=== PATIENT | female | born 1985 | race African-American/Black ===

== ENCOUNTER 2022-08-14 22:49 | Emergency (ER) | payer OTHER, SELFPAY ==
[2022-08-14 22:50] VITALS: BP 145/84; PULSE 81; RESP 16; TEMP 36.8; O2SAT 100; BMI 42.3
[2022-08-14 23:29] VITALS: BP 132/77; PULSE 63; RESP 16; TEMP 37.1; O2SAT 99
--- NOTE | 2022-08-14 23:34 | EDS_ITS ---
HPI History of Present Illness Chief Complaint: Wound Check Informant: patient Narrative Narrative: 12-day postop bilateral breast reduction [facility] Dr. lForentino (first name). Her follow-up is in 3 days. Normal wound care, tonight she touched her left lower wound area and noted concern for blood. Has been drainage increased. She came in for evaluation. She has no fevers no chills. She is cleared for dressing removal the following day. She has been using dressings for padding. She has been healing normally. She is not on any blood thinners. Prior similar symptoms: No PFSH PFSH Home Medications prenat.vits,robel,[id number] ( Vitamin tablet) 1 ea PO DAILY 02/03/17 [History Last Taken Unknown] Allergy/AdvReac Type Severity Reaction Status Date / Time latex Allergy Rash Verified 02/03/17 19:12 oxycodone Allergy Rash Verified 08/14/22 22:53 Social History Smoking Status: Never smoker ROS ROS ED Constitutional Constitutional ED: Denies chills, fever(s) or sweats Eyes Eyes: Denies change in vision ENT ENT ED: Denies dysphagia or sore throat Cardiovascular Cardiovascular: Denies chest pain, leg edema, palpitations or racing heartbeat Respiratory/Chest Respiratory/Chest: Denies cough, dyspnea or dyspnea on exertion Gastrointestinal Gastrointestinal: Denies abdominal pain, diarrhea, nausea or vomiting Genitourinary Genitourinary ED: Denies dysuria, hematuria or urinary frequency Musculoskeletal Musculoskeletal: Denies back pain, extremity pain or neck pain Integumentary Reports wounds; Denies rash Neurologic Neurologic: Denies headache(s), paresthesias or weakness EXAM Physical Exam Const Vital Signs: 08/14/22 22:50 08/14/22 23:29 Temperature 98.3 F 98.8 F Temperature Source Temporal Pulse Rate 81 63 Respiratory Rate 16 16 Blood Pressure 145/84 H 132/77 H Blood Pressure Mean 104 Pulse Ox 100 99 Oxygen Delivery Method Room Air Positive well nourished and well developed General Appearance ED: well developed and NAD HEENT Reports moist mucous membranes normocephalic and atraumatic Eyes PERRL, EOMs intact bilaterally and conjunctivae normal General Eye ED: Yes normal appearance of both eyes Neck no lymphadenopathy and supple General: Negative for tenderness Chest Wall Chest Narrative: Nursing present for examination of wound under left breast, there is serosanguineous drainage lower lateral aspect. There is no erythema of the wound there is no exudates. There is no indurations. Chest: Negative for tenderness Resp normal respiratory effort and normal air movement Effort and Inspection: symmetric chest movement; Negative for respiratory distress Cardio regular rate, regular rhythm and no murmurs Peripheral Pulses: pulses 2+ throughout GI normal to inspection, nondistended, normoactive bowel sounds and non-tender Palpation: Negative for guarding or rebound tenderness present Back/Spine no CVA tenderness and no thoracic nor lumbar tenderness Extremity normal to inspection General Extremety ED: Negative for edema or tenderness General Extremity: Negative for edema Neuro oriented x3 and no sensory deficits noted Sensorium / Orientation: awake and alert Skin no rashes or lesions noted and no wounds MDM MDM MDM Narrative Medical decision making narrative: Interventions / MDM: Differential diagnosis: Postop wound check Diagnosis considered but do not suspect: Infection however no clinical findings of this. My EKG interpretation: N/A Imaging independently reviewed and interpreted by myself: N/A External documents reviewed: N/A Test considered but not ordered:N/A ED course: Patient vital signs stable nontoxic evaluation of serosanguineous fluid drainage. There is no exudates. Likely postsurgical healing with fluid. There is no signs of infection. She is reassured she is provided dressings to help with absorption. She will call her surgeon tomorrow for discussion if she needs to be seen sooner otherwise she will keep her appointment on Monday. Return precautions discussed. All questions answered. Re-evaluation: stable Disposition discussed with patient/family/significant other: Patient Case discussed with consulting clinician: N/A Discharge Plan Triage Chief Complaint: Wound Check ED Provider: Stevie Leon Dx/Rx/DC Orders Clinical Impression: Encounter for post surgical wound check, S/P bilateral breast reduction Instructions: ED Post Op Wound Check, General Prescriptions: No Action Vitamin 1 EACH tablet 1 ea PO DAILY Primary Care Provider: Fausto Dleeon Referrals: Fausto Deleon DO [Primary Care Provider] - Activity Restrictions/Additional Instructions: Serosanguineous drainage from left side incision. Normal healing process no signs of infection. Call your surgeon tomorrow for discussion and if needed early evaluation then Monday. If you develop fevers or chills return to the ED. Disposition Disposition: Home, Self Care
== END 2022-08-14 23:35 | disposition home or self-care (01) ==
PROVIDERS: Emergency Provider Emergency Medicine; PCP Preventive Medicine Occupational Medicine; Visit Provider Emergency Medicine
DX: Z51.89 Encounter for other specified aftercare (principal)
CPT/HCPCS: 99282

== ENCOUNTER 2024-09-20 06:39 | Day surgery (SDC) | payer OTHER, SELFPAY ==
--- NOTE | 2024-08-28 12:53 | HP.PCM_ITS ---
History and Physical Date of Admission: 09/20/24 HPI: The patient is a 39 year old female presenting for pre-operative visit. She is scheduled for TLH, bilateral salpingectomy and cystoscopy, for adenomyosis, menorrhagia, deep dyspareunia and intramural uterine fibroid on 09/20/24. Procedure discussed along with risks, benefits and complications. Other alternatives discussed for management. Consent form signed? Yes. ? ? PAST MEDICAL HISTORY PAST MEDICAL HISTORYDiagnosisDate?Chiari I malformation (HCC)??Postoperative cellulitis of surgical wound01/11/2018 ? ? PAST SURGICAL HISTORY PAST SURGICAL HISTORYProcedureLateralityDate?APPENDECTOMY???CERCLAGE CERVIX PREG; VAG?2017?EXTRACTION ERUPTED TOOTH/EXR?07/10/2023?LAPAROSCOPIC CYSTECTOMY???Dermoid?PAST SURGICAL HISTORY OF?2018?Chiari Malformation Surgery ?REDUCTION OF LARGE BREAST?08/02/2022 ? ? ? CURRENT MEDICATIONS Current Outpatient MedicationsMedicationSigDispenseRefill ?multivit,thx,calcium,iron,mins (MULTIVITAMIN AND MINERAL ORAL)Take by mouth.??? No current facility-administered medications for this visit. ? ? ALLERGIES: Latex and Oxycodone ? PERSONAL HISTORY: SOCIAL HISTORY Social History?Tobacco Use?Smoking status:Never?Smokeless tobacco:NeverVaping Use?Vaping status:Never UsedSubstance Use Topics?Alcohol use:Yes??Comment: rarely?Drug use:No ? FAMILY HISTORY: FAMILY HISTORY FAMILY HISTORY ProblemRelationAge of Onset?Ovarian cancerMother?? 50's ?DiabetesFather??other ( Defects)Father??other (Endometriosis)Father??other (Other)Son?? tonsils adnoids/hernia repair?other (Other)Child?? lump on back - us ? ? REVIEW OF SYMPTOMS: GENERAL: denies fevers or chills ENDOCRINOLOGY: has not been on steroids Cardiology : denies palpitations or chest pain Respiratory: denies SOB or cough Hematology: denies history of prolonged bleeding or easy bruising or VTE Allergy: Denies history of personal or family history of allergy to anesthesia ? PHYSICAL EXAMINATION: ? VITALS: Blood pressure 124/78, pulse 61, resp. rate 16, height 158.8 cm (5' 2.5), weight 107.5 kg (237 lb), last menstrual period 06/10/2024, SpO2 98%. ? GENERAL: The patient is well nourished, well hydrated in no acute distress. , The patient is oriented to time, place, and person. NECK: Supple. No lynphadenopathy, normal thyroid, no thyromegaly. LUNGS: Clear to auscultation bilaterally. no wheezes, rhonchi or rales HEART: Regular rate and rhythm, Normal heart sounds, and No murmurs or gallops ? Pelvic US on 06/20/24: Impression The uterus is anteverted and measures 92 mm x 43 mm x 54 mm. The myometrium is heterogeneous, asymmetrically thickened, echogenic and is suggestive of adenomyosis. The endometrial thickness is 6.7 mm. The endometrium is inhomogenous however no discrete polyp is identified. There is a right lateral anterior wall intramural fibroid that measures 6 mm x 5 mm x 7 mm. The right ovary measures 43 mm x 22 mm x 21 mm. The left ovary measures 26 mm x 15 mm x 16 mm. There is trace free fluid visualized. ? ? IMPRESSION: menorrhagia, deep dyspareunia, adenomyosis, intramural uterine fibroid ? PLAN: The risks/benefits/alternatives and personal involved for the planned TLH, bilateral salpingectomy and cystoscopy were reviewed with the patient. Her questions were answered to her satisfaction and she desires to proceed. Consent was signed. I reviewed with her postop instructions and expectations. ? ? I have reviewed and updated past medical and surgical history, medications and allergies Assessment & Plan Assessment/Plan (1) Menorrhagia with regular cycle: (2) Deep dyspareunia: (3) Intramural uterine fibroid: (4) Adenomyosis:
[2024-09-17 12:04] LABS: Hematocrit 42.8 % (37-47); Hemoglobin 13.6 g/dL (12.0-15.0); Mean Corp Hgb Conc 31.8 g/dL (32-36); Mean Corpuscular Hgb 28.1 pg (27.0-32.0); Mean Corpuscular Volume 88.4 fL (81-99); Mean Platelet Vol. 12.2 fl (6.2-12.0); Platelet Count 272 K/mm3 (150-450); RBC Distribution Width CV 13.3 % (11.6-14.6); RBC Distribution Width SD 43.2 fl (35.1-43.9); Red Blood Count 4.84 M/mm3 (4.2-5.4); White Blood Count 8.7 K/mm3 (4.4-11.0)
[2024-09-17 12:51] LABS: Magnesium 1.8 mg/dL (1.5-2.2)
[2024-09-20] VITALS (15 sets, daily range): BP systolic 99–148; BP diastolic 69–94; PULSE 64–89; RESP 12–18; TEMP 2.2–36.8; O2SAT 92–100; BMI 43.9
--- OUTSIDE RECORDS SUMMARY | 2024-09-20 06:42 | XMS RPT_ITS | CCD ---
Author Organization [facility] Informat ion Partnership [facility] Care Team Providers Care Brain Picker Name Role Phone BIATS, FRANCY Mills Unavailable Unavailable BIATS, FRANCY Mills Unavailable Unavailable BIATS, FRANCY Mills Unavailable Unavailable BIATS, FRANCY Mills Unavailable Unavailable PASHA MENDIOLA (PA-C) Unavailable Unavaila ble BIATS, FRANCY Mills Unavailable Unavailable BIATS, FRANCY Mills Unavailable Unavailable BIATS, FRANCY Mills Unavailable Unavailable BIATS, FRANCY Mills Unavailable Unavailable DEBJAYLON Aviles F Unavailable Unavailable PASHA MENDIOLA Unavailable Unavailable DEBJAYLON Aviles F Unavailable Unavailable BIATS, FRANCY Mills Unavailable Unavailable DEBJAYOLN Aviles F Unavailable Unavailable BIATS, FRANCY Mills Unavailable Unavailable JAKUBEPASHA Mayo Unavailable Unavailable DEBJAYLON Aviles F Unavailable Unavailable BIATS, FRANCY Mills Unavailable Unavailable BIATS, FRANCY Mills Unavailable Unavailable DEBJAYLON Aviles Unavailable Unavailable BIATS, FRANCY Mills Unavailable Unavailable IMCA Unavailable Unavailable DEB, JAYLON F Unavailable Unavailable VORSTLEENA HERRERA Unavailable Unavaila ble JAYLON BOYD F Unavailable Unavailable FRANCY EDGE Unavailable Unavailable LEENA ZHAO Unavailable Unavaila ble LEENA ZHAO Unavailable Unavaila ble FIONASTLEENA HERRERA Unavailable Unavaila ble PASHA MENDIOLA (PA-C) Unavailable Unavaila ble FIONASTLEENA HERRERA Unavailable Unavaila LEENA Brown Unavailable Unavaila ble LEENA ZHAO Unavailable Unavaila ble VORSTLEENA HERRERA Unavailable Unavaila ble FIONASTLEENA HERRERA Unavailable Unavaila ble VORSTLEENA HERRERA Unavailable Unavaila ble Jaylon Boyd F Primary Care Provider Sandy Pedro Unavailable Jaylon Boyd DO Primary Care Provider Sandy Pedro Unavailable Jaylon Boyd DO Primary Care Provider JAYLON BOYD DO Attending Unavailable JAYLON BOYD DO Primary Care Unavailable WILLIE GUEVARA Attending Unavailable JAYLON BOYD Primary Care Unavailable JAYLON BOYD Primary Care Unavailable JAYLON BOYD Primary Care Unavailable WILLIE GUEVARA Attending Unavailable JAYLON BOYD Primary Care Unavailable JEANNETTE QUARLES Attending Unavailable JAYLON BOYD Primary Care Unavailable JEANNETTE QUARLES Attending Unavailable JAYLON BOYD Primary Care Unavailable WILLIE GUEVARA Attending Unavailable JAYLON BOYD Primary Care Unavailable WILLIE GUEVARA Referring Unavailable JAYLON BOYD Primary Care Unavailable Abad Parrish Attending Unavailable Jyalon Boyd Primary Care Unavailable Jeannette Quarles Attending Unavailable Jeannette Quarles Referring Unavailable Care Physician, No Primary Primary Care Unava ilable Allergies Allergy Classification Reported Allergen(s) Allergy Type Date of Onset Reaction(s) Facility (18 sources) Latex; Translations: [LATEX] Propensity to adverse reactions to drug (disorder) 6 Hives, Rash [facility] Repository (18 sources) oxyCODONE; Translations: [OXYCODONE] Drug Allergy 6 Mental Status Change [facility] Repository Medications Current Medications Medication Drug Class(es) Dates Sig (Normalized) Sig (Original) acetaminophen 500 mg oral tablet (1 source) Start: 08-28-2024 take 2 tablets by mouth every eight hours as needed acetaminophen (TYLENOL EXTRA STRENGTH) 500 mg tablet Take 2 tablets by mouth every 8 hours as needed for pain. take 2 tablets alone or one with a norco every 8 hours 90 tablet 1 08/28/2024 Active acetaminophen 325 mg / HYDROcodone bitartrate 5 mg oral tablet (1 source) Opioid Agonist Start: 08-28-2024 End: 09-04-2024 take 1 tablet by mouth every eight hours as needed for pain HYDROcodone-acetam inophen (NORCO) 5-325 mg per tablet Indications: Postoperative pain Take 1 tablet by mouth every 8 hours as needed for pain for up to 7 days. 10 tablet 08/28/2024 09/04/2024 Active docusate sodium 100 mg oral capsule (1 source) Start: 08-28-2024 take 1 capsule by mouth every twelve hours as needed docusate sodium (COLACE) 100 mg capsule Take 1 capsule by mouth two times a day as needed for constipation. 30 capsule 1 08/28/2024 Active ibuprofen 600 mg oral tablet (1 source) Nonsteroidal Anti-inflammatory Drug Start: 08-28-2024 take 1 tablet by mouth every six hours as needed ibuprofen (MOTRIN) 600 mg tablet Take 1 tablet by mouth every 6 hours as needed for pain. 60 tablet 1 08/28/2024 Active metroNIDAZOLE 500 mg oral tablet (1 source) Nitroimidazole Antimicrobial Start: 06-17-2024 End: 06-24-2024 take 1 tablet by mouth twice daily metroNIDAZOLE (FLAGYL) 500 mg tablet Take 1 tablet by mouth two times a day for 7 days. 14 tablet 06/17/2024 06/24/2024 Active multivit,thx,calciu m,iron,mins (MULTIVITAMIN AND MINERAL ORAL) (10 sources) multivit,thx,abby ci um,iron,mins (MULTIVITAMIN AND MINERAL ORAL) Take by mouth. Active multivit,thx,abby cium,iron,mins (MULTIVITAMIN AND MINERAL ORAL) Take by mouth. 0 Active Comment on above: Take by mouth. Problems Active Problems Problem Classification Problem Date Documented Date Episodic/Chronic Abdominal pain (4 sources) Pain in female pelvis; Translations: [Pelvic and perineal pain] Onset: 06-20-2024 06-14-2024 Episodic Benign neoplasm of uterus (9 sources) Intramural leiomyoma of uterus; Translations: [Intramural leiomyoma of uterus] Onset: 06-20-2024 06-20-2024 Episodic Endometriosis (4 sources) Uterine adenomyosis; Translations: [Adenomyosis of the uterus] 06-20-2024 Chronic Headache, including migraine (1 source) Headache; Translations: [Headache] Onset: 01-10-2018 Episodic Headache; including migraine (2 sources) Migraine; Translations: [Migraine, unspecified, not intractable, without status migrainosus] Onset: 11-25-2014 07-19-2024 Chronic Menstrual disorders (4 sources) Menorrhagia; Translations: [Excessive and frequent menstruation with regular cycle] Onset: 08-28-2024 08-28-2024 Chronic Other eye disorders (10 sources) Posterior vitreous detachment of right eye; Translations: [Vitreous degeneration, right eye] Onset: 05-18-2017 05-18-2017 Chronic Other female genital disorders (2 sources) Other specified abnormal uterine and vaginal bleeding; Translations: [Other specified abnormal uterine and vaginal bleeding] Onset: 05-23-2017 Chronic Other female genital disorders (1 source) Pain in female genitalia on intercourse; Translations: [Unspecified dyspareunia] 06-26-2024 Chronic Other female genital disorders (2 sources) Deep dyspareunia; Translations: [Deep dyspareunia] Onset: 07-19-2024 Chronic Other female genital disorders (2 sources) Vaginal discharge; Translations: [Other specified noninflammatory disorders of vagina] 06-14-2024 Episodic Other female genital disorders (1 source) Other specified noninflammatory disorders of vagina; Translations: [Vaginal discharge] Onset: 08-28-2024 Episodic Other nervous system disorders (4 sources) Compression of brain; Translations: [Compression of brain] Onset: 11-20-2017 Chronic Other nervous system disorders (10 sources) Chiari malformation type I; Translations: [Compression of brain] Onset: 12-20-2017 12-20-2017 Chronic Other nervous system disorders (2 sources) Other acute postprocedural pain; Translations: [Other acute postprocedural pain] Onset: 01-05-2018 Episodic Other nervous system disorders (1 source) Postoperative pain ; Translations: [Other acute postprocedural pain] 08-28-2024 Episodic Other nutritional; endocrine; and metabolic disorders (2 sources) Morbid (severe) obesity due to excess calories; Translations: [Morbid (severe) obesity due to excess calories] Onset: 11-21-2017 Chronic Other nutritional; endocrine; and metabolic disorders (10 sources) Body mass index 40+ - severely obese; Translations: [Morbid (severe) obesity due to excess calories] Onset: 11-21-2017 11-21-2017 Chronic Otitis media and related conditions (1 source) Dysfunction of right eustachian tube; Translations: [Other specified disorders of Eustachian tube, right ear] Episodic Residual codes; unclassified (1 source) Family history of malignant neoplasm of ovary; Translations: [Family history of malignant neoplasm of ovary] 06-14-2024 Episodic Unclassified (4 sources) Encounter for screening for malignant neoplasm of cervix; Translations: [Patient encounter status] Onset: 11-21-2017 12-16-2022 Episodic Unclassified (2 sources) Unknown / UNK(Unknown) Onset: 11-21-2017 Unclassified (1 source) Infection following a procedure, other surgical site, initial encounter; Translations: [Infection following a procedure, other surgical site, initial encounter] Onset: 01-10-2018 Unclassified (2 sources) Adenomyosis of the uterus; Translations: [Adenomyosis of the uterus] Onset: 08-28-2024 Past or Other Problems Problem Classification Problem Date Documented Date Episodic/Chronic Blindness and vision defects (20 sources) Unspecified visual disturbance; Translations: [Visual disturbance] Onset: 05-18-2017 05-18-2017 Episodic Complications of surgical procedures or medical care (10 sources) Post-operative wound cellulitis; Translations: [Infection following a procedure, other surgical site, initial encounter] Onset: 01-11-2018 01-11-2018 Episodic Diabetes or abnormal glucose tolerance complicating ; childbirth; or the puerperium (8 sources) Abnormal glucose level; Translations: [Abnormal glucose complicating ] Onset: 05-25-2016 Resolved: 11-15-2016 11-15-2016 Episodic Genitourinary symptoms and ill-defined conditions (2 sources) Dysuria; Translations: [Dysuria] Onset: 11-21-2017 Episodic Immunizations and screening for infectious disease (7 sources) Patient encounter status; Translations: [Encounter for screening for human papillomavirus (HPV)] Onset: 05-17-2024 12-16-2022 Episodic Other complications of (8 sources) Maternal obesity complicating , childbirth and the puerperium, antepartum; Translations: [Obesity complicating , first trimester] Onset: 02-08-2016 Resolved: 11-15-2016 11-15-2016 Chronic Other complications of (8 sources) Hyperemesis gravidarum; Translations: [Mild hyperemesis gravidarum] Onset: 02-08-2016 Resolved: 02-22-2016 02-22-2016 Episodic Other complications of (8 sources) High risk ; Translations: [Supervision of other high risk pregnancies, first trimester] Onset: 02-08-2016 Resolved: 11-15-2016 11-15-2016 Episodic Other complications of (8 sources) Vomiting of , unspecified; Translations: [Unspecified vomiting of , antepartum condition or complication] Onset: 02-08-2016 Resolved: 11-15-2016 11-15-2016 Episodic Other complications of (8 sources) Cervical cerclage suture present; Translations: [Maternal care for cervical incompetence, second trimester] Onset: 04-26-2016 Resolved: 11-15-2016 11-15-2016 Episodic Residual codes; unclassified (8 sources) Gestation period, 11 weeks; Translations: [11 weeks gestation of ] Onset: 02-08-2016 Resolved: 02-22-2016 02-22-2016 Episodic Unclassified (2 sources) Morbid (severe) obesity due to excess calories Onset: 11-21-2017 Results Test Name Value Interpretation Reference Range Facility CBC-Complete Blood Cnt No Di ffon 09-17-2024 Erythrocyte distribution width (RBC) [Ratio] 13.3 % Normal 11.6-14.6 [facility] Comment on above: Performed By: #### L 100.0500, L501.5200, BTSPAT, L400.7600 #### [facility] [address] [place], [address] Hematocrit (Bld) [Volume fraction] 42.8 % Normal 37-47 [facility] Comment on above: Performed By: #### L 100.0500, L501.5200, BTSPAT, L400.7600 #### [facility] [address] [place], [address] Hemoglobin (Bld) [Mass/Vol] 13.6 g/dL Normal 12.0-15.0 [facility] Comment on above: Performed By: #### L 100.0500, L501.5200, BTSPAT, L400.7600 #### [facility] [address] [place], [address] MCH (RBC) [Entitic mass] 28.1 pg Normal 27.0-32.0 [facility] Comment on above: Performed By: #### L 100.0500, L501.5200, BTSPAT, L400.7600 #### [facility] [address] [place], [address] MCHC (RBC) [Mass/Vol] 31.8 g/dL Low 32-36 [facility] Comment on above: Performed By: #### L 100.0500, L501.5200, BTSPAT, L400.7600 #### [facility] [address] [place], [address] MCV (RBC) [Entitic vol] 88.4 fL Normal 81-99 [facility] Comment on above: Performed By: #### L 100.0500, L501.5200, BTSPAT, L400.7600 #### [facility] [address] [place], [address] Platelet mean volume (Bld) [Entitic vol] 12.2 fL High 6.2-12.0 [facility] Comment on above: Performed By: #### L 100.0500, L501.5200, BTSPAT, L400.7600 #### [facility] [address] [place], [address] Platelets (Bld) [#/Vol] 272 10*3/uL Normal 150-450 [facility] Comment on above: Performed By: #### L 100.0500, L501.5200, BTSPAT, L400.7600 #### [facility] [address] [place], [address] RBC (Bld) [#/Vol] 4.84 10*6/uL Normal 4.2-5.4 [facility] Comment on above: Performed By: #### L 100.0500, L501.5200, BTSPAT, L400.7600 #### [facility] [address] [place], [address] RDW SD 43.2 fl Normal 35.1-43.9 [facility] Comment on above: Performed By: #### L 100.0500, L501.5200, BTSPAT, L400.7600 #### [facility] [address] [place], [address] WBC (Bld) [#/Vol] 8.7 10*3/uL Normal 4.4-11.0 [facility] Comment on above: Performed By: #### L 100.0500, L501.5200, BTSPAT, L400.7600 #### [facility] [address] [place], [address] Magnesiumon 09-17-2024 Magnesium [Mass/Vol] 1.8 mg/dL Normal 1.5-2.2 [facility] Comment on above: Performed By: #### L 100.0500, L501.5200, BTSPAT, L400.7600 #### [facility] [address] [place], [address] ,Urineon 09-17-2024 Beta HCG ( test) Ql (U) [facility] Comment on above: Result Comment: NOT LISSETH UNTIL [id number] Performed By: #### L 100.0500, L501.5200, BTSPAT, L400.7600 #### [facility] [address] [place], [address] INTERNAL QC OK? Normal [facility] Comment on above: Result Comment: NOT LISSETH UNTIL [id number] Performed By: #### L 100.0500, L501.5200, BTSPAT, L400.7600 #### [facility] [address] [place], [address] RECORD KIT LOT# Normal [facility] Comment on above: Result Comment: NOT LISSETH UNTIL [id number] Performed By: #### L 100.0500, L501.5200, BTSPAT, L400.7600 #### [facility] [address] [place], [address] Type AND Screen - PAT ONLYon 09-17-2024 Ab SCREEN GEL Negative Normal [facility] Comment on above: Order Comment: Surge ry Date: 09/20/24 Reason for Laboratory Test PRE-OP [id number] No N N S (B) TOTAL LAPAROSCOPIC HYSTERECTOMY, BILATERAL SALPING, Performed By: #### L 100.0500, L501.5200, BTSPAT, L400.7600 #### [facility] [address] [place], [address] BACTERIAL VAGINOSIS NAATon 0 08-28-2024 Lactobacillus crispatus+gasseri +jensenii + Gardnerella vaginalis + Atopobium vaginae rRNA SHREYAS+probe Ql (Vag fld) Not detected Normal Not detected [facility] Comment on above: Order Comment: Speci men Type: SWABOrdering Facility: [facility] Address: [address] [place] [address] Performed By: #### C VTV, BVAMP ####[facility] [id number] [place] [address] [place] ARIAN/TRICHOMONAS NAATon 0 08-28-2024 C. glabrata RNA SHREYAS+probe Ql (Vag fld) Not detected Normal Not detected [facility] Comment on above: Order Comment: Speci men Type: SWABOrdering Facility: [facility] Address: [address] [place] [address] Performed By: #### C VTV, BVAMP ####[facility] [id number] [address] [place] Arian sp DNA SHREYAS+probe Ql (Vag fld) Not detected Normal Not detected [facility] Comment on above: Order Comment: Speci men Type: SWABOrdering Facility: [facility] Address: [address] [place] [address] Result Comment: The Arian species group target includes C. albicans, C. tropicalis, C. parapsilosis, and C. dubliniensis. Performed By: #### C VTV, BVAMP ####[facility] [id number] [address] [facility] T. vaginalis DNA SHREYAS+probe Ql (Unsp spec) Not detected Normal Not detected [facility] Comment on above: Order Comment: Speci men Type: SWABOrdering Facility: [facility] Address: [address] [place] [address] Performed By: #### C VTV, BVAMP ####[facility] [id number] [address] [place] CNOVon 08-28-2024 CNOV Office Visit (OBGYWM ) NICOL HYMAN ([id number]) 1985 F Date Time Provider Department 08/28/24 11:40 AM JEANNETTE QUARLES OBGYWM During your visit today, we recorded the following information about you: Pulse Respiration Blood pressure Weight 61/minute 16/minute 124/78 107.5 kg Height 1.588 m Jeannette Quarles MD 08/28/2024 12:52 PM Signed Nicol Hyman is a 39 year old female who presents for problem visit for f/u menses and pain. HPI: 39 YOF who has completed child bearing presents for f/u for pain/fibroids and heavy menses. No new c/o today. Not bleeding today. Some vaginal discharge and h/o BV 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 LMP: 06/10/2024 (Exact Date), Having periods Age at Menarche: Age at First : Age at Menopause: [employer] History Comments: Sexual Activity: Yes; Male Contraception: Vasectomy PAST MEDICAL HISTORY Diagnosis Date Chiari I malformation (HCC) Postoperative cellulitis of surgical wound 01/11/2018 PAST SURGICAL HISTORY Procedure Laterality Date APPENDECTOMY CERCLAGE CERVIX PREG; VAG 2017 EXTRACTION ERUPTED TOOTH/EXR 07/10/2023 LAPAROSCOPIC CYSTECTOMY Dermoid PAST SURGICAL HISTORY OF 2018 Chiari Malformation Surgery REDUCTION OF LARGE BREAST 08/02/2022 FAMILY HISTORY Problem Relation Age of Onset Ovarian cancer Mother 50's Diabetes Father other ( Defects) Father other (Endometriosis) Father other (Other) Son tonsils adnoids/hernia repair other (Other) Child lump on back - Social History Tobacco Use Smoking status: Never Smokeless tobacco: Never Vaping Use Vaping status: Never Used Substance Use Topics Alcohol use: Yes Comment: rarely Drug use: No Current Outpatient Medications Medication Sig HYDROcodone-acetaminophen (NORCO) 5-325 mg per tablet Take 1 tablet by mouth every 8 hours as needed for pain for up to 7 days. ibuprofen (MOTRIN) 600 mg tablet Take 1 tablet by mouth every 6 hours as needed for pain. acetaminophen (TYLENOL EXTRA STRENGTH) 500 mg tablet Take 2 tablets by mouth every 8 hours as needed for pain. take 2 tablets alone or one with a norco every 8 hours docusate sodium (COLACE) 100 mg capsule Take 1 capsule by mouth two times a day as needed for constipation. multivit,thx,calcium,iron,mins (MULTIVITAMIN AND MINERAL ORAL) Take by mouth. No current facility-administered medications for this visit. Allergies As of Date: 08/28/2024 Allergen Noted Reaction LATEX 11/03/2015 Hives and Rash OXYCODONE 11/09/2015 Mental Status Change Fully Assessed 07/19/2024 RAllergies and current medication updated:Yes SENSITIVE EXAM: The sensitive examination was discussed with the Patient or Patient's Authorized Tying In Machine Operator. As applicable, any other physician, advance practice provider, medical student, or other health professional student that will be observing or involved in the sensitive examination for educational or training purposes was discussed with the Patient or Authorized Tying In Machine Operator. The Patient or Authorized Tying In Machine Operator has agreed to proceed with the sensitive examination. (Sensitive examination includes inspection and/or palpation of the breasts, pelvis, prostate and anorectal regions). EXAM: BP 124/78 Pulse 61 Resp 16 Ht 5' 2.5 (1.59m) Wt 237 lb (107.5kg) SpO2 98% LMP 06/10/2024 BMI 42.63 kg/(m2). GENERAL: pleasant, female in no apparent distress ABDOMEN: soft, non-tender, no hernia, and no masses PELVIC: external genitalia normal, normal Bartholin's glands, urethra, Eastland's glands, no vulvar lesions, no cervical lesions, good vaginal support, physiologic discharge present, normal appearing perineal body and perianal region BIMANUAL: uterus normal size, shape and consistency, no adnexal masses, and boggy, mobile, no descent ASSESSMENT AND PLAN: Assessment AND Plan Menorrhagia with regular cycle Orders: UA DIP,URINE HCG (POC) ENDOMETRIAL BIOPSY SURGICAL PATHOLOGY ARIAN/TRICHOMONAS NAAT BACTERIAL VAGINOSIS NAAT Intramural uterine fibroid Orders: UA DIP,URINE HCG (POC) ENDOMETRIAL BIOPSY SURGICAL PATHOLOGY Adenomyosis of the uterus Orders: UA DIP,URINE HCG (POC) ENDOMETRIAL BIOPSY SURGICAL PATHOLOGY Vaginal discharge screen today due to history and upcoming surgery Orders: ARIAN/TRICHOMONAS NAAT BACTERIAL VAGINOSIS NAAT Postoperative pain Orders: HYDROcodone-acetaminophen (NORCO) 5-325 mg per tablet; Take 1 tablet by mouth every 8 hours as needed for pain for up to 7 days. d/w her short and longterm risks w/ hyst. Desires to proceed. Declines or has failed other conservative optiobns. Understands she will be permanently unable to bear children in the future. D/w her postop restrictions. Change to TLH based on exam t (more content not included)... Normal [facility] HISTORY PHYSICALon HISTORY PHYSICAL HNO ID: [id number] Author: JEANNETTE QUARLES MD Service: ? Author Type: Physician Type: H&P Filed: 08/28/2024 12:52 Note Text: Pre-Op History and Physical HPI: The patient is a 39 year old female presenting for pre-operative visit. She is scheduled for TLH, bilateral salpingectomy and cystoscopy, for adenomyosis, menorrhagia, deep dyspareunia and intramural uterine fibroid on 09/20/24. Procedure discussed along with risks, benefits and complications. Other alternatives discussed for management. Consent form signed? Yes. PAST MEDICAL HISTORY Diagnosis Date Chiari I malformation (HCC) Postoperative cellulitis of surgical wound 01/11/2018 PAST SURGICAL HISTORY Procedure Laterality Date APPENDECTOMY CERCLAGE CERVIX PREG; VAG 2017 EXTRACTION ERUPTED TOOTH/EXR 07/10/2023 LAPAROSCOPIC CYSTECTOMY Dermoid PAST SURGICAL HISTORY OF 2018 Chiari Malformation Surgery REDUCTION OF LARGE BREAST 08/02/2022 Current Outpatient Medications Medication Sig Dispense Refill multivit,thx,calcium,iron,mins (MULTIVITAMIN AND MINERAL ORAL) Take by mouth. No current facility-administered medications for this visit. ALLERGIES: Latex and Oxycodone PERSONAL HISTORY: Social History Tobacco Use Smoking status: Never Smokeless tobacco: Never Vaping Use Vaping status: Never Used Substance Use Topics Alcohol use: Yes Comment: rarely Drug use: No FAMILY HISTORY: FAMILY HISTORY Problem Relation Age of Onset Ovarian cancer Mother 50's Diabetes Father other ( Defects) Father other (Endometriosis) Father other (Other) Son tonsils adnoids/hernia repair other (Other) Child lump on back - us REVIEW OF SYMPTOMS: GENERAL: denies fevers or chills ENDOCRINOLOGY: has not been on steroids Cardiology : denies palpitations or chest pain Respiratory: denies SOB or cough Hematology: denies history of prolonged bleeding or easy bruising or VTE Allergy: Denies history of personal or family history of allergy to anesthesia PHYSICAL EXAMINATION: VITALS: Blood pressure 124/78, pulse 61, resp. rate 16, height 158.8 cm (5' 2.5), weight 107.5 kg (237 lb), last menstrual period 06/10/2024, SpO2 98%. GENERAL: The patient is well nourished, well hydrated in no acute distress. , The patient is oriented to time, place, and person. NECK: Supple. No lynphadenopathy, normal thyroid, no thyromegaly. LUNGS: Clear to auscultation bilaterally. no wheezes, rhonchi or rales HEART: Regular rate and rhythm, Normal heart sounds, and No murmurs or gallops Pelvic US on 06/20/24: Impression The uterus is anteverted and measures 92 mm x 43 mm x 54 mm. The myometrium is heterogeneous, asymmetrically thickened, echogenic and is suggestive of adenomyosis. The endometrial thickness is 6.7 mm. The endometrium is inhomogenous however no discrete polyp is identified. There is a right lateral anterior wall intramural fibroid that measures 6 mm x 5 mm x 7 mm. The right ovary measures 43 mm x 22 mm x 21 mm. The left ovary measures 26 mm x 15 mm x 16 mm. There is trace free fluid visualized. IMPRESSION: menorrhagia, deep dyspareunia, adenomyosis, intramural uterine fibroid PLAN: The risks/benefits/alternatives and personal involved for the planned TLH, bilateral salpingectomy and cystoscopy were reviewed with the patient. Her questions were answered to her satisfaction and she desires to proceed. Consent was signed. I reviewed with her postop instructions and expectations. I have reviewed and updated past medical and surgical history, medications and allergies Jeannette Quarles M.D. Normal [facility] Pathology biopsy report Jose (Tiss)on 08-28-2024 AP DISCLAIMER Normal [facility] Comment on above: Order Comment: Speci men Type: TISSUE SPECIMENOrdering Facility: [facility] Address: [address] [place] [address] Result Comment: Eusebia hawk Developed Test (LDT) Disclaimer: Performance characteristics of immunohistochemical, immunofluorescent, and chromogenic in-situ hybridization tests have been determined by the performing laboratory within [facility]'s [facility] Pathology and Laboratory Medicine Department ([facility], [facility], [facility], [facility], [facility], [facility], or [facility]) in a manner consistent with CLIA requirements. One or more of these tests may not have been cleared or approved by the FDA. [facility] is regulated under CLIA as qualified to perform high-complexity testing. These tests are used for clinical purposes. These should not be regarded as investigational or for research. Positive and negative controls stain appropriately. Performed By: #### 6 6121-5 ####[facility] LABCLIA [id number] [place] [address] [place] CASE REPORT Normal [facility] Comment on above: Order Comment: Speci men Type: TISSUE SPECIMENOrdering Facility: [facility] Address: [address] [place] [address] Result Comment: Surg ica Pathology Report Case: [id number] Authorizing Provider: Jeannette Quarles MD Collected: 08/28/2024 12:17 PM Ordering Location: OB/Gynecology Received: 08/29/2024 07:16 AM Pathologist: Sandy Collier MD Specimen: Endometrium, Biopsy Performed By: #### 6 6121-5 ####[facility] LABCLIA [id number] [address] [place] [address] [place] CLINICAL HISTORY menorrhagia with regular cycle Normal [facility] Comment on above: Order Comment: Speci men Type: TISSUE SPECIMENOrdering Facility: [facility] Address: [address] [place] [address] Performed By: #### 6 6121-5 ####[facility] LABCLIA [id number] [address] [address] [place] FINAL DIAGNOSIS Normal [facility] Comment on above: Order Comment: Speci men Type: TISSUE SPECIMENOrdering Facility: [facility] Address: [address] [place] [address] Result Comment: Endo metrium, biopsy: - Early secretory pattern endometrium. at 1454 EDT Performed By: #### 6 6121-5 ####[facility] LABCLIA [id number] [address] [place] [address] [place] FINAL PERFORMING LAB Normal [facility] Comment on above: Order Comment: Speci men Type: TISSUE SPECIMENOrdering Facility: [facility] Address: [address] [place] [address] Result Comment: Diag nostic interpretation performed at: [facility], [address] [place] [address] [place] [address] CLIA# [id number] Blasting Helper: Justen Cueva MD Performed By: #### 6 6121-5 ####[facility] LABCLIA [id number] [address] [place] [address] [place] GROSS DESCRIPTION Normal [facility] Comment on above: Order Comment: Speci men Type: TISSUE SPECIMENOrdering Facility: [facility] Address: [address] [place] [address] Result Comment: A. E ndometrium, Biopsy Received in formalin are multiple bourgeois-brown, soft and feathery segments of tissue aggregating to 2.6 x 1.9 x 0.1 cm. Totally submitted in one cassette. Gross examination performed at [facility], [address] [place] [address] August 29, 2024 8:04 PM Performed By: #### 6 6121-5 ####[facility] LABCLIA [id number] [place] [address] [place] UA DIP,URINE HCG (POC)on Beta HCG ( test) Ql (U) Negative Negative [facility] Comment on above: Location:[facility], [address], [place], [address] Body Trimmer (POCT) Internal QC [place] [facility] Location:[facility], [facility] [address], [place], [address] [facility] POINT OF CARE [facility] CNOVon 06-26-2024 CNOV Office Visit (OBGYWM ) NICOL HYMAN ([id number]) 1985 F Date Time Provider Department 06/26/24 10:30 AM WILLIE GUEVARA OBGYWM During your visit today, we recorded the following information about you: Blood pressure Weight 118/80 106.7 kg Willie Guevara MD 06/26/2024 12:07 PM Signed Nicol Hyman is a 38 year old female who presents for problem visit for . HPI: She presents to discuss her US results and pelvic pain. Patient reports so much pain with intercourse that she is unable to be sexually active. This is very bothersome to her. 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 LMP: 06/10/2024 (Exact Date), Having periods Age at Menarche: Age at First : Age at Menopause: [employer] History Comments: Sexual Activity: Yes; Male Contraception: Vasectomy PAST MEDICAL HISTORY Diagnosis Date Chiari I malformation (HCC) Postoperative cellulitis of surgical wound 01/11/2018 PAST SURGICAL HISTORY Procedure Laterality Date APPENDECTOMY CERCLAGE CERVIX PREG; VAG 2017 EXTRACTION ERUPTED TOOTH/EXR 07/10/2023 LAPAROSCOPIC CYSTECTOMY Dermoid PAST SURGICAL HISTORY OF 2018 Chiari Malformation Surgery REDUCTION OF LARGE BREAST 08/02/2022 FAMILY HISTORY Problem Relation Age of Onset Ovarian cancer Mother 50's Diabetes Father other ( Defects) Father other (Endometriosis) Father other (Other) Son tonsils adnoids/hernia repair other (Other) Child lump on back - Social History Tobacco Use Smoking status: Never Smokeless tobacco: Never Vaping Use Vaping status: Never Used Substance Use Topics Alcohol use: Yes Comment: rarely Drug use: No Current Outpatient Medications Medication Sig multivit,thx,calcium,iron,mins (MULTIVITAMIN AND MINERAL ORAL) Take by mouth. No current facility-administered medications for this visit. Allergies As of Date: 06/26/2024 Allergen Noted Reaction LATEX 11/03/2015 Hives OXYCODONE 11/09/2015 Mental Status Change Fully Assessed 06/26/2024 Allergies and current medication updated:Yes SENSITIVE EXAM: Sensitive exam not performed. EXAM: BP 118/80 Wt 235 lb 3.2 oz (106.7kg) LMP 06/10/2024 GENERAL: pleasant, female in no apparent distress ASSESSMENT AND PLAN: Assessment AND Plan Adenomyosis of the uterus Dyspareunia, female Discussed R/B/A of treatment options. She declines a Mirena IUD and wishes to proceed with hysterectomy. Patient to schedule hysterectomy consult. Medical Decision Making: Problems: Moderate: New problem with uncertain prognosis Risk: Moderate: Moderate risk from testing/treatment Medical Decision Making Level: 4 - Moderate Willie Guevara MD Allergies As of Date: 06/26/2024 Noted Allergy Reaction LATEX 11/03/2015 4 - Hives OXYCODONE 11/09/2015 1 - Mental Status Change Date Reviewed: 06/26/2024 Reviewed by: Willie Guevara MD - Fully Assessed Reason for Visit: Follow Up [171] Cmt: From ultrasound Primary Visit Diagnosis:Adenomyosis of the uterus [N80.03] Other Visit Diagnosis:Dyspareunia, female [N94.10] Prescriptions as of 06/26/2024 - multivit,thx,calcium,iron,mins (MULTIVITAMIN AND MINERAL ORAL) Take by mouth. Problem List As Of Date 06/26/2024 Noted Resolved Hyperemesis complicating , antepartum *02/08/2016 02/22/2016 Obesity affecting in first trimester *02/08/2016 11/15/2016 History of delivery, currently *02/08/2016 11/15/2016 11 weeks gestation of [Z3A.11] 02/08/2016 02/22/2016 Nausea and vomiting of , antepartum [O*02/08/2016 11/15/2016 Cervical cerclage suture present in second trim*04/26/2016 11/15/2016 Abnormal glucose complicating [O99.81*05/25/2016 11/15/2016 Episode of visual disturbance [H53.9] 05/18/2017 Posterior vitreous detachment of right eye [H43*05/18/2017 Other visual disturbances [H53.8] 05/22/2017 Obesity, Class III, BMI >= 40 [E66.01] 11/21/2017 Chiari malformation type I (HCC) [G93.5] 12/20/2017 Postoperative cellulitis of surgical wound [T81*01/11/2018 Intramural uterine fibroid [D25.1] 06/20/2024 Encounter Status:Closed by WILLIE GUEVARA on 06/26/24 Normal [facility] US Pelvison 06-20-2024 Indication pelvic pain, right lower quadrant. Dyspareunia Impression The uterus is anteverted and measures 92 mm x 43 mm x 54 mm. The myometrium is heterogeneous, asymmetrically thickened, echogenic and is suggestive of adenomyosis. The endometrial thickness is 6.7 mm. The endometrium is inhomogenous however no discrete polyp is identified. There is a right lateral anterior wall intramural fibroid that measures 6 mm x 5 mm x 7 mm. The right ovary measures 43 mm x 22 mm x 21 mm. The left ovary measures 26 mm x 15 mm x 16 mm. There is trace free fluid visualized. Recommendations Fibroid uterus. Clinical correlation is recommended. Ultrasound findings suggestive for adenomyosis. Clinical correlation is recommended. Consider SIS for further evaluation of endometrial cavity if clinically indicated. History Medical History Surgery: ovarian cyst removal Details: dermoid cyst removed, unsure which side Menstrual History LMP on 06/10/2024 Method Transabdominal, transvaginal, 3D ultrasound examination, Color Doppler examination. View: Adequate visualization Uterus Uterus: Visualized Uterus position: anteverted Description of uterine malformations: none Myometrium: heterogeneous, asymmetrically thickened, echogenic Endometrium: inhomogeneous Cervix details: cystic lesions identified suggesting superficial Nabothian cysts Uterus length 92 mm Uterus width 54 mm Uterus height 43 mm Uterus Vol 110.8 cm Endometrial thickness, total 6.7 mm Fibroids: Fibroids identified Uterine fibroid D1 6 mm Uterine fibroid D2 5 mm Uterine fibroid D3 7 mm Uterine fibroid mean 6.1 mm Uterine fibroid vol 0.115 cm Uterine fibroids findings: Right lateral anterior wall. intramural Polyps: No polyps identified Right Ovary Rt ovary: Visualized Rt ovary morphology: premenopausal normal follicular Rt ovary D1 43 mm Rt ovary D2 22 mm Rt ovary D3 21 mm Rt ovary Vol 10.6 cm Rt ovarian cyst(s): No cysts identified Left Ovary Lt ovary: Visualized Lt ovary morphology: premenopausal normal follicular Lt ovary D1 26 mm Lt ovary D2 15 mm Lt ovary D3 16 mm Lt ovary Vol 3.3 cm Lt ovarian cyst(s): No cysts identified Cul de Sac Visualized. free fluid visualized: trace Performed By: Lo Aleman RDMS Read By: Lyudmila Barba M.D. MATERNAL MEDICINE [facility] Radiology Study observation (narrative) [facility] BACTERIAL VAGINOSIS NAATon 0 06-14-2024 Lactobacillus crispatus+gasseri +jensenii + Gardnerella vaginalis + Atopobium vaginae rRNA SHREYAS+probe Ql (Vag fld) Detected Abnormal Not detected [facility] Comment on above: Order Comment: Speci men Type: SWABOrdering Facility: [facility] Address: [address] [place] [address] Performed By: #### 3 6902-5, BVAMP ####[facility] LABCLIA [id number] [address] [place] C. trachomatis+N. gonorrhoea e DNA SHREAYS+probe Ql (Unsp spec)on 06-14-2024 C. trachomatis rRNA SHREYAS+probe Ql (Unsp spec) Not detected Normal Not detected [facility] Comment on above: Order Comment: Speci men Type: SWABOrdering Facility: [facility] Address: [address] [place] [address] Performed By: #### 3 6902-5, BVAMP ####[facility] LABCLIA [id number] [address] [place] N. gonorrhoeae rRNA SHREYAS+probe Ql (Unsp spec) Not detected Normal Not detected [facility] Comment on above: Order Comment: Speci men Type: SWABOrdering Facility: [facility] Address: [address] [place] [address] Performed By: #### 3 6902-5, BVAMP ####[facility] LABIA [id number] [address] [place] ARIAN/TRICHOMONAS NAATon 0 06-14-2024 C. glabrata RNA SHREYAS+probe Ql (Vag fld) Not detected Normal Not detected [facility] Comment on above: Order Comment: Speci men Type: SWABOrdering Facility: [facility] Address: [address] [place] [address] Performed By: #### C VTV ####[facility] LABIA [id number] [address] [place] Arian sp DNA SHREYAS+probe Ql (Vag fld) Not detected Normal Not detected [facility] Comment on above: Order Comment: Speci men Type: SWABOrdering Facility: [facility] Address: [address] [place] [address] Result Comment: The Arian species group target includes C. albicans, C. tropicalis, C. parapsilosis, and C. dubliniensis. Performed By: #### C VTV ####[facility] LABCLIA [id number] [address] [place] T. vaginalis DNA SHREYAS+probe Ql (Unsp spec) Not detected Normal Not detected [facility] Comment on above: Order Comment: Speci men Type: SWABOrdering Facility: [facility] Address: [address] [place] [address] Performed By: #### C VTV ####[facility] LABCLIA [id number] [address] [place] CNOVon 06-14-2024 CNOV Office Visit (OBGYWM ) NICOL HYMAN ([id number]) 1985 F Date Time Provider Department 06/14/24 11:20 AM WILLIE GUEVARA OBROSITA During your visit today, we recorded the following information about you: Blood pressure Weight Last Period 126/84 105.2 kg 06/10/24 Willie Guevara MD 06/14/2024 11:53 AM Signed Nicol Hyman is a 38 year old female who presents for problem visit. HPI: Patient reports menses with clots 2 months ago. The past 2 weeks she reports pain with intercourse. Also she reports yellow-green discharge. Patient reports regular menses this month but had 2 days of spotting prior to menses (6 days of total bleeding) . 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 LMP: 12/26/2023 (Exact Date), Having periods Age at Menarche: Age at First : Age at Menopause: [employer] History Comments: Sexual Activity: Yes; Male Contraception: Vasectomy PAST MEDICAL HISTORY Diagnosis Date Chiari I malformation (HCC) Postoperative cellulitis of surgical wound 01/11/2018 PAST SURGICAL HISTORY Procedure Laterality Date APPENDECTOMY CERCLAGE CERVIX PREG; VAG 2017 EXTRACTION ERUPTED TOOTH/EXR 07/10/2023 LAPAROSCOPIC CYSTECTOMY Dermoid PAST SURGICAL HISTORY OF 2018 Chiari Malformation Surgery REDUCTION OF LARGE BREAST 08/02/2022 FAMILY HISTORY Problem Relation Age of Onset Ovarian cancer Mother Diabetes Father other ( Defects) Father other (Endometriosis) Father other (Other) Son tonsils adnoids/hernia repair other (Other) Child lump on back - us Social History Tobacco Use Smoking status: Never Smokeless tobacco: Never Vaping Use Vaping status: Never Used Substance Use Topics Alcohol use: Yes Comment: rarely Drug use: No Current Outpatient Medications Medication Sig multivit,thx,calcium,iron,mins (MULTIVITAMIN AND MINERAL ORAL) Take by mouth. No current facility-administered medications for this visit. Allergies As of Date: 06/14/2024 Allergen Noted Reaction LATEX 11/03/2015 Hives OXYCODONE 11/09/2015 Mental Status Change Fully Assessed 01/15/2024 Allergies and current medication updated:Yes SENSITIVE EXAM: The sensitive examination was discussed with the Patient or Patient's Authorized Tying In Machine Operator. As applicable, any other physician, advance practice provider, medical student, or other health professional student that will be observing or involved in the sensitive examination for educational or training purposes was discussed with the Patient or Authorized Tying In Machine Operator. The Patient or Authorized Tying In Machine Operator has agreed to proceed with the sensitive examination. (Sensitive examination includes inspection and/or palpation of the breasts, pelvis, prostate and anorectal regions). EXAM: LMP 12/26/2023 GENERAL: pleasant, female in no apparent distress PELVIC: external genitalia normal, normal Bartholin's glands, urethra, Eastland's glands, no vulvar lesions, no cervical lesions, good vaginal support, physiologic discharge present, normal appearing perineal body and perianal region ASSESSMENT AND PLAN: Assessment AND Plan Vaginal discharge Orders: ARIAN/TRICHOMONAS NAAT BACTERIAL VAGINOSIS NAAT GONORRHEA/CHLAMYDIA NAAT Pelvic pain in female Orders: PELVIC US WHI; Future GONORRHEA/CHLAMYDIA NAAT UA DIP, URINE (POC) Family history of ovarian cancer Screen for STD (sexually transmitted disease) Medical Decision Making: Problems: Moderate: New problem with uncertain prognosis Risk: Moderate: Drug management Medical Decision Making Level: 4 - Moderate MD Jessica Brooks [place], MA 06/14/2024 11:58 AM Signed Addended by: OLIVIA TODD on: 06/14/2024 11:58 AM Modules accepted: Orders Allergies As of Date: 06/14/2024 Noted Allergy Reaction LATEX 11/03/2015 4 - Hives OXYCODONE 11/09/2015 1 - Mental Status Change Date Reviewed: 06/14/2024 Reviewed by: Willie Guevara MD - Fully Assessed Reason for Visit: Vaginal Problem [117] Primary Visit Diagnosis:Vaginal discharge [N89.8] Other Visit Diagnoses:Pelvic pain in female [R10.2] Family history of ovarian cancer [Z80.41] Screen for STD (sexually transmitted disease) [Z11.3] Order(s):ARIAN/TRICHOMONAS NAAT [SQCVTV] Order #: [id number]. #:[id number] BACTERIAL VAGINOSIS NAAT [SQBVAMP] Order #: [id number]. #:[id number] PELVIC US WHI [[id number]] Order #: [id number]: 1 FUTURE GONORRHEA/CHLAMYDIA NAAT [SQGCCT] Order #: [id number]. #:[id number] Prescriptions as of 06/14/2024 - multivit,thx,calcium,iron,mins (MULTIVITAMIN AND MINERAL ORAL) Take by mouth. Problem List As Of Date 06/14/2024 Noted Resolved Hyperemesis complicating , antepartum *02/08/2016 02/22/2016 Obesity affecting in first trimester *02/08/2016 11/15/2016 (more content not included)... Normal [facility] CNNURSEon 05-17-2024 CNNURSE Nurse Visit (OBGYWM) NICOL HYMAN ([id number]) 1985 F Date Time Provider Department 05/17/24 4:00 PM NURSE COMMUNICATIONS ADVISOR [facility] OBGYWM During your visit today, we recorded the following information about you: Blood pressure Weight 130/88 106.1 kg Akshat Rondon MA 05/17/2024 4:03 PM Signed Patient identified by name and date of . Nicol Hyman is here for her HPV Gardasil vaccination, injection # three of the series. Patient ?No Gardasil injection was given without incident. See immunizations for details of immunizations administered today. VIS sheet provided: Yes Patient advised to follow up in Series completed Provider Jayne Cardona APRN CNM was present in office at time of injection. Akshat RondonSTELLAAkshat jaramillo STELLA 05/17/2024 3:56 PM Signed Gardasil Gardasil is a vaccine to protect against Human Papillomavirus (HPV) types 6, 11, 16, 18, 31,33,45, 52, 58. These viruses cause cancer and precancerous lesions on the cervix (opening between vagina and uterus), in the vagina and on the vulva (skin around the outside of the vagina) as well as genital warts. The vaccine cannot cause these diseases and cannot treat them if already present. Gardasil works best if given before contact with HPV. Most people are exposed to HPV soon after starting sexual activity. The vaccine is recommended between the ages of 9 and 45. Gardasil does not protect against all strains of HPV. Women who receive the vaccine still need to have regular pelvic exams and cervical cancer screening with the pap smear. You should ask your doctor if Gardasil is right for you if you have a weakened immune system, a bleeding disorder, plan to become soon or have a current illness causing fever. Gardasil is not recommended for women. You should be sure your doctor is aware of any allergies you have and all medications and herbal supplements you take. Gardasil is given to those ages 9-14 in 2 doses at 0 and 8 months. In ages 15-45, three injections are given at 0,2,6 months. Common side effects include pain, redness, itching and swelling at the injection site, nausea, fever, dizziness and fainting. Rare but potentially serious reactions have been reported. These include allergic reaction, swollen glands, joint and muscle pain, weakness and Guillain-[place] syndrome. Allergies As of Date: 05/17/2024 Noted Allergy Reaction LATEX 11/03/2015 4 - Hives OXYCODONE 11/09/2015 1 - Mental Status Change Date Reviewed: 01/15/2024 Reviewed by: Marie Steward RN - Fully Assessed Reason for Visit: Gardasil Injection [1654] Primary Visit Diagnosis:Need for prophylactic vaccination/inoculation against viral disease [Z23] Prescriptions as of 05/17/2024 - multivit,thx,calcium,iron,mins (MULTIVITAMIN AND MINERAL ORAL) Take by mouth. Problem List As Of Date 05/17/2024 Noted Resolved Hyperemesis complicating , antepartum *02/08/2016 02/22/2016 Obesity affecting in first trimester *02/08/2016 11/15/2016 History of delivery, currently *02/08/2016 11/15/2016 11 weeks gestation of [Z3A.11] 02/08/2016 02/22/2016 Nausea and vomiting of , antepartum [O*02/08/2016 11/15/2016 Cervical cerclage suture present in second trim*04/26/2016 11/15/2016 Abnormal glucose complicating [O99.81*05/25/2016 11/15/2016 Episode of visual disturbance [H53.9] 05/18/2017 Posterior vitreous detachment of right eye [H43*05/18/2017 Other visual disturbances [H53.8] 05/22/2017 Obesity, Class III, BMI >= 40 [E66.01] 11/21/2017 Chiari malformation type I (HCC) [G93.5] 12/20/2017 Postoperative cellulitis of surgical wound [T81*01/11/2018 Other instructions from your clinician: Gardasil Gardasil is a vaccine to protect against Human Papillomavirus (HPV) types 6, 11, 16, 18, 31,33,45, 52, 58. These viruses cause cancer and precancerous lesions on the cervix (opening between vagina and uterus), in the vagina and on the vulva (skin around the outside of the vagina) as well as genital warts. The vaccine cannot cause these diseases and cannot treat them if already present. Gardasil works best if given before contact with HPV. Most people are exposed to HPV soon after starting sexual activity. The vaccine is recommended between the ages of 9 and 45. Gardasil does not protect against all strains of HPV. Women who receive the vaccine still need to have regular pelvic exams and cervical cancer screening with the pap smear. You should ask your doctor if Gardasil is right for you if you have a weakened immune system, a bleeding disorder, plan to become soon or have a current illness causing fever. Gardasil is not recommended for women. You should be sure your doctor is aware of any allergies you have and all medications and herbal supplemen (more content not included)... Normal [facility] CNNURSEon 01-15-2024 CNNURSE Nurse Visit (OBGYWM) YENNINICOL ([id number]) 1985 F Date Time Provider Department 01/15/24 10:00 AM NURSE COMMUNICATIONS ADVISOR [facility] O[facility] During your visit today, we recorded the following information about you: Blood pressure Weight Last Period 114/74 104.7 kg 12/26/23 Marie Steward RN 01/15/2024 10:22 AM Signed Patient identified by name and date of . Nicol Cain Yenni is here for her HPV 9 vaccination, injection # two of the series. Patient ?No Gardasil injection was given without incident. See immunizations for details of immunizations administered today. VIS sheet provided: Yes Patient advised to follow up in 4 months from the 2nd injection Provider CARLOS was present in office at time of injection. VERNON Fountain Tara, RN 01/15/2024 10:09 AM Signed Gardasil Gardasil is a vaccine to protect against Human Papillomavirus (HPV) types 6, 11, 16, 18, 31,33,45, 52, 58. These viruses cause cancer and precancerous lesions on the cervix (opening between vagina and uterus), in the vagina and on the vulva (skin around the outside of the vagina) as well as genital warts. The vaccine cannot cause these diseases and cannot treat them if already present. Gardasil works best if given before contact with HPV. Most people are exposed to HPV soon after starting sexual activity. The vaccine is recommended between the ages of 9 and 45. Gardasil does not protect against all strains of HPV. Women who receive the vaccine still need to have regular pelvic exams and cervical cancer screening with the pap smear. You should ask your doctor if Gardasil is right for you if you have a weakened immune system, a bleeding disorder, plan to become soon or have a current illness causing fever. Gardasil is not recommended for women. You should be sure your doctor is aware of any allergies you have and all medications and herbal supplements you take. Gardasil is given to those ages 9-14 in 2 doses at 0 and 8 months. In ages 15-45, three injections are given at 0,2,6 months. Common side effects include pain, redness, itching and swelling at the injection site, nausea, fever, dizziness and fainting. Rare but potentially serious reactions have been reported. These include allergic reaction, swollen glands, joint and muscle pain, weakness and Guillain-[place] syndrome. Allergies As of Date: 01/15/2024 Noted Allergy Reaction LATEX 11/03/2015 4 - Hives OXYCODONE 11/09/2015 1 - Mental Status Change Date Reviewed: 01/15/2024 Reviewed by: Marie Steward RN - Fully Assessed Reason for Visit: HPV vaccine [Other] Primary Visit Diagnosis:Need for prophylactic vaccination/inoculation against viral disease [Z23] Prescriptions as of 01/15/2024 - multivit,thx,calcium,iron,mins (MULTIVITAMIN AND MINERAL ORAL) Take by mouth. Problem List As Of Date 01/15/2024 Noted Resolved Hyperemesis complicating , antepartum *02/08/2016 02/22/2016 Obesity affecting in first trimester *02/08/2016 11/15/2016 History of delivery, currently *02/08/2016 11/15/2016 11 weeks gestation of [Z3A.11] 02/08/2016 02/22/2016 Nausea and vomiting of , antepartum [O*02/08/2016 11/15/2016 Cervical cerclage suture present in second trim*04/26/2016 11/15/2016 Abnormal glucose complicating [O99.81*05/25/2016 11/15/2016 Episode of visual disturbance [H53.9] 05/18/2017 Posterior vitreous detachment of right eye [H43*05/18/2017 Other visual disturbances [H53.8] 05/22/2017 Obesity, Class III, BMI >= 40 [E66.01] 11/21/2017 Chiari malformation type I (HCC) [G93.5] 12/20/2017 Postoperative cellulitis of surgical wound [T81*01/11/2018 Other instructions from your clinician: Gardasil Gardasil is a vaccine to protect against Human Papillomavirus (HPV) types 6, 11, 16, 18, 31,33,45, 52, 58. These viruses cause cancer and precancerous lesions on the cervix (opening between vagina and uterus), in the vagina and on the vulva (skin around the outside of the vagina) as well as genital warts. The vaccine cannot cause these diseases and cannot treat them if already present. Gardasil works best if given before contact with HPV. Most people are exposed to HPV soon after starting sexual activity. The vaccine is recommended between the ages of 9 and 45. Gardasil does not protect against all strains of HPV. Women who receive the vaccine still need to have regular pelvic exams and cervical cancer screening with the pap smear. You should ask your doctor if Gardasil is right for you if you have a weakened immune system, a bleeding disorder, plan to become soon or have a current illness causing fever. Gardasil is not recommended for women. You should be sure your doctor is aware of any allergies you have and all medications and herbal sup (more content not included)... Normal [facility] .CCLNICOSon 11-16-2023 Cotinine <2 Normal <2 [facility] ([place]) Comment on above: Result Comment: Acti ve tobacco product user: Nicotine concentration: 30 - 50 ng/mL Cotinine concentration: 200 - 800 ng/mL Passive exposure to tobacco: Nicotine concentration: < 2 ng/mL Cotinine concentration: < 8 ng/mL Unexposed non-tobacco user or abstinent user for > 2 weeks: Nicotine concentration: < 2 ng/mL Cotinine concentration: < 2 ng/mL This test was developed and its performance characteristics determined by [facility]'s Jaylon Collado [facility] [place] ([facility]). It has not been cleared or approved by the FDA. [facility] is regulated under CLIA as qualified to perform high-complexity testing. This test is used for clinical purposes. It should not be regarded as investigational or for research. Performed By: [facility] [employer] [address] [place], [place] [id number] Shot Grinder Operator: Justen Cueva III, M.D. CLIA#: [id number] Performed By: #### C BC, LIPID, CMP, TSH, GFR, NICOT, ADIFF, ANEU #### [address] [address] Nicotine Lvl <2 Normal <2 [facility] ([place]) Comment on above: Result Comment: Perf ormed By: [place] [address] Shot Grinder Operator: Justen Cueva III, M.D. CLIA#: [id number] Performed By: #### C BC, LIPID, CMP, TSH, GFR, NICOT, ADIFF, ANEU #### [address] [address] .Auto Diffon 11-13-2023 Basophil, Absolute 0.0 10 3/mcL Normal 0.0-0.2 [facility] ([place]) Comment on above: Performed By: #### C BC, LIPID, CMP, TSH, GFR, NICOT, ADIFF, ANEU #### [address] [address] Basophils/100 WBC (Bld) 0.5 % Normal 0.0-2.5 [facility] ([place]) Comment on above: Performed By: #### C BC, LIPID, CMP, TSH, GFR, NICOT, ADIFF, ANEU #### [address] [address] Eosinophil, Absolute 0.0 10 3/mcL Normal 0.0-0.4 [facility] ([place]) Comment on above: Performed By: #### C BC, LIPID, CMP, TSH, GFR, NICOT, ADIFF, ANEU #### [address] [address] Eosinophils/100 WBC (Bld) 0.2 % Normal 0.0-7.0 [facility] ([place] Comment on above: Performed By: #### C BC, LIPID, CMP, TSH, GFR, NICOT, ADIFF, ANEU #### [address] [address] Lymphocyte, Absolute 1.6 10 3/mcL Normal 0.8-3.9 [facility] ([place] Comment on above: Performed By: #### C BC, LIPID, CMP, TSH, GFR, NICOT, ADIFF, ANEU #### [address] [address] Lymphocytes/100 WBC (Bld) 22.0 % Normal 10.0-50.0 [facility] ([place] Comment on above: Performed By: #### C BC, LIPID, CMP, TSH, GFR, NICOT, ADIFF, ANEU #### [address] [address] Monocyte, Absolute 0.6 10 3/mcL Normal 0.2-1.0 [facility] ([place] Comment on above: Performed By: #### C BC, LIPID, CMP, TSH, GFR, NICOT, ADIFF, ANEU #### [address] [address] Monocytes/100 WBC (Bld) 8.1 % Normal 1.7-13.0 [facility] ([place] Comment on above: Performed By: #### C BC, LIPID, CMP, TSH, GFR, NICOT, ADIFF, ANEU #### [address] [address] Neutrophils/100 WBC (Bld) 69.2 % Normal 37.0-80.0 [facility] ([place] Comment on above: Performed By: #### C BC, LIPID, CMP, TSH, GFR, NICOT, ADIFF, ANEU #### [address] [address] .GFRon 11-13-2023 GFR 85 ml/min/1.73sqm Normal [facility] ([place]) Comment on above: Result Comment: GFR Population mean for , Non- Americans Ages 20-29 = 116 mL/min/1.73 sq.m. Ages 30-39 = 107 mL/min/1.73 sq.m. Ages 40-49 = 99 mL/min/1.73 sq.m. Ages 50-59 = 93 mL/min/1.73 sq.m. Ages 60-69 = 85 mL/min/1.73 sq.m. Ages 70+ = 75 mL/min/1.73 sq.m. Chronic Kidney Disease: Less than 60 mL/min/1.73 square meters End Stage Renal Disease: Less than 15 mL/min/1.73 square meters Performed By: #### C BC, LIPID, CMP, TSH, GFR, NICOT, ADIFF, ANEU #### [address] [address] GFR Non- 70 ml/min/1.73sqm Normal [facility] ([place] Comment on above: Result Comment: GFR Population mean for , Non- Americans Ages 20-29 = 116 mL/min/1.73 sq.m. Ages 30-39 = 107 mL/min/1.73 sq.m. Ages 40-49 = 99 mL/min/1.73 sq.m. Ages 50-59 = 93 mL/min/1.73 sq.m. Ages 60-69 = 85 mL/min/1.73 sq.m. Ages 70+ = 75 mL/min/1.73 sq.m. Chronic Kidney Disease: Less than 60 mL/min/1.73 square meters End Stage Renal Disease: Less than 15 mL/min/1.73 square meters Performed By: #### C BC, LIPID, CMP, TSH, GFR, NICOT, ADIFF, ANEU #### [address] [address] .NEUABSon 11-13-2023 Neutrophil, Absolute 4.9 10 3/mcL Normal 2.9-6.2 [facility] ([place] Comment on above: Performed By: #### C BC, LIPID, CMP, TSH, GFR, NICOT, ADIFF, ANEU #### [address] [address] CBCon 11-13-2023 Erythrocyte distribution width (RBC) [Ratio] 14.3 % Normal 11.5-14.5 [facility] ([place] Comment on above: Performed By: #### C BC, LIPID, CMP, TSH, GFR, NICOT, ADIFF, ANEU #### [place] [id number] Hematocrit (Bld) [Volume fraction] 42.1 % Normal 37.0-47.0 [facility] ([place] Comment on above: Performed By: #### C BC, LIPID, CMP, TSH, GFR, NICOT, ADIFF, ANEU #### [place] [address] Hgb 13.9 G/dL Normal 12.0-16.0 [facility] ([place] Comment on above: Performed By: #### C BC, LIPID, CMP, TSH, GFR, NICOT, ADIFF, ANEU #### [place] [address] MCH (RBC) [Entitic mass] 29.1 pg Normal 27.0-31.2 [facility] [place] Comment on above: Performed By: #### C BC, LIPID, CMP, TSH, GFR, NICOT, ADIFF, ANEU #### [place] [address] MCHC 32.9 G/dL Low 33.0-37.0 [facility] ([place] Comment on above: Performed By: #### C BC, LIPID, CMP, TSH, GFR, NICOT, ADIFF, ANEU #### [place] [address] MCV (RBC) [Entitic vol] 88.5 fL Normal 80.0-94.0 [facility] [place] Comment on above: Performed By: #### C BC, LIPID, CMP, TSH, GFR, NICOT, ADIFF, ANEU #### [place] [address] Platelet 252 10 3/mcL Normal 130-400 [facility] ([place] Comment on above: Performed By: #### C BC, LIPID, CMP, TSH, GFR, NICOT, ADIFF, ANEU #### [address] [address] Platelet mean volume (Bld) [Entitic vol] 10.3 fL Normal 7.4-10.4 [facility] [place] Comment on above: Performed By: #### C BC, LIPID, CMP, TSH, GFR, NICOT, ADIFF, ANEU #### [address] [address] RBC 4.76 10 6/mcL Normal 4.20-5.40 [facility] ([place] Comment on above: Performed By: #### C BC, LIPID, CMP, TSH, GFR, NICOT, ADIFF, ANEU #### [address] [address] WBC 7.1 10 3/mcL Normal 4.6-10.8 [facility] ([place] Comment on above: Performed By: #### C BC, LIPID, CMP, TSH, GFR, NICOT, ADIFF, ANEU #### [address] [address] CMPon 11-13-2023 Albumin Level 4.0 G/dL Normal 3.5-5.0 [facility] ([place] Comment on above: Performed By: #### C BC, LIPID, CMP, TSH, GFR, NICOT, ADIFF, ANEU #### [address] [address] Albumin/Globulin [Mass ratio] 1.0 {ratio} Low 1.1-2.5 [facility] [place] Comment on above: Performed By: #### C BC, LIPID, CMP, TSH, GFR, NICOT, ADIFF, ANEU #### [address] [address] ALP [Catalytic activity/Vol] 84 U/L Normal 40-135 [facility] ([place] Comment on above: Performed By: #### C BC, LIPID, CMP, TSH, GFR, NICOT, ADIFF, ANEU #### [address] [address] ALT [Catalytic activity/Vol] 27 U/L Normal 14-59 [facility] [place] Comment on above: Performed By: #### C BC, LIPID, CMP, TSH, GFR, NICOT, ADIFF, ANEU #### [address] [address] AST [Catalytic activity/Vol] 21 U/L Normal 10-40 [facility] ([place] Comment on above: Performed By: #### C BC, LIPID, CMP, TSH, GFR, NICOT, ADIFF, ANEU #### [address] [address] Bili Total 0.6 mg/dL Normal 0.2-1.0 [facility] ([place] Comment on above: Result Comment: Use of this assay is not recommended for patients undergoing treatment with eltrombopag due to the potential for falsely elevated results. Performed By: #### C BC, LIPID, CMP, TSH, GFR, NICOT, ADIFF, ANEU #### [address] [address] BUN/Creatinine Ratio 7 ratio Normal 7-27 [facility] [place] Comment on above: Performed By: #### C BC, LIPID, CMP, TSH, GFR, NICOT, ADIFF, ANEU #### [address] [address] Calcium [Mass/Vol] 9.4 mg/dL Normal 8.4-10.2 [facility] [place] Comment on above: Performed By: #### C BC, LIPID, CMP, TSH, GFR, NICOT, ADIFF, ANEU #### [address] [address] Chloride [Moles/Vol] 102 mmol/L Normal 98-107 [facility] ([place] Comment on above: Performed By: #### C BC, LIPID, CMP, TSH, GFR, NICOT, ADIFF, ANEU #### [address] [address] CO2 [Moles/Vol] 25 mmol/L Normal 22-29 [facility] [place] Comment on above: Performed By: #### C BC, LIPID, CMP, TSH, GFR, NICOT, ADIFF, ANEU #### [address] [address] Creatinine [Mass/Vol] 0.90 mg/dL Normal 0.55-1.02 [facility] ([place] Comment on above: Performed By: #### C BC, LIPID, CMP, TSH, GFR, NICOT, ADIFF, ANEU #### [address] [address] Electrolyte Balance 14.0 mEq/L Normal 4.0-15.0 [facility] [place] Comment on above: Performed By: #### C BC, LIPID, CMP, TSH, GFR, NICOT, ADIFF, ANEU #### [address] [address] Globulin 3.9 G/dL Normal [facility] ([place] Comment on above: Performed By: #### C BC, LIPID, CMP, TSH, GFR, NICOT, ADIFF, ANEU #### [address] [address] Glucose [Mass/Vol] 79 mg/dL Normal 70-105 [facility] ([place] Comment on above: Performed By: #### C BC, LIPID, CMP, TSH, GFR, NICOT, ADIFF, ANEU #### [address] [address] Potassium [Moles/Vol] 4.3 mmol/L Normal 3.5-5.1 [facility] [place] Comment on above: Performed By: #### C BC, LIPID, CMP, TSH, GFR, NICOT, ADIFF, ANEU #### [address] [address] Sodium [Moles/Vol] 141 mmol/L Normal 136-145 [facility] ([place] Comment on above: Performed By: #### C BC, LIPID, CMP, TSH, GFR, NICOT, ADIFF, ANEU #### [address] [address] Total Protein 7.9 G/dL Normal 6.4-8.2 [facility] ([place] Comment on above: Performed By: #### C BC, LIPID, CMP, TSH, GFR, NICOT, ADIFF, ANEU #### [address] [address] Urea nitrogen [Mass/Vol] 6 mg/dL Low 7-18 [facility] ([place] Comment on above: Performed By: #### C BC, LIPID, CMP, TSH, GFR, NICOT, ADIFF, ANEU #### [address] [address] LIPIDon 11-13-2023 Cholesterol [Mass/Vol] 203 mg/dL High 0-200 [facility] ([place] Comment on above: Result Comment: Chol esterol Reference Interval: Less than 200 Desirable 200-239 Borderline high risk 240 and above High risk Performed By: #### C BC, LIPID, CMP, TSH, GFR, NICOT, ADIFF, ANEU #### [address] [address] Cholesterol in HDL [Mass/Vol] 76 mg/dL High 40-60 [facility] ([place] Comment on above: Performed By: #### C BC, LIPID, CMP, TSH, GFR, NICOT, ADIFF, ANEU #### [address] [address] Cholesterol in LDL [Mass/Vol] 115 mg/dL Normal 0-130 [facility] ([place] Comment on above: Performed By: #### C BC, LIPID, CMP, TSH, GFR, NICOT, ADIFF, ANEU #### [address] [address] Triglyceride [Mass/Vol] 61 mg/dL Normal 0-150 [facility] ([place] Comment on above: Result Comment: Trig lyceride Reference Interval: Less than 150 Normal 150-199 Borderline high risk 200-499 High risk 500 or higher Very high risk Performed By: #### C BC, LIPID, CMP, TSH, GFR, NICOT, ADIFF, ANEU #### [address] [address] TSHon 11-13-2023 TSH Qn 1.45 m[IU]/L Normal 0.36-3.74 [facility] ([place] Comment on above: Performed By: #### C BC, LIPID, CMP, TSH, GFR, NICOT, ADIFF, ANEU #### [place] [id number] [place], [place] [address] CNOVon 11-10-2023 CNOV Office Visit (OBGYWM ) YENNINICOL ([id number]) 1985 F Date Time Provider Department 11/10/23 3:40 PM WILLIE GUEVARA OBGYWM During your visit today, we recorded the following information about you: Blood pressure Weight Height Last Period 130/72 101.6 kg 1.588 m 11/04/23 Willie Guevara MD 11/10/2023 4:20 PM 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 Nicol is a 38 year old who presents for an annual gynecologic exam without complaints. Menses: cycles every 28-30 days and 4 days of flow. Contraception: vasectomy HPV vaccine: No Last Pap: 12/23/2022 normal HPV: 12/19/2022 positive History of abnormal pap: HRHPV positive 2022 Last mammogram: never OB History T2 L3 SAB0 IAB0 Ectopic0 Multiple0 Live Births3 [employer] History LMP: 11/04/2023 (Exact Date), Having periods Age at Menarche: Age at First : Age at Menopause: [employer] History Comments: Sexual Activity: Yes; Male Contraception: Vasectomy PAST MEDICAL HISTORY No date: Chiari I malformation (HCC) 01/11/2018: Postoperative cellulitis of surgical woundPAST SURGICAL HISTORY No date: APPENDECTOMY 2017: CERCLAGE CERVIX PREG; VAG 07/10/2023: EXTRACTION ERUPTED TOOTH/EXR No date: LAPAROSCOPIC CYSTECTOMY Comment: Dermoid 2018: PAST SURGICAL HISTORY OF Comment: Chiari Malformation Surgery 08/02/2022: REDUCTION OF LARGE BREAST FAMILY HISTORY Problem Relation Age of Onset Ovarian cancer Mother Diabetes Father other ( Defects) Father other (Endometriosis) Father other (Other) Son tonsils adnoids/hernia repair other (Other) Child lump on back - SOCIAL HISTORY Social History Tobacco Use Smoking status: Never Smokeless tobacco: Never Vaping Use Vaping Use: Never used Substance Use Topics Alcohol use: Yes Comment: rarely Drug use: No REVIEW OF SYSTEMS Abdomen: No abdominal pain, nausea, vomiting, diarrhea, or constipation. No bloating, early satiety, indigestion, or increased flatulence. Bladder: No dysuria, gross hematuria, urinary frequency, urinary urgency, or incontinence. Breast: No breast lumps, nipple d/c, overlying skin changes, redness or skin retraction. Allergies and current medication updated:Yes EXAM: BP 130/72 Ht 5' 2.5 (1.59m) Wt 224 lb (101.6kg) LMP 11/04/2023 BMI 40.29 kg/(m2). GENERAL: pleasant, female in no apparent distress BREAST: soft, non-tender, symmetric, no dominant mass, normal nipple-areolar complex, no lymphadenopathy, and no nipple discharge CHEST: Normal inspiratory effort ABDOMEN: soft, non-tender, and no masses PELVIC: external genitalia normal, normal Bartholin's glands, urethra, Eastland's glands, no vulvar lesions, no cervical lesions, good vaginal support, physiologic discharge present, normal appearing perineal body and perianal region BIMANUAL: uterus normal size, shape and consistency, no adnexal masses, and non-tender RECTOVAGINAL: deferred. NEURO: alert and oriented x3,exam grossly non-focal EXTREMITIES: normal ASSESSMENT/PLAN: 1) Health maintenance: Pap done with HPV. Mammogram starting age 40. Nutrition, exercise and routine health maintenance exams reviewed. Calcium/Vitamin D supplementation information provided. HPV vaccine: ordered 2) Contraception: vasectomy. Contraceptive options reviewed and information provided. 3) Follow up one year or sooner as needed MD Jonh Brooks [place], [place] 11/10/2023 4:20 PM Signed Patient identified by name and date of . Nicol Hyman is here for her HPV 9 vaccination, injection # one of the series. Patient ?No Gardasil injection was given without incident. See immunizations for details of immunizations administered today. VIS sheet provided: Yes Patient advised to follow up in 2 months from the 1st injection Provider Cleve was present in office at time of injection. STELLA Sims Karmon, MD 11/10/2023 4:20 PM Addendum Gardasil Gardasil is a vaccine to protect against Human Papillomavirus (HPV) types 6, 11, 16, 18, 31,33,45, 52, 58. These viruses cause cancer and precancerous lesions on the cervix (opening between vagina and uterus), in the vagina and on the vulva (skin around the outside of the vagina) as well as genital warts. The vaccine cannot cause these diseases and cannot treat them if already present. Gardasil works best if given before contact with HPV. Most people are exposed to HPV soon after starting sexual activity. The vaccine is recommended between the ages of 9 and 45. Gardasil does not protect against all strains of HPV. Women who receive the vaccine still need to have regular pelvic exams and cervical cancer screening with the pap smear. You should ask your doctor if Gardasil is right for you if you have a weakened immune system, a bleeding disorder, plan to become pregn (more content not included)... Normal [facility] HIGH RISK HUMAN PAPILLOMA MANUEL (HPV), PCR FOR DETECTION AND GENOTYPINGon 11-10-2023 HPV 16 Ag Ql (Unsp spec) Not detected Normal Not detected [facility] Comment on above: Order Comment: Speci men Type: FLUID SPECIMENOrdering Facility: [facility] Address: [address] [place] [address] Performed By: #### H PVHRT, [id number] ####[facility] [id number] [place] [address] [place] HPV 18 Ag Ql (Unsp spec) Not detected Normal Not detected [facility] Comment on above: Order Comment: Speci men Type: FLUID SPECIMENOrdering Facility: [facility] Address: [address] [place] [address] Performed By: #### H PVHRT, [id number] ####[facility] [employer] [id number] [place] [address] [place] HPV 31+33+35+39+45+51 +52+56+58+59+66+6 8 DNA SHREYAS+probe Ql (Cvx) Not detected Normal Not detected [facility] Comment on above: Order Comment: Speci men Type: FLUID SPECIMENOrdering Facility: [facility] Address: [address] [place] [address] Result Comment: High Risk HPV Other Type includes HPV types 31, 33, 35, 39, 45, 51, 52, 56, 58, 59, 66 and 68. Performed By: #### H PVHRT, [id number] ####[facility] [id number] [place] [address] [place] PAP TESTon 11-10-2023 ADEQUACY Satisfactory for interpretation. Normal [facility] Comment on above: Order Comment: Speci men Type: FLUID SPECIMENOrdering Facility: [facility] Address: [address] [place] [address] Performed By: #### H PVHRT, [id number] ####[facility] LABCLIA [id number] [place] [address] [place] CASE REPORT Normal [facility] Comment on above: Order Comment: Speci men Type: FLUID SPECIMENOrdering Facility: [facility] Address: [address] [place] [address] Result Comment: Gyne cologic Cytology Report Case: [id number] Authorizing Provider: Willie Guevara MD Collected: 11/10/2023 04:06 PM Ordering Location: OB/Gynecology Received: 11/10/2023 04:55 PM First Screen: Reyes, Ingrid, CT, ASCP Specimen: Pap Test, ThinPrep, Cervix Performed By: #### H PVHRT, [id number] ####[facility] [facility] LABCLIA [id number] [place] [address] [place] CLINICAL HISTORY, CYTOLOGY, COMPRESSED GAS EQUIPMENT MECHANIC Positive Normal [facility] Comment on above: Order Comment: Speci men Type: FLUID SPECIMENOrdering Facility: [facility] Address: [address] [place] [address] Performed By: #### H PVHRT, [id number] ####[facility] LABCLIA [id number] [place] [address] [place] FINAL PERFORMING LAB Normal [facility] Comment on above: Order Comment: Speci men Type: FLUID SPECIMENOrdering Facility: [facility] Address: [address] [place] [address] Result Comment: Tech nical component, executive legal secretary screening performed at [facility], [address] [place] [address] [place] [address] CLIA# [id number] Diagnostic interpretation performed at [facility], [address] [place], [place] [address] CLIA# [id number] Blasting Helper: Justen Cueva M.D. Performed By: #### H PVHRT, [id number] ####[facility] LABCLIA [id number] [place] [address] [place] HPV REFLEX Yes HPV Normal [facility] Comment on above: Order Comment: Speci men Type: FLUID SPECIMENOrdering Facility: [facility] Address: [address] [place] [address] Performed By: #### H PVHRT, [id number] ####[facility] LABCLIA [id number] [place] [address] [place] INTERPRETATION, CYTOLOGY, COMPRESSED GAS EQUIPMENT MECHANIC Normal [facility] Comment on above: Order Comment: Speci men Type: FLUID SPECIMENOrdering Facility: [facility] Address: [address] [place] [address] Result Comment: Nega tive for intraepithelial lesion or malignancy. Performed By: #### H PVHRT, [id number] ####[facility] LABCLIA [id number] [place] [id number] [place] LMP 11/04/2023 Normal [facility] Comment on above: Order Comment: Speci men Type: FLUID SPECIMENOrdering Facility: [facility] Address: [address] [place] [address] Performed By: #### H PVHRT, [id number] ####[facility] LABCLIA [id number] [address] [place] PAP DISCLAIMER COMMENT The Pap Smear is a screening test for cervical cancer. False negative results occur with all screening tests, emphasizing the need for rescreening at recommended intervals, and clinical correlation. Normal [facility] Comment on above: Order Comment: Speci men Type: FLUID SPECIMENOrdering Facility: [facility] Address: [address] [place] [address] Performed By: #### H PVHRT, [id number] ####[facility] LABCLIA [id number] [address] [place] PAP DISPLAY AND BANNER DESIGNER COMMENT This specimen has been analyzed by the ThinPrep Imaging System, an automated imaging and review system, which assists the laboratory in evaluating cells on ThinPrep Pap tests. Following automated imaging, selected christensen from every slide are reviewed by a executive legal secretary. Normal [facility] Comment on above: Order Comment: Speci men Type: FLUID SPECIMENOrdering Facility: [facility] Address: [address] [place] [address] Performed By: #### H PVHRT, [id number] ####[facility] LABCLIA [id number] [address] [place] CASE MANAGEMon 01-16-2018 CASE MANAGEM HNO ID: [id number] thor: Audrey Webber (Sw): Care ManagementAuthor Type: Social WorkerType: Care Mgt Progress NoteFiled: 01/16/2018 2:08 PMNote Text:CARE MANAGEMENT DISCHARGE NOTESERVICE DATE: 01/16/2018SERVICE TIME: 2:08 PM LOS: 4 daysPt's to transport home at 5pm. [place] skilled needs [place] care.SIGNATURE: BRAYAN Bernal PATIENT NAME: Nicol HymanDATE: January 16, 2018 : 2:08 PM PAGER/CONTACT #: [phone] [facility] 01-16-2018 [facility] HNO ID: [id number] thor: Pasha Taylorice: NeurosurgeryAuthor Type: Physician AssistantType: Discharge SummariesFiled: 01/18/2018 1:26 PMNote Text: Attestation signed by Leena Zhao at 01/18/2018 1:52 Kathya Zhao MD DISCHARGE SUMMARYPATIENT NAME: Nicol Hyman ADMISSION DATE: 01/10/2018MRN: [id number] DISCHARGE DATE: 01/16/2018Attending Physician[facility] Phys[facility]: Jaylon Boyd DO Code Status: Not on fileHighest Readmission Risk Score: 11The 30 day readmissions risk score is derived from an internally validatedrisk model which evaluates patient level characteristics, utilizationhistory, medication orders and lab results up until the day of discharge.Patients with a score of 40 or above are considered highest risk forreadmission. Specific patient level drivers will be listed at the bottomof the summary.Reason for Hospitalization: CSF leakOperations During Hospitalization: Pseudomeningocele repairProcedures During Hospitalization: No procedures performedHospital Course:The patient is a 32-year-old female who had successful decompression of aChiari malformation 1 week ago on 01/05/2018. She recovered uneventfullyand was discharged home. However, she presented earlier this week withheadaches and eventually noticed some fluid at her incisional line. Shewas brought to the hospital and initially treated with a tight head wrap. The leak continued and we offered her surgical re-exploration anddrainage of an occipitalPseudomeningocele. She was willing to go through with this. Surgicalrepair was done on 01/12/18. Post operatively, we had difficulty withpain control. We did consult pain mgmt and start her on decadron. Thisseemed to help. She was advanced to a regular diet and to ambulating onher own. She was found to be in stable condition and able to bedischarged on 01/16/18.Transitions of Care Critical Issues:LABS AND PROCEDURES PENDING AT DISCHARGE: No pending results.Consulting Teams During Hospitalization:Patient Condition @ Discharge: StableDischarge Disposition: Home/Self CarePHYSICAL EXAM ON DISCHARGE:See final noteInformation Provided to Patient:Diet: RegularActivity: see dc instrWound/Surgical Site Care:Wound/Surgical Site Care Leave open to air Wash your hands frequently, especially before touching your incision,after using restroom and before eatingALLERGIESAllergen Reactions- Latex Hives- Oxycodone Mental Status ChangeDischarge Medications: Discharge Medication List as of 01/16/2018 4:17 PMSTART taking these medicationspromethazine (PHENERGAN) 25 mg tabletTake 1 tablet by mouth every 6 hours as needed.Normal, Disp-60 tablet, R-2lidocaine (LIDODERM) 5 %Apply 1 Patch as directed once daily.Normal, Disp-3 Patch, R-1CONTINUE these medications which have CHANGEDoxyCODONE IR (ROXICODONE) 5 mg immediate release tabletTake 0.5-1 tablets by mouth every 6 hours as needed for up to 7 days.Print RX, Disp-28 tablet, R-0Dx: 1. Post-op painCONTINUE these medications which have NOT CHANGEDacetaminophen (TYLENOL) 500 mg tabletTake 1,000 mg by mouth every 8 hours as needed.Historical Medscopolamine (TRANSDERM-SCOP) 1 mg over 3 daysApply 1 Patch as directed every 72 hours.Normal, Disp-3 Patch, R-0cyclobenzaprine (FLEXERIL) 10 mg tabletTake 1 tablet by mouth three times daily as needed for Muscle Spasm.Normal, Disp-60 tablet, R-2STOP taking these medicationsondansetron (ZOFRAN) 4 mg tabletComments:Reason for Stopping:Future Appointments:Follow Up with Dr. Zhao in 2 weeksThis patient?s risk for 30-day readmission is determined using thefollowing contributing driversPt variables contributing to increased readmission risk: 12 Active Medication Orders 9 Most Recent BUN Result 8.8 First Resulted Calcium During Admission 1 Previous ED Visit (6 mos.)? 1 Number of Previous ED Visits (6 mos.) 1 Insurance - Private Coverage 1 Discharge Disposition - Home 1 Number of Hospitalizations (12 mos.)SIGNATURE: Pasha Mendiola PA-C PAGER: [phone]: January 16, 2018TIME: 1:35 PM Normal 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 Prior to surgery she had been having?worsening headaches as well as numbness and tingling in all theextremities, but ?worse in the left upper extremity. She is now is POD# 4,S/P Drainage and repair of occipital pseudomeningocele.Ms. Hyman is walking in her room. She reports much improvedheadaches on current regimen, no opioids in last 24 hrs.She is tolerating orals, denies N/V.PLAN1. Continue Acetaminophen 1000 mg PO Q 6 h while inpatient2. Continue Flexeril 10 mg PRN for muscle spasms3. Continue Oxycodone to 2.5-5 mg PO Q 4 H PRN for mod to severe pain4. Continue Lidoderm patch to the base of neck QD5. Continue Decadron per Neuro Sx6. Continue bowel regimen as long as taking opioidsThe plan was discussed in detail with patient +/- family, bedside RN, Virgilio and primary service, who expressed agreement, understanding andcomfort with the plan.APMS will sign off and defer further management to primary team.If pain worsens or difficulties arise please reconsult APMS.Thank you for including us in her care.SUBJECTIVECHIEF COMPLAINT: Right sided HAPRIMARY SERVICE: Spine/NeurosurgeryINTERVAL HPI: Nicol Hyman is a 32 year old female who is POD#4, S/P Drainage and repair of occipital pseudomeningocele.Pain level is 2 at rest3 with ambulation on a scale of 0-10.Is the patient tolerating Physical Therapy?: walking in her roomPain at surgical site? Yes,Character: sharpDuration: consistentRadiation: yes right tempooccipital regionRelieved: yesIs patient satisfied with pain control: yesOvernight Events: NoneOvernight Pain Interventions: NoAllergy:ALLERGIESAllergen Reactions- Latex Hives- Oxycodone Mental Status ChangeMEDICATIONS:Current hospital medications:loratadine-pseudoeph edrine ER 10-240 mg 1 tablet (CLARITIN-D 24) 1 tabletORAL DAILY PRNoxyCODONE IR 2.5-5 mg tab(s) (ROXICODONE) 2.5-5 mg ORAL q 4 H PRNlidocaine 5 % 1 Patch (LIDODERM) 1 Patch TRANSDERMAL DAILYlidocaine patch - REMOVE OTHER AT BEDTIMElidocaine - VERIFY PATCH OTHER q 8 Hacetaminophen 1,000 mg tab(s) (TYLENOL) 1,000 mg ORAL q 6 Hdextrose 5% in NaCl 0.9% iv infusion 125 mL/hr INTRAVENOUS CONTINUOUScyclobenzaprine 10 mg tab(s) (FLEXERIL) 10 mg ORAL TID PRNdocusate sodium 100 mg cap(s) (COLACE) 100 mg ORAL BIDmagnesium hydroxide 400 mg/5 mL 30 mL (MOM) 30 mL ORAL BID PRNbisacodyl 10 mg suppository (DULCOLAX) 10 mg RECTAL DAILY PRNscopolamine 1 mg over 3 days 1 Patch (TRANSDERM-SCOP) 1 Patch TRANSDERMALq 72 HRscopolamine - REMOVE PATCH OTHER q 72 HRscopolamine - VERIFY patch OTHER q 8 Hpromethazine 25 mg tab(s) (PHENERGAN) 25 mg ORAL q 6 H PRNpromethazine 12.5 mg in NaCl 0.9% 50 mL (PHENERGAN) 12.5 mg INTRAVENOUS q6 H PRNOBJECTIVE:PHYSICAL EXAM:BP 143/80 Pulse 63 Temp 37.1 ?C (98.8 ?F) (Oral) Resp 18 Ht157.5 cm (5' 2) Wt 105.9 kg (233 lb 7.5 oz) SpO2 97% BMI 42.70kg/m?Affect: awake, [id number] Impression: appears comfortableMoving all extremitiesRespiratory Exam:Respirations: Breathing appears normalThoracostomy tube?: NoGastrointestinal Exam:Bowel sounds: YesNG?: NoDATA:Lab ResultsComponent Latest Ref Rng AND Units 01/10/2018Protein, Total 6.0 - 8.4 g/dL 7.2Albumin 3.5 - 5.0 g/dL 3.9Calcium 8.5 - 10.5 mg/dL 8.8Bilirubin, Total 0.2 - 1.3 mg/dL 0.3Alkaline Phosphatase 34 - 123 U/L 68AST 7 - 40 U/L 21Glucose 65 - 100 mg/dL 91BUN 8 - 25 mg/dL 9Creatinine 0.70 - 1.40 mg/dL 0.83Sodium 132 - 148 mmol/L 140Potassium 3.5 - 5.0 mmol/L 4.1Chloride 98 - 110 mmol/L 101CO2 23 - 32 mmol/L 27Anion Gap 9 - 18 mmol/L 12ALT 0 - 45 U/L 57 (H)eGFR- >60 >60eGFR-All Other Races >60 . >60Component Latest Ref Rng AND Units 01/10/2018WBC 3.70 - 11.00 k/uL 12.98 (H)RBC 3.90 - 5.20 m/uL 4.92Hemoglobin 11.5 - 15.5 g/dL 14.1Hematocrit 36.0 - 46.0 % 43.2MCV 80.0 - 100.0 fL 87.8MCH 26.0 - 34.0 pG 28.7MCHC 30.5 - 36.0 g/dL 32.6RDW-CV 11.5 - 15.0 % 13.5Platelet Count 150 - 400 k/uL 399MPV 9.0 - 12.7 fL 11.2Neut% % 71.0Abs Neut (ANC) 1.45 - 7.50 k/uL 9.23 (H)Lymph% % 20.3Abs Lymph 1.00 - 4.00 k/uL 2.63Mono% % 8.1Abs [place] <0.87 k/uL 1.05 (H)Eosin% % 0.5Abs Eosin <0.46 k/uL 0.06Baso% % 0.1Abs Baso <0.11 k/uL <0.03SIGNATURE:Connie Rosario,VICE PRINCIPAL.BOTTOM FILLER PATIENT NAME: Nicol MontesinosDATE: January 16, 2018 : 09:00 AM PAGER/CONTACT #: [facility] [phone] [facility] NURSING PROGon 01-16-2018 Protein mass conc HNO ID: [id number] thor: Jes DempseyRn) Adriana Yarbrough: (none)Author Type: Registered NurseType: Nursing Progress NoteFiled: 01/16/2018 5:14 PMNote Text: Nursing Progress NotePatient Name: Nicol HymanMRN: [id number] Location: [place] [address]/QK-[id number]-82 Daily Note:AANDOx3 up independently. 05/06 pain noted at incision site.Lidoderm patch applied. Notified PA of right ear pain. Reviewed dischargeinstructions with patient, patient verbalized understanding ofinstructions. Patient left via wheelchair with belongings in stablecondition at 1700.This note was completed by: Jes Yarbrough RN [employer] [facility] [employer] Protein mass conc HNO ID: [id number] thor: Sloane Kearney) Adriana Leos: (none)Author Type: Registered NurseType: Nursing Progress NoteFiled: 01/16/2018 12:49 AMNote Text: Nursing Progress NotePatient Name: Nicol HymanMRN: [id number] [facility] Daily Note:Pt is a/o x3, PERRL. C/o mild pain at incision site, Reports relief frompain management regimen. LS clear throughout on RA. Denies n/v anddizziness. In pleasant spirits. Pt safety maintained, call light withinreach.This note was completed by: Sloane Leos RN [employer] [facility] PROGRESSon 01-16-2018 Protein mass conc HNO ID: [id number] thor: Pasha Bassett) Brandonice: NeurosurgeryAuthor Type: Physician AssistantType: Progress NotesFiled: 01/16/2018 4:26 PMNote Text: Attestation signed by Leena Zhao at 01/16/2018 4:52 Kathya Zhao MD NEUROSURGERY POST OP PROGRESS NOTESERVICE DATE: 01/16/2018SERVICE TIME: 1330POST OP DAY: # 4SUBJECTIVEPatient states that she is now having ear pain.OBJECTIVEGeneral: AANDOx 3, NAD, RICH orozco, AFVSS.Incision: dressing CDI.Drain: no drain.Clarke: no clarke.Most recent labs and imaging results..Current hospital medications:loratadine-pseudoeph edrine ER 10-240 mg 1 tablet (CLARITIN-D 24) 1 tabletORAL DAILY PRNoxyCODONE IR 2.5-5 mg tab(s) (ROXICODONE) 2.5-5 mg ORAL q 4 H PRNlidocaine 5 % 1 Patch (LIDODERM) 1 Patch TRANSDERMAL DAILYlidocaine patch - REMOVE OTHER AT BEDTIMElidocaine - VERIFY PATCH OTHER q 8 Hacetaminophen 1,000 mg tab(s) (TYLENOL) 1,000 mg ORAL q 6 Hdextrose 5% in NaCl 0.9% iv infusion 125 mL/hr INTRAVENOUS CONTINUOUScyclobenzaprine 10 mg tab(s) (FLEXERIL) 10 mg ORAL TID PRNdocusate sodium 100 mg cap(s) (COLACE) 100 mg ORAL BIDmagnesium hydroxide 400 mg/5 mL 30 mL (MOM) 30 mL ORAL BID PRNbisacodyl 10 mg suppository (DULCOLAX) 10 mg RECTAL DAILY PRNscopolamine 1 mg over 3 days 1 Patch (TRANSDERM-SCOP) 1 Patch TRANSDERMALq 72 HRscopolamine - REMOVE PATCH OTHER q 72 HRscopolamine - VERIFY patch OTHER q 8 Hpromethazine 25 mg tab(s) (PHENERGAN) 25 mg ORAL q 6 H PRNpromethazine 12.5 mg in NaCl 0.9% 50 mL (PHENERGAN) 12.5 mg INTRAVENOUS q6 H PRNASSESSMENT AND PLANPatient Active Hospital Problem List: Postoperative cellulitis of surgical wound (01/11/2018)Medication and Non-Pharmacologic VTE Prophylaxis/Nzpezmylzorhck43/20/ 18 1445 activity - mobilize patient (ct,pa)01/11/18 1430 vte pharmacologic prophylaxis contraindicated (ct,oh)01/11/18 1430 pneumatic compression stockings (ct,pa)VTE Prophylaxis: VTE prophylaxis appropriateNicol Hyman is a 32 year old status post pseudomeningocelerepair.OK to DC homePt seen and examined with Dr. Zhao. All recommendations discussed withand initiated by Dr. Zhao.Pt seen and examined with Dr. Zhao. Allrecommendations discussed with and initiated by Dr. Zhao.SIGNATURE: Pasha Mendiola PA-C PATIENT NAME: Nicol HymanDATE: January 16, 2018 : 1:35 PM PAGER/CONTACT #:ETX#[phone] [employer] CASE MANAGEMon 01-15-2018 CASE MANAGEM HNO ID: [id number] thor: Audrey Weeks (Sw)Serhomae: Care ManagementAuthor Type: Social WorkerType: Care Mgt Progress NoteFiled: 01/15/2018 11:43 AMNote Text:CARE MANAGEMENT PROGRESS NOTESERVICE DATE: 01/15/2018SERVICE TIME: 11:42 AM LOS: 3 daysNo skilled needs anticipated. bedside and [place] transport home [place]. DC anticipated for tomorrow.SIGNATURE: BRAYAN Bernal PATIENT NAME: Nicol HymanDATE: January 15, 2018 : 11:42 AM PAGER/CONTACT #: [phone] [employer] CONSULT PROGon 01-15-2018 Protein mass conc HNO ID: [id number] thor: Connie Matamoros) Randy Shahrvice: Pain ManagementAuthor Type: Nurse PractitionerType: Consult Progress NoteFiled: 01/15/2018 10:54 AMNote Text:APMS PROGRESS NOTEPATIENT NAME: Nicol HymanMRN: [id number] DATE: 01/15/2018SERVICE TIME: 9:37 AMASSESSMENTNicol Hyman is a 32 year old female with hx of chiaridecompression on 01/05/18. Prior to surgery she had been having?worsening headaches as well as numbness and tingling in all theextremities, but ?worse in the left upper extremity. She is now is POD# 3,S/P Drainage and repair of occipital pseudomeningocele.Ms. Hyman just finished taking a shower, she reports improvedheadaches on current regimen, she is taking minimal opioids.She is tolerating orals, denies N/V.PLAN1. Continue Acetaminophen 1000 mg PO Q 6 h while inpatient2. Continue Flexeril 10 mg PRN for muscle spasms3. DC Morphine IV4. Changed Oxycodone to 2.5-5 mg PO Q 4 H PRN for mod to severe pain5. Added Lidoderm patch to the base of neck QD6. Continue Decadron per Neuro Sx7. 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 Yes,Character: sharpDuration: consistentRadiation: yes right tempooccipital regionRelieved: yesIs patient satisfied with pain control: yesOvernight Events: NoneOvernight Pain Interventions: NoAllergy:ALLERGIESAllergen Reactions- Latex Hives- Oxycodone Mental Status ChangeMEDICATIONS:Current hospital medications:oxyCODONE IR 2.5-5 mg tab(s) (ROXICODONE) 2.5-5 mg ORAL q 4 H PRNdexamethasone 4 mg tab(s) (DECADRON) 4 mg ORAL q 6 Hacetaminophen 1,000 mg tab(s) (TYLENOL) 1,000 mg ORAL q 6 Hdextrose 5% in NaCl 0.9% iv infusion 125 mL/hr INTRAVENOUS CONTINUOUScyclobenzaprine 10 mg tab(s) (FLEXERIL) 10 mg ORAL TID PRNdocusate sodium 100 mg cap(s) (COLACE) 100 mg ORAL BIDmagnesium hydroxide 400 mg/5 mL 30 mL (MOM) 30 mL ORAL BID PRNbisacodyl 10 mg suppository (DULCOLAX) 10 mg RECTAL DAILY PRNscopolamine 1 mg over 3 days 1 Patch (TRANSDERM-SCOP) 1 Patch TRANSDERMALq 72 HRscopolamine - REMOVE PATCH OTHER q 72 HRscopolamine - VERIFY patch OTHER q 8 Hpromethazine 25 mg tab(s) (PHENERGAN) 25 mg ORAL q 6 H PRNpromethazine 12.5 mg in NaCl 0.9% 50 mL (PHENERGAN) 12.5 mg INTRAVENOUS q6 H PRNOBJECTIVE:PHYSICAL EXAM:BP 120/60 Pulse 66 Temp 36.8 ?C (98.3 ?F) (Oral) Resp 16 Ht157.5 cm (5' 2) Wt 105.9 kg (233 lb 7.5 oz) SpO2 98% BMI 42.70kg/m?Affect: awake, ukey8Giezzid Impression: appears comfortableMoving all extremitiesRespiratory Exam:Respirations: Breathing appears normalThoracostomy tube?: NoGastrointestinal Exam:Bowel sounds: YesNG?: NoDATA:Lab ResultsComponent Latest Ref Rng AND Units 01/10/2018Protein, Total 6.0 - 8.4 g/dL 7.2Albumin 3.5 - 5.0 g/dL 3.9Calcium 8.5 - 10.5 mg/dL 8.8Bilirubin, Total 0.2 - 1.3 mg/dL 0.3Alkaline Phosphatase 34 - 123 U/L 68AST 7 - 40 U/L 21Glucose 65 - 100 mg/dL 91BUN 8 - 25 mg/dL 9Creatinine 0.70 - 1.40 mg/dL 0.83Sodium 132 - 148 mmol/L 140Potassium 3.5 - 5.0 mmol/L 4.1Chloride 98 - 110 mmol/L 101CO2 23 - 32 mmol/L 27Anion Gap 9 - 18 mmol/L 12ALT 0 - 45 U/L 57 (H)eGFR- >60 >60eGFR-All Other Races >60 . >60Component Latest Ref Rng AND Units 01/10/2018WBC 3.70 - 11.00 k/uL 12.98 (H)RBC 3.90 - 5.20 m/uL 4.92Hemoglobin 11.5 - 15.5 g/dL 14.1Hematocrit 36.0 - 46.0 % 43.2MCV 80.0 - 100.0 fL 87.8MCH 26.0 - 34.0 pG 28.7MCHC 30.5 - 36.0 g/dL 32.6RDW-CV 11.5 - 15.0 % 13.5Platelet Count 150 - 400 k/uL 399MPV 9.0 - 12.7 fL 11.2Neut% % 71.0Abs Neut (ANC) 1.45 - 7.50 k/uL 9.23 (H)Lymph% % 20.3Abs Lymph 1.00 - 4.00 k/uL 2.63Mono% % 8.1Abs [place] <0.87 k/uL 1.05 (H)Eosin% % 0.5Abs Eosin <0.46 k/uL 0.06Baso% % 0.1Abs Baso <0.11 k/uL <0.03SIGNATURE:Connie Rosario,VICE PRINCIPAL.BOTTOM FILLER PATIENT NAME: Nicol AsenciouberDATE: January 15, 2018 : 09:37 AM PAGER/CONTACT #: [facility] [phone] [facility] PROGRESSon 01-15-2018 Protein mass conc HNO ID: [id number] thor: Pasha Dickersonervice: NeurosurgeryAuthor Type: Physician AssistantType: Progress NotesFiled: 01/15/2018 9:19 AMNote Text: Attestation signed by Leena Zhao at 01/15/2018 10:37 Apolonia Zhao MD NEUROSURGERY POST OP PROGRESS NOTESERVICE DATE: 01/15/2018SERVICE TIME: 830POST OP DAY: # 3SUBJECTIVEPatient states that since the meds were changed, she is feeling a bitbetter.OBJECTIVEGeneral: AANDOx 3, NAD, VILLANUE[place] well.Incision: edges well approximated, no signs of infection or drainage anddressing CDI.Drain: no drain.Clarke: no clarke.Most recent labs and imaging results..Current hospital medications:dexamethasone 4 mg tab(s) (DECADRON) 4 mg ORAL q 6 Hacetaminophen 1,000 mg tab(s) (TYLENOL) 1,000 mg ORAL q 6 HoxyCODONE IR 5-10 mg tab(s) (ROXICODONE) 5-10 mg ORAL q 4 H PRNmorphine 2 mg injection 2 mg INTRAVENOUS q 2 H PRNdextrose 5% in NaCl 0.9% iv infusion 125 mL/hr INTRAVENOUS CONTINUOUScyclobenzaprine 10 mg tab(s) (FLEXERIL) 10 mg ORAL TID PRNdocusate sodium 100 mg cap(s) (COLACE) 100 mg ORAL BIDmagnesium hydroxide 400 mg/5 mL 30 mL (MOM) 30 mL ORAL BID PRNbisacodyl 10 mg suppository (DULCOLAX) 10 mg RECTAL DAILY PRNscopolamine 1 mg over 3 days 1 Patch (TRANSDERM-SCOP) 1 Patch TRANSDERMALq 72 HRscopolamine - REMOVE PATCH OTHER q 72 HRscopolamine - VERIFY patch OTHER q 8 Hpromethazine 25 mg tab(s) (PHENERGAN) 25 mg ORAL q 6 H PRNpromethazine 12.5 mg in NaCl 0.9% 50 mL (PHENERGAN) 12.5 mg INTRAVENOUS q6 H PRNASSESSMENT AND PLANPatient Active Hospital Problem List: Postoperative cellulitis of surgical wound (01/11/2018)Medication and Non-Pharmacologic VTE Prophylaxis/Dfhcutbgfzbtsv86/20/ 18 1445 activity - mobilize patient (ct,oh)01/11/18 1430 vte pharmacologic prophylaxis contraindicated (ct,oh)01/11/18 1430 pneumatic compression stockings (ct,pa)VTE Prophylaxis: VTE prophylaxis appropriateNicol Hyman is a 32 year old status post pseudomeningocelerepair.Recommen d increasing activity and discharge planning.Anticipate discharge in 1 day.SIGNATURE: Pasha Mendiola PA-C PATIENT NAME: Nicol HymanDATE: January 15, 2018 : 9:18 AM PAGER/CONTACT #:JONESX#[phone] [employer] [facility] [employer] CONSULT PROGon 01-14-2018 Protein mass conc HNO ID: [id number] thor: Xander Goyal: Pain ManagementAuthor Type: Physician AssistantType: Consult Progress NoteFiled: 01/14/2018 11:17 AMNote Text:PERIPHERAL NERVE CATHETER PROGRESS NOTEPATIENT NAME: Nicol HymanMRN: [id number] DATE: 01/14/2018SERVICE TIME: 11:01 AMASSESSMENTNicol Hyman is a 32 year old female who is POD# 2, S/PDrainage and repair of occipital pseudomeningocele.Current pain regimen includes: tylenol 500-1000 mg Q 4 prn PO, flexeril 10mg TID PO, roxicodone 5-10 mg Q 4 prn PO.Patient reports minimal pain relief with narcotics, states tylenol isslightly effective 10/03. NS team recently ordered Decadron 4 mg Q [address] Butcher make Tylenol 1000 mg Q 6 ATC at this timeDecadron on boardWill follow - possible addition of caffeine and low dose NSAID to regimenif OK with NS.SUBJECTIVECHIEF COMPLAINT: Right sided HAPRIMARY SERVICE: Spine/NeurosurgeryINTERVAL HPI: Nicol Hyman is a 32 year old female who is POD#2, S/P Drainage and repair of occipital pseudomeningocele.Pain level is 7 at rest10 with ambulation on a scale of 0-10.Is the patient tolerating Physical Therapy?: No - not at this timePain at surgical site? Yes,Character: sharpDuration: consistentRadiation: yes right tempooccipital regionRelieved: yes tylenol mildlyIs patient satisfied with pain control: NoOvernight Events: NoneOvernight Pain Interventions: NoAllergy:ALLERGIESAllergen Reactions- Latex Hives- Oxycodone Mental Status ChangeMEDICATIONS:Current hospital medications:dexamethasone 4 mg tab(s) (DECADRON) 4 mg ORAL q 6 HoxyCODONE IR 5-10 mg tab(s) (ROXICODONE) 5-10 mg ORAL q 4 H PRNmorphine 2 mg injection 2 mg INTRAVENOUS q 2 H PRNdextrose 5% in NaCl 0.9% iv infusion 125 mL/hr INTRAVENOUS CONTINUOUScyclobenzaprine 10 mg tab(s) (FLEXERIL) 10 mg ORAL TID PRNdocusate sodium 100 mg cap(s) (COLACE) 100 mg ORAL BIDmagnesium hydroxide 400 mg/5 mL 30 mL (MOM) 30 mL ORAL BID PRNbisacodyl 10 mg suppository (DULCOLAX) 10 mg RECTAL DAILY PRNacetaminophen 500-1,000 mg tab(s) (TYLENOL) 500-1,000 mg ORAL q 6 H PRNscopolamine 1 mg over 3 days 1 Patch (TRANSDERM-SCOP) 1 Patch TRANSDERMALq 72 HRscopolamine - REMOVE PATCH OTHER q 72 HRscopolamine - VERIFY patch OTHER q 8 Hpromethazine 25 mg tab(s) (PHENERGAN) 25 mg ORAL q 6 H PRNpromethazine 12.5 mg in NaCl 0.9% 50 mL (PHENERGAN) 12.5 mg INTRAVENOUS q6 H PRNOBJECTIVE:PHYSICAL EXAM:No data found.Affect: awakeGeneral Impression: appears comfortableRespiratory Exam:Respirations: Breathing appears normalThoracostomy tube?: NoGastrointestinal Exam:Bowel sounds: YesNG?: NoDATA:Lab ResultsAPTT 30.5 12/25/2017PT Sec 10.3 12/25/2017PT INR 1.0 12/25/2017HGB 14.1 01/10/2018Hematocrit 43.2 01/10/2018Platelet Count 399 01/10/2018Discussed the patient?s progress and plan of care with Dr. LangATURE: Xander Pichardo PA-C PATIENT NAME: Nicol WhelanchayanarendraDATE: January 14, 2018 : 11:01 AM PAGER/CONTACT #: [facility] [phone] [facility] NURSING PROGon 01-14-2018 Protein mass conc HNO ID: [id number] thor: Opal (Rn) FLACO Moyaervice: (none)Author Type: Registered NurseType: Nursing Progress NoteFiled: 01/14/2018 8:58 PMNote Text: Nursing Progress NotePatient Name: Nicol WhelandelilahMRN: [id number] [facility]QV-EGWM-16 Daily Note: pt AANDox3, follows commands. Headache pain 3/10 aftermedication. Denies nausea. Dressing clean, dry and intact. atbedside. Safety maintained, call light in reach, will continue to monitor.This note was completed by: Opal Moya RN [employer] Protein mass conc HNO ID: [id number] thor: Jes Kearney) Edmundo Yarbroughice: (none)Author Type: Registered NurseType: Nursing Progress NoteFiled: 01/14/2018 7:48 PMNote Text: Nursing Progress NotePatient Name: Nicol WhelandelilahN: [id number] [facility]-XQSG-48 Daily Note:AANDOx3 c/o of 10/10 sharp throbbing headache. No IV access atstart of shift, notified Pic team and once access obtained restartedfluid. Dressing change done by PA. Encouraged oral intake, atbedside.1745 Patient given oral meds and a few minutes later had 10 ml of clearemesis, no pills noted in it. Requested IV phenergan from pharmacy.1900 Patient received IV phenergan, feeling better, ate most of dinnerprior to getting phenergan.This note was completed by: Jes Yarbrough RN [employer] Protein mass conc HNO ID: [id number] thor: Edmundo Reyes Rnice: (none)Author Type: Registered NurseType: Nursing Progress NoteFiled: 01/14/2018 6:34 AMNote Text: Nursing Progress NotePatient Name: Nicol HymanMRN: [id number] [facility]NT-KWHJ-06 Daily Note:Pt is a/o x3, PERRL. C/o headache, pain meds given per order. LS clearthroughout on RA. Denies n/v and dizziness. Pt safety maintained, calllight within reach.2331: Iv infiltrated, site tender to touch. IV was removed.0330: unsuccessful IV attempts x2 with ultrasound.0400: Pain meds administered per order.0446: Pt requested flexaril, administered per order.0630: Pt reports more relief from flexaril than pain meds.This note was completed by: lSoane Leos RN [employer] PROCEDUREon 01-14-2018 Protein mass conc HNO ID: [id number] thor: Rena Ho, RNService: PICC TeamAuthor Type: Registered NurseType: ProceduresFiled: 01/14/2018 11:55 AMNote Text:PICC/VASCULAR ACCESS PROGRESS NOTESERVICE DATE: 01/14/2018SERVICE TIME: 1130Called to place PIV after unsuccessful RN attempt. #22 gauge 1.75 in IVstarted left antecubital fossa using ultrasound guidance. Brisk bloodreturn and flushed with 10 ml normal saline. No signs of complication.SIGNATURE: Rena Ho RN PATIENT NAME: Nicol HymanDATE: January 14, 2018 : 11:55 AM [employer] PROGRESSon 01-14-2018 Protein mass conc HNO ID: [id number] thor: Noy Kang) Rafia MaysService: NeurosurgeryAuthor Type: Physician AssistantType: Progress NotesFiled: 01/14/2018 11:30 AMNote Text:Neurosurgery Post OpDate: 01/14/2018Time: 11:10 AMAssessment/Plan:POD #2 Drainage and repair of occipital pseudomeningoceleMobilize as toleratedEncourage po intakeIncentive spirometryAppreciate pain mgmt recsDecadron 4mg Q6H x8 dosesDressing CDI. New dressing placedDischarge planningSubjective: The patient reports she is having a lot of pain at theincision site and a throbbing headache. She states the medication does notreally help. She has not tried caffeine yet. No new deficits.Objective:BP 112/71 Pulse 75 Temp 36.8 ?C (98.2 ?F) (Oral) Resp 16 Ht157.5 cm (5' 2) Wt 98.9 kg (218 lb) SpO2 97% BMI 39.87 kg/m?General: AANDOx 3, NAD, VILLANUEVA wellIncision edges well approximated, no signs of infection or drainageDressing CDI.LABS:CBC, Coags, BMP, Mg, PhosURINALYSISSpecific Hanson, UrDate Value Ref Range Qzehsy0312/25/2017 1.018 1.005 - 1.030 Final Glucose, UrineDate Value Ref Range Tszzmb1112/25/2017 Negative Negative mg/dL Final Bilirubin, UrineDate Value Ref Range Pgiytt2312/25/2017 Negative Negative Final Ketones, UrineDate Value Ref Range Gxwckj5612/25/2017 Negative Negative Final Hemoglobin/Blood, UrDate Value Ref Range Vchrxk9412/25/2017 Negative Negative Final Protein, UrineDate Value Ref Range Xbspzs5112/25/2017 Negative Negative mg/dL Final Urobilinogen, UrineDate Value Ref Range Tkhmsb7104/26/2016 neg Normal (<1.1) EU Final LeukocytesDate Value Ref Range Ayjwir1408/16/2016 neg Neg Final WBC, UrineDate Value Ref Range Qpaiwm3012/25/2017 0-5 0 - 5 /HPF Final Noy Hernandez PA-C Normal [facility] NURSING PROGon 01-13-2018 Protein mass conc HNO ID: [id number] thor: Monique (Rn) Edmundo Feldmanice: (none)Author Type: Registered NurseType: Nursing Progress NoteFiled: 01/13/2018 8:07 PMNote Text: Nursing Progress NotePatient Name: Nicol HymanMRN: [id number] Location: [facility]/VE-HFDB-72 Daily Note: Pt A/Ox3, Pt having some increased pain and headache todayversus right after surgery yesterday. Pt given the oral pain meds as perorders. Pt did feel some nausea today but was able to tolerate oralintake for breakfast and lunch. Pt given oral phenergan for the nausea asper the orders. Pt continuing on IVF and [facility] ABX[facility] Pt is a standby assist for safety. Pt's scopolamine patch felloff, called the Neuro PA and she stated to keep the patch off unless thepatient has symptoms that need to be relieved by the patch. Pt c/o threebouts of diarrhea overnight, no c/o diarrhea today so far.18:00: Pt c/o increasing KIM and pain throughout the day withoutimprovement with the oral roxicodone. PA called, roxicodone changed toevery 4 hrs and encouraged Pt to take the IV morphine and flexeril. Painmanagement was consulted as per ordersPt did agree to take the IV morphine and flexeril.This note was completed by: Monique Feldman RN [employer] Protein mass conc HNO ID: [id number] thor: Sally Michaud ([place]) Edmundo Mezaice: (none)Author Type: Registered NurseType: Nursing Progress NoteFiled: 01/13/2018 6:11 AMNote Text: Nursing Progress NotePatient Name: Nicol HymanMRN: [id number] Location: [facility]/HI-TIVT-51 Daily Note:patient a/ox3. Up with standby assist. Patient complains ofdizziness at times. denies any nausea or vomiting. Patient has 6/10headache, prn tylenol given. Dressing to head and neck clean dry andintact. Patient currently in bed, call light in reach.This note was completed by: Sally Meza RN [facility] PROGRESSon 01-13-2018 Protein mass conc HNO ID: [id number] thor: Noy Kang) Rafia Deee: NeurosurgeryAuthor Type: Physician AssistantType: Progress NotesFiled: 01/13/2018 11:14 AMNote Text:Neurosurgery Post OpDate: 01/13/2018Time: 10:50 AMAssessment/Plan:POD #1 Drainage and repair of occipital pseudomeningoceleMobilize as toleratedIncentive spirometryPain controlDischarge planningSubjective: The patient reports she is having a lot of pain in the neck.She states the medication does help. She denies any arm pain or numbness.No new weakness. She has been up to the bathroom and this went ok.Objective:BP 124/66 Pulse 90 Temp 37.1 ?C (98.8 ?F) (Oral) Resp 18 Ht157.5 cm (5' 2) Wt 98.9 kg (218 lb) SpO2 97% BMI 39.87 kg/m?General: AANDOx 3, NAD, VILLANUEVA well, AFVSSSensation intact to LTDressing CDILABS:CBC, Coags, BMP, Mg, PhosRecent Labs 020WBC 12.98*HB 14.1HCT 43.2PLT 399NA 140K 4.1CHLOR 101CO2 27BUN 9CREAT 0.83GLUC 91CA 8.8URINALYSISSpecific Hanson, UrDate Value Ref Range Cairso1012/25/2017 1.018 1.005 - 1.030 Final Glucose, UrineDate Value Ref Range Mhjvgj6812/25/2017 Negative Negative mg/dL Final Bilirubin, UrineDate Value Ref Range Ezgbey3012/25/2017 Negative Negative Final Ketones, UrineDate Value Ref Range Cfrapa1012/25/2017 Negative Negative Final Hemoglobin/Blood, UrDate Value Ref Range Cxitkb7112/25/2017 Negative Negative Final Protein, UrineDate Value Ref Range Yxaefk5212/25/2017 Negative Negative mg/dL Final Urobilinogen, UrineDate Value Ref Range Oanzsr3104/26/2016 neg Normal (<1.1) EU Final LeukocytesDate Value Ref Range Yrfmva6108/16/2016 neg Neg Final WBC, UrineDate Value Ref Range Ivvfnf3312/25/2017 0-5 0 - 5 /HPF Final Noy Hernandez PA-C [employer] ANES Juan 01-12-2018 ANES POST HNO ID: [id number] thor: Apolinar HawthorneeService: AnesthesiologyAuthor Type: AnesthesiologistType: Anesthesia PostOpFiled: 01/12/2018 2:58 PMNote Text:POST ANESTHESIA EVALUATION NOTESERVICE DATE: 01/12/2018SERVICE TIME: 2:58 PMDOB: 1985Vitals: 745 2101/12/18145BP: 144/90 118/60 142/97 127/89Pulse: 65 72 90 91Resp: 16 16 16 16Temp: 37 ?C (98.6 ?F) 37.3 ?C (99.1 ?F) 36.5 ?C (97.7 ?F)TempSrc: Oral Temporal ArterySpO2: 98% 97% 100% 92%Weight:Height:Validated Vital Signs: YesNo apparent anesthetic complications. The patient is appropriatelyhydrated with stable respiratory and cardiovascular status. Patient hassafe and adequate airway control. The patient has appropriate pain reliefand no significant post operative nausea or vomiting. The patient hasachieved baseline mental status.Intra-Operative Events: No Significant Anesthesia EventsFurther assessment by Anesthesia Service: NoneOther Remarks:SIGNATURE: Apolinar Pardo MD PATIENT NAME: Nicol HymanDATE: January 12, 2018 : 2:58 PM PAGER/CONTACT #: [phone] [employer] ANES PREOPon 01-12-2018 ANES PREOP HNO ID: [id number] thor: Apolinar Asherrvice: AnesthesiologyAuthor Type: AnesthesiologistType: Anesthesia PreOpFiled: 01/12/2018 1:18 PMNote Text:REGIONAL ANESTHESIOLOGY DAY OF SURGERY NOTEPATIENT NAME: Nicol HymanMRN: [id number]: 1985Procedure(s) (LRB):REPAIR CSF LEAK W/O LAMINECTOMY (N/A)Surgeon(s):Leena Gleason body mass index is 39.87 kg/m? as calculated from the following: Height as of this encounter: 157.5 cm (5' 2). Weight as of this encounter: 98.9 kg (218 lb).ASA Class: 2Adequate NPO status: YesAllergies:ALLERGIESAllergen Reactions- Latex Hives- Oxycodone Mental Status ChangeAirway Assessment: MP 3; Neck ROM: Full ROM without neurologic symptoms;Airway Evaluation: Small Mouth OpeningDentition: Teeth intactSymptoms of Sleep Apnea: DeniesMost recent lab results:HGB 14.1 01/10/2018Hematocrit 43.2 01/10/2018Potassium 4.1 01/10/2018Platelet Count 399 01/10/2018PT Sec 10.3 12/25/2017APTT 30.5 12/25/2017PT INR 1.0 12/25/2017Creatinine 0.83 01/10/2018EKG:unchanged from previous tracingsVitals: 01/12/1800213BP: 125/69 118/63 144/90 118/60Pulse: 61 60 65 72Resp: 16 16 16 16Temp: 37.2 ?C (99 ?F) 37.1 ?C (98.7 ?F) 37 ?C (98.6 ?F) 37.3 ?C (99.1 ?F)TempSrc: Oral Oral OralSpO2: 96% 98% 98% 97%Weight:Height:Previous Anesthesia: Nausea and/or vomiting Family history of anestheticproblems: NoneAdditional Physical Exam:Lungs: Lungs clear to auscultation. Good diaphragmatic excursion.Cardiac: Normal S1 and S2; no rubs, no murmurs and no gallopsAdditional pertinent findings: N/AOther Medical Problems/ Important Considerations:Denies chest pain and SOB with exertion.Chronic Beta Marlen medication administered within 24 hours: N/AAnesthetic risks, benefits, alternatives, personnel and consent discussed:YesPatient agrees to proceed: YesBlood Products: Will accept Blood/Blood ProductsAnesthetic Plan: General ETT; Standard ASA MonitorsPain Management Plan: ROOT ProtocolParenteral or OralEPIC Chart ReviewACTIVE PROBLEM LISTEpisode of Visual DisturbancePosterior Vitreous Detachment of Right EyeOther Visual DisturbancesObesity, Class III, BMI >= 40Chiari Malformation Type I (Hcc)Postoperative Cellulitis of Surgical WoundPAST MEDICAL HISTORYDiagnosis Date- Chiari I malformation (HCC)- Postoperative cellulitis of surgical wound 01/11/2018PAST SURGICAL HISTORYProcedure Laterality Date- APPENDECTOMY- CERCLAGE CERVIX PREG; VAG 2017- LAPAROSCOPIC CYSTECTOMY DermoidFAMILY HISTORYProblem Relation Age of Onset- Ovarian cancer Mother- Diabetes Father- other ( Defects) Father- other (Endometriosis) Father- other (Other) Son tonsils adnoids/hernia repair- other (Other) Child lump on back - usSocial History:Social HistorySubstance Use Topics- Smoking status: Never Smoker- Smokeless tobacco: Never Used- Alcohol use Yes Comment: rarelyNo current facility-administered medications on file prior to encounter.Current Outpatient Prescriptions on File Prior to Encounter:ondansetron (ZOFRAN) 4 mg tablet Take 1 tablet by mouth every 8 hours asneeded.scopolamine (TRANSDERM-SCOP) 1 mg over 3 days Apply 1 Patch as directedevery 72 hours.oxyCODONE IR (ROXICODONE) 5 mg immediate release tablet Take 1-2 tabletsby mouth every 6 hours as needed for up to 7 days.cyclobenzaprine (FLEXERIL) 10 mg tablet Take 1 tablet by mouth three timesdaily as needed for Muscle Spasm.Inpatient medications reviewed in EPIC.I have interviewed and examined the patient. I have reviewed the medicalrecord and/or the pre-anesthesia evaluation, pertinent labs, and testresults.Significant changes in the patient's condition since the History andPhysical, not otherwise documented in primary service progress notes: NoThis contains updated information obtained within 48 hours ofSurgery/Procedure.SIGNATURE: Apolinar Pardo MD PATIENT NAME: Nicol HymanDATE: January 12, 2018 : 1:17 PM PAGER/CONTACT #: [employer] [facility] [employer] NURSING PROGon 01-12-2018 Protein mass conc HNO ID: [id number] thor: Monique (Rn) FLACO Feldmanervice: (none)Author Type: Registered NurseType: Nursing Progress NoteFiled: 01/12/2018 7:57 PMNote Text: Nursing Progress NotePatient Name: Nicol HymanMRN: [id number] Location: [place] [address]/SS-TDQX-57 Daily Note:08:00: Pt lying flat with legs elevated. Pt has 2 ice packsapplied to each side of her neck, Pt states she is in pain 01/03 butmorphine is not working so declined medication.10:00: Pt assisted to BR, Pt continues to have neck pain and KIM, 01/03.Room dark and door closed as per Pt request.11:20: Pt c/o nausea, called pharmacy to send up phenergan.11:50: Pt transport here to take Pt to surgery. Phenergan did not arrivebefore she left the unit. IVF stopped, d/t no pole on bed to transport IVpump.1600: Pt back from surgery, IVF ongoing.1700: Pt denies any pain or N/V. Pt sitting up and eating dinner.This note was completed by: Monique Feldman RN [employer] Protein mass conc HNO ID: [id number] thor: Sally Michaud (Rn) FLACO Mezaervice: (none)Author Type: Registered NurseType: Nursing Progress NoteFiled: 01/12/2018 5:29 AMNote Text: Nursing Progress NotePatient Name: Nicol HymanMRN: [id number] Location: [place] [address]/ZB-GKHV-11 Daily Note:patient a/ox3. Patient has a continuous 10/10 headache, prnpain medications. Patient also complains of nausea, IV phenergan given.This note was completed by: Sally Meza RN [facility] OPERATIVE NOon 01-12-2018 OPERATIVE NO HNO ID: [id number] thor: Leena Mahoneyervice: NeurosurgeryAuthor Type: PhysicianType: Operative ReportFiled: 01/13/2018 11:28 AMNote Text:[facility] - Operative ReportSNICOL RODRIGUEZ CDOB: 1985AGE: 32.SEX: FMRN: [id number] TYPE: IHOSP SVC: EMERLOCATION: [id number] PHYSICIAN: Leena Zhao M.D.CSN NUMBER: [id number] OF SURGERY/PROCEDURE: 01/12/2018INCISION/PROCEDURE START TIME: 1338 hours.INCISION CLOSE/PROCEDURE END TIME: 1418 hours.PREOPERATIVE DIAGNOSIS: Occipital pseudomeningocele.POSTOPERATIVE DIAGNOSIS: Occipital pseudomeningocele.SURGEON: Leena Zhao M.D.DIGITAL STRATEGY MANAGER: Assisted by JULEE Bose.SURGERY/PROCEDURE: Drainage and repair of occipital pseudomeningocele.ANESTHESIA: General endotracheal.FINDINGS: CSF leaking at the suture line of the graft.BLOOD LOSS: 10 cc.SPECIMENS: None.COMPLICATIONS: None.PREOPERATIVE CLINICAL NOTE: The patient is a 32-year-old female who hadsuccessful decompression of a Chiari malformation 1 week ago on01/05/2018. She recovered uneventfully and was discharged home.However, she presented earlier this week with headaches and eventuallynoticed some fluid at her incisional line. [facility]. The leak continued and we offered her surgical re-exploration and drainage of an occipitalpseudomeningocele.DESCR IPTION OF PROCEDURE: Prior to the procedure, the patient wasincluded in a preoperative huddle to confirm the details of her operationand she was then taken into the operating room. She was given generalendotracheal anesthesia. Her head was fixed in a Thornton head holderand she was turned prone on silicon rolls and all the pressure pointswere checked and padded. Her neck was flexed slightly and the [place] quiñonez attached to the bed. I removed the sutures at theoccipital incision. There was no sign of purulence or erythema. Iprepped and draped the area in a sterile fashion.I opened the incision with Metzenbaum scissors. I removed the remnantsof sutures. I continued opening until we could see the previous graftsite. Self-retaining retractors were placed in the wound. We askedAnesthesia to perform Valsalva maneuver. We could see some fluidleaking from the suture line.I used some additional 4-0 Nurolon sutures to seal these areas.Repeated Valsalva maneuvers were done and any area that did not seemperfectly watertight was re- sutured. We continued this processuntil the graft was completely watertight. I then added 10 cc ofTisseel over the incision line and the rest of the dura.The closure consisted of several layers of 2-0 Vicryl sutureand running interlocking 3-0 nylon for the skin. We then placedXeroform and a sterile dressing and a head wrap as well. We removed [facility] Facilityayfield header dock and the pin sites were free of any bleeding. Thepatient was returned to the supine position and handed back toAnesthesia for further recovery.Leena Zhao M.D.SV:[id number] #: [id number]: 01/12/2018 14:30:47 [facility] CASE MGT INIT KYLEIGH HNO ID: [id number]: Audrey Wasserman (Sw)e: Care ManagementAuthor Type: Social WorkerType: Care Mgt Initial AssessmentFiled: 01/11/2018 1:48 PMNote Text:CARE MANAGEMENT: ASSESSMENT AND DISCHARGE PLANSERVICE DATE: 01/11/2018SERVICE TIME: 1:44 PMPRIMARY CARE PHYSICIAN:Wesley Adkinsne: [phone] STATUS: ObservationNeeds Prior to Discharge: To Be DeterminedMEDICAL:Patient/Repres entative Stated Goals:To have reduction in painHealth Insurance: [employer] PPOCignaHealComverging [employer] Issues Impacting Discharge Plan: CSF leak from incision siteLast Admission Date: Previous admit date: 01/05/2018Is this Within the Past 30 days? YesIs This a Planned Readmission? No: Recurrent symptoms of underlyingdiseaseFollowed Up with Appointment Prior to Admission: Patient scheduled, butreadmitted priorWhere Did the Patient Come From? HomeIntervention Taken to Avoid Future Readmission? SurgeryAdvance Directive:Current Advance Directive: NoneCare Tactical/Mobile Watch Officer Attempted to Assist with AD Completion: YesAction: Education ProvidedHealth Literacy:1. How often do you need to have someone help you when you readinstructions, pamphlets, or other written material from your doctor orpharmacy? Sometimes - 32. How confident are you filling out medical forms by yourself? Somewhat -3If Patient scores > 3 on either question, the following interventions wereput into place:Use of plain language and active listening with Patient and family, Teachback methods employed to ensure comprehension, Use concrete and specificphrases, avoid medical jargon and Forms of communication used with patientand familyFUNCTIONAL AND COGNITIVE/BEHAVIORALPRIOR TO ADMISSION:Baseline Mental Status: Alert AND Oriented, Person, Place , Time andSituationFunctional Status: IndependentDoes Patient Currently Receive Any Community Services or Home Care? NoneEquipment Prior to Admission: NoneHas the Patient Been in a Penitentiary Facility in the Past 30 days? NoSOCIAL:Living Arrangement: HomeLives With: Spouse and childrenFinancial Resources: UnemployedPrimary Contact: Extended Emergency Contact InformationPrimary Emergency Contact: Ant Hyman: [phone] [place] [address] [facility] Tpejqydt: SpouseSupportive: YesOther Important Patient Contacts: NoneCaregiver Assessment:Caregiver is ready, willing and able to meet the patient's needs asrecommended by the inter-professional team? No Caregiver NeededPatient's transition needs and plan for meeting these needs: N/ADoes the patient have an acute stroke diagnosis, or has the patient had astroke during this admission? NoMedication Adherence:I am convinced of the importance of my prescription medication: Agreecompletely - 0I worry that my prescription medication will do more harm than good to meDisagree completely - 0I feel financially burdened by my [id number] expenses for myprescription medication: Disagree completely - 0Patient is categorized as low risk < 2Are you interested in bedside delivery of your medications? YesFood Concerns:In the Last Month, Have You had Trouble Getting Food? No trouble gettingfoodDuring the Last Month, Have You Worried Whether Your Food Would Run OutBefore You Had Enough Money to Buy More? NoIs the Patient Psychosocially Complex? NoASSESSMENT AND PLAN:Medical Needs: Wound Care - active or potentialPsychosocial Needs: NoneFREEDOM OF CHOICE EXPLAINED:N/APOTENTIAL TRANSITION PLANSHomePt admitted from home for CSF leak from incision site. Pt had craniectomyon 01/07/18. Pt admitted from home. 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 No skilled needs anticipated at DC. Pt on add on schedulefor surgery, anticipate later today or tomorrow. to transport [place]at [place]. SW to remain available for transitional planning.SIGNATURE: BRAYAN Bernal PATIENT NAME: Nicol WhelanentruberDATE: January 11, 2018 : 1:44 PM PAGER/CONTACT #: [phone] Normal [facility] Hospital HISTORY PHYSICALon 8 HISTORY PHYSICAL HNO ID: [id number] thor: Pasha Bassett) DontekService: NeurosurgeryAuthor Type: Physician AssistantType: HANDPFiled: 01/11/2018 1:21 PMNote Text:HISTORY AND PHYSICAL EXAMINATIONSERVICE DATE: 01/11/2018SERVICE TIME: 1:17 [facility] PHYSICIAN: Jaylon Boyd, DAWNubjectiveHPIThe patient is a 32-year-old female with h/o chiari decompression on01/05/18. Prior to surgery she had been having worsening headaches aswell as numbness and tingling in all the extremities, but worse in theleft upper extremity. She was found to have a significant Chiarimalformation of approximately 9 mm of tonsillar descent with associatedmass effect on the brainstem and cervical syringomyelia. After surgery,patient recovered slowly. She was found to be in stable condition anddischarged home on 01/09/18. At home she was doing well until yesterdayafternoon. She started having some leakage from her incision. Thisquickly developed to kim and n/v. She was instructed to present to the ED.She was evaluated and admitted for management.FUNCTIONAL STATUS: IndependentPAST MEDICAL HISTORYDiagnosis Date- Chiari I malformation (HCC)- Postoperative cellulitis of surgical wound 01/11/2018PAST SURGICAL HISTORYProcedure Laterality Date- APPENDECTOMY- CERCLAGE CERVIX PREG; VAG 2017- LAPAROSCOPIC CYSTECTOMY DermoidFAMILY HISTORYProblem Relation Age of Onset- Ovarian cancer Mother- Diabetes Father- other ( Defects) Father- other (Endometriosis) Father- other (Other) Son tonsils adnoids/hernia repair- other (Other) Child lump on back - usSocial HistorySubstance Use Topics- Smoking status: Never Smoker- Smokeless tobacco: Never Used- Alcohol use Yes Comment: rarelyPrescriptions Prior to Admission:acetaminophen (TYLENOL) 500 mg tablet Take 1,000 mg by mouth every 8 hoursas needed. Disp: Rfl: 01/10/2018 at 1530ondansetron (ZOFRAN) 4 mg tablet Take 1 tablet by mouth every 8 hours asneeded. Disp: 30 tablet Rfl: 2 Unknown at Unknown time[START ON 01/12/2018] scopolamine (TRANSDERM-SCOP) 1 mg over 3 days Apply1 Patch as directed every 72 hours. Disp: 3 Patch Rfl: 0 Unknown atUnknown timeoxyCODONE IR (ROXICODONE) 5 mg immediate release tablet Take 1-2 tabletsby mouth every 6 hours as needed for up to 7 days. Disp: 40 tablet Rfl: 0Unknown at Unknown timecyclobenzaprine (FLEXERIL) 10 mg tablet Take 1 tablet by mouth three timesdaily as needed for Muscle Spasm. Disp: 60 tablet Rfl: 2 Unknown atUnknown timeALLERGIESAllergen Reactions- Latex Hives- Oxycodone Mental Status ChangeCOMPLETE REVIEW OF SYSTEMS:Review of SystemsObjectivePHYSICAL EXAM:Physical ExamBP 119/71 Pulse 74 Temp 36.9 ?C (98.4 ?F) (Oral) Resp 16 Ht157.5 cm (5' 2) Wt 98.9 kg (218 lb) SpO2 98% BMI 39.87 kg/m?Body mass index is 39.87 kg/m?.Awake and ysvyrmq9FYGIarm symmetricSpeech clearTongue midlineNo neuro deficits noted.DATA:Diagnostic tests reviewed for today's visit:Most recent labs and imaging results.Assessment/PlanActive Problems: CSF leak from incision site Assessment AND Plan:Surgery today if OR Time available.Resolved Problems: * No resolved hospital problems. *SIGNATURE: Pasha Mendiola PA-C PATIENT NAME: Nicol HymanDATE: January 11, 2018 : 1:17 PM PAGER/CONTACT #: [phone] [employer] NURSING PROGon 01-11-2018 Protein mass conc HNO ID: [id number] thor: Criss (Rn) FLACO Chavarriaervice: (none)Author Type: Registered NurseType: Nursing Progress NoteFiled: 01/11/2018 1:23 PMNote Text: Nursing Progress NotePatient Name: Nicol WhelandelilahMRN: [id number] Location: [facility]27/II-[id number] Daily Note:Pt reports pain 3/10 this am, however she does experiencesharp pain increasing when she sits up to take medication or perform adls. Pt states her vision is decreased acuity. She typically has excellentvision and cannot read signs posted on wall. Pt states also experiencesdizziness intermittently. Dressing on wound intact. Family at bedside,safety maintained.1000 pt reports headache increasing, however she was sitting more up toattempt to eat breakfast, pt appears to have chills, temp is 99.9 oral.Pt also c/o mild nausea, pt assisted back to lying position. 1130 pt reports two previous doses of pain medications not providing anyrelief, pt reporting pain 9/10 prn morphine given.1200 pt states no relief from morphine, nurse positioned bed in flatposition to provide more relief. Updated on plan of care for OR, pt putin as add on, no time.This note was completed by: Criss Chavarria RN [employer] Protein mass conc HNO ID: [id number] thor: Yari DempseyRn) Jabari, RNService: (none)Author Type: Registered NurseType: Nursing Progress NoteFiled: 01/11/2018 3:58 AMNote Text: Nursing Progress NotePatient Name: Nicol WhelandelilahN: [id number] Location: [place] [id number] Daily Note:2200: Pt admitted into [facility] from ED in stable condition. Purple Teampaged for orders.2330: Purple Team not here Dr. Cece patel [id number]: Morphine given. Dressing assessed. No drainage noted. Pt states herpain is 12/10.0130: Yellowish drainage noted to be leaking from bottom of incision site.Pt complaining of 8/[address] Zhao paged. Morphine changed to Q2 andMotrin added.This note was completed by: Yari Barboza RN [employer] ALLIED HEALTHon 01-10-2018 ALLIED HEALTH HNO ID: [id number] thor: Rachael (Ronald) Pavithra Millere: RadiologyAuthor Type: TechnicianType: Allied HealthFiled: 01/10/2018 7:20 PMNote Text: Radiology Service Progress NotePATIENT NAME: Nicol WhelanentrnarendraMRN: [id number] OF SERVICE: January 10, 2018TIME: 7:20 PMPATIENT IDENTITY VERIFICATION COMPLETED USING TWO (2) METHODS: Patientconfirmed name verbally and ID band matches..PATIENT GENDER DATA: MalePATIENT RELEVANT IMPLANT DATA REVIEWED: Not ApplicableRADIOLOGY DEPARTMENT: CT; Exam(s) Completed: BrainPERIPHERAL IV DATA: Not applicableSIGNED BY: RONALD RUBYHenry Ford [facility] 2017 7:20 PM Normal [facility] CBC and Differentialon 01-10 Abs Baso <0.03 Normal <0.11 [facility] Comment on above: Performed By: #### C BCDIF, CMP ####[address] Abs [place] 1.05 k/uL High <0.87 [facility] Comment on above: Performed By: #### C BCDIF, CMP ####[address] Abs Neut 9.23 k/uL High 1.45-7.50 [facility] Comment on above: Performed By: #### C BCDIF, CMP ####[address] Basophils/100 WBC Auto (Bld) 0.1 % [employer] Comment on above: Performed By: #### C BCDIF, CMP ####[address] DTYPE Auto Diff Normal [facility] Comment on above: Performed By: #### C BCDIF, CMP ####[place] [phone] Eosinophils Auto #/vol (Bld) 0.06 10*3/uL Normal <0.46 [facility] Comment on above: Performed By: #### C BCDIF, CMP ####[place] [phone] Eosinophils/100 WBC Auto (Bld) 0.5 % [employer] Comment on above: Performed By: #### C BCDIF, CMP ####[place] [address] Erythrocyte distribution width Auto Ratio (RBC) 13.5 % Normal 11.5-15.0 [facility] Comment on above: Performed By: #### C BCDIF, CMP ####[place] [address] Hematocrit Auto Volume Fraction (Bld) 43.2 % Normal 36.0-46.0 [facility] Comment on above: Performed By: #### C BCDIF, CMP ####[place] [address] Hemoglobin mass conc (Bld) 14.1 g/dL Normal 11.5-15.5 [facility] Comment on above: Performed By: #### C BCDIF, CMP ####[place] [address] Lymphocytes Auto #/vol (Bld) 2.63 10*3/uL Normal 1.00-4.00 [facility] Comment on above: Performed By: #### C BCDIF, CMP ####[place] [address] Lymphocytes/100 WBC Auto (Bld) 20.3 % Normal [facility] Comment on above: Performed By: #### C BCDIF, CMP ####[address] MCH Auto Entitic mass (RBC) 28.7 pG Normal 26.0-34.0 [facility] Comment on above: Performed By: #### C BCDIF, CMP ####[place] [phone] MCHC Auto mass conc (RBC) 32.6 g/dL Normal 30.5-36.0 [facility] Comment on above: Performed By: #### C BCDIF, CMP ####[place] [phone] MCV Auto Entitic volume (RBC) 87.8 fL Normal 80.0-100.0 [facility] Comment on above: Performed By: #### C BCDIF, CMP ####[place] [phone] Monocytes/100 WBC Auto (Bld) 8.1 % Normal [facility] Comment on above: Performed By: #### C BCDIF, CMP ####[place] [phone] Neutrophils/100 WBC Auto (Bld) 71.0 % Normal [facility] Comment on above: Performed By: #### C BCILSAF, CMP ####[place] [phone] Platelet mean volume Auto Entitic volume (Bld) 11.2 fL Normal 9.0-12.7 [facility] Comment on above: Performed By: #### C BCDIF, CMP ####[place] [phone] Platelets Auto #/vol (Bld) 399 10*3/uL Normal 150-400 [facility] Comment on above: Performed By: #### C BCILSAF, CMP ####[place] [phone] RBC Auto #/vol (Bld) 4.92 10*6/uL Normal 3.90-5.20 [facility] Comment on above: Performed By: #### C BCDIF, CMP ####[place] [phone] WBC Auto #/vol (Bld) 12.98 10*3/uL High 3.70-11.00 [facility] Comment on above: Performed By: #### C BCDIF, CMP ####[place] [phone] Enrique 01-10-2018 STEVEN Telephone (FILOMENA) LIN ESQUIVELNICOL Payton ([id number]) 1985 [facility] Time Provider Bojjyffnbs59/17/18 LEENA ZHAO During your visit today, we recorded the following information about you:[place]pos [facility] [place]/10[place] 4:22 PM SignedPatient's called. Patient was discharged yesterday and later todaynoticed clear fluid leaking from the incision. Please advise. The number [phone].Sky Quezada, RN, RN 01/10/2018 4:49 PM SignedPatient is s/p Posterior fossa craniectomy for Chiari anomaly, C1 laminectomy,Duraplasty with Durepair graft, Intradural arachnoid dissection and tonsillarcautery with microscope done 01/05/18.Drainage on the distal last cm of the incision has clear drainage amount ofspot that was the size 1-2 diameter on . This was over the course of an hourthis afternoon while she was napping. The remainder of the incision looksfine. No swelling or redness. Afebrile. Headache also to whole head thatstarted three hours ago. Prior to that she only had incisional pain. Shetook 2 extra strength Tylenol at 330 with little relief. Current pain level is10/10.Discussed the above with PA. Advised that patient keep dressing on her post opincision and to wrap the head as well with either a gauze wrap or tracy wrap.She is to lay flat as much as possible. [facility] at [address] Zhao.Spoke with spouse and informed of the above. Informed that if her symtpomsworsen then she is to be seen in the ED between now and tomorrow morning.Will have front loader residential driver cell installer place patient on schedule.[place]andni [place]pos [facility] [place]10[place] 4:46 PM SignedPatient's called again. His tabkpq-jg-nid is freaking out becauseher daughter cannot put her chin to her chest. He understands this is mostlikely no cause for alarm, but his MIL insisted that he call. He alsounderstands our staff leaves at 5:00 pm and he may not get a call today. Hisunderstanding is patient will be seen tomorrow at 9:00 am.Sky Quezada RN, RN 01/10/2018 5:00 PM SignedSpoke with patient spouse and states that patient is experiencing dizziness is8/10 and nausea is 9/10. She has eaten today earlier but nothing recently.Spoke with PA and informed of the above. Informed that I was sending patientto the ED for evaluation and she agreed.Informed spouse who will bring patient to [facility].Allergies As of Date: 01/10/2018 Noted Allergy ReactionLATEX 11/03/2015 4 - HivesOXYCODONE 11/09/2015 1 - Mental Status ChangeDate Reviewed: 01/10/2018Reviewed by: Yari (Rn) VERNON Barboza - Fully AssessedReason for Visit: Incision question [Other]Prescriptions as of 01/10/2018 Sig: ONDANSETRON HCL 4 MG TABLET Take 1 tablet by mouth every * SCOPOLAMINE 1 MG OVER 3 DAYS * Apply 1 Patch as directed kiarra* OXYCODONE 5 MG TABLET Take 1-2 tablets by mouth kiarra* CYCLOBENZAPRINE 10 MG TABLET Take 1 tablet by mouth three *Problem List As Of Date 01/10/2018 Noted Resolved Hyperemesis complicating , antepartum *INVALID FOR*02/22/2016 Obesity affecting in first trimester *INVALID FOR*11/15/2016 History of delivery, currently *INVALID FOR*11/15/2016 11 weeks gestation of [Z3A.11] INVALID FOR*02/22/2016 Nausea and vomiting of , antepartum [O*INVALID FOR*11/15/2016 Cervical cerclage suture present in second trim*INVALID FOR*11/15/2016 Abnormal glucose complicating [O99.81*INVALID FOR*11/15/2016 More... Episode of visual disturbance [H53.9] INVALID FOR* Posterior vitreous detachment of right eye [H43*INVALID FOR* Other visual disturbances [H53.8] INVALID FOR* Obesity, Class III, BMI >= 40 [E66.01] INVALID FOR* Chiari malformation type I (HCC) [G93.5] INVALID FOR* More... Status:Closed by QUEZADA, SKY on 01/10/18 Normal [facility] CT BRAIN WO IVCONon 01-11-20 CT BRAIN WO IVCON * * *Final Report* * *DATE OF EXAM: Jan 10 2018 7:34PM [facility] 0504 - CT BRAIN WO IVCON / REASON: Post operative complication suspected * * * * Physician Interpretation * * * * EXAMINATION: CT BRAIN WO IVCONCLINICAL HISTORY: Post operative complication suspected Status post Chiari decompression 5 days prior, presenting to emergency department complaining of drainage from her incision site, as well as severe headache, blurry vision, dizziness and nausea. Subjective fevers and hot and cold sweats. Afebrile in the ED.TECHNIQUE: Serial axial images without IV contrast were obtained from the vertex to the foramen magnum.MQ: [id number]_3CT Dose-Length Product (DLP): 663 mGy*cmCT Dose Reduction Employed: Automated exposure control (AEC)COMPARISON: No prior brain imaging is currently available for direct comparison. Correlation is made with MR cervical spine from 07/21/2017 which is currently available for low resolution review in the electronic medical record software but not currently available for viewing in the PACS.RESULT:Post-operative change: The patient is status post suboccipital craniotomy and C1 laminectomy for Chiari decompression. There is a small amount of likely postsurgical acute to subacute blood product products centered within the craniotomy defect measuring about 4 mm in maximal thickness without mass effect. Small amount of suboccipital fluid is partially visualized, either reflecting pseudomeningocele or postoperative seroma measures about 2.2 x 1.3 cm in maximum axial dimensions.Acute change: There is low-attenuation in bilateral inferior cerebellar hemispheres which can be correlated to any parenchymal resection during the Chiari decompression, versus acute to subacute infarcts. No evidence of an acute cortical infarct supratentorially.Hemorrhage: No evidence of acute intracranial hemorrhage elsewhere.Mass Lesion / Mass Effect: Mildly prominent CSF attenuation space for age over the frontal convexities measuring up to about 3 mm in thickness (for example axial image 16) may reflect trace subdural hygromas or dural thickening. Similar mildly prominent CSF attenuation space along the right falx near the vertex (image 22). Crowded appearance of the prepontine and premedullary cisterns.Chronic change: None apparent.Parenchyma: There is no significant volume loss. The brain parenchyma is otherwise within normal limits for age.Ventricles: The ventricles are within normal limits of size and configuration for age.Paranasal sinuses and skull base: The visualized paranasal sinuses are grossly clear. The skull base and imaged soft tissues are unremarkable.IMPRESSION:Postsurg ical changes of suboccipital decompression; trace postoperative blood products without mass effect. Low-attenuation in bilateral inferior cerebellar hemispheres may reflect infarcts/cytotoxic edema related to surgical manipulation but should be correlated with any possible parenchymal resection during the decompression surgery.Crowding of the prepontine and premedullary cisterns, and suggestion of dural thickening or trace subdural hygromas over the cerebral convexities and right superior falx, could reflect intracranial hypotension in the setting of reported fluid leakage from the incision site.Small amount of partially visualized suboccipital fluid, either small pseudomeningocele or postoperative seroma.Findings can be further evaluated by MRI without and with contrast.Leather Sprayer: PSCMaksim Transcribe Date/Time: Jan 10 2018 7:35PDictated by : MARGARET FISHER MDThis examination was interpreted and the report reviewed and electronically signed by: MARGARET FISHER MD on Jan 10 2018 7:50PM [id number] Normal [facility] Comp Metabolic Panelon 01-10 Albumin mass conc 3.9 g/dL Normal 3.5-5.0 [facility] Comment on above: Performed By: #### C BCDIF CMP ####[address] [phone] ALP enzyme act/vol 68 U/L Normal 34-123 [facility] Comment on above: Performed By: #### C CHASE CMP ####[place] [phone] ALT enzyme act/vol 57 U/L High 0-45 [facility] Comment on above: Performed By: #### C BCDIF CMP ####[place] [phone] Anion gap 3 molar conc 12 mmol/L Normal 9-18 [facility] Comment on above: Performed By: #### C BCDIF, CMP ####[place] [address] AST enzyme act/vol 21 U/L Normal 7-40 [facility] Comment on above: Performed By: #### C BCDIF, CMP ####[place] [address] Bilirubin mass conc 0.3 mg/dL Normal 0.2-1.3 [facility] Comment on above: Performed By: #### C BCDIF, CMP ####[place] [address] Calcium mass conc 8.8 mg/dL Normal 8.5-10.5 [facility] Comment on above: Performed By: #### C BCDIF, CMP ####[place] [address] Chloride molar conc 101 mmol/L Normal 98-110 [facility] Comment on above: Performed By: #### C BCDIF, CMP ####[place] [address] CO2 molar conc 27 mmol/L Normal 23-32 [facility] Comment on above: Performed By: #### C BCDIF, CMP ####[place] [address] Creatinine mass conc 0.83 mg/dL Normal 0.70-1.40 [facility] Comment on above: Result Comment: Revi ewed Performed By: #### C BCDIF, CMP ####[place] [phone] eGFR- Amer. >60 Normal >60 [facility] Comment on above: Performed By: #### C BCDIF, CMP ####[place] [phone] GFR/1.73 sq M predicted among non-blacks MDRD vol rate/area (S/P/Bld) mL/min/{1.73_m2} Normal >60 [facility] Comment on above: Performed By: #### C BCDIF, CMP ####[place] [address] Glucose mass conc 91 mg/dL Normal 65-100 [facility] Comment on above: Performed By: #### C BCDIF, CMP ####[place] [address] Potassium molar conc 4.1 mmol/L Normal 3.5-5.0 [facility] Comment on above: Performed By: #### C BCDIF, CMP ####[place] [address] Protein mass conc 7.2 g/dL Normal 6.0-8.4 [facility] Comment on above: Performed By: #### C BCDIF, CMP ####[place] [address] Sodium molar conc 140 mmol/L Normal 132-148 [facility] Comment on above: Performed By: #### C BCDIF, CMP ####[place] [address] Urea nitrogen mass conc 9 mg/dL Normal 8-25 [facility] Comment on above: Performed By: #### C BCDIF, CMP ####[place] [address] ED NOTEon 01-10-2018 ED NOTE HNO ID: [id number] thor: Ruthann (Rn) FLACO Wyattervice: (none)Author Type: Registered NurseType: ED NotesFiled: 01/10/2018 8:29 PMNote Text: While medic placing line he stated that it looked like the pt eyes rolledinto the back of her head and her head shook, but pt denies having any hxof seizures; notified MD Dena [facility] ED NOTE HNO ID: [id number] Author: Ruthann Kearney) VERNON Wyatt Service: (none) Author Type: Registered Nurse Type: ED Notes Filed: 01/10/2018 7:36 PM Note Text: Pt return from CT Normal [facility] ED NOTE HNO ID: [id number] Author: Jayne (Rn) VERNON Moran Service: Nursing Author Type: Registered Nurse Type: ED Notes Filed: 01/10/2018 7:23 PM Note Text: Report to Lizeth KWON. Patient transported to CT scan Normal [facility] ED NOTE HNO ID: [id number] thor: Jayne (Rn) FLACO Moranervice: NursingAuthor Type: Registered NurseType: ED NotesFiled: 01/10/2018 6:51 PMNote Text: Pt states she had a craniotomy/decompression surgery 5 days ago by . Today, approximately 3 hours PLASTIC MOLDER, she had clear drainage from herincision site, 10/10 headache and blurriness to both eyes, along withdizziness and nausea. Pt states she felt like she had a fever this morningand was having hot and cold sweats. Pt currently afebrile. She isaccompanied to ED by .Surgical incision to posterior neck is closed with cristina, wellapproximated, no redness noted. Normal [facility] ED PROV NOTEon 01-10-2018 Protein mass conc HNO ID: [id number] thor: Joan Herringice: Emergency MedicineAuthor Type: PhysicianType: ED Provider NotesFiled: 01/10/2018 9:20 PMNote Text:ED Provider NotePatient Name: Nicol HymanMRN: [id number] DATE: 01/10/18HistoryPatient presents with:Post Op Drainage: surgery on monday, craniotomy/ decompression surgery onmonday, clear drainage from incisionNausea: new onset from surgeryDizziness: new onset from surgeryHeadacheHPI a 32-year-old female postop day 5 from a suboccipital craniotomy forchiari malformation complains of drainage from wound that is new over thelast 1-2 days. Patient reports cleared. No purulence. Does report somenausea, photophobia and dizziness which are all new since the surgicalprocedure. No stiff neck. Denies any fevers but does endorse chills. Norecorded fevers at home. Has taken Tylenol for the pain.Patient's subjectively feels like the right lower extremity is weak.PAST MEDICAL HISTORYDiagnosis Date- Chiari I malformation (HCC)PAST SURGICAL HISTORYProcedure Laterality Date- APPENDECTOMY- CERCLAGE CERVIX PREG; VAG 2017- LAPAROSCOPIC CYSTECTOMY DermoidFAMILY HISTORYProblem Relation Age of Onset- Ovarian cancer Mother- Diabetes Father- other ( Defects) Father- other (Endometriosis) Father- other (Other) Son tonsils adnoids/hernia repair- other (Other) Child lump on back - usSocial HistorySocial History Main Topics- Smoking status: Never Smoker- Smokeless tobacco: Never Used- Alcohol use Yes Comment: rarely- Drug use: No- Sexual activity: Yes Partners: Male control/ protection: VasectomyALLERGIESAllergen Reactions- Latex Hives- Oxycodone Mental Status ChangeReview of SystemsConstitutional: Positive for chills.HENT: Negative.Eyes: Negative.Respiratory: Negative for shortness of breath.Cardiovascular: Negative for chest pain, palpitations and leg swelling.Gastrointestinal: Negative. Negative for abdominal pain.Endocrine: Negative.Genitourinary: Negative.Musculoskeletal: Negative.Skin: Negative.Allergic/Immunologic: Negative.Neurological: Positive for weakness and headaches.Hematological: Negative.Psychiatric/Behavioral: Negative. Negative for behavioral problems.Physical ExamBP 137/90 Pulse 79 Temp (Src) 98.4 (Oral) Resp 18 Ht 5' 2 (1.58m) Wt 218 lb (98.9kg) SpO2 100% BMI 39.86 kg/(m2).Physical ExamConstitutional: She is oriented to person, place, and time. She appearswell-developed and well-nourished. No distress.HENT:Head: Normocephalic and atraumatic.Eyes: Pupils are equal, round, and reactive to light. EOM are normal.Neck: Normal range of motion. Neck supple.Cardiovascular: Normal rate and normal heart sounds.Pulmonary/Chest: No respiratory distress.Abdominal: She exhibits no distension. There is no tenderness.Musculoskeletal: Normal range of motion.Neurological: She is alert and oriented to person, place, and time. Nocranial nerve deficit.PERRLA, EOMI, CN 2-12 grossly intact.LE: 5/5 BL knee extension, flexion, 5/5 BL ankle plantarextension, -patient with some difficulty with right ankle dorsiflexion although afterencouraging her she is able to give me 5 out of 5 strength withdorsiflexionUE: 5/5 BL elbow extension, flexion, 5/5 BL wrist palmar extension,dorsiflexion. 5/5 rn acute care stengthSensation to light touch intact.No dysmetria with finger nose finger. Normal cerebellar function withheel to gil bilaterally.Skin: Skin is warm. She is not diaphoretic.Psychiatric: She has a normal mood and affect. Her behavior is normal.Thought content normal.Diagnostic TestingED Labs Ordered and Reviewed - No data to displayProceduresED Course / Clinical ImpressionClinical Impressions as of Jan 10ellulitis of drainage site, post-operativeNonintractable headache, unspecified chronicity pattern, unspecifiedheadache typeMDM / Disposition / PlanCT with concerning findings for possible postoperative fluid collection.Discussed with Dr. Zhao of neurosurgery. Recommends we admit her forobservation. Recommends placing a Tracy bandage around the wound. Steriledressing was applied and Tracy bandage was applied. no neurologic deficits noted on repeat exam.Admitted for further management.Review of old medical records show Reviewed discharge summary, imaging andoperative reports from admission.DispositionThe patient was admitted.Condition at disposition is improved.SIGNATURE: Chau HERRING MD01/10/182119 [facility] HOSPon 01-10-2018 HOSP Patient:Nicol Pillai CMRN: Height:5' 2(1.575 m)Weight:218 lb (98.884 kg)Outpatient Medications as of 01/12/18:acetaminophen (TYLENOL) 500 mg tabletondansetron (ZOFRAN) 4 mg tabletscopolamine (TRANSDERM-SCOP) 1 mg over 3 daysoxyCODONE IR (ROXICODONE) 5 mg immediate release tabletcyclobenzaprine (FLEXERIL) 10 mg tabletAdmission/Clinic Administered Medications as of 01/12/18:morphine 2 mg injectiondextrose 5% in NaCl 0.9% iv infusioncyclobenzaprine 10 mg tab(s) (FLEXERIL)oxyCODONE IR 5-10 mg tab(s) (ROXICODONE)docusate sodium 100 mg cap(s) (COLACE)magnesium hydroxide 400 mg/5 mL 30 mL (MOM)bisacodyl 10 mg suppository (DULCOLAX)acetaminophen 500-1,000 mg tab(s) (TYLENOL)scopolamine 1 mg over 3 days 1 Patch (TRANSDERM-SCOP)scopolamine - REMOVE PATCHscopolamine - VERIFY patchpromethazine 25 mg tab(s) (PHENERGAN)promethazine 12.5 mg in NaCl 0.9% 50 mL (PHENERGAN)Problem List:Episode of visual disturbance [H53.9]Posterior vitreous detachment of right eye [H43.811]Other visual disturbances [H53.8]Obesity, Class III, BMI >= 40 [E66.01]Chiari malformation type I (HCC) [G93.5]Postoperative cellulitis of surgical wound [T81.49XA]Allergies:LatexOxycodo neDate Verified: 01/12/18Lab ValuesLab Value Units Date High LowPOTA* 4.1 mmol/L 01/10/2018 5.0 3.5HEMA* 43.2 % 01/10/2018 46.0 36.0Progress Notes ([facility]):Sky Quezada RN, RN 01/11/2018 2:[address] Zhao he would like patient to be placed on the surgery schedule fortomorrow. She will have a Occipital Pseudomenigocele Repair. Spoke withBecky in surgery scheduling and patient will be placed on the schedule fortomorrow at 1330.[facility]andni [place] [facility] [place] 4:22 PM SignedPatient's called. Patient was discharged yesterday and later todaynoticed clear fluid leaking from the incision. Please advise. The number [phone].Sky Quezada RN, RN 01/10/2018 4:49 PM SignedPatient is s/p Posterior fossa craniectomy for Chiari anomaly, C1 laminectomy,Duraplasty with Durepair graft, Intradural arachnoid dissection and tonsillarcautery with microscope done 01/05/18.Drainage on the distal last cm of the incision has clear drainage amount of spotthat was the size 1-2 diameter on . This was over the course of an hour thisafternoon while she was napping. The remainder of the incision looks fine. Noswelling or redness. Afebrile. Headache also to whole head that startedthree hours ago. Prior to that she only had incisional pain. She took 2 extrastrength Tylenol at 330 with little relief. Current pain level is 10/10.Discussed the above with PA. Advised that patient keep dressing on her post opincision and to wrap the head as well with either a gauze wrap or tracy wrap. Sheis to lay flat as much as possible. She will also be seen in clinic tomorrow [facility] for incision check at [address] Zhao.Spoke with spouse and informed of the above. Informed that if her symtpomsworsen then she is to be seen in the ED between now and tomorrow morning.Will have front loader residential driver cell installer place patient on schedule.Chandni Campos [facility] [place]10[place] 4:46 PM SignedPatient's called again. His [id number] is freaking out because sophia cannot put her chin to her chest. He understands this is most likelyno cause for alarm, but his MIL insisted that he call. He also understands ourstaff leaves at 5:00 pm and he may not get a call today. His understanding ispatient will be seen tomorrow at 9:00 am.Sky Quezada, RN, RN 01/10/2018 5:00 PM SignedSpoke with patient spouse and states that patient is experiencing dizziness is8/10 and nausea is 9/10. She has eaten today earlier but nothing recently.Spoke with PA and informed of the above. Informed that I was sending patient [facility] for evaluation and she agreed.Informed spouse who will bring patient to [facility]. Normal [facility] Basic Metabolic Panlon 01-09 Anion gap 3 molar conc 13 mmol/L Normal 12-12 [facility] Comment on above: Performed By: #### B MP, CBCDIF ####[facility] [place], [place] [phone] Calcium mass conc 8.7 mg/dL Normal 8.5-10.5 [facility] Comment on above: Performed By: #### B SANTA, CBCDIF ####[place] [phone] Chloride molar conc 103 mmol/L Normal 98-110 [facility] Comment on above: Performed By: #### B SANTA, CBCDIF ####[place] [phone] CO2 molar conc 21 mmol/L Low 23-32 [facility] Comment on above: Performed By: #### B SANTA, CBCDIF ####[place] [phone] Creatinine mass conc 0.63 mg/dL Low 0.70-1.40 [facility] Comment on above: Performed By: #### B SANTA, CBCDIF ####[place] [phone] eGFR- Amer. >60 Normal >60 [facility] Comment on above: Performed By: #### B SANTA, CBCDIF ####[place] [phone] GFR/1.73 sq M predicted among non-blacks MDRD vol rate/area (S/P/Bld) mL/min/{1.73_m2} Normal >60 [facility] Comment on above: Performed By: #### B SANTA, CBCDIF ####[place] [phone] Glucose mass conc 115 mg/dL High 65-100 [facility] Comment on above: Performed By: #### B SANTA, CBCDIF ####[place] [phone] Potassium molar conc 4.3 mmol/L Normal 3.5-5.0 [facility] Comment on above: Performed By: #### B SANTA, CBCDIF ####[place] [phone] Sodium molar conc 137 mmol/L Normal 132-148 [facility] Comment on above: Performed By: #### B SANTA, CBCDIF ####[place] [phone] Urea nitrogen mass conc 8 mg/dL Normal 8-25 [facility] Comment on above: Performed By: #### B MP, CBCDIF ####[place] [phone] CBC and Differentialon 01-09 Abs Baso <0.03 Normal <0.11 [facility] Comment on above: Performed By: #### B MP, CBCDIF ####[place] [phone] Abs [place] 0.63 k/uL Normal <0.87 [facility] Comment on above: Performed By: #### B MP, CBCDIF ####[place] [phone] Abs Neut 11.48 k/uL High 1.45-7.50 [facility] Comment on above: Performed By: #### B MP, CBCDIF ####[place] [phone] Basophils/100 WBC Auto (Bld) 0.0 % Normal [facility] Comment on above: Performed By: #### B MP, CBCDIF ####[place] [phone] DTYPE Auto Diff Normal [facility] Comment on above: Performed By: #### B MP, CBCDIF ####[place] [phone] Eosinophils Auto #/vol (Bld) 10*3/uL Normal <0.46 [facility] Comment on above: Performed By: #### B MP, CBCDIF ####[place] [phone] Eosinophils/100 WBC Auto (Bld) 0.0 % Normal [facility] Comment on above: Performed By: #### B MP, CBCDIF ####[place] [phone] Erythrocyte distribution width Auto Ratio (RBC) 13.3 % Normal 11.5-15.0 [facility] Comment on above: Performed By: #### B SANTA, CBCDIF ####[place] [phone] Hematocrit Auto Volume Fraction (Bld) 38.2 % Normal 36.0-46.0 [facility] Comment on above: Performed By: #### B SANTA, CBCDIF ####[place] [phone] Hemoglobin mass conc (Bld) 12.8 g/dL Normal 11.5-15.5 [facility] Comment on above: Performed By: #### B SANTA, CBCDIF ####[place] [phone] Lymphocytes Auto #/vol (Bld) 1.17 10*3/uL Normal 1.00-4.00 [facility] Comment on above: Performed By: #### B SANTA, CBCDIF ####[place] [phone] Lymphocytes/100 WBC Auto (Bld) 8.8 % Normal [facility] Comment on above: Performed By: #### B SANTA, CBCDIF ####[place] [phone] MCH Auto Entitic mass (RBC) 29.2 pG Normal 26.0-34.0 [facility] Comment on above: Performed By: #### B SANTA, CBCDIF ####[phone] MCHC Auto mass conc (RBC) 33.5 g/dL Normal 30.5-36.0 [facility] Comment on above: Performed By: #### B SANTA, CBCDIF ####[place] [phone] MCV Auto Entitic volume (RBC) 87.2 fL Normal 80.0-100.0 [facility] Comment on above: Performed By: #### B SANTA, CBCDIF ####[place] [phone] Monocytes/100 WBC Auto (Bld) 4.7 % Normal [facility] Comment on above: Performed By: #### B MP, CBCDIF ####[place] [phone] Neutrophils/100 WBC Auto (Bld) 86.5 % Normal [facility] Comment on above: Performed By: #### B MP, CBCDIF ####[place] [phone] Platelet mean volume Auto Entitic volume (Bld) 12.5 fL Normal 9.0-12.7 [facility] Comment on above: Performed By: #### B MP, CBCDIF ####[place] [phone] Platelets Auto #/vol (Bld) 221 10*3/uL Normal 150-400 [facility] Comment on above: Performed By: #### B MP, CBCDIF ####[place] [phone] RBC Auto #/vol (Bld) 4.38 10*6/uL Normal 3.90-5.20 [facility] Comment on above: Performed By: #### B MP, CBCDIF ####[place] [phone] WBC Auto #/vol (Bld) 13.28 10*3/uL High 3.70-11.00 [facility] Comment on above: Performed By: #### B MP, CBCDIF ####[place] [phone] CNDSon 01-09-2018 CNDS HNO ID: [id number] thor: Pasha Dickersonervice: NeurosurgeryAuthor Type: Physician AssistantType: Discharge SummariesFiled: 01/10/2018 3:29 PMNote Text: Attestation signed by Leena Zhao at 01/10/2018 9:[address] [facility] Jaswant Zhao MD DISCHARGE SUMMARYPATIENT NAME: Nicol Hyman ADMISSION DATE: 01/05/2018MRN: [id number] DISCHARGE DATE: 01/09/2018Attending Physician: [facility] Care Physician: Jaylon Boyd DO Code Status: Not on fileHighest Readmission Risk Score: 8The 30 day readmissions risk score is derived from an internally validatedrisk model which evaluates patient level characteristics, utilizationhistory, medication orders and lab results up until the day of discharge.Patients with a score of 40 or above are considered highest risk forreadmission. Specific patient level drivers will be listed at the bottomof the summary.Reason for Hospitalization: Elective SurgeryOperations During Hospitalization: Posterior fossa craniectomy for Chiarianomaly, C1 laminectomy, Duraplasty with Durepair graft, Intraduralarachnoid dissection and tonsillar cautery with microscopeProcedures During Hospitalization:Hospital Course:The patient was electively admitted to the [facility]. After being optimized for surgery, Nicol Hyman wasidentified and brought into the Operating Room by the anesthesia andnursing teams. Prior to surgery the patient was treated with antibioticsand continued with antibiotics postoperatively. The patient underwent aPosterior fossa craniectomy for Chiari anomaly, C1 laminectomy, Duraplastywith Durepair graft, Intradural arachnoid dissection and tonsillar cauterywith microscope. The patient tolerated the procedure and was taken to theICU. Patient's pain and medical condition was managed by ICU. Patientwas fitted with sequential compression devices for DVT prophylaxis. Thepatient was found to be in stable condition and able to be transferred tothe surgical floor for postoperative management on POD# 1. On the floor,the patient was advanced to a regular diet and full activity. On POD#3,she continued to be on IV pain meds. Decision was made to DC IV pain meds,add flexeril, Decadron was given for 24 hours. On POD #4, patient wasgreatly improved.The patient was discharged on POD # 4 in stable condition. Complete andcomprehensive discharge instructions were provided to the patient as wellas necessary prescriptions. The patient had no further questions and wasadvised to call with any questions, concerns, or problems.Patient's pain was well controlled with Oral Pain Medications.Patient was hemodynamically stable postoperatively.Patient had no signs/symptoms of DVT, so no ultrasound was done duringhospital course.Case management was consulted during hospital course for appropriatedischarge planning for patient.Transitions of Care Critical Issues:LABS AND PROCEDURES PENDING AT DISCHARGE: No pending results.Consulting Teams During Hospitalization: ICUPatient Condition @ Discharge: GoodDischarge Disposition: Home/Self CarePHYSICAL EXAM ON DISCHARGE:See final noteInformation Provided to Patient:Diet: RegularActivity: See dc instructionsWound/Surgical Site Care:ALLERGIESAllergen Reactions- Latex Hives- Oxycodone Mental Status ChangeDischarge Medications: Discharge Medication List as of 01/09/2018 1:25 PMSTART taking these medicationsondansetron (ZOFRAN) 4 mg tabletTake 1 tablet by mouth every 8 hours as needed.Normal, Disp-30 tablet, R-2scopolamine (TRANSDERM-SCOP) 1 mg over 3 daysApply 1 Patch as directed every 72 hours.Normal, Disp-3 Patch, R-0oxyCODONE IR (ROXICODONE) 5 mg immediate release tabletTake 1-2 tablets by mouth every 6 hours as needed for up to 7 days.Print RX, Disp-40 tablet, R-0Dx: 1. Acute post-operative paincyclobenzaprine (FLEXERIL) 10 mg tabletTake 1 tablet by mouth three times daily as needed for Muscle Spasm.Normal, Disp-60 tablet, R-2Future Appointments:Follow Up with Dr. Zhao in 2 weeksThis patient?s risk for 30-day readmission is determined using thefollowing contributing driversPt variables contributing to increased readmission risk: 10 Active Medication Orders 8.3 First Resulted Calcium During Admission 8 Most Recent BUN Result 1 Insurance - Private Coverage 1 Discharge Disposition - HomeSIGNATURE: Pasha Mendiola PA-C PAGER: [phone]: January 09, 2018TIME: 12:31 PM [facility] NURSING PROGon 01-09-2018 Protein mass conc HNO ID: [id number] thor: Ruth DempseyRn) FLACO Songervice: NursingAuthor Type: Registered NurseType: Nursing Progress NoteFiled: 01/09/2018 2:49 PMNote Text: Nursing Progress NotePatient Name: Nicol HendricksonkristynN: [id number] Location: [id number]-[id number]-48 Daily Note:Pt discharged to home with no needs. Discharge instruction,medication, reconciliation, and follow up care/appointments were reviewedwith the patient and family. Patient verbalized understanding. Pt left theunit in stable condition by wheelchair @ 1449 . Belongings sent with pt.This note was completed by: Ruth Song RN [facility] Protein mass conc HNO ID: [id number] thor: FLACO oPlo Rnervice: NursingAuthor Type: Registered NurseType: Nursing Progress NoteFiled: 01/09/2018 12:49 PMNote Text: Nursing Progress NotePatient Name: Nicol Cain YenniN: [id number] Location: /VX-[id number]-99 Daily Note:Pt denies nausea or vomiting. Refused a.m. Zofran. Colace andtylenol given. Pt tolerating diet. Up independently to bathroom withsteady gait. in room to assist if needed. Fluids d/c'd. VSS.Initial post op dressing intact and no additional drainage noted. No neurodeficits. Safety maintained. Call light in reach Will continue to monitor.This note was completed by: Ruth Song RN [facility] PLAN OF CAREon 01-09-2018 PLAN OF CARE HNO ID: [id number] thor: Shanice Poon (Water Quality Assistant)Service: (none)Author Type: TechnicianType: Plan of CareFiled: 01/10/2018 10:15 AMNote Text:SHEET METAL FORMER BEDSIDE DELIVERY SURVEY1. Patient to use [facility] Bedside Delivery - NO prefer ownpharm[facility]2. If fax, patient would like us to fax prescriptions to [facility]. Pharmacy: b. Location: c. Phone:3. Insurance card on file - NO4. Credit card for payment - NO [facility] PROGRESSon 01-09-2018 Protein mass conc HNO ID: [id number] thor: Pasha Bassett) DontekService: NeurosurgeryAuthor Type: Physician AssistantType: Progress NotesFiled: 01/09/2018 12:27 PMNote Text:NEUROSURGERY POST OP PROGRESS NOTESERVICE DATE: 01/09/2018SERVICE TIME: 12:26 PMPOST OP DAY: # 4SUBJECTIVEPatient reports she is starting to feel better. .OBJECTIVEGeneral: AANDOx 3, NAD, VILLANUEVA well, AFVSS.Incision: dressing CDI.Drain: no drain.Clarke: no clarke.Most recent labs and imaging results..Current hospital medications:influenza vaccine 60 mcg (Patients 3 to 64 years) (PF) (FLUZONE 2018-)0.5 mL INTRAMUSCULAR ONCE (IMMUNIZATION)oxyCODONE IR 5-10 mg tab(s) (ROXICODONE) 5-10 mg ORAL q 6 H PRNondansetron 4 mg tab(s) (ZOFRAN) 4 mg ORAL q 6 Hcyclobenzaprine 10 mg tab(s) (FLEXERIL) 10 mg ORAL TID PRNacetaminophen 500-1,000 mg tab(s) (TYLENOL) 500-1,000 mg ORAL q 6 H PRNphenol 1 [place] (CHLORASEPTIC) 1 [place] MUCOUS MEMBRANE (TOPICAL MOUTH ANDTHROAT) q 2 H PRNscopolamine 1 mg over 3 days 1 Patch (TRANSDERM-SCOP) 1 Patch TRANSDERMALq 72 HRscopolamine - REMOVE PATCH OTHER q 72 HRscopolamine - VERIFY patch OTHER q 8 Hdocusate sodium 100 mg cap(s) (COLACE) 100 mg ORAL BIDmagnesium hydroxide 400 mg/5 mL 30 mL (MOM) 30 mL ORAL BID PRNbisacodyl 10 mg suppository (DULCOLAX) 10 mg RECTAL DAILY PRNASSESSMENT AND PLANPatient Active Hospital Problem List: Chiari malformation type I (HCC) (12/20/2017)Medication and Non-Pharmacologic VTE Prophylaxis/Kgnsdtnqjexktd37/15/ 18 1330 activity - mobilize patient (ct,oh)01/08/18 0900 vte pharmacologic prophylaxis contraindicated (ct,pa)01/08/18 0900 pneumatic compression stockings (ct,pa)01/05/18 1900 vte pharmacologic prophylaxis contraindicated (ct,oh)01/05/18 1845 vte pharmacologic prophylaxis contraindicated (ct,pa)VTE Prophylaxis: VTE prophylaxis appropriateNicol Hyman is a 32 year old status post chiari decompression.Pt seen and examined with Dr. Zhao. All recommendations discussed withand initiated by Dr. Zhao.Recommend increasing activity, physical therapy , occupational therapy anddischarge planning.Anticipate discharge in 1 day.SIGNATURE: Pasha Mendiola PA-C PATIENT NAME: Nicol HymanDATE: January 09, 2018 : 12:00 PM PAGER/CONTACT #:ETX#[phone] [facility] THERAPY NTon 01-09-2018 THERAPY NT HNO ID: [id number] thor: Clint (Pt) Rejiervice: Physical TherapyAuthor Type: Physical TherapistType: Therapy (PT/OT/Speech/Resp)Filed: 01/09/2018 9:49 AMNote Text:Physical Therapy EvaluationSERVICE DATE: 01/09/2018SERVICE TIME: 0755 to 0820ROOM: [id number] Discharge Disposition: Outpatient Physical TherapyRecommended Discharge Disposition Comments: when appropriate per MDAnticipated Discharge Needs: Supervision at HomePhysical Assist at Home for:Cleaning;Laundry;Meals;Shopp ing;TransportationSupervision at Home due to: (decreased endurance)Recommended Discharge Equipment: No equipment needs anticipatedPT Recommendations to Nursing: Ambulate without devicePT 6 Clicks Score: 22Precautions/Activity Restrictions: Fall Risk;Lines/Tubes/DrainsIsolation Type: NoneASSESSMENT :32 yo patient admitted to the hospital for cervical laminectomy.Patient's pertinent PMHx includes Chiari malformation. Patient'simpairments as related to PT include decreased strength/endurance,impaired balance, functional mobility and self care performance. Patientmay benefit from Outpatient PT in order to continue to progress functionalmobility and ADL skills. Patient has adequate support and socialstructure for reasonably safe discharge home at current level.Patient Disposition at Start of Session: Supine in BedPatient Disposition at End of Session: OOB in ChairTolerated Full SessionPhysical Therapy Problem List: Decreased Activity Tolerance;FunctionalMobility Impairment;Balance Impaired;Decreased StrengthPatient /Caregiver Goals: Go HomeGoals for Plan of Care:Able to perform HEP with: IndependentAmbulate with: IndependentDistance: 500Device: No DeviceAmbulate up and down steps with: Modified IndependentNumber of steps: 4Device: RailProgress Toward Goals: Progressing as expectedRehab Potential: GoodPLAN:Treatment Frequency (times per week): 2 Current admissionTreatment Interventions: Energy ConservationTraining;Strengtheni ng;Balance Training;Functional MobilityTraining;Neuromuscular Re-educationPlan of Care developed with: Patient;FamilyTREATMENT INTERVENTIONS:Therapy Diagnosis: Reduced mobility-other;Decreased activities of dailyliving (ADL);Muscle Weakness (generalized);Unsteadiness on feetInterventions Provided: Evaluation;Therapeutic Exercise (42961)$ Evaluation-Low (38876) Billed Units: 1 unitTherapeutic Exercise (98019) Treatment Minutes: 81 unitSkilled Intervention(s): Instruction in therapeutic exercise bilat LE'sfor strengthening and endurance trainingVerbal and tactile cuing provided for proper technique and tempo.Education in purpose and frequency to complete exercises.Cues given to pt to perform at slower speed to optimize muscularstrengthening.Educated pt regarding role of PT, potential discharge options, andreasoning for discharge recommendation. Pt sits in chair with alarm inplace, call light and phone near pt post treatment.Total Timed Code Treatment Minutes: 8Total Treatment Time (minutes): 25FUNCTIONAL G CODE:PT 6 Clicks Score: 22 (01/09/18 0755)Mobility: Walking and Moving Around Current Status (G8978): CJ ()Mobility: Walking and Moving Around Goal Status (G8979): ()Based on clinical assessment and the score on the 6 Clicks FunctionalAssessment Tool, the G code and corresponding severity modifiers aredocumented above.SUBJECTIVE:Current Hospital Course: Chart reviewed; 32 [facility]Reason for Physical Therapy Consult : s/p cervical laminectomy andcraniotomyRelevant Past Medical History: Chiari malformation,obesityPatient Report: I want to go homeHome EnvironmentPatient Lives With: Family ( and three small children)Assistance Available: 24 Hour ( and mother to stay with patient)Entry To Home: Stairs;With RailNumber Of Stairs Into Home: 3Number Of Stairs To Bed/Bath: 0Tub/Shower Type: tub showerLaundry: first floorPrior Functional Level: Within Functional LimitsPrior Functional Level Comments: Ind ADLs, IADLs, works, drives, deniesfallsOBJECTIVE:CURRENT FUNCTIONAL STATUS:Current Functional Mobility Assist Level Additional InformationRolling IndependentSupine to Sit IndependentSit to Supine IndependentScooting IndependentSit to Stand IndependentStand to Sit IndependentBed to ChairToilet/CommodeGait Contact Guard Assistance Gait Device: None Gait Distance (feet): 400Stairs Contact Guard Assistance Stairs Device: RailNumber of Stairs: 4Curb StepCar TransferGeneral Gait Deviations: Lisset decreased;Step length decreased(increased fatigue toward end of ambulation)Balance: Dynamic StandingDynamic Standing Balance: Contact Guard AssistanceActivity Tolerance: Standing ActivityStanding Activity: amb,stairsStanding Activity Tolerance (in minutes): 8Please see discipline specific clinical documentation flowsheet forcomplete details for this therapy evaluation/treatment.SIGNATURE: Clint Rhodes PT PATIENT NAME: Nicol WhelanchayauberDATE: January 09, 2018 : 9:47 AM Normal [facility] Basic Metabolic Panlon 01-08 Anion gap 3 molar conc 12 mmol/L Normal 9-18 [facility] Comment on above: Performed By: #### B SANTA, CBCDIF ####[place] [phone] Calcium mass conc 8.3 mg/dL Low 8.5-10.5 [facility] Comment on above: Performed By: #### B SANTA, CBCDIF ####[place] [phone] Chloride molar conc 104 mmol/L Normal 98-110 [facility] Comment on above: Performed By: #### Maksim PRATT, CBCDIF ####[place] [phone] CO2 molar conc 24 mmol/L Normal 23-32 [facility] Comment on above: Performed By: #### Maksim PRATT, CBCDIF ####[place] [phone] Creatinine mass conc 0.80 mg/dL Normal 0.70-1.40 [facility] Comment on above: Performed By: #### Maksim PRATT, CBCDIF ####[place] [phone] eGFR- Amer. >60 Normal >60 [facility] Comment on above: Performed By: #### Maksim PRATT, CBCDIF ####[place] [phone] GFR/1.73 sq M predicted among non-blacks MDRD vol rate/area (S/P/Bld) mL/min/{1.73_m2} Normal >60 [facility] Comment on above: Performed By: #### Maksim PRATT, CBCDIF ####[place] [phone] Glucose mass conc 88 mg/dL Normal 65-100 [facility] Comment on above: Performed By: #### Maksim PRATT, CBCDIF ####[place] [phone] Potassium molar conc 3.9 mmol/L Normal 3.5-5.0 [facility] Comment on above: Performed By: #### B SANTA, CBCDIF ####[place] [id number] [place], [place] [phone] Sodium molar conc 140 mmol/L Normal 132-148 [facility] Comment on above: Performed By: #### B SANTA, CBCDIF ####[place] [id number] [place], [place] [phone] Urea nitrogen mass conc 6 mg/dL Low 8-25 [facility] Comment on above: Performed By: #### B SANTA, CBCDIF ####[place] [id number] [place], [place] [phone] CASE MGT INIT KYLEIGHon 2017 CASE MGT INIT LEXY HNO ID: [id number]: Shanta (Rn) FLACO Zuritaervice: Care ManagementAuthor Type: Registered NurseType: Care Mgt Initial AssessmentFiled: 01/08/2018 12:15 PMNote Text:CARE MANAGEMENT: ASSESSMENT AND DISCHARGE PLANSERVICE DATE: 01/08/2018SERVICE TIME: 11:15AMPRIMARY CARE PHYSICIAN:RANDELL Adkinshone: [phone] STATUS: InpatientNeeds Prior to Discharge: To Be DeterminedMEDICAL:Patient/Repres entative Stated Goals:To have reduction in painTo have reduction in symptomsTo improve my functional statusTo return home to life as it wasHealth Insurance: [email or web address] PPO.Health Issues Impacting Discharge Plan: Newly diagnosed ChiariMalformation S/P C1 lami/ Crani 01/05/18Last Admission Date: noneIs this Within the Past 30 days? NoAdvance Directive:Current Advance Directive: NoneCare Tactical/Mobile Watch Officer Attempted to Assist with AD Completion: YesAction: Education ProvidedHealth Literacy:1. How often do you need to have someone help you when you readinstructions, pamphlets, or other written material from your doctor orpharmacy? Sometimes - 32. How confident are you filling out medical forms by yourself? Somewhat -3If Patient scores > 3 on either question, the following interventions wereput into place:Use concrete and specific phrases, avoid medical jargon, Forms ofcommunication used with patient and family, Sit with Patient and Teachback methods employed to ensure comprehensionFUNCTIONAL AND COGNITIVE/BEHAVIORALPRIOR TO ADMISSION:Baseline Mental Status: Alert AND Oriented, Person, Place , Time andSituationFunctional Status: IndependentDoes Patient Currently Receive Any Community Services or Home Care? NoneEquipment Prior to Admission: NoneHas the Patient Been in a Penitentiary Facility in the Past 30 days? NoSOCIAL:Living Arrangement: HomeLives With: Spouse and childrenFinancial Resources: UnemployedPrimary Contact: Extended Emergency Contact InformationPrimary Emergency Contact: Celena Hymanddress: [phone] [place] [address] [facility] Fnktkj Hgqglvek: SpouseSupportive: YesOther Important Patient Contacts: NoneCaregiver Assessment:Caregiver is ready, willing and able to meet the patient's needs asrecommended by the inter-professional team? No Caregiver NeededPatient's transition needs and plan for meeting these needs: yesDoes the patient have an acute stroke diagnosis, or has the patient had astroke during this admission? NoMedication Adherence:I am convinced of the importance of my prescription medication: Agreecompletely - 0I worry that my prescription medication will do more harm than good to meDisagree completely - 0I feel financially burdened by my wcq-zf-lpujwq expenses for myprescription medication: Disagree completely - 0Patient is categorized as low risk < 2Are you interested in bedside delivery of your medications? NoFood Concerns:In the Last Month, Have You had Trouble Getting Food? No trouble gettingfoodDuring the Last Month, Have You Worried Whether Your Food Would Run OutBefore You Had Enough Money to Buy More? NoIs the Patient Psychosocially Complex? NoASSESSMENT AND PLAN:Medical Needs: Wound Care - active or potentialPsychosocial Needs: NoneFREEDOM OF CHOICE EXPLAINED:N/APOTENTIAL TRANSITION PLANSHomeMet with patient at bedside. Requested from nursing to see pt. Explainedrole of TCC. Pt AANDOx3, Pt's spouse at bedside. Pt defers questions tospouse. Pt nauseated. Spouse, Nithin asking TCC to check their insurance.Sts [employer] approved 2 days in hospital. TCC will inquire about this andrelay back to pt.Pt lives with her spouse and children in a home in [place], [place]. Pt Triston , cares for her children, denies needs after discharge. Supportivehusband and pt's mother is caring for children.TCC will be available for any needs that may arise.SIGNATURE: Shanta Zurita RN,BSN PATIENT NAME: Nicol HymanDATE: January 08, 2018 : 11:26 AM PAGER/CONTACT #: [phone] Normal [facility] CBC and Differentialon 01-08 Abs Baso <0.03 Normal <0.11 [facility] Comment on above: Performed By: #### B SANTA, CBCDIF ####[place] [phone] Abs [place] 1.09 k/uL High <0.87 [facility] Comment on above: Performed By: #### Maksim PRATT, CBCDIF ####[place] [phone] Abs Neut 10.30 k/uL High 1.45-7.50 [facility] Comment on above: Performed By: #### Maksim PRATT, CBCDIF ####[place] [phone] Basophils/100 WBC Auto (Bld) 0.1 % Normal [facility] Comment on above: Performed By: #### Maksim PRATT, CBCDIF ####[place] [phone] DTYPE Auto Diff Normal [facility] Comment on above: Performed By: #### Maksim PRATT, CBCDIF ####[place] [phone] Eosinophils Auto #/vol (Bld) 0.03 10*3/uL Normal <0.46 [facility] Comment on above: Performed By: #### Maksim PRATT, CBCDIF ####[place] [phone] Eosinophils/100 WBC Auto (Bld) 0.2 % Normal [facility] Comment on above: Performed By: #### B SANTA, CBCDIF ####[place] [phone] Erythrocyte distribution width Auto Ratio (RBC) 14.0 % Normal 11.5-15.0 [facility] Comment on above: Performed By: #### B MP, CBCDIF ####[place] [phone] Hematocrit Auto Volume Fraction (Bld) 39.4 % Normal 36.0-46.0 [facility] Comment on above: Performed By: #### B SANTA, CBCDIF ####[place] [phone] Hemoglobin mass conc (Bld) 12.7 g/dL Normal 11.5-15.5 [facility] Comment on above: Performed By: #### B SANTA, CBCDIF ####[place] [phone] Lymphocytes Auto #/vol (Bld) 1.90 10*3/uL Normal 1.00-4.00 [facility] Comment on above: Performed By: #### B SANTA, CBCDIF ####[place] [phone] Lymphocytes/100 WBC Auto (Bld) 14.3 % Normal [facility] Comment on above: Performed By: #### B MP, CBCDIF ####[place] [phone] MCH Auto Entitic mass (RBC) 28.9 pG Normal 26.0-34.0 [facility] Comment on above: Performed By: #### B MP, CBCDIF ####[place] [phone] MCHC Auto mass conc (RBC) 32.2 g/dL Normal 30.5-36.0 [facility] Comment on above: Performed By: #### B MP, CBCDIF ####[place] [phone] MCV Auto Entitic volume (RBC) 89.5 fL Normal 80.0-100.0 [facility] Comment on above: Performed By: #### B MP, CBCDIF ####[place] [phone] Monocytes/100 WBC Auto (Bld) 8.2 % Normal [facility] Comment on above: Performed By: #### B MP, CBCDIF ####[place] [phone] Neutrophils/100 WBC Auto (Bld) 77.2 % Normal [facility] Comment on above: Performed By: #### B SANTA, CBCDIF ####[place] [phone] Platelet mean volume Auto Entitic volume (Bld) 11.8 fL Normal 9.0-12.7 [facility] Comment on above: Performed By: #### B MP, CBCDIF ####[place] [phone] Platelets Auto #/vol (Bld) 287 10*3/uL Normal 150-400 [facility] Comment on above: Performed By: #### B SANTA, CBCDIF ####[place] [phone] RBC Auto #/vol (Bld) 4.40 10*6/uL Normal 3.90-5.20 [facility] Comment on above: Performed By: #### B MP, CBCDIF ####[place] [phone] WBC Auto #/vol (Bld) 13.33 10*3/uL High 3.70-11.00 [facility] Comment on above: Performed By: #### B MP, CBCDIF ####[place] [phone] NURSING PROGon 01-08-2018 Protein mass conc HNO ID: [id number] thor: Ale (Rn) Micheal, RNService: ASSESSMENTAuthor Type: Registered NurseType: Nursing Progress NoteFiled: 01/08/2018 1:34 PMNote Text: Nursing Progress NotePatient Name: Nicol HymanMRN: [id number] Location[facility]-ILLF-18 Daily Note:0800 Pt AANDOx3. Follows simple commands. PERRLA brisk. 4/5 strength on allextremities. Denies nausea and vomiting at this time. Denies numbness ortingling, sob, cp, blurred vision, double vision. She is soft spoken.Boyfriend at the bedside. C/o of 9/10 throbbing, stabbing KIM. Oxycodonegiven per prn order. No neurological deficits noted. Initial post opdressing in place with no new drainage. LS clear on RA. BS hypoactive. NoBM in 2 days -per pt. Pt move to the bathroom with 1 assist. NS running at75 ml per hr. Fall and safety maintained.1030 Orders received for Zofran PO, tylenol, and decadron IV. Pt refusesZofran. Decadron given IV per order. Fluids rate change from 75 to 100ml/hr. 500 mg of Tylenol given for KIM. Wctm.1216 pt is eating lunch and states she feels better and KIM is 2/10. Per pttylenol is working for her KIM. She is more alert and awake right now andin a better mood. wctm.This note was completed by: Ale Burton RN [employer] PROGRESSon 01-08-2018 Protein mass conc HNO ID: [id number] thor: Pasha Bassett) DontekService: NeurosurgeryAuthor Type: Physician AssistantType: Progress NotesFiled: 01/08/2018 9:48 AMNote Text: Attestation signed by Leena Zhao at 01/08/2018 11:26 Apolonia Zhao MD NEUROSURGERY POST OP PROGRESS NOTESERVICE DATE: 01/08/2018SERVICE TIME: 9:44 AMPOST OP DAY: # 3SUBJECTIVEPatient very groggy. Patient not eating much. Has had a lot of nausea andpain.OBJECTIVEGeneral: sleeping. Opens eyes to voice, Not answering questionsJust medicatedIncision: dressing CDI.Drain: no drain.Clarke: no clarke.Most recent labs and imaging results..Current hospital medications:oxyCODONE IR 5-10 mg tab(s) (ROXICODONE) 5-10 mg ORAL q 6 H PRNondansetron 4 mg tab(s) (ZOFRAN) 4 mg ORAL q 6 Hcyclobenzaprine 10 mg tab(s) (FLEXERIL) 10 mg ORAL TID PRNdexamethasone sodium phosphate 4 mg injection (DECADRON) 4 mg INTRAVENOUSq 6 Hacetaminophen 500-1,000 mg tab(s) (TYLENOL) 500-1,000 mg ORAL q 6 H PRNphenol 1 [place] (CHLORASEPTIC) 1 [place] MUCOUS MEMBRANE (TOPICAL MOUTH ANDTHROAT) q 2 H PRNscopolamine 1 mg over 3 days 1 Patch (TRANSDERM-SCOP) 1 Patch TRANSDERMALq 72 HR[START ON 01/09/2018] scopolamine - REMOVE PATCH OTHER q 72 HRscopolamine - VERIFY patch OTHER q 8 Hdocusate sodium 100 mg cap(s) (COLACE) 100 mg ORAL BIDmagnesium hydroxide 400 mg/5 mL 30 mL (MOM) 30 mL ORAL BID PRNbisacodyl 10 mg suppository (DULCOLAX) 10 mg RECTAL DAILY PRNNaCl 0.9% iv infusion 100 mL/hr INTRAVENOUS CONTINUOUSASSESSMENT AND PLANPatient Active Hospital Problem List: Chiari malformation type I (HCC) (12/20/2017)Medication and Non-Pharmacologic VTE Prophylaxis/Bmvmhjkpelqwfd51/15/ 18 0900 vte pharmacologic prophylaxis contraindicated (fl,oh)01/08/18 0900 pneumatic compression stockings (ct,oh)01/05/18 1900 vte pharmacologic prophylaxis contraindicated (ct,oh)01/05/18 1845 vte pharmacologic prophylaxis contraindicated (ct,oh)VTE Prophylaxis: VTE prophylaxis appropriateNicol Hyman is a 32 year old status post Chiari decompression.Recommend DC Dilaudid, percocet and phenerganAdd tylenol 500-1000mg, roxicodone, zofran, flexeril and decadron x 24hoursIncrease IVF for 24 hours to 100ml/hour due to minimal PO intakeEncourage activity.SIGNATURE: Pasha Mendiola PA-C PATIENT NAME: Nicol HymanDATE: January 08, 2018 : 9:44 AM PAGER/CONTACT #:ETX#[phone] [employer] THERAPY NTon 01-08-2018 THERAPY NT HNO ID: [id number] thor: Chandni Mayo (Ot) ObrienService: Occupational TherapyAuthor Type: Occupational TherapistType: Therapy (PT/OT/Speech/Resp)Filed: 01/08/2018 2:04 PMNote Text:Occupational Therapy EvaluationSERVICE DATE: 01/08/2018SERVICE TIME: 1320 to 1343ROOM: [id number] Discharge Disposition: Home OTAnticipated Discharge Needs: Physical Assist at HomePhysical Assist at Home for:Cleaning;Laundry;Meals;Shopp ing;TransportationRecommended Discharge Equipment: Shower ChairOT Recommendations to Nursing: To Bathroom for ADL?s /and or Toileting;OOBfor meals;Transfer to Chair;With assist of 1 personOT 6 Clicks Score: 24Precautions/Activity Restrictions: Fall Risk;Lines/Tubes/DrainsIsolation Type: NoneASSESSMENT:32 yo patient admitted to the hospital for chiari decompression.Patient's impairments as related to Occupational Therapy include decreasedstrength/endurance, impaired balance, functional mobility and self careperformance. Patient may benefit from Home Occupational Therapy in orderto continue to progress functional mobility and ADL skills. Patient hasadequate support and social structure for reasonably safe discharge homeat current level.Patient Disposition at Start of Session: Supine in Bed;Call [facility] inReach;Family PresentPatient Disposition at End of Session: OOB in Chair;Call [facility] inReach;Family PresentTolerated Full SessionOccupational Therapy Problem List: Pain;Impaired Self Care;DecreasedActivity Tolerance;Decreased Strength;Functional MobilityImpairment;Impaired Fine Motor SkillsPatient /Caregiver Goals: Walk;Go Home;Care For SelfGoals for Plan of Care:Upper Body Bathing with: Modified IndependentUpper Body Dressing with: Modified IndependentLower Body Bathing with: Modified IndependentLower Body Dressing with: Modified IndependentToilet Hygiene with: Modified IndependentChair Transfer with: Modified IndependentToilet Transfer with: Modified IndependentTolerate (minutes of functional activity): 30Functional Activity with: Modified IndependentRehab Potential: ExcellentPLAN:Treatment Frequency (times per week): 1 Current admissionTreatment Interventions: Education;Self Care / Home Management;EnergyConservation Training;Joint Mobility;Strengthening;Functiona l MobilityTraining;Balance Training;Neuromuscular Re-education;Pain ManagementPlan of Care developed with: Patient;FamilyTREATMENT INTERVENTIONS:Therapy Diagnosis: Reduced mobility-other;Decreased activities of dailyliving (ADL);Muscle Weakness (generalized);Unsteadiness on feetInterventions Provided: Evaluation;Self Senior Care Management (55385)$ Evaluation-Low (91533) Billed Units: 1 unitSelf Senior Care Management (80217) Treatment Minutes: 81 unitSkilled Intervention(s): Provided cuing for hand/oral hygiene. Completedin stance at sink.Cues for sequencing in hygiene tasks. Completed toileting with SBA.Provided instruction, cuing and facilitation for lower body dressing. Ableto demo figure 4 technique for socks in sitting.Edu pt on benefits of OOB and increasing mobility as tolerated for optimallung function, hemodynamic stability, increased strength and endurance,and to prevent secondary complications from prolonged immobility. Ptverbalizes understanding.Total Timed Code Treatment Minutes: 8Total Treatment Time (minutes): 23FUNCTIONAL G CODE:OT 6 Clicks Score: 24 (01/08/18 1320)Self Care Current Status (G8987): CH (01/08/18 1320)Self Care Goal Status (G8988): CH (01/08/18 1320)Based on clinical assessment and the score on the 6 Clicks FunctionalAssessment Tool, the G code and corresponding severity modifiers aredocumented above.SUBJECTIVE:Current Hospital Course: Chart reviewed; see aboveReason for Occupational Therapy Consult: s/p chiari decompressionRelevant Past Medical History: chiari malformationPatient Report: Blunted affect. Pleasant and agreeable. Reports pain. present and supportive.Home EnvironmentPatient Lives With: Family ( and three small children)Assistance Available: 24 Hour ( and mother to stay with patient)Entry To Home: Stairs;With RailNumber Of Stairs Into Home: 3Number Of Stairs To Bed/Bath: 0Tub/Shower Type: tub showerLaundry: first floorPrior Functional Level: Within Functional LimitsPrior Functional Level Comments: Ind ADLs, IADLs, works, drives, deniesfallsOBJECTIVE:Communicati on Deficits: (soft-spoken)Responsiveness: AlertFollows Commands: 3-step CommandsCURRENT FUNCTIONAL STATUS:Current Activities of Daily Living Assist LevelFeeding Modified IndependentGrooming Modified IndependentBathing Upper Body Stand By AssistanceBathing Lower Body Stand By AssistanceDressing Upper Body Stand By AssistanceDressing Lower Body Stand By AssistanceToileting Stand By AssistanceInstrumental Activities of Daily Living Assist LevelMeal/Beverage PrepLight CleaningLaundryMedication Management with StrategiesFunctional Mobility Assist LevelRollingSupine to Sit Stand By AssistanceSit to SupineScootingSit to Stand Contact Guard AssistanceStand to Sit Stand By AssistanceBed to ChairToilet/CommodeFunctional Mobility Stand By Assistance IV PolePlease see discipline specific clinical documentation flowsheet forcomplete details for this therapy evaluation/treatment.SIGNATURE: AUDREY Martinez PATIENT NAME: Nicol WatsonuberDATE: January 08, 2018 : 1:59 PM Normal [facility] THERAPY NT HNO ID: [id number] thor: Chandni Mayo (Ot) PashaenService: Occupational TherapyAuthor Type: Occupational TherapistType: Therapy (PT/OT/Speech/Resp)Filed: 01/08/2018 1:11 PMNote Text:OCCUPATIONAL THERAPY MISSED VISITSERVICE DATE: 01/08/2018SERVICE TIME: 1310 to 1310ROOM: [id number]-12Soheyxsfc Evaluation. Patient not seen due to Incomplete Orders. Ordersfor bedrest. RN notified. OT will assess when appropriate.SIGNATURE: AUDREY Martinez PATIENT NAME: Nicol WatsonuberDATE: January 08, 2018 : 1:10 PM Normal [facility] Basic Metabolic Panlon 01-07 Anion gap 3 molar conc 9 mmol/L Normal -18 [facility] Comment on above: Performed By: #### C BCDIF, BMP ####[place] [phone] Calcium mass conc 7.9 mg/dL Low 8.5-10.5 [facility] Comment on above: Performed By: #### C BCDIF, BMP ####[address] Chloride molar conc 108 mmol/L Normal 98-110 [facility] Comment on above: Performed By: #### C BCDIF, BMP ####[place] [phone] CO2 molar conc 24 mmol/L Normal 23-32 [facility] Comment on above: Performed By: #### C BCDIF, BMP ####[place] [phone] Creatinine mass conc 0.66 mg/dL Low 0.70-1.40 [facility] Comment on above: Performed By: #### C BCDIF, BMP ####[place] [phone] eGFR- Amer. >60 Normal >60 [facility] Comment on above: Performed By: #### C BCDIF, BMP ####[place] [phone] GFR/1.73 sq M predicted among non-blacks MDRD vol rate/area (S/P/Bld) mL/min/{1.73_m2} Normal >60 [facility] Comment on above: Performed By: #### C BCDIF, BMP ####[place] [phone] Glucose mass conc 104 mg/dL High 65-100 [facility] Comment on above: Performed By: #### C BCDIF, BMP ####[place] [phone] Potassium molar conc 4.0 mmol/L Normal 3.5-5.0 [facility] Comment on above: Performed By: #### C BCDIF, BMP ####[place] [phone] Sodium molar conc 141 mmol/L Normal 132-148 [facility] Comment on above: Performed By: #### C BCDIF, BMP ####[place] [phone] Urea nitrogen mass conc 6 mg/dL Low 8-25 [facility] Comment on above: Performed By: #### C BCDIF, BMP ####[phone] CBC and Differentialon 01-07 Abs Baso <0.03 Normal <0.11 [facility] Comment on above: Performed By: #### C BCDIF, BMP ####[place] [phone] Abs [place] 1.18 k/uL High <0.87 [facility] Comment on above: Performed By: #### C BCDIF, BMP ####[place] [phone] Abs Neut 13.87 k/uL High 1.45-7.50 [facility] Comment on above: Performed By: #### C BCDIF, BMP ####[place] [phone] Basophils/100 WBC Auto (Bld) 0.1 % Normal [facility] Comment on above: Performed By: #### C BCDIF, BMP ####[place] [phone] DTYPE Auto Diff Normal [facility] Comment on above: Performed By: #### C BCDIF, BMP ####[place] [phone] Eosinophils Auto #/vol (Bld) 10*3/uL Normal <0.46 [facility] Comment on above: Performed By: #### C BCDIF, BMP ####[place] [phone] Eosinophils/100 WBC Auto (Bld) 0.1 % Normal [facility] Comment on above: Performed By: #### C BCDIF, BMP ####[place] [phone] Erythrocyte distribution width Auto Ratio (RBC) 14.1 % Normal 11.5-15.0 [facility] Comment on above: Performed By: #### C BCDIF, BMP ####[place] [phone] Hematocrit Auto Volume Fraction (Bld) 36.4 % Normal 36.0-46.0 [facility] Comment on above: Performed By: #### C BCDIF, BMP ####[place] [phone] Hemoglobin mass conc (Bld) 11.9 g/dL Normal 11.5-15.5 [facility] Comment on above: Performed By: #### C BCDIF, BMP ####[place] [phone] Lymphocytes Auto #/vol (Bld) 1.26 10*3/uL Normal 1.00-4.00 [facility] Comment on above: Performed By: #### C BCDIF, BMP ####[place] [phone] Lymphocytes/100 WBC Auto (Bld) 7.7 % Normal [facility] Comment on above: Performed By: #### C BCDIF, BMP ####[place] [phone] MCH Auto Entitic mass (RBC) 29.2 pG Normal 26.0-34.0 [facility] Comment on above: Performed By: #### C BCDIF, BMP ####[place] [phone] MCHC Auto mass conc (RBC) 32.7 g/dL Normal 30.5-36.0 [facility] Comment on above: Performed By: #### C BCDIF, BMP ####[place] [phone] MCV Auto Entitic volume (RBC) 89.4 fL Normal 80.0-100.0 [facility] Comment on above: Performed By: #### C BCDIF, BMP ####[place] [phone] Monocytes/100 WBC Auto (Bld) 7.2 % Normal [facility] Comment on above: Performed By: #### C BCDIF, BMP ####[place] [phone] Neutrophils/100 WBC Auto (Bld) 84.9 % Normal [facility] Comment on above: Performed By: #### C BCDIF, BMP ####[place] [phone] Platelet mean volume Auto Entitic volume (Bld) 11.2 fL Normal 9.0-12.7 [facility] Comment on above: Performed By: #### C BCDIF, BMP ####[place] [phone] Platelets Auto #/vol (Bld) 265 10*3/uL Normal 150-400 [facility] Comment on above: Performed By: #### C BCDIF, BMP ####[facility] [place], [place] [phone] RBC Auto #/vol (Bld) 4.07 10*6/uL Normal 3.90-5.20 [facility] Comment on above: Performed By: #### C BCDIF, BMP ####[facility] [place], [place] [phone] WBC Auto #/vol (Bld) 16.33 10*3/uL High 3.70-11.00 [facility] Comment on above: Performed By: #### C BCDIF, BMP ####[facility] [place], [place] [phone] NURSING PROGon 01-07-2018 Protein mass conc HNO ID: [id number] thor: Shawn DempseyRn) FLACO Aliciaervice: NursingAuthor Type: Registered NurseType: Nursing Progress NoteFiled: 01/07/2018 9:02 AMNote Text: Nursing Progress NotePatient Name: Nicol WhelanchayanarendraMRN: [id number] Location: [place] [address]/AC-HMQA-41 Daily Note: Pt. AOx3 with PERRLA intact. Pt. VSS, LS CTA spo2 97% on RA.Pt. Denies any N/V, dizziness, blurred vision, SOB, or dyspnea at thistime. Pt. C/o of headache generalized throughout as well as pain atincision site. Pt. Medicated per prn pain medication orders. Pt. Has NaCl0.9% running at 75 mL/hr, up with x1 assist to bathroom. Pt. Call lightwithin reach, family at bedside safety maintained.This note was completed by: Shawn Alicia RN [employer] Protein mass conc HNO ID: [id number] thor: Sloane DempseyRn) FLACO Leoservice: (none)Author Type: Registered NurseType: Nursing Progress NoteFiled: 01/07/2018 3:23 AMNote Text: Nursing Progress NotePatient Name: Nicol HymanMRN: [id number] Location: [facility]/XE-BQOY-79 Daily Note:Pt a/o x3, PERRL, drowsy upon initial asessment although improvedthroughout the night. C/o headache, pain meds given per order. LS clear,no spontaneous cough. BS hypoactive. C/o nausea, phenergen given perorder. Voiding without difficulty, clear yellow urine. Pt is up with onestaff assist. Pt safety maintained, call light within reach.2328: Temp 100.1, BP 101/47, hr 106, paged Dr conservation biology professor.2350: Rechecked temp, 99.3, pt c/o chills.0011: ordered 1L bolus NS, tylenol 650.0030 Meds administered per order. Pt c/o nausea, requesting phenergeninstead of Dr britton good.0036: Phenergen ordered, pharmacy called for dose to be brought up.0211: Phenergen stocked in pyxis, administered per order.This note was completed by: Sloane Leos RN [employer] PROGRESSon 01-07-2018 Protein mass conc HNO ID: [id number] Author: Dontrell Boss Service: Neurosurgery Author Type: Physician Type: Progress Notes Filed: 01/07/2018 12:28 PM Note Text: KIM trudy some po inc c/d/i good strength awake and alert s/p Chiari decompression mobilize Dontrell Boss MD [employer] Basic Metabolic Panlon 01-06 Anion gap 3 molar conc 11 mmol/L Normal 12-12 [facility] Comment on above: Performed By: #### B SANTA, CBCDIF ####[facility] [place], [place] [phone] Calcium mass conc 8.3 mg/dL Low 8.5-10.5 [facility] Comment on above: Performed By: #### B SANTA CBCDIF ####[place] [phone] Chloride molar conc 103 mmol/L Normal 98-110 [facility] Comment on above: Performed By: #### B SANTA, CBCDIF ####[place] [phone] CO2 molar conc 21 mmol/L Low 23-32 [facility] Comment on above: Performed By: #### B SANTA CBCDIF ####[place] [phone] Creatinine mass conc 0.69 mg/dL Low 0.70-1.40 [facility] Comment on above: Performed By: #### Maksim PRATT CBCDIF ####[place] [phone] eGFR- Amer. >60 Normal >60 [facility] Comment on above: Performed By: #### Maksim PRATT CBCDIF ####[place] [phone] GFR/1.73 sq M predicted among non-blacks MDRD vol rate/area (S/P/Bld) mL/min/{1.73_m2} Normal >60 [facility] Comment on above: Performed By: #### Maksim PRATT CBCDIF ####[place] [phone] Glucose mass conc 151 mg/dL High 65-100 [facility] Comment on above: Performed By: #### Maksim PRATT, CBCDIF ####[place] [phone] Potassium molar conc 3.8 mmol/L Normal 3.5-5.0 [facility] Comment on above: Performed By: #### Maksim PRATT, CBCDIF ####[place] [phone] Sodium molar conc 135 mmol/L Normal 132-148 [facility] Comment on above: Performed By: #### B MP, CBCDIF ####[place] [phone] Urea nitrogen mass conc 8 mg/dL Normal 8-25 [facility] Comment on above: Performed By: #### B MP, CBCDIF ####[place] [phone] CBC and Differentialon 01-06 Abs Baso <0.03 Normal <0.11 [facility] Comment on above: Performed By: #### B MP, CBCDIF ####[place] [phone] Abs [place] 0.53 k/uL Normal <0.87 [facility] Comment on above: Performed By: #### B MP, CBCDIF ####[place] [phone] Abs Neut 15.33 k/uL High 1.45-7.50 [facility] Comment on above: Performed By: #### B MP, CBCDIF ####[place] [phone] Basophils/100 WBC Auto (Bld) 0.1 % Normal [facility] Comment on above: Performed By: #### B MP, CBCDIF ####[address] DTYPE Auto Diff Normal [facility] Comment on above: Performed By: #### B MP, CBCDIF ####[place] [phone] Eosinophils Auto #/vol (Bld) 10*3/uL Normal <0.46 [facility] Comment on above: Performed By: #### B MP, CBCDIF ####[place] [phone] Eosinophils/100 WBC Auto (Bld) 0.0 % [employer] Comment on above: Performed By: #### B MP, CBCDIF ####[place] [phone] Erythrocyte distribution width Auto Ratio (RBC) 13.5 % Normal 11.5-15.0 [facility] Comment on above: Performed By: #### B MP, CBCDIF ####[place] [phone] Hematocrit Auto Volume Fraction (Bld) 39.2 % Normal 36.0-46.0 [facility] Comment on above: Performed By: #### B MP, CBCDIF ####[place] [phone] Hemoglobin mass conc (Bld) 13.1 g/dL Normal 11.5-15.5 [facility] Comment on above: Performed By: #### B SNATA, CBCDIF ####[address] Lymphocytes Auto #/vol (Bld) 0.63 10*3/uL Low 1.00-4.00 [facility] Comment on above: Performed By: #### B SANTA, CBCDIF ####[place] [phone] Lymphocytes/100 WBC Auto (Bld) 3.8 % Normal [facility] Comment on above: Performed By: #### B SANTA, CBCDIF ####[place] [phone] MCH Auto Entitic mass (RBC) 29.0 pG Normal 26.0-34.0 [facility] Comment on above: Performed By: #### B SANTA, CBCDIF ####[place] [phone] MCHC Auto mass conc (RBC) 33.4 g/dL Normal 30.5-36.0 [facility] Comment on above: Performed By: #### B SANTA, CBCDIF ####[place] [phone] MCV Auto Entitic volume (RBC) 86.7 fL Normal 80.0-100.0 [facility] Comment on above: Performed By: #### B SANTA, CBCDIF ####[place] [phone] Monocytes/100 WBC Auto (Bld) 3.2 % Normal [facility] Comment on above: Performed By: #### B SANTA, CBCDIF ####[place] [phone] Neutrophils/100 WBC Auto (Bld) 92.9 % Normal [facility] Comment on above: Performed By: #### B SANTA, CBCDIF ####[phone] Platelet mean volume Auto Entitic volume (Bld) 11.7 fL Normal 9.0-12.7 [facility] Comment on above: Performed By: #### B SANTA, CBCDIF ####[place] [phone] Platelets Auto #/vol (Bld) 304 10*3/uL Normal 150-400 [facility] Comment on above: Performed By: #### B SANTA, CBCDIF ####[place] [phone] RBC Auto #/vol (Bld) 4.52 10*6/uL Normal 3.90-5.20 [facility] Comment on above: Performed By: #### B SANTA, CBCDIF ####[place] [phone] WBC Auto #/vol (Bld) 16.50 10*3/uL High 3.70-11.00 [facility] Comment on above: Performed By: #### B SANTA, CBCDIF ####[place] [phone] NURSING PROGon 01-06-2018 Protein mass conc HNO ID: [id number] thor: Shawn (Rn) Maral, RNService: NursingAuthor Type: Registered NurseType: Nursing Progress NoteFiled: 01/06/2018 3:23 PMNote Text: Nursing Progress NotePatient Name: Nicol HymanMRN: [id number] Location: [facility]/NR-YSTU-54 Transfer Note:Patient transferred into room/unit PKT12 in stable condition. Actionstaken: No futher actions taken at this time. Will continue to monitor andcheck with patient. Patient belongings with [id number]: Medications are held in MAR transfer, TRAMPOLINE TEAM COACH called ICU get intensivistto release orders.1455: Medications still being held for transfer in MAR. Unable to pull orgive any medication, TRAMPOLINE TEAM COACH called and informed ICU of this.1500: All medications still held in [facility] for transfer. This RN called ICU,instructed they will inform resident. This is the third attempt since 1250to get medications transferred over from telecommunicator.This note was completed by: Shawn Alicia RN [employer] Protein mass conc HNO ID: [id number] thor: Brandi (Rn) FLACO Cliffordervice: (none)Author Type: Registered NurseType: Nursing Progress NoteFiled: 01/06/2018 12:25 PMNote Text: Nursing Progress NotePatient Name: Nicol HymanMRN: [id number] Location: [facility]/KF-BCV-02 Daily Note:0700 Report taken from operations supervisor 2nd shift nurse. Safety checks in place. Neuroassessment completed with operations supervisor 2nd shift [id number] Assessment done (see flowsheet)1000 Pt had a small emesis [id number] Report called to [facility] [id number] Assessment done (see flowsheet)1215 Pt transferred to [facility] 12This note was completed by: Brandi Clifford RN [employer] Protein mass conc HNO ID: [id number] thor: Nano (Rn) Lina, FLACOervice: (none)Author Type: Registered NurseType: Nursing Progress NoteFiled: 01/06/2018 6:52 AMNote Text: Nursing Progress NotePatient Name: Nicol HymanMRN: [id number] Location: [place] [address]/CO-JZT-36 Daily Note:190: Report received from Angelica. Assumed pt. Care.2000: Assessment complete. Pt. AANDOx2, confused on location at this timebut reorientated, able to follow commands, pupils 3 and brisk, states pain10/10 at this time, medicated, see Emar. Denies numbness and tingling andMAEx4 w/ weakness. Sister at bedside.2046: Page sent to Resident Drea for a new order for pain medication,IV, since pt. Is nauseous at this time. New order [id number]: Dr. Lea rounding at pt. Bedside. New orders received.0000: Assessment complete. See FS.0400: Assessment complete. See [id number]: Page sent to Dr. Lea regarding pt. Nausea/vomiting. Pt. HR alsoirregular but P wave still present.0500: Bladder scan done- 536ml in bladder. Page sent to resident. Ordersreceived for scope patch and straight cath.0515: CHlorhexidine bath complete. Pt. Gown changed.0520: Lead Manufacturing Engineer at bedside. Morning labs drawn and sent.0545: Straight cathed for 750ml of urine.0630: and mother at bedside. Updated on plan of care.0700: Report given to onccolton RN.This note was completed by: NANO MERCHANT RN [employer] PROGRESSon 01-06-2018 Protein mass conc HNO ID: [id number] thor: Dontrell Cope: NeurosurgeryAuthor Type: PhysicianType: Progress NotesFiled: 01/06/2018 12:46 PMNote Text:KIM and nauseaVSSno focal weaknessawake and alertstrength goodsensation intacts/p Chiari decompressionPT/OTadv Parag Boss MD [employer] ANES Juan 01-05-2018 ANES POST HNO ID: [id number] thor: Mitch Vaughanervice: AnesthesiologyAuthor Type: AnesthesiologistType: Anesthesia PostOpFiled: 01/05/2018 8:34 PMNote Text:POST ANESTHESIA EVALUATION NOTESERVICE DATE: 01/05/2018SERVICE TIME: OB: 1985Vitals: 01/06/1820Temp: 36.2 ?C (97.2 ?F) 36.7 ?C (98.1 ?F) BP: 118/68 Pulse: 72 Resp: 16 SpO2: 100%Validated Vital Signs: YesPOST ANES STATUS: No apparent anesthetic complications. The patient isappropriately hydrated with stable respiratory and cardiovascular status.Patient has safe and adequate airway control. The patient has appropriatepain relief and no significant post operative nausea or vomiting. Thepatient has achieved baseline mental status.Intra-Operative Events: No Significant Anesthesia EventsFurther assessment by Anesthesia Service: NoneOther Remarks:SIGNATURE: Mitch Vieira MD PATIENT NAME: Nicol HymanDATE: January 05, 2018 : 8:33 PM PAGER/CONTACT #: [phone] [employer] ANES PREOPon 01-05-2018 ANES PREOP HNO ID: [id number] thor: Yomaira Cuencarvice: AnesthesiologyAuthor Type: AnesthesiologistType: Anesthesia PreOpFiled: 01/05/2018 12:12 PMNote Text:REGIONAL ANESTHESIOLOGY DAY OF SURGERY NOTEPATIENT NAME: Nicol HymanMRN: [id number]: 1985Procedure(s) (LRB):CRANIECTOMY SUBOCCIPITAL W/ CERV LAMI FOR DECOMPRESS W/ DURAL GRAFT (N/A)Surgeon(s):Leena Gleason body mass index is 40.17 kg/m? as calculated from the following: Height as of 12/25/17: 157.5 cm (5' 2). Weight as of 12/25/17: 99.6 kg (219 lb 9.6 oz).ASA Class: 2Adequate NPO status: YesAllergies:ALLERGIESAllergen Reactions- Latex Hives- Oxycodone Mental Status ChangeAirway Assessment: MP 2; Neck ROM: Full ROM without neurologic symptoms;Airway Evaluation: No significant abnormalitiesDentition: Teeth intactSymptoms of Sleep Apnea: DeniesMost recent lab results:HGB 13.5 12/25/2017Hematocrit 43.1 12/25/2017Potassium 4.6 12/25/2017Platelet Count 291 12/25/2017PT Sec 10.3 12/25/2017APTT 30.5 12/25/2017PT INR 1.0 12/25/2017Creatinine 0.79 12/25/2017EKG:normal EKG, normal sinus rhythmVitals: 919BP: 118/68Pulse: 72Resp: 16Temp: 36.2 ?C (97.2 ?F)SpO2: 100%Previous Anesthesia: No history of adverse event Family history ofanesthetic problems: NoneAdditional Physical Exam:Lungs: Lungs clear to auscultation. Good diaphragmatic excursion.Cardiac: Normal S1 and S2; no rubs, no murmurs and no gallopsAdditional pertinent findings: N/AOther Medical Problems/ Important Considerations:Denies chest pain and SOB with exertion.Chronic Beta Marlen medication administered within 24 hours: N/AAnesthetic risks, benefits, alternatives, personnel and consent discussed:YesPatient agrees to proceed: YesBlood Products: Will accept Blood/Blood ProductsAnesthetic Plan: General ETT; Standard ASA MonitorsPain Management Plan: Parenteral or OralEPIC Chart ReviewACTIVE PROBLEM LISTEpisode of Visual DisturbancePosterior Vitreous Detachment of Right EyeOther Visual DisturbancesObesity, Class III, BMI >= 40Chiari Malformation Type I (Hcc)PAST MEDICAL HISTORYDiagnosis Date- Chiari I malformation (HCC)PAST SURGICAL HISTORYProcedure Laterality Date- APPENDECTOMY- CERCLAGE CERVIX PREG; VAG 2017- LAPAROSCOPIC CYSTECTOMY DermoidFAMILY HISTORYProblem Relation Age of Onset- Ovarian cancer Mother- Diabetes Father- other ( Defects) Father- other (Endometriosis) Father- other (Other) Son tonsils adnoids/hernia repair- other (Other) Child lump on back - usSocial History:Social HistorySubstance Use Topics- Smoking status: Never Smoker- Smokeless tobacco: Never Used- Alcohol use Yes Comment: rarelyNo current facility-administered medications on file prior to encounter.No current outpatient prescriptions on file prior to encounter.Inpatient medications reviewed in [facility].I have interviewed and examined the patient. I have reviewed the medicalrecord and/or the pre-anesthesia evaluation, pertinent labs, and testresults.Significant changes in the patient's condition since the History andPhysical, not otherwise documented in primary service progress notes: [facility] contains updated information obtained within 48 hours ofSurgery/Procedure.SIGNATURE: Bucky Nelson DO PATIENT NAME: Nicol WhelanentruberDATE: January 05, 2018 : 12:11 PM PAGER/CONTACT #: [phone] [employer] HISTORY PHYSICALon HISTORY PHYSICAL HNO ID: [id number] thor: Jason ([place]) JASON Leaervice: Critical CareAuthor Type: ResidentType: HANDPFiled: 01/05/2018 7:18 PMNote Text:SICU HANDP NOTESERVICE DATE: 01/05/2018SERVICE TIME: 7:16 PMSubjectiveHPI: This is a 32 year old female with Hx of Chiari I malformation whopresented to the hospital today for scheduled surgery. She is currentlys/p suboccipital craniectomy with cervical laminectomy for decompression.Her intraoperative course was unremarkable. She is being admitted to theICU postoperatively for neurologic monitoring.PAST MEDICAL HISTORYDiagnosis Date- Chiari I malformation (HCC)PAST SURGICAL HISTORYProcedure Laterality Date- APPENDECTOMY- CERCLAGE CERVIX PREG; VAG 2017- LAPAROSCOPIC CYSTECTOMY DermoidFAMILY HISTORYProblem Relation Age of Onset- Ovarian cancer Mother- Diabetes Father- other ( Defects) Father- other (Endometriosis) Father- other (Other) Son tonsils adnoids/hernia repair- other (Other) Child lump on back - usSocial HistorySubstance Use Topics- Smoking status: Never Smoker- Smokeless tobacco: Never Used- Alcohol use Yes Comment: rarelyPRIOR TO ADMISSION MEDICATIONSNo prescriptions prior to admission.ALLERGIESAllergen Reactions- Latex Hives- Oxycodone Mental Status ChangeAdmission Weight:ObjectiveVITAL SIGNSTemp: 36.2 ?C (97.2 ?F) Pulse: 72 BP: 118/68 Resp: 16 SpO2: 100 %No intake or output data in the 24 hours ending 01/05/18 1706Swan Katt Readings: Not applicablePHYSICAL EXAMNeuro: Awake, Follows commands and Moving all extremitiesPulmonary: Clear to auscultation. Breath Sounds Equal: YesCardiovascular: Regular rhythmAbdomen: Soft and NontenderExtremities: Edema- No Peripheral pulses- Present all extremitiesCapillary Refill: <2 secondsSkin: - warm and dryWounds/Drsgs- YesPresence of Pressure Ulcer NoCurrent Facility-Administered Medications:lidocaine-EPINEPHrin e 0.5 %-1:200,000 injection X (OR/PROCEDURE) PRNbacitracin 500 unit/gram topical ointment X (OR/PROCEDURE) PRNthrombin spray syringe X (OR/PROCEDURE) PRNceFAZolin iv piggyback 2 g in D5W (iso-osmotic) 100 mL (ANCEF) X(OR/PROCEDURE) CONTINUOUSlactated ringers infusion 125 mL/hr INTRAVENOUS (PACU) CONTINUOUSmeperidine (PF) 12.5 mg injection (DEMEROL) 12.5 mg INTRAVENOUS (PACU) PRNalbuterol 2.5 mg /3 mL (0.083 %) 2.5 mg (PROVENTIL) 2.5 mg INHALATION(PACU) PRNfentaNYL 50 mcg/mL 50 mcg injection (SUBLIMAZE) 50 mcg INTRAVENOUS (PACU)PRNmeperidine (PF) 25 mg injection (DEMEROL) 25 mg INTRAVENOUS (PACU) PRNketorolac 30 mg injection (TORADOL) 30 mg INTRAVENOUS (PACU) PRNondansetron 4 mg tab(s) (ZOFRAN) 4 mg ORAL (PACU) PRNOrondansetron (PF) 4 mg injection (ZOFRAN) 4 mg INTRAVENOUS (PACU) PRNprochlorperazine 10 mg injection (COMPAZINE) 10 mg INTRAVENOUS (PACU) PRNlabetalol 5 mg injection (NORMODYNE) 5 mg INTRAVENOUS (PACU) PRNRECENT LABSInvalid input(s): TRANSFERRIN, PTCULTURES:NoneDATA:Diagnostic tests reviewed for today's visit:Most recent labs and imaging results.Assessment/Plan32 year old female with hx of Chiari 1 malformation who presents to theICU s/p suboccipital craniectomy with cervical laminectomy fordecompression for neurologic monitoring.REASON FOR ICU ADMISSION: Neurologic monitoringNeuro-Acute postoperative pain -APAP ATC, oxycodone and fentanyl PRNChiari Malformation s/p decompression -Q1 neurochecks?CardiovascularHemody namically appropriateRespiratoryAcute postoperative respiratory insufficiency -Wean O2 as tolerated?GIClears as tolerated and advance diet tomorrowRenalCreatinineDate Value Ref Range Ffinjx2312/25/2017 0.79 0.58 - 0.96 mg/dL Final Stable sCr with adequate UOPElectrolytes: Replace as neededFluids: NS@75?HemeNo indication for transfusion?IDComplete perioperative abxEndocrineAdequate glycemic control?PPX:Stress ulcer prophylaxis: Sucralfate (given thrombocytopenia)VTE prophylaxis:Contraindicated?Line s:Lines, Drains, and Airways Line Peripheral 01/05/18 1527 Antecubital 20 Gauge less than 1 day Peripheral 01/05/18 1540 Left Wrist 20 Gauge less than 1 daykeep linesDispo- Continue SICU care?SIGNATURE: Jason Lea MD PATIENT NAME: Nicol HymanDATE: January 05, 2018 : 5:06 PM PAGER/CONTACT #: [phone] Normal [facility] NURSING PROGon 01-05-2018 Protein mass conc HNO ID: [id number] thor: Kristyn (Rn) FLACO Jaramilloervice: NursingAuthor Type: Registered NurseType: Nursing Progress NoteFiled: 01/05/2018 6:54 PMNote Text: Nursing Progress NotePatient Name: Nicol HymanMRN: [id number] Location: [place] [address]/GP-YCC-56 Daily Note:1837 Pt arrived to SICU bed 6 in stable condition, without complication.Pt is lethargic, nonverbal and not following commands at this time. Movesall extremities, pupils equal and reactive. Pt's sister at bedside,updated by Dr Zhao. Will continue to monitor.This note was completed by: Kristyn Jaramillo, RN Normal [facility] Protein mass conc HNO ID: [id number] thor: Candis (Rn) FLACO Garciaervice: (none)Author Type: Registered NurseType: Nursing Progress NoteFiled: 01/05/2018 1:16 PMNote Text:1300- Pt verbalizing being upset that procedure has been delayed, upsetshe has not been updated.1315-Dr. Zhao at bedside to update patient on timing and to reassureand answer any questions. [employer] OPERATIVE NOon 01-05-2018 OPERATIVE NO HNO ID: [id number] thor: Leena Mahoneyervice: NeurosurgeryAuthor Type: PhysicianType: Operative ReportFiled: 01/07/2018 8:59 AMNote Text:[facility] - Operative ReportSNICOL RODRIGUEZ CDOB: 1985AGE: 32.SEX: FMRN: [id number] TYPE: IHOSP SVC: NEUSLOCATION: [id number] PHYSICIAN: Leena Zhao M.D.CSN NUMBER: [id number] OF SURGERY/PROCEDURE: 01/05/2018INCISION/PROCEDURE START TIME: 1616 hours.INCISION CLOSE/PROCEDURE END TIME: 1815 hours.PREOPERATIVE DIAGNOSIS: Chiari 1 anomaly/syringomyelia.POSTOPERAT KATIANA DIAGNOSIS: Chiari 1 anomaly/syringomyelia.SURGEON: Leena Zhao M.D.DIGITAL STRATEGY MANAGER: Assisted by JULEE Bose.SURGERY/PROCEDURE:1. Posterior fossa craniectomy with Chiari anomaly.2. C1 laminectomy.3. Duraplasty with Durepair graft.4. 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 She was found tohave a significant Chiari malformation of approximately 9 mm of tonsillardescent with associated mass effect on the brainstem and cervicalsyringomyelia. I offered her surgical decompression. I explained therisks and benefits of the procedure as well as the alternative ofexpectant observation. I explained details of the operation and therecovery, and she and her decided to go ahead with the operation.DESCRIPTION OF PROCEDURE: The patient was included in a preoperativehuddle with the operating room team to confirm the details of heroperation. She was then taken into the operating room and given generalendotracheal anesthesia. Her head was fixed in a Thornton head holderand she was turned prone on silicon rolls. All the pressure points werechecked and padded. Her neck was flexed and the header dock was attachedto the bed.I shaved some hair in the back of the head and marked an incision inthe midline from the inion to the spinous process of C2. I infiltratedthe paraspinal muscles with 10 cc of lidocaine with epinephrine.I made a midline incision with a 10 blade. I continued dissectiondown to the dorsal fascia. I obtained hemostasis with bipolar andBovie cautery. I placed a Weitlaner retractors in the midline. Icontinued dissecting in the midline, identifying the space of theskull and the spinous process of C2. I started releasing theoccipital muscles from the skull and the superior aspect of C2. Icould identify C1 and loosened the muscles as well. I placed deepercerebellar retractors in the wound.I started by using a 4 mm drill bit to perform the posterior fossacraniectomy. The width was 25 mm and 15 mm posterior of the foramenmagnum. I egg shelled the external portion of the bone and removedthe inner portion of the bone with 2 and 3 mm Kerrison rongeur. I couldvisualize the 2 cerebellar hemispheres.I next used the 4 mm drill bit to perform the external part of thelaminectomy of C1. I used a Litchfield dissector to dissect the tissuefree underneath the lamina and then completed the laminectomy with 2 and3 mm rongeurs.The operating microscope was brought into the field. I used a 15 bladeto make a midline opening in the dura and extended the incisionover each cerebellar hemisphere. I kept the arachnoid intact. Icoagulated some bleeders along the dural margins. I tacked up theedges of the dura with 4-0 Nurolon sutures to the surrounding muscles.I then used micro instruments to open the arachnoid and cut the arachnoidadhesions. The patient had a large amount of extensive scarring andarachnoid bands. These were coagulated and cut sequentially. I alsocoagulated the tonsils and used micro instruments to dissect thetonsils free from each other and from the underlying brainstem. Ialso coagulated the midline to open the outflow of the fourthventricle. I observed the arachnoid membrane covering the fourthventricle and this was sharply opened. I could see the floor of thefourth ventricle and some choroid plexus.When I was satisfied that the spinal fluid egress was free, I startedclosing the dura with a dural graft. I cut the Durepair graft to sizeand this was sewed in position with 4-0 Nurolon sutures.I asked Anesthesia to perform Valsalva maneuver and the incisionalline was watertight. I used 10 cc of Tisseel which was placed over theincisional line as well as the rest of the dura.I then closed the wound in several layers with interrupted inverted2-0 Vicryl sutures. The skin was closed with a running interlocking 3-0nylon. We then placed a Xeroform and a sterile dressing as well as ahead wrap. The Thornton header dock was removed, the pin sites werefree of bleeding. The patient was returned to the supine position andhanded back to Anesthesia for extubation and further recovery in the ICU. There were no complications.Leena Zhao M.D.SV:[id number] #: [id number]: 01/05/2018 18:32:56 [employer] PT EDon 01-05-2018 PT ED HNO ID: [id number] thor: Viridiana (Rn) Murschel, RNService: NursingAuthor Type: Registered NurseType: Patient EducationFiled: 01/05/2018 9:19 AMNote Text:PRE OP LEARNING ASSESSMENTTOPIC: Survival Skills: PROCEDURE/SURGERYREADINESS TO LEARNCOGNITIVE ABILITY: Alert and orientedMOTIVATION TO LEARN: InterestedFAMILY SUPPORT: High - Very involved in pt carePATIENT LEARNS BEST BY: Individual InstructionFACTORS AFFECTING LEARNING: NonePHYSICAL LIMITATIONS AFFECTING LEARNING:None Normal [facility] NURSING PROGon 01-01-2018 Protein mass conc HNO ID: [id number] thor: Namita (Rn) FLACO Weldonervice: NeurosurgeryAuthor Type: Registered NurseType: Nursing Progress NoteFiled: 01/01/2018 9:47 AMNote Text:PACC Nurse Progress NoteHistory AND Physical:PACC Visit Date: 44-0-79Waaplntu HANDP Date: N/AED visit Date: N/AOutside HANDP Scanned Date: N/ALabs Within Last 6 Months:CBC: MP/CMP: T: TT: 12-25UA: 12-25Urine C+S: Date 12-25 negSTAAMP: 12-25 negTYPE AND SCREEN: maging Within Last 12 Months:N/ACardiac Testing:EKG in last 12 Months: Yes: Date: 12-25-17, Comment: epicBMI Percentile (PEDS):N/ARisk Assessment:N/AAnesthesia Review:N/ANarrative:Labs acceptablePre-op Considerations:N/AChart Check:Charity Weldon RNOctober 2017 9:45 AM [employer] Staph aureus PCRon 8 MRSA PCR Negative Normal [facility] Comment on above: Performed By: #### S APCR ####[facility] [address] [place], [place] [phone] S aureus Spec Source Nasal Normal [facility] Comment on above: Performed By: #### S APCR ####[facility] [address] [place], [place] [phone] Staph aureus PCR Negative [facility] Comment on above: Performed By: #### S APCR ####[id number] [place], [place] [phone] Type and SCR (30D)on 018 ABO/RH(D) Positive Normal [facility] Comment on above: Performed By: #### T SCR30 ####[facility] [place], [place] [phone] APTTon 12-25-2017 aPTT Coag time (Bld) 30.5 s Normal 23.0-32.4 [facility] Comment on above: Result Comment: Unfr actionated Heparin Therapeutic Ranges:Standard Heparin Nomogram: 53 to 78 seconds (anti-Xa level of 0.3 to 0.7 U/ml)Low Dose/ACS Nomogram: 49 to 67 seconds (anti-Xa level of 0.2 to 0.5 U/ml)Stroke Treatment Nomogram: 49 to 67 seconds (anti-Xa level of 0.2 to 0.5 U/ml)Note: The APTT therapeutic range has been determined for the current lot of laboratory APTT reagent in use throughout the [facility]. Performed By: #### C BC, PT, PTT, BMP ####[address] [place], [place] [phone] Basic Metabolic Panlon 12-25 Anion gap 3 molar conc 16 mmol/L Normal 9-18 [facility] Comment on above: Performed By: #### C BC, PT, PTT, BMP ####[address] [place], [place] [phone] Calcium mass conc 9.5 mg/dL Normal 8.5-10.2 [facility] Comment on above: Performed By: #### C BC, PT, PTT, BMP ####[address] [place], [place] [phone] Chloride molar conc 101 mmol/L Normal 97-105 [facility] Comment on above: Performed By: #### C BC, PT, PTT, BMP ####[place] [address] [place], [place] [phone] CO2 molar conc 23 mmol/L Normal 22-30 [facility] Comment on above: Performed By: #### C BC, PT, PTT, BMP ####[facility] [place], [place] [phone] Creatinine mass conc 0.79 mg/dL Normal 0.58-0.96 [facility] Comment on above: Performed By: #### C BC, PT, PTT, BMP ####[facility] [place], [place] [phone] eGFR- Amer. >60 Normal [facility] Comment on above: Performed By: #### C BC, PT, PTT, BMP ####[address] [phone] GFR/1.73 sq M predicted among non-blacks MDRD vol rate/area (S/P/Bld) mL/min/{1.73_m2} Normal [facility] Comment on above: Result Comment: eGFR (Estimated GFR) Units of measure: mL/min/1.73 meters squaredeGFR is derived from the reexpressed MDRD Study equation using the following parameters: serum creatinine, age, gender and race. The creatinine assay has been calibrated to be traceable to IDMS.An eGFR <60 mL/min/1.73m2 for >3 months is consistent with chronic kidney disease. Refer to KDOQI guidelines for clinical interpretation.In patients with unstable renal function, e.g. those with acute kidney injury, the eGFR may not accurately reflect actual GFR. Performed By: #### C BC, PT, PTT, BMP ####[facility] [place] [address] [phone] Glucose mass conc 85 mg/dL Normal 74-99 [facility] Comment on above: Result Comment: The [place] Diabetes Association (ADA) provides guidance for cutoff values for fasting glucose and random glucose. The ADA defines fasting as no caloric intake for at least 8 hours. Fasting plasma glucose results between 100 to 125 mg/dL indicate increased risk for diabetes (prediabetes).Fasting plasma glucose results greater than or equal to 126 mg/dL meet the criteria for diagnosis of diabetes. In the absence of unequivocal hyperglycemia, results should be confirmed by repeat testing. In a patient with classic symptoms of hyperglycemia or hyperglycemic crisis, random plasma glucose results greater than or equal to 200 mg/dL meet the criteria for diagnosis of diabetes.Reference: Standards of Medical Care in Diabetes 2016, [place] [employer] Association. Diabetes Care. 2016.39(Suppl 1). Performed By: #### C BC, PT, PTT, BMP ####[facility] [place], [place] [phone] Potassium molar conc 4.6 mmol/L Normal 3.7-5.1 [facility] Comment on above: Performed By: #### C BC, PT, PTT, BMP ####[place] [address] [place], [place] [phone] Sodium molar conc 140 mmol/L Normal 136-144 [facility] Comment on above: Performed By: #### C BC, PT, PTT, BMP ####[facility] [place], [place] [phone] Urea nitrogen mass conc 10 mg/dL Normal 7-21 [facility] Comment on above: Performed By: #### C BC, PT, PTT, BMP ####[place] [address] [place], [place] [phone] CBCon 12-25-2017 Absolute nRBC <0.01 Normal <0.01 [facility] Comment on above: Performed By: #### C BC, PT, PTT, BMP ####[facility] [place], [place] [phone] Erythrocyte distribution width Auto Ratio (RBC) 13.4 % Normal 11.5-15.0 [facility] Comment on above: Performed By: #### C BC, PT, PTT, BMP ####[place] [address] [place], [place] [phone] Hematocrit Auto Volume Fraction (Bld) 43.1 % Normal 36.0-46.0 [facility] Comment on above: Performed By: #### C BC, PT, PTT, BMP ####[place] [address] [place] [phone] Hemoglobin mass conc (Bld) 13.5 g/dL Normal 11.5-15.5 [facility] Comment on above: Performed By: #### C BC, PT, PTT, BMP ####[place] [address] [place] [phone] MCH Auto Entitic mass (RBC) 28.4 pG Normal 26.0-34.0 [facility] Comment on above: Performed By: #### C BC, PT, PTT, BMP ####[place] [address] [place] [phone] MCHC Auto mass conc (RBC) 31.3 g/dL Normal 30.5-36.0 [facility] Comment on above: Performed By: #### C BC, PT, PTT, BMP ####[place] [address] [place] [phone] MCV Auto Entitic volume (RBC) 90.5 fL Normal 80.0-100.0 [facility] Comment on above: Performed By: #### C BC, PT, PTT, BMP ####[place] [address] [place] [phone] Platelet mean volume Auto Entitic volume (Bld) 12.3 fL Normal 9.0-12.7 [facility] Comment on above: Performed By: #### C BC, PT, PTT, BMP ####[place] [address] [place] [phone] Platelets Auto #/vol (Bld) 291 10*3/uL Normal 150-400 [facility] Comment on above: Performed By: #### C BC, PT, PTT, BMP ####[place] [address] [place] [phone] RBC Auto #/vol (Bld) 4.76 10*6/uL Normal 3.90-5.20 [facility] Comment on above: Performed By: #### C BC, PT, PTT, BMP ####[facility] [address] [place], [place] [phone] WBC Auto #/vol (Bld) 8.30 10*3/uL Normal 3.70-11.00 [facility] Comment on above: Performed By: #### C BC, PT, PTT, BMP ####[facility] [address] [place], [place] [phone] ECG COMPLETE W INTERPRETATIO Non 12-25-2017 Protein mass conc NAME : GONZALOCHAYANICOL CUEVAPID : [id number] : 1985 Gender : FemaleRace : AmericanORD : [id number] Procedure Date : Dec 25 2017 09:13:37Edit Date : Dec 28 2017 08:38:33 Diagnosis:NORMAL SINUS RHYTHM WITH SINUS ARRHYTHMIANORMAL ECGConfirmed by ALEXIA RODRIGUEZ D.O. ([id number]) on 12/28/2017 8:38:26 AM Ventricular Rate : 71 BPMAtrial Rate : 71 BPMP-R Interval : 134 msQRS Duration : 70 msQ-T Interval : 400 msQTC Calculation(Bezet) : 434 msP [place] : 68 degreesR [place] : 64 degreesT [place] : 26 degrees Test Reason : preop Location : 189 : [facility] Overread By : ALEXIA RODRIGUEZ D.O.Edited By : ALEXIA RODRIGUEZ D.O.Referred By : Abel MENDIOLAquired by : Dianne solis [facility] HISTORY PHYSICALon HISTORY PHYSICAL HNO ID: [id number] thor: Karo Kang) BenoitSer: (none)Author Type: Physician AssistantType: HANDPFiled: 12/27/2017 1:08 PMNote Text:HISTORY AND PHYSICAL EXAMINATIONSERVICE DATE: 12/25/2017SERVICE TIME: 9:02 [facility]: SALVATORE Adkins FOR VISIT:Nicol Hyman is a 32 year old female who is scheduled forchiari decompression at the request of Dr. Leena Zhao forconsultation. My final recommendation will be communicated back to therequesting physician by way of shared medical record or letter.The patient has the following:ACTIVE PROBLEM LISTEpisode of Visual DisturbancePosterior Vitreous Detachment of Right EyeOther Visual DisturbancesObesity, Class III, BMI >= 40Chiari Malformation Type I (Hcc)SubjectiveCHIEF COMPLAINT: chiari malformationHPI:Nicol Hyman is a 32 year old female that presents c/o a 3 yearhistory of headaches, visual disturbances and headaches that has notimproved with time. Began after giving to 2nd child AND have worsenedShe c/o numbness AND tingling in hands and feet. +migraines with visualdisturbances. Also has episodes of cognitive impairment. No h/o TIA,seizure or stroke.Mother with Chiari Malformation.Scheduled for Chiari decompression on 01/05.Denies recent illness, fever or chills.PAST MEDICAL HISTORYDiagnosis Date- Chiari I malformation (HCC)PAST SURGICAL HISTORYProcedure Laterality Date- APPENDECTOMY- CERCLAGE CERVIX PREG; VAG 2017- LAPAROSCOPIC CYSTECTOMY DermoidFAMILY HISTORYProblem Relation Age of Onset- Ovarian cancer Mother- Diabetes Father- other ( Defects) Father- other (Endometriosis) Father- other (Other) Son tonsils adnoids/hernia repair- other (Other) Child lump on back - usSOCIAL HISTORY:Social History Marital status: Spouse name: Nithin Years of education: Number of children: 3Occupational HistoryOccupation Employer Commentstay a home momSocial History Main Topics Smoking status: Never Smoker Smokeless tobacco: Never Used Alcohol use: Yes Comment: rarely Drug use: No Sexual activity: Yes Partners with: Male control/protection: VasectomyOther Topics ConcernMilitary Service NoBlood Transfusions NoCaffeine Concern No Comment:noneOccupational Exposure NoSleep Concern YesStress Concern NoWeight Concern NoSpecial Diet No Comment:good dietBack Care NoExercise Yes Comment:2-4xwklyBike Helmet NoSeat Belt YesSelf-Exams NoPrior to Admission medications as of 12/25/17 0907Not on FileNo medication comments found.ALLERGIESAllergen Reactions- Latex Hives- Oxycodone Mental Status ChangeREVIEW OF SYSTEMS:PAIN ASSESSMENT:General: No weight loss, malaise or fevers.Neuro: See HPI; Postive for Headaches-migraines; +impaired sensorium inhands and feet; No history of TIAs, stroke, tremors, TWISTER TENDER tumor,hemiplegia, paraplegia, quadriplegia.Respiratory: No history of current cough or dyspnea, or pneumonia in thepast 6 weeks. No history of respiratory/pulmonary symptoms or problems.Cardiovascular: Negative for chest pain, orthopnea, PND, dizziness,lightheadedness or syncope. Negative for heart murmur. Negative forpalpitations or arrhythmia. Negative for h/o DVT/PE. Negative for LEedema. No [place] or heart surgery.GI: No history of GI symptoms or problems. No history of esophagealvarices, recent ascites, or ETOH greater than 2 drinks per day.: No history of dysuria, frequency or incontinence,, stones or chronickidney diseaseGYN: Negative for abnormal vaginal bleeding, abnormal vaginal discharge. : Denies, LMP 11/30/17Endocrine: No history of diabetes. Has not taken steroids within the past30 days. No history of endocrinological symptoms or problems.Hematology: No history of bleeding or clotting disorder. Pt is not takinganti-coagulation or platelet medications. No history of hematologicalsymptoms or problems.Oncology: No history of CA metastasis, chemo within 30 days, orradiotherapy within 90 days. Has not lost 10% of body wt in 6 months. Nohistory of oncological symptoms or problems.Psych: No history of psychiatric symptoms or problems.Musculoskeletal: Negative for joint pain or swelling, back pain or musclepain.Skin: Negative for lesions, rash and itching.ObjectivePHYSICAL EXAM:VITALS:BP 128/84 Pulse 89 Temp 97.3 Ht 5' 2 (1.58m) Wt 219 lb 9.6 oz(99.6kg) SpO2 100% BMI 40.16 kg/(m2).General: Alert and oriented, No acute distress, Morbidly obeseSkin: Normal color, no rash, no lesions.HEENT: EOM, pupils equal, round and reactive., No carotid bruitsCardiovascular: Normal S1 AND S2, no rubs, murmurs or gallops. No JVD. Pulseregular.Lungs: Normal breath sounds, no wheezes or crackles., No chest deformitiesor chest wall tenderness.Abdomen: Soft, non-tender, no rigidity., No masses or organomegaly.Extremities: No deformity, no edema or tenderness, no joint swelling orclubbing.Neurological: Normal cognition and motor skills. Gait normal. Noweakness or sensory deficit.Pulses: Carotid and radial pulses normal +2.Diagnostic tests reviewed for today's visit: Lab Value Units Date High Low HB No results within date range. HCT No results within date range. WBC No results within date range. PLT No results within date range. NA No results within date range. K No results within date range. GLUC No results within date range. BUN No results within date range. CREAT No results within date range. PTSEC No results within date range. INR No results within date range. APTT No results within date range. ALT No results within date range. AST No results within date range. TBILI No results within date range. TSH No results within date range. Lab Value Units Date High Low HCGQT No results within date range. UHCG No results within date range. HCG, BODY* No results within date range. Lab Value Units Date High Low ABORHD No results within date range. ABSCREEN No results within date range.No results found for: DJK2YRity recent labsMost recent imagingAll in [facility] HospitalessmentASSESSMENTPatient has the following medical conditionsMorbidly obese-BMI 40.16Chiari MalformationMigrainesMETS:Climb a flight of stairs or walk up a hill (5.50 METs)Patient denies any chest pain or undue shortness of breath with the abovephysical activity.ASA Class: 3ANESTHESIA FINDINGS:Intubation History: No history of difficult intubationSignificant Anesthesia Considerations: None and Difficult IV/Vein Access:yesAirway Exam: General: Morbid obesity Mallampati Score is CLASS II ULBT: Class II - Lower incisors can bite the upper lip below thevermillion line Neck: Normal appearance and function, Distance from hyoid to mentumduring neck extension is at least 3 finger breaths Mouth: Normal tongue size, Mouth opening greater than 2 finger breathsand torous palate Dentition: IntactAirway History: No history of difficult intubationSTOP BANG Score:Criteria:BMI > 35Score = 1PLANThis patient is optimally prepared for surgery pending LABS and EKG.CONSULTS:Patient does not require consults for optimization at this time.The Following Tests/Procedures Have Been Initiated:labs and EKG order entered by surgeonPlanned Anesthetic: Per anesthesia choiceInstructions Given to Patient:Patient given verbal and written preop instructions and voicescomprehension and compliance.SIGNATURE: Karo Laboy PA-C PATIENT NAME: Nicol WhelanentruberDATE: December 25, 2017 : 9:02 AM PAGER/CONTACT #: Normal [facility] Protimeon 12-25-2017 INR Coag RelTime (Bld) 1.0 {INR} Normal 0.9-1.3 [facility] Comment on above: Result Comment: Sarah min K Antagonist (VKA) Therapeutic Range: INR 2 to 3 (Target INR of 2.5)Note: For patients treated with VKA drugs, such as warfarin, the [place] [employer] 2012 Guideline recommends a therapeutic INR range of 2 to 3 (target INR of 2.5). This recommendation includes high-risk patients with antiphospholipid syndrome with previous arterial or venous thromboembolism, current-generation mechanical or bioprosthetic aortic heart valve replacement.Note: Patients with mechanical aortic valve replacement and additional risk factors for thromboembolic events (atrial fibrillation, previous thromboembolism, LV dysfunction, hypercoagulable conditions) or an older generation mechanical AVR (i.e., ball in-Cage) or any mechanical MVR should have a INR therapeutic range of 2.5 to 3.5 (target INR of 3).Kim GH, et al. Chest 2012, 141:7S-47SNishlala RA, et al. [facility] 2017, 70: 252-289 Performed By: #### C BC, PT, PTT, BMP ####[facility] [address] [place], [place] [phone] PT Sec 10.3 sec Normal 9.7-13.0 [facility] Comment on above: Performed By: #### C BC, PT, PTT, BMP ####[facility] [address] [place], [place] [phone] Urinalysison 12-25-2017 Bilirubin, Urine Negative Normal Negative [facility] Comment on above: Performed By: #### U A ####[place] [phone] Clarity Cloudy Critically abnormal Clear [facility] Comment on above: Performed By: #### U A ####[place] [phone] Color Yellow Normal Yellow [facility] Comment on above: Performed By: #### U A ####[place] [phone] Comments SEE COMMENT Normal [facility] Comment on above: Result Comment: Micr oscopic Examination Performed Performed By: #### U A ####[place] [phone] Epithelial Cells SEE COMMENT Normal [facility] Comment on above: Result Comment: FewS quamous Epithelial Cells Performed By: #### U A ####[place] [phone] Glucose Ql (U) Negative Normal Negative [facility] Comment on above: Performed By: #### U A ####[place] [phone] Hemoglobin/Blood, Ur Negative Normal Negative [facility] Comment on above: Performed By: #### U A ####[place] [address] [phone] INR Coag RelTime (Bld) 0-3 Normal 0-3 [facility] Comment on above: Performed By: #### U A ####[place] [address] [phone] Ketones Ql (U) Negative Normal Negative [facility] Comment on above: Performed By: #### U A ####[facility] [place], [place] [phone] Leukest Trace Critically abnormal Negative [facility] Comment on above: Performed By: #### U A ####[place] [address] [place] [phone] Nitrites Negative Normal Negative [facility] Comment on above: Performed By: #### U A ####[place] [address] [address] [place] [phone] pH 6.0 Normal 4.5-8.0 [facility] Comment on above: Performed By: #### U A ####[place] [address] [address] [place] [phone] Protein, Urine Negative Normal Negative [facility] Comment on above: Performed By: #### U A ####[place] [address] [address] [place] [phone] Specific Hanson, Ur 1.018 Normal 1.005-1.03 0 [facility] Comment on above: Performed By: #### U A ####[place] [address] [address] [place] [phone] Urine Ashok Comment SEE COMMENT Normal [facility] Comment on above: Result Comment: N/A Performed By: #### U A ####[place] [address] [address] [place] [phone] Urobilinogen Normal Normal Normal [facility] Comment on above: Performed By: #### U A ####[place] [address] [place] [phone] WBC 0-5 Normal 0-5 [facility] Comment on above: Performed By: #### U A ####[place] [address] [place], [place] [phone] Urine Cultureon 12-25-2017 Bacteria identified Cx Nom (U) Sp. Request/Comment: - Best Practice Alert: To ensure optimal transport conditions and accurate culture results transfer urine specimens to foster top C and S preservative tube. Culture Result - 10,000 - <50,000 CFU/ml Normal urogenital citlali Normal [facility] Comment on above: Performed By: #### U RCUL ####[facility] [address] [place], [place] [phone] HOSPon 12-20-2017 HOSP Patient:Nicol Pillai CMRN: Height:5' 2(1.575 m)Weight:219 lb 9.6 oz (99.61 kg)Outpatient Medications as of 01/05/18:Patient has no current outpatient medications.Admission/Clinic Administered Medications as of 01/05/18:lidocaine-EPINEPHrine 0.5 %-1:200,000 injectionbacitracin 500 unit/gram topical ointmentProblem List:Episode of visual disturbance [H53.9]Posterior vitreous detachment of right eye [H43.811]Other visual disturbances [H53.8]Obesity, Class III, BMI >= 40 [E66.01]Chiari malformation type I (HCC) [G93.5]Allergies:LatexOxycodoneD ate Verified: 01/05/18Lab ValuesLab Value Units Date High LowPOTA* 4.6 mmol/L 12/25/2017 5.1 3.7HEMA* 43.1 % 12/25/2017 46.0 36.0Progress Notes ([facility]):Alejandra Celis Psr 12/26/2017 8:18 AM SignedType of form: FMLAForm received via faxWhen form is completed, call patient or patients spouseForm has been forwarded to Dr Zhao's Nurse in file at front Evel[facility] Sec 12/26/2017 10:36 AM SignedPt's called.Please fax completed FMLA forms to [phone]., attn:Deb Horowitz.Raulito Walters, RN, RN 12/26/2017 3:01 PM SignedFMLA paperwork received and placed in physicians folder to be filled out andsigned. Saurav Walters RN, RN 01/02/2018 9:32 AM SignedFMDENA paperwork filled out and signed. Faxed back to [phone]. Pt. Notifiedthat paperwork was completed and faxed. Pt. Verbalized understanding. [facility] Office Visit (NEMO) NICOL CHINCHILLA ([id number]) 1985 FDate Time Provider Department11/21/17 3:30 PM FRANCY HARVEY During your visit today, we recorded the following information about you: Blood pressure Weight Last Period 120/70 99.8 kg 11/07/17Dajohnathon Harvey DO 11/21/2017 3:45 PM SignedNicol Hyman is a 32 year old female who presents with a chiefcomplaint of Yearly Exam (pain on right side, inside vagina - started last week)SUBJECTIVEDysuria and pain in right sideWent over with her past medical history, family. social historyObstetric History T2 L3 SAB0 TAB0 Ectopic0 Multiple0 Live Emokzs5WLOARNVFYPGVYVNWAMAyhxbie n Reactions- Latex Hives- Oxycodone Mental Status ChangeCurrent Outpatient Prescriptions: vit/iron fum/folic ac (RIGHT STEP VITAMINS ORAL) Take bymouth.medroxyPROGESTERone (PROVERA, CYCRIN) 10 mg tablet Take 1 tablet by mouth oncedaily. Take the 5th-15th of the next 3 mths (Patient not taking: Reported on11/16/2017)ondansetron orally disintegrating (ZOFRAN ODT) 4 mg disintegrating tabletSUMAtriptan (IMITREX) 20 mg/actuation nasal sprayPRENATAL VIT,ABBY 74/IRON/FOLIC ( VITAMIN 1+1 ORAL) Take by mouth oncedaily.Breast Pump Device DOUBLE ELECTRIC BREAST PUMP--TO USE PRN (Patient not taking:Reported on 11/16/2017)No current facility-administered medications for this visit.Review of SystemsConstitutional: NegativeEyes: NegativeENT/Mouth: NegativeCardiovascular: NegativeRespiratory: NegativeGastrointestinal: NegativeGenitourinary: NegativeMusculoskeletal: NegativeSkin/breast: NegativeNeurological: NegativePhysical ExamBP 120/70 Wt 220 lb (99.8kg) LMP 11/07/2017General: No Acute Distress, Well nourished, Well developed, No obviousdeformities and Alert/Oriented x 3Mood/Affect: NormalHEENT: Normocephalic, Atraumatic and Grossly Within Normal LimitsGI: Abdomen soft, non-tender, no masses, Liver/spleen non-palpable, No herniasand Normoactive bowel soundsBreast: Symmetrical and No masses, tenderness, nipple dischargeGYN: Vulva - no lesions, skin intact with no discolorations, Vagina - nolesions, no discharge, normal color, Bartholin glands - no enlargement, notenderness, Cervix - no lesions, not friable, no CMT, Adnexa - non-tender, nomasses and Rectal - no hemorrhoids, fissure, massSkin: Intact, no lesionsASSESSMENT/PLAN:1. Women's annual routine gynecological examination - ICD9: V72.31, ICD10:Z01.419 (primary diagnosis)- Completed pelvic and breast exam- Encouraged monthly BSE- Follow up for annual exam in one year.- PAP, CYTO GYN2. Routine cervical smear - ICD9: V76.2, ICD10: Z12.4- Completed pelvic and breast exam- Encouraged monthly BSE- Follow up for annual exam in one year.- PAP, CYTO GYN3. Obesity, Class III, BMI 40-49.9 (morbid obesity) (HCC) - ICD9: 278.01,ICD10: E66.01See pcpDaviArmida Carter Provider: FRANCY HARVEY [[id number]]Allergies As of Date: 11/21/2017 Noted Allergy ReactionLATEX 11/03/2015 4 - HivesOXYCODONE 11/09/2015 1 - Mental Status ChangeDate Reviewed: 11/21/2017Reviewed by: Shweta DempseyService Parts Coordinator) Elyssa - Fully AssessedReason for Visit: Yearly Exam [187] Cmt: pain on right side, inside vagina - started last weekPrimary Visit Diagnosis:Women's annual routine gynecological examination [Z01.419] Other Visit Diagnoses:Routine cervical smear [Z12.4] Obesity, Class III, BMI 40-49.9 (morbid obesity) ([facility]) [E66.01] Dysuria [R30.0]Order(s):PAP, CYTO COMPRESSED GAS EQUIPMENT MECHANIC [[id number]] Order #: [id number] URINE CULTURE [SQURCUL] Order #: [id number] FUTUREPrescriptions as of 11/21/2017 Sig: RIGHT STEP VITAMINS * Take by mouth. MEDROXYPROGESTERONE 10 MG TAB* Take 1 tablet by mouth once d* Patient not taking: Reported on 11/16/2017 ONDANSETRON 4 MG DISINTEGRATI* SUMATRIPTAN 20 MG/ACTUATION N* VITAMIN 1+1 ORAL Take by mouth once daily. BREAST PUMP DOUBLE ELECTRIC BREAST PUMP--* Patient not taking: Reported on 11/16/2017Problem List As Of Date 11/21/2017 Noted Resolved Hyperemesis complicating , antepartum *INVALID FOR*02/22/2016 Obesity affecting in first trimester *INVALID FOR*11/15/2016 History of delivery, currently *INVALID FOR*11/15/2016 11 weeks gestation of [Z3A.11] INVALID FOR*02/22/2016 Nausea and vomiting of , antepartum [O*INVALID FOR*11/15/2016 Cervical cerclage suture present in second trim*INVALID FOR*11/15/2016 Abnormal glucose complicating [O99.81*INVALID FOR*11/15/2016 More... Episode of visual disturbance [H53.9] INVALID FOR* Posterior vitreous detachment of right eye [H43*INVALID FOR* Other visual disturbances [H53.8] INVALID FOR* Obesity, Class III, BMI >= 40 [E66.01] INVALID FOR*Disposition: Return in about 1 year (around 11/21/2018) for annual.Follow-up and Disposition History RecordedEncounter Number: [id number] Status:Closed by FRANCY HARVEY DO on 11/21/17 [facility] Cult Urineon 11-21-2017 Cult Urine Test performed at [facility] Mixed skin citlali. No further identification or susceptibility testing will be performed. Please submit a new specimen. Plates will be held for 5 days. Normal [facility] Comment on above: Performed By: #### C _URI ####[facility] [place] [id number] PROGRESSon 11-21-2017 Protein mass conc HNO ID: [id number] thor: Francy Hale: (none)Author Type: PhysicianType: Progress NotesFiled: 11/21/2017 3:45 PMNote Text:Nicol Hyman is a 32 year old female who presents with a chiefcomplaint of Yearly Exam (pain on right side, inside vagina - started lastweek)SUBJECTIVEDysuria and pain in right sideWent over with her past medical history, family. social historyObstetric History T2 L3 SAB0 TAB0 Ectopic0 Multiple0 Live Qlhnxx7PYOBELEVYRMCYQXSDXHnmclhx n Reactions- Latex Hives- Oxycodone Mental Status ChangeCurrent Outpatient Prescriptions: vit/iron fum/folic ac (RIGHT STEP VITAMINS ORAL) Take bymouth.medroxyPROGESTERone (PROVERA, CYCRIN) 10 mg tablet Take 1 tablet by mouthonce daily. Take the 5th-15th of the next 3 mths (Patient not taking:Reported on 11/16/2017)ondansetron orally disintegrating (ZOFRAN ODT) 4 mg disintegrating tabletSUMAtriptan (IMITREX) 20 mg/actuation nasal sprayPRENATAL VIT,ABBY 74/IRON/FOLIC ( VITAMIN 1+1 ORAL) Take by mouthonce daily.Breast Pump Device DOUBLE ELECTRIC BREAST PUMP--TO USE PRN (Patient nottaking: Reported on 11/16/2017)No current facility-administered medications for this visit.Review of SystemsConstitutional: NegativeEyes: NegativeENT/Mouth: NegativeCardiovascular: NegativeRespiratory: NegativeGastrointestinal: NegativeGenitourinary: NegativeMusculoskeletal: NegativeSkin/breast: NegativeNeurological: NegativePhysical ExamBP 120/70 Wt 220 lb (99.8kg) LMP 11/07/2017General: No Acute Distress, Well nourished, Well developed, No obviousdeformities and Alert/Oriented x 3Mood/Affect: NormalHEENT: Normocephalic, Atraumatic and Grossly Within Normal LimitsGI: Abdomen soft, non-tender, no masses, Liver/spleen non-palpable, Nohernias and Normoactive bowel soundsBreast: Symmetrical and No masses, tenderness, nipple dischargeGYN: Vulva - no lesions, skin intact with no discolorations, Vagina - nolesions, no discharge, normal color, Bartholin glands - no enlargement, notenderness, Cervix - no lesions, not friable, no CMT, Adnexa - non-tender,no masses and Rectal - no hemorrhoids, fissure, massSkin: Intact, no lesionsASSESSMENT/PLAN:1. Women's annual routine gynecological examination - ICD9: V72.31, ICD10:Z01.419 (primary diagnosis)- Completed pelvic and breast exam- Encouraged monthly BSE- Follow up for annual exam in one year.- PAP, CYTO GYN2. Routine cervical smear - ICD9: V76.2, ICD10: Z12.4- Completed pelvic and breast exam- Encouraged monthly BSE- Follow up for annual exam in one year.- PAP, CYTO GYN3. Obesity, Class III, BMI 40-49.9 (morbid obesity) ([facility]) - ICD9: 278.01,ICD10: E66.01See Jeramy Harvey, DO Normal [facility] Pap,Cyto Gynon 11-21-2017 Pap,Cyto [employer] Test performed at [address] [address]TLEM: NICOL HYMAN [id number] REQUESTING: FRANCY HARVEY D.O.SPECIMEN: TP CX REFLEX TO HPV ASCUS/SILRelevant History:LMP: 11/07/2017 Post-: Y,SPECIMEN ADEQUACYSATISFACTORY FOR EVALUATION. ENDOCERVICAL/TRANSFORMATION ZONECOMPONENTS PRESENT.GENERAL CATEGORIZATIONNEGATIVE FOR INTRAEPITHELIAL LESION OR MALIGNANCY.INTERPRETATION/RESULT PARAKERATOSIS.Electronically signed: 11/24/2017Screened by: NARAYAN STEWART(ASCP)Signed Out by: KARO GARRISON, M.D., PATHOLOGISTThe Pap test serves as a screening tool for early detection of cervical cancer. The Pap test does not represent a final diagnostic test forcervical cancer. Furthermore, the Pap test was not designed to screenfor other malignancies (endometrial, ovarian cancer, etc....). Falsenegatives and false positives have occurred. If clinically indicated,further patient evaluation is recommended.Printed on: November 24, 2017 Page 1 of 1 Normal [facility] Comment on above: Performed By: #### C YTOP ####[facility] [place] [address] MRI CERVICAL SPINE W/O CONTR Myrna 11-20-2017 MRI CERVICAL SPINE W/O CONTRAST Performed at [facility] APPROVED BY: Artie Barney MD EXAMINATION: MRI CERVICAL SPINE W/O CONTRAST; CSF FLOW IMAGING CLINICAL HISTORY: Chiari malformation. Headaches. TECHNIQUE: Routine cervical spine MR protocol without gadolinium. Additionally, CSF flow imaging was performed with respect to the foramen magnum per Chiari I protocolMQ: [id number] COMPARISON: None. RESULT: Counting reference: Craniocervical junction. Anatomic Variants: None. Alignment: Alignment is anatomic. There is smooth reversal of the normal cervical stenosis. Craniocervical junction: There are findings of Chiari I malformation. Ectopic peg shaped cerebellar tonsils extend inferior to the foramen magnum by approximately 14 mm. Tonsils reach the level the posterior C1 arch. There is significant crowding at the level of the foramen magnum. CSF flow imaging with respect to the foramen magnum demonstrates relatively patent bidirectional flow ventrally. However, there is significantly diminished flow dorsally at the level the foramen magnum. Cord: Extensive abnormal T2 signal within the cervical cord extending from approximately C2 through superior endplate T1. Signal abnormality measures approximately 8 mm in AP extent, occupying a large cross-sectional area of the cervical cord. Findings most likely represent a combination of syrinx and associated interstitial edema. The cervical cord is mildly expanded. Bone marrow signal/fracture: No evidence of pathologic marrow infiltration. No evidence of prior fracture. Cervical soft tissues: The paraspinal soft tissues are within normal limits. C2-C3: Canal and foramina are patent. C3-C4: Canal and foramina are patent. C4-C5: Minimal disc bulging, slightly effacing the ventral thecal sac. Canal foramina patent. C5-C6: Minimal disc bulging. Canal foramina patent. C6-C7: Minimal disc bulging. Canal foramina patent. C7-T1: Canal and foramina are patent. IMPRESSION: Chiari I malformation as described above. CSF flow imaging demonstrates relatively normal patent bidirectional flow ventrally at the level of the foramen magnum. However, there is significantly diminished dorsal flow. Extensive abnormal hyperintense T2 signal occupying a large portion of the cross-sectional cord area extending from approximately C2-T1. Findings likely represent the presence of syrinx and coexisting interstitial edema. Mild associated cord expansion. However, given the extent of these findings, further assessment with contrast-enhanced study is recommended to exclude the less likely possibility of coexisting cord lesion/neoplasm. Relatively mild multilevel cervical spondylosis as outlined. No significant spinal canal or foraminal stenoses. Normal [facility] CNOVon 11-16-2017 CNOV Office Visit (NSFRVW) BI VILANICOL ([id number]) 1985 FDate Time Provider Department11/16/17 10:10 AM LEENA ZHAO NSFRVW During your visit today, we recorded the following information about you: Temperature Pulse Blood pressure Weight 97.2 degrees 65/minute 124/70 99.8 kg Height 1.575 Naeem Zhao MD 11/16/2017 2:28 PM SignedNEUROSURGERY ESTABLISHEDDATE OF SERVICE: 11/16/2017DATE OF LAST VISIT: 05/18/2017SUBJECTIVE:HPI:Nicol Hendricksonpedronarendra is a 32 year old female presenting alone.At last appointment, a C/S MRI was recommended. She has not been able toreceive the imaging, is set for appointment this coming Monday.Patient presents today c/o worsening headaches and left hand numbness andtingling, as well as new onset paresthesias in bilateral lower extremities.Patient states her migraines specifically have improved from having one everyother week to once per month, but does state her daily tension-like headachehas worsened. Her headache is generalized and constant. It is worse withpositional changes especially flexion/extension of the neck. She denies anyalleviating factors. She cites that numbness and tingling in her left hand hasbeen present for some time, but is now happening more frequently. About onemonth ago, she noticed numbness and tingling similar to her LUE symptoms in herlegs. It is intermittent and has no initiating factors. She denies pain in thelegs, but does note her balance is mildly affected while walking while thesesymptoms occur. She denies any cognitive function difficulties.PAIN EVALUATION 11/16/2017 Pain Score: 2 Pain Location: Head numbness left hand Description: Aching;Dull Frequency: IntermittentPain Radiation: NoneAggravating Factors: Flexion, ExtensionAlleviating Factors: NoneAMBULATORY STATUS: Independent Community DistancesREVIEW OF SYSTEMS:GENERAL: No weight loss or malaiseMUSCULOSKELETAL: Negative for joint pain, swelling or muscle painNEURO: No history of headaches, syncope, paralysis, seizures or tremorsMEDICATIONS:SUMAtriptan (IMITREX) 20 mg/actuation nasal sprayprenatal vit/iron fum/folic ac (RIGHT STEP VITAMINS ORAL) Take bymouth.medroxyPROGESTERone (PROVERA, CYCRIN) 10 mg tablet Take 1 tablet by mouth oncedaily. Take the 5th-15th of the next 3 mthsondansetron orally disintegrating (ZOFRAN ODT) 4 mg disintegrating tabletPRENATAL VIT,ABBY 74/IRON/FOLIC ( VITAMIN 1+1 ORAL) Take by mouth oncedaily.Breast Pump Device DOUBLE ELECTRIC BREAST PUMP--TO USE PRNOBJECTIVE:PHYSICAL EXAM:BP 124/70 Pulse 65 Temp 97.2 Ht 5' 2 (1.58m) Wt 220 lb (99.8kg) CkD2621% BMI 40.23 kg/(m2).GENERAL APPEARANCE: Well nourished, well developed, and no apparent distress.NEURO PSYCH: Patient oriented to person, place, and time. Mood pleasant. Benignaffect.MUSCULOSKELETAL VISUAL INSPECTION CERVICAL: WNL THORACIC: WNL LUMBAR: WNLMOTOR: 5/5 in all muscle groups.SENSORY: Normal sensory examGAIT: Normal.NEURO TESTS:Cranial Nerves:Normal mood and affect.CNII-XII grossly intact.Xkzpwk-df-Wqvk, heel-gil tests without evidence of ataxia or incoordination.DATA REVIEW:Diagnostic tests reviewed for today's visit, films/specimens werepersonally reviewed by me:Imaging and outside records reviewedJULEE Viramontes-SSIGNATURE: Leena Zhao MD PATIENT NAME: Nicol HymanDATE: November 16, 2017 : 10:19 AM PAGER:Seen with husbandPt with 7-9 mm tonsillar descentPt reports worsening LUE N/T and weaknessShe still hasn't had her Cineflow imaging and will call when doneAPPt probably wants to go ahead with decompression and FU 1 yearSareOLYA Heatheferring Provider: LEENA ZHAO [[id number]]Allergies As of Date: 11/16/2017 Noted Allergy ReactionLATEX 11/03/2015 4 - HivesOXYCODONE 11/09/2015 1 - Mental Status ChangeDate Reviewed: 11/16/2017Reviewed by: Shweta Zhao Ma - Fully AssessedReason for Visit: Follow Up [171]Primary Visit Diagnosis:Chiari malformation type I (HCC) [G93.5]Prescriptions as of 11/16/2017 Sig: SUMATRIPTAN 20 MG/ACTUATION N* RIGHT STEP VITAMINS * Take by mouth. MEDROXYPROGESTERONE 10 MG TAB* Take 1 tablet by mouth once d* Patient not taking: Reported on 11/16/2017 ONDANSETRON 4 MG DISINTEGRATI* VITAMIN 1+1 ORAL Take by mouth once daily. BREAST PUMP DOUBLE ELECTRIC BREAST PUMP--* Patient not taking: Reported on 11/16/2017Problem List As Of Date 11/16/2017 Noted Resolved Hyperemesis complicating , antepartum *INVALID FOR*02/22/2016 Obesity affecting in first trimester *INVALID FOR*11/15/2016 History of delivery, currently *INVALID FOR*11/15/2016 11 weeks gestation of [Z3A.11] INVALID FOR*02/22/2016 Nausea and vomiting of , antepartum [O*INVALID FOR*11/15/2016 Cervical cerclage suture present in second trim*INVALID FOR*11/15/2016 Abnormal glucose complicating [O99.81*INVALID FOR*11/15/2016 More... Episode of visual disturbance [H53.9] INVALID FOR* Posterior vitreous detachment of right eye [H43*INVALID FOR* Other visual disturbances [H53.8] INVALID FOR* Status:Closed by LEENA ZHAO MD on 11/16/17 Normal [facility] PROGRESSon 11-16-2017 Protein mass conc HNO ID: [id number] thor: Leena Tristanice: (none)Author Type: PhysicianType: Progress NotesFiled: 11/16/2017 2:28 PMNote Text:NEUROSURGERY ESTABLISHEDDATE OF SERVICE: 11/16/2017DATE OF LAST VISIT: 05/18/2017SUBJECTIVE:HPI:Nicol Hyman is a 32 year old female presenting alone.At last appointment, a C/S MRI was recommended. She has not been able toreceive the imaging, is set for appointment this coming Monday.Patient presents today c/o worsening headaches and left hand numbness andtingling, as well as new onset paresthesias in bilateral lowerextremities. Patient states her migraines specifically have improved fromhaving one every other week to once per month, but does state her dailytension-like headache has worsened. Her headache is generalized andconstant. It is worse with positional changes especially flexion/extensionof the neck. She denies any alleviating factors. She cites that numbnessand tingling in her left hand has been present for some time, but is nowhappening more frequently. About one month ago, she noticed numbness andtingling similar to her LUE symptoms in her legs. It is intermittent andhas no initiating factors. She denies pain in the legs, but does note herbalance is mildly affected while walking while these symptoms occur. Shedenies any cognitive function difficulties.PAIN EVALUATION 11/16/2017 Pain Score: 2 Pain Location: Head numbness left hand Description: Aching;Dull Frequency: IntermittentPain Radiation: NoneAggravating Factors: Flexion, ExtensionAlleviating Factors: NoneAMBULATORY STATUS: Independent Community DistancesREVIEW OF SYSTEMS:GENERAL: No weight loss or malaiseMUSCULOSKELETAL: Negative for joint pain, swelling or muscle painNEURO: No history of headaches, syncope, paralysis, seizures or tremorsMEDICATIONS:SUMAtriptan (IMITREX) 20 mg/actuation nasal sprayprenatal vit/iron fum/folic ac (RIGHT STEP VITAMINS ORAL) Take bymouth.medroxyPROGESTERone (PROVERA, CYCRIN) 10 mg tablet Take 1 tablet by mouthonce daily. Take the 5th-15th of the next 3 mthsondansetron orally disintegrating (ZOFRAN ODT) 4 mg disintegrating tabletPRENATAL VIT,ABBY 74/IRON/FOLIC ( VITAMIN 1+1 ORAL) Take by mouthonce daily.Breast Pump Device DOUBLE ELECTRIC BREAST PUMP--TO USE PRNOBJECTIVE:PHYSICAL EXAM:BP 124/70 Pulse 65 Temp 97.2 Ht 5' 2 (1.58m) Wt 220 lb (99.8kg) SpO2 100% BMI 40.23 kg/(m2).GENERAL APPEARANCE: Well nourished, well developed, and no apparentdistress.NEURO PSYCH: Patient oriented to person, place, and time. Mood pleasant.Benign affect.MUSCULOSKELETAL VISUAL INSPECTION CERVICAL: WNL THORACIC: WNL LUMBAR: WNLMOTOR: 5/5 in all muscle groups.SENSORY: Normal sensory examGAIT: Normal.NEURO TESTS:Cranial Nerves:Normal mood and affect.CNII-XII grossly intact.Naeuoz-um-Dldp, heel-gil tests without evidence of ataxia orincoordination.DATA REVIEW:Diagnostic tests reviewed for today's visit, films/specimenswere personally reviewed by me:Imaging and outside records reviewedJULEE Viramontes-SSIGNATURE: Leena Zhao MD PATIENT NAME: Nicol HymanDATE: November 16, 2017 : 10:19 AM PAGER:Seen with husbandPt with 7-9 mm tonsillar descentPt reports worsening LUE N/T and weaknessShe still hasn't had her Cineflow imaging and will call when doneAPPt probably wants to go ahead with decompression and FU 1 yearSmehran Zhao MD Normal [facility] Group A Strep by PCRon 07-14 GAS Specimen Source Throat Swab Normal [facility] Comment on above: Performed By: #### G ASPCR ####[facility] [address] [place], [place] [phone] Group A Strep PCR Negative Normal [facility] Comment on above: Result Comment: This test was developed and its performance characteristics determined by [facility]'s [facility] [place] ([facility]It has not been cleared or approved by the FDA. [facility] is regulated under CLIA as qualified to perform high-complexity testing. This test is used for clinical purposes. It should not be regarded as investigational or for research. Performed By: #### G ASPCR ####[facility] [place], [place] [phone] CNOVon 07-13-2017 CNOV Office Visit (UCWSTR) NICOL MCALLISTER ([id number]) 1985 [facility] Time Provider Department07/13/17 8:30 PM RENA DC [facility] During your visit today, we recorded the following information about you: Temperature Pulse Respiration Blood pressure 97.7 degrees 84/minute 18/minute 110/80 Weight 101.7 kgRena Dc APRN.BOTTOM FILLER 07/13/2017 9:04 PM SignedSubjectiveHPIPt presents with c/o 3 day hx right ear pressure and sore throat.Denies fever, chills, URI sx.Has not taken any OTC medications.No known exposure to sick contacts.Currently .Review of SystemsConstitutional: Negative for chills and fever.HENT: Positive for ear pain and sore throat. Negative for congestion, eardischarge, hearing loss, sinus pain and tinnitus.Respiratory: Negative for cough.ObjectivePhysical ExamConstitutional: She is oriented to person, place, and time and well-developed,well-nourished, and in no distress. No distress.HENT:Head: Normocephalic.Right Ear: Hearing, tympanic membrane, external ear and ear canal normal.Left Ear: Hearing, tympanic membrane, external ear and ear canal normal.Nose: Nose normal. Right sinus exhibits no maxillary sinus tenderness and nofrontal sinus tenderness. Left sinus exhibits no maxillary sinus tenderness andno frontal sinus tenderness.Mouth/Throat: Uvula is midline, oropharynx is clear and moist and mucousmembranes are normal. No oropharyngeal exudate, posterior oropharyngeal edema,posterior oropharyngeal erythema or tonsillar abscesses.Eyes: Conjunctivae are normal. Pupils are equal, round, and reactive to light.Right eye exhibits no discharge. Left eye exhibits no discharge.Neck: Neck supple.Cardiovascular: Normal rate, regular rhythm and normal heart sounds. Examreveals no gallop and no friction rub.No murmur heard.Pulmonary/Chest: Effort normal and breath sounds normal. No accessory muscleusage. No tachypnea. No respiratory distress. She has no decreased breathsounds (CTA, good air movement throughout, no cough noted during exam.). Shehas no wheezes. She has no rhonchi. She has no rales.Lymphadenopathy: She has no cervical adenopathy.Neurological: She is alert and oriented to person, place, and time.Skin: Skin is warm. She is not diaphoretic.BP 110/80 Pulse 84 Temp 36.5 ?C (97.7 ?F) (Tympanic) Resp 18 Wt 101.7kg (224 lb 3.2 oz) BMI 41.01 kg/m2.Patient presents with:right ear pain and sore throat: x 3 daysPAST MEDICAL HISTORYDiagnosis Date- Chiari I malformation (HCC)PAST SURGICAL HISTORYProcedure Laterality Date- APPENDECTOMY- CERCLAGE CERVIX PREG; VAG 2017- LAPAROSCOPIC CYSTECTOMY DermoidALLERGIES Latex; OxycodoneMEDICATIONSprenatal vit/iron fum/folic ac (RIGHT STEP VITAMINS ORAL) Take bymouth.SUMAtriptan (IMITREX) 20 mg/actuation nasal sprayBreast Pump Device DOUBLE ELECTRIC BREAST PUMP--TO USE PRNmedroxyPROGESTERone (PROVERA, CYCRIN) 10 mg tablet Take 1 tablet by mouth oncedaily. Take the 5th-15th of the next 3 mthsondansetron orally disintegrating (ZOFRAN ODT) 4 mg disintegrating tabletPRENATAL VIT,ABBY 74/IRON/FOLIC ( VITAMIN 1+1 ORAL) Take by mouth oncedaily.FAMILY HISTORYProblem Relation Age of Onset- Ovarian cancer Mother- Diabetes Father- Defects [OTHER] Father- Endometriosis [OTHER] FatherSocial HistorySubstance Use Topics- Smoking status: Never Smoker- Smokeless tobacco: Never Used- Alcohol use YesASSESSMENT/PLAN:1. Sore throat - ICD9: 462, ICD10: J02.9 (primary diagnosis)- Discussed supportive care treatment with fluids, rest and analgesia.- The patient should follow up in 3-5 days if symptoms persist or worsen- Call back if drooling, increased temperature, symptoms of dehydration and/orstill sick in one week- RAPID STREP TEST B/O- GROUP A STREPTOCOCCUS BY PCR2. Right ear pain - ICD9: 388.70, ICD10: H92.01The patient is instructed to return or seek emergency treatment if symptomsbecome worse or with any acute change in condition.The patient verbalizes understanding and is in agreement with plan of care.Rena Dc, WANDYReferring Provider: SELF [[id number]]Allergies As of Date: 07/13/2017 Noted Allergy ReactionLATEX 11/03/2015 4 - HivesOXYCODONE 11/09/2015 1 - Mental Status ChangeDate Reviewed: 07/13/2017Reviewed by: Angeles Whitman LPN - Fully AssessedReason for Visit: right ear pain and sore throat [Other] Cmt: x 3 daysPrimary Visit Diagnosis:Sore throat [J02.9] Other Visit Diagnosis:Right ear pain [H92.01]Order(s):RAPID STREP TEST B/O [[id number]] Order #: [id number] GROUP A STREPTOCOCCUS BY PCR [SQGASPCR] Order #: [id number] as of 07/13/2017 Sig: RIGHT STEP VITAMINS * Take by mouth. SUMATRIPTAN 20 MG/ACTUATION N* BREAST PUMP DOUBLE ELECTRIC BREAST PUMP--* MEDROXYPROGESTERONE 10 MG TAB* Take 1 tablet by mouth once d* ONDANSETRON 4 MG DISINTEGRATI* VITAMIN 1+1 ORAL Take by mouth once daily.Medication notes this encounter MEDROXYPROGESTERONE 10 MG TABLET >> Angeles Whitman LPN 07/13/2017 8:29 PM >> ANGELES WHITMAN LPN Priya Jul 13, 2017 8:29 PM Not TakingProblem List As Of Date 07/13/2017 Noted Resolved Hyperemesis complicating , antepartum *INVALID FOR*02/22/2016 Obesity affecting in first trimester *INVALID FOR*11/15/2016 History of delivery, currently *INVALID FOR*11/15/2016 11 weeks gestation of [Z3A.11] INVALID FOR*02/22/2016 Nausea and vomiting of , antepartum [O*INVALID FOR*11/15/2016 Cervical cerclage suture present in second trim*INVALID FOR*11/15/2016 Abnormal glucose complicating [O99.81*INVALID FOR*11/15/2016 More... Episode of visual disturbance [H53.9] INVALID FOR* Posterior vitreous detachment of right eye [H43*INVALID FOR* Other visual disturbances [H53.8] INVALID FOR* Status:Closed by RENA DC CNP on 07/13/17 [facility] PROGRESSon 07-13-2017 Protein mass conc HNO ID: [id number] thor: Rena DcService: (none)Author Type: Nurse PractitionerType: Progress NotesFiled: 07/13/2017 9:04 PMNote Text:SubjectiveHPIPt presents with c/o 3 day hx right ear pressure and sore throat.Denies fever, chills, URI sx.Has not taken any OTC medications.No known exposure to sick contacts.Currently .Review of SystemsConstitutional: Negative for chills and fever.HENT: Positive for ear pain and sore throat. Negative for congestion, eardischarge, hearing loss, sinus pain and tinnitus.Respiratory: Negative for cough.ObjectivePhysical ExamConstitutional: She is oriented to person, place, and time andwell-developed, well-nourished, and in no distress. No distress.HENT:Head: Normocephalic.Right Ear: Hearing, tympanic membrane, external ear and ear canal normal.Left Ear: Hearing, tympanic membrane, external ear and ear canal normal.Nose: Nose normal. Right sinus exhibits no maxillary sinus tenderness andno frontal sinus tenderness. Left sinus exhibits no maxillary sinustenderness and no frontal sinus tenderness.Mouth/Throat: Uvula is midline, oropharynx is clear and moist and mucousmembranes are normal. No oropharyngeal exudate, posterior oropharyngealedema, posterior oropharyngeal erythema or tonsillar abscesses.Eyes: Conjunctivae are normal. Pupils are equal, round, and reactive tolight. Right eye exhibits no discharge. Left eye exhibits no discharge.Neck: Neck supple.Cardiovascular: Normal rate, regular rhythm and normal heart sounds. Examreveals no gallop and no friction rub.No murmur heard.Pulmonary/Chest: Effort normal and breath sounds normal. No accessorymuscle usage. No tachypnea. No respiratory distress. She has no decreasedbreath sounds (CTA, good air movement throughout, no cough noted duringexam.). She has no wheezes. She has no rhonchi. She has no rales.Lymphadenopathy: She has no cervical adenopathy.Neurological: She is alert and oriented to person, place, and time.Skin: Skin is warm. She is not diaphoretic.BP 110/80 Pulse 84 Temp 36.5 ?C (97.7 ?F) (Tympanic) Resp 18 Wt101.7 kg (224 lb 3.2 oz) BMI 41.01 kg/m2.Patient presents with:right ear pain and sore throat: x 3 daysPAST MEDICAL HISTORYDiagnosis Date- Chiari I malformation (HCC)PAST SURGICAL HISTORYProcedure Laterality Date- APPENDECTOMY- CERCLAGE CERVIX PREG; VAG 2017- LAPAROSCOPIC CYSTECTOMY DermoidALLERGIES Latex; OxycodoneMEDICATIONSprenatal vit/iron fum/folic ac (RIGHT STEP VITAMINS ORAL) Take bymouth.SUMAtriptan (IMITREX) 20 mg/actuation nasal sprayBreast Pump Device DOUBLE ELECTRIC BREAST PUMP--TO USE PRNmedroxyPROGESTERone (PROVERA, CYCRIN) 10 mg tablet Take 1 tablet by mouthonce daily. Take the 5th-15th of the next 3 mthsondansetron orally disintegrating (ZOFRAN ODT) 4 mg disintegrating tabletPRENATAL VIT,ABBY 74/IRON/FOLIC ( VITAMIN 1+1 ORAL) Take by mouthonce daily.FAMILY HISTORYProblem Relation Age of Onset- Ovarian cancer Mother- Diabetes Father- Defects [OTHER] Father- Endometriosis [OTHER] FatherSocial HistorySubstance Use Topics- Smoking status: Never Smoker- Smokeless tobacco: Never Used- Alcohol use YesASSESSMENT/PLAN:1. Sore throat - ICD9: 462, ICD10: J02.9 (primary diagnosis)- Discussed supportive care treatment with fluids, rest and analgesia.- The patient should follow up in 3-5 days if symptoms persist or worsen- Call back if drooling, increased temperature, symptoms of dehydrationand/or still sick in one week- RAPID STREP TEST B/O- GROUP A STREPTOCOCCUS BY PCR2. Right ear pain - ICD9: 388.70, ICD10: H92.01The patient is instructed to return or seek emergency treatment ifsymptoms become worse or with any acute change in condition.The patient verbalizes understanding and is in agreement with plan ofcare.Rena Dc CNP [facility] CNOVon 05-30-2017 CNOV Office Visit (NEMO) NICOL CHINCHILLA ([id number]) 1985 [facility] Time Provider Department05/30/17 2:45 PM FRANCY HARVEY During your visit today, we recorded the following information about you: Blood pressure Weight Height 110/70 97.5 kg 1.575 Nava Harvey DO 05/30/2017 2:50 PM Madeleine Hyman is a 31 year old female who presents with a chiefcomplaint of Follow Up (us completed in office today)SUBJECTIVEPatient presents to go over her ultrasound. She was having dysfunctionalbleeding. She is 9 months and breast-feeding still. We went overher ultrasound was pre-much negative. We talked about ways of making herperiods more regular periods, start her on Provera 10 mg fifth to the 15th nextfew monthsWent over with her past medical history, family. social historyObstetric History T2 L3 SAB0 TAB0 Ectopic0 Multiple0 Live [id number] n Reactions- Latex Hives- Oxycodone Mental Status ChangeCurrent Outpatient Prescriptions:Breast Pump Device DOUBLE ELECTRIC BREAST PUMP--TO USE PRNmedroxyPROGESTERone (PROVERA, CYCRIN) 10 mg tablet Take 1 tablet by mouth oncedaily. Take the 5th-15th of the next 3 mthsondansetron orally disintegrating (ZOFRAN ODT) 4 mg disintegrating tabletSUMAtriptan (IMITREX) 20 mg/actuation nasal sprayPRENATAL VIT,ABBY 74/IRON/FOLIC ( VITAMIN 1+1 ORAL) Take by mouth oncedaily.No current facility-administered medications for this visit.Review of SystemsConstitutional: NegativeEyes: NegativeENT/Mouth: NegativeCardiovascular: NegativeRespiratory: NegativeGastrointestinal: NegativeGenitourinary: NegativeMusculoskeletal: NegativeSkin/breast: NegativeNeurological: NegativePhysical ExamBP 110/70 Ht 5' 2ANDquot; (1.58m) Wt 215 lb (97.5kg) LMP 05/09/2017 BMI39.31 kg/(m2).General: No Acute Distress, Well nourished, Well developed, No obviousdeformities and Alert/Oriented x 3Mood/Affect: NormalHEENT: Normocephalic, Atraumatic and Grossly Within Normal LimitsGI: Abdomen soft, non-tender, no masses, Liver/spleen non-palpable, No herniasand Normoactive bowel soundsSkin: Intact, no lesionsASSESSMENT/PLAN:1. DUB (dysfunctional uterine bleeding) - ICD9: 626.8, ICD10: N93.8Provera 10 mg the fifth to the 15th of the next 3 monthsFollow-up for lavelleDaArmida Cook Provider: FRANCY HARVEY [[id number]]Allergies As of Date: 05/30/2017 Noted Allergy ReactionLATEX 11/03/2015 4 - HivesOXYCODONE 11/09/2015 1 - Mental Status ChangeDate Reviewed: 05/30/2017Reviewed by: Shweta Peralta - Fully AssessedReason for Visit: Follow Up [171] Cmt: us completed in office todayPrimary Visit Diagnosis:DUB (dysfunctional uterine bleeding) [N93.8]Order(s):medroxyPROGESTER one (PROVERA, CYCRIN) 10 mg tabletTake 1 tablet by mouth once daily. Take the 5th-15th of the next 3 mthsDisp: 30 tabletRfl: 0Prescriptions as of 05/30/2017 Sig: BREAST PUMP DOUBLE ELECTRIC BREAST PUMP--* MEDROXYPROGESTERONE 10 MG TAB* Take 1 tablet by mouth once d* ONDANSETRON 4 MG DISINTEGRATI* SUMATRIPTAN 20 MG/ACTUATION N* VITAMIN 1+1 ORAL Take by mouth once daily.Medication notes this encounter VITAMIN 1+1 ORAL >> Shweta Peralta LPN 05/30/2017 2:39 PM >> SHWETA PERALTA LPN May 30, 2017 2:39 PM Not takingProblem List As Of Date 05/30/2017 Noted Resolved Hyperemesis complicating , antepartum *INVALID FOR*02/22/2016 Obesity affecting in first trimester *INVALID FOR*11/15/2016 History of delivery, currently *INVALID FOR*11/15/2016 11 weeks gestation of [Z3A.11] INVALID FOR*02/22/2016 Nausea and vomiting of , antepartum [O*INVALID FOR*11/15/2016 Cervical cerclage suture present in second trim*INVALID FOR*11/15/2016 Abnormal glucose complicating [O99.81*INVALID FOR*11/15/2016 More... Episode of visual disturbance [H53.9] INVALID FOR* Posterior vitreous detachment of right eye [H43*INVALID FOR* Other visual disturbances [H53.8] INVALID FOR*Prescriptions ordered this encounter Disp Refills Start End MEDROXYPROGESTERONE 10 MG TABLET 30 t* 0 05/30/2017 Route: ORAL Sig: Take 1 tablet by mouth once daily. Take the 5th-15th of the next 3 mthsMedications Discontinued During This Encounter norgestimate 0.25 mg-ethinyl estradi* 3 Pa* 0 11/15/2016 05/30/2017 Route: ORAL Sig: Take 1 tablet by mouth once daily. 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 Please call the office before going to the hospital.? If you are , go to the ER at the [facility]. Do not go [facility] ER?s ([place], [place] or [place]).? If you need to go to an ER and cannot or will not go downtown, please use oneof [facility]?s ER?s (not [facility], [place] or [facility]).Referring Provider: FRANCY HARVEY [[id number]]Allergies As of Date: 05/30/2017 Noted Allergy ReactionLATEX 11/03/2015 4 - HivesOXYCODONE 11/09/2015 1 - Mental Status ChangeDate Reviewed: 05/30/2017Reviewed by: Shweta ([facility]) Elyssa - Fully AssessedPrimary Visit Diagnosis:DUB (dysfunctional uterine bleeding) [N93.8]Order(s):US FEMALE PELVIS TRANSVAG [[id number]] Order #: [id number] as of 05/30/2017 Sig: MEDROXYPROGESTERONE 10 MG TAB* Take 1 tablet by mouth once d* ONDANSETRON 4 MG DISINTEGRATI* SUMATRIPTAN 20 MG/ACTUATION N* VITAMIN 1+1 ORAL Take by mouth once daily. BREAST PUMP DOUBLE ELECTRIC BREAST PUMP--*Problem List As Of Date 05/30/2017 Noted Resolved Hyperemesis complicating , antepartum *INVALID FOR*02/22/2016 Obesity affecting in first trimester *INVALID FOR*11/15/2016 History of delivery, currently *INVALID FOR*11/15/2016 11 weeks gestation of [Z3A.11] INVALID FOR*02/22/2016 Nausea and vomiting of , antepartum [O*INVALID FOR*11/15/2016 Cervical cerclage suture present in second trim*INVALID FOR*11/15/2016 Abnormal glucose complicating [O99.81*INVALID FOR*11/15/2016 More... Episode of visual disturbance [H53.9] INVALID FOR* Posterior vitreous detachment of right eye [H43*INVALID FOR* Other visual disturbances [H53.8] INVALID FOR* Other instructions from your clinician: ? Please call the office before going to the hospital. ? If you are , go to the ER at the [facility]. Do not go to the outlying ER?s ([place], [place] or [place]). ? If you need to go to an ER and cannot or will not go downtown, please use one of [facility]?s ER?s (not [facility], [place] or [facility]). Status:Closed by LONNIE HOPKINS on 06/02/17 [facility] PROGRESSon 05-30-2017 Protein mass conc HNO ID: [id number] thor: Francy Hale: (none)Author Type: PhysicianType: Progress NotesFiled: 05/30/2017 2:50 PMNote Text:Nicol Hyman is a 31 year old female who presents with a chiefcomplaint of Follow Up (us completed in office today)SUBJECTIVEPatient presents to go over her ultrasound. She was having dysfunctionalbleeding. She is 9 months and breast-feeding still. We wentover her ultrasound was pre-much negative. We talked about ways of makingher periods more regular periods, start her on Provera 10 mg fifth to kyw54xj next few monthsWent over with her past medical history, family. social historyObstetric History T2 L3 SAB0 TAB0 Ectopic0 Multiple0 Live [id number]e n Reactions- Latex Hives- Oxycodone Mental Status ChangeCurrent Outpatient Prescriptions:Breast Pump Device DOUBLE ELECTRIC BREAST PUMP--TO USE PRNmedroxyPROGESTERone (PROVERA, CYCRIN) 10 mg tablet Take 1 tablet by mouthonce daily. Take the -15th of the next 3 mthsondansetron orally disintegrating (ZOFRAN ODT) 4 mg disintegrating tabletSUMAtriptan (IMITREX) 20 mg/actuation nasal sprayPRENATAL VIT,ABBY 74/IRON/FOLIC ( VITAMIN 1+1 ORAL) Take by mouthonce daily.No current facility-administered medications for this visit.Review of SystemsConstitutional: NegativeEyes: NegativeENT/Mouth: NegativeCardiovascular: NegativeRespiratory: NegativeGastrointestinal: NegativeGenitourinary: NegativeMusculoskeletal: NegativeSkin/breast: NegativeNeurological: NegativePhysical ExamBP 110/70 Ht 5' 2 (1.58m) Wt 215 lb (97.5kg) LMP 05/09/2017 BMI39.31 kg/(m2).General: No Acute Distress, Well nourished, Well developed, No obviousdeformities and Alert/Oriented x 3Mood/Affect: NormalHEENT: Normocephalic, Atraumatic and Grossly Within Normal LimitsGI: Abdomen soft, non-tender, no masses, Liver/spleen non-palpable, Nohernias and Normoactive bowel soundsSkin: Intact, no lesionsASSESSMENT/PLAN:1. DUB (dysfunctional uterine bleeding) - ICD9: 626.8, ICD10: N93.8Provera 10 mg the fifth to the 15th of the next 3 monthsFollow-up for annualDavid E Candice, DO [facility] CNOVon 05-23-2017 CNOV Office Visit (NEMO) NICOL CHINCHILLA ([id number]) 1985 FDate Time Provider Department05/23/17 4:00 PM FRANCY HARVEY During your visit today, we recorded the following information about you: Blood pressure Weight Height Last Period 110/70 98.4 kg 1.575 m 05/09/17Francy Harvey DO 05/23/2017 4:05 PM Madeleine Hyman is a 31 year old female who presents with a chiefcomplaint of Commercial Internship Exam (Pt keeps getting her period every two weeks)SUBJECTIVEPatient presents for her dysfunctional bleeding. She is 9 weeks andis breast-feeding. She is currently on no control does want to be onany. She's states over the last 4 months she's been bleeding about every otherweek. It's natural heaviness a lot of cramping. Otherwise her breast-feedingis going well she denies any other problems at this time. She hasn't doneanything gipb-huo-hkfvvhx for this and hasn't gotten any betterWent over with her past medical history, family. social historyObstetric History T2 L3 SAB0 TAB0 Ectopic0 Multiple0 Live [id number]z n Reactions- Latex Hives- Oxycodone Mental Status ChangeCurrent Outpatient Prescriptions:SUMAtriptan (IMITREX) 20 mg/actuation nasal sprayPRENATAL VIT,ABBY 74/IRON/FOLIC ( VITAMIN 1+1 ORAL) Take by mouth oncedaily.Breast Pump Device DOUBLE ELECTRIC BREAST PUMP--TO USE PRNondansetron orally disintegrating (ZOFRAN ODT) 4 mg disintegrating tabletnorgestimate 0.25 mg-ethinyl estradiol 35 mcg (SPRINTEC) 0.25-35 mg-mcg pertablet Take 1 tablet by mouth once daily.No current facility-administered medications for this visit.Review of SystemsConstitutional: NegativeEyes: NegativeENT/Mouth: NegativeCardiovascular: NegativeRespiratory: NegativeGastrointestinal: NegativeGenitourinary: NegativeMusculoskeletal: NegativeSkin/breast: NegativeNeurological: NegativePhysical ExamBP 110/70 Ht 5' 2ANDquot; (1.58m) Wt 217 lb (98.4kg) LMP 05/09/2017 BMI39.68 kg/(m2).General: No Acute Distress, Well nourished, Well developed, No obviousdeformities and Alert/Oriented x 3Mood/Affect: NormalHEENT: Normocephalic, Atraumatic and Grossly Within Normal LimitsGI: Abdomen soft, non-tender, no masses, Liver/spleen non-palpable, No herniasand Normoactive bowel soundsSkin: Intact, no lesionsASSESSMENT/PLAN:1. DUB (dysfunctional uterine bleeding) - ICD9: 626.8, ICD10: N93.8Follow-up after ultrasound- US FEMALE PELVIS TRANSVAGDavid E Bievi, DOReferring Provider: SELF [[id number]]Allergies As of Date: 05/23/2017 Noted Allergy ReactionLATEX 11/03/2015 4 - HivesOXYCODONE 11/09/2015 1 - Mental Status ChangeDate Reviewed: 05/23/2017Reviewed by: Israel Shah - Fully AssessedReason for Visit: Commercial Internship Exam [50] Cmt: Pt keeps getting her period every two weeksReason For Visit History RecordedPrimary Visit Diagnosis:DUB (dysfunctional uterine bleeding) [N93.8]Order(s):US FEMALE PELVIS TRANSVAG [[id number]] Order #: [id number] FUTUREPrescriptions as of 05/23/2017 Sig: SUMATRIPTAN 20 MG/ACTUATION N* VITAMIN 1+1 ORAL Take by mouth once daily. BREAST PUMP DOUBLE ELECTRIC BREAST PUMP--* ONDANSETRON 4 MG DISINTEGRATI* NORGESTIMATE 0.25 MG-ETHINYL * Take 1 tablet by mouth once d*Medication notes this encounter ONDANSETRON 4 MG DISINTEGRATING TABLET >> Israel Shah CMA 05/23/2017 3:48 PM >> ISRAEL SHAH CMA May 23, 2017 3:48 PM D/C A.CProblem List As Of Date 05/23/2017 Noted Resolved Hyperemesis complicating , antepartum *INVALID FOR*02/22/2016 Obesity affecting in first trimester *INVALID FOR*11/15/2016 History of delivery, currently *INVALID FOR*11/15/2016 11 weeks gestation of [Z3A.11] INVALID FOR*02/22/2016 Nausea and vomiting of , antepartum [O*INVALID FOR*11/15/2016 Cervical cerclage suture present in second trim*INVALID FOR*11/15/2016 Abnormal glucose complicating [O99.81*INVALID FOR*11/15/2016 More... Episode of visual disturbance [H53.9] INVALID FOR* Posterior vitreous detachment of right eye [H43*INVALID FOR* Other visual disturbances [H53.8] INVALID FOR*Disposition: Return in about 1 week (around 05/30/2017) for u/s and f/u.Follow-up and Disposition History RecordedEncounter Number: [id number] Status:Closed by FRANCY HARVEY DO on 05/23/17 [facility] PROGRESSon 05-23-2017 Protein mass conc HNO ID: [id number] thor: Francy Hale: (none)Author Type: PhysicianType: Progress NotesFiled: 05/23/2017 4:05 PMNote Text:Nicol Hyman is a 31 year old female who presents with a chiefcomplaint of Commercial Internship Exam (Pt keeps getting her period every two weeks)SUBJECTIVEPatient presents for her dysfunctional bleeding. She is 9 weekspostpartum and is breast-feeding. She is currently on no controldoes want to be on any. She's states over the last 4 months she's beenbleeding about every other week. It's natural heaviness a lot ofcramping. Otherwise her breast-feeding is going well she denies any otherproblems at this time. She hasn't done anything tvpo-sdi-nbhoioc for thisand hasn't gotten any betterWent over with her past medical history, family. social historyObstetric History T2 L3 SAB0 TAB0 Ectopic0 Multiple0 Live Ybzhlz2WWUNQBNTFGIDVVDLYUUaardjk n Reactions- Latex Hives- Oxycodone Mental Status ChangeCurrent Outpatient Prescriptions:SUMAtriptan (IMITREX) 20 mg/actuation nasal sprayPRENATAL VIT,ABBY 74/IRON/FOLIC ( VITAMIN 1+1 ORAL) Take by mouthonce daily.Breast Pump Device DOUBLE ELECTRIC BREAST PUMP--TO USE PRNondansetron orally disintegrating (ZOFRAN ODT) 4 mg disintegrating tabletnorgestimate 0.25 mg-ethinyl estradiol 35 mcg (SPRINTEC) 0.25-35 mg-mcgper tablet Take 1 tablet by mouth once daily.No current facility-administered medications for this visit.Review of SystemsConstitutional: NegativeEyes: NegativeENT/Mouth: NegativeCardiovascular: NegativeRespiratory: NegativeGastrointestinal: NegativeGenitourinary: NegativeMusculoskeletal: NegativeSkin/breast: NegativeNeurological: NegativePhysical ExamBP 110/70 Ht 5' 2 (1.58m) Wt 217 lb (98.4kg) LMP 05/09/2017 BMI39.68 kg/(m2).General: No Acute Distress, Well nourished, Well developed, No obviousdeformities and Alert/Oriented x 3Mood/Affect: NormalHEENT: Normocephalic, Atraumatic and Grossly Within Normal LimitsGI: Abdomen soft, non-tender, no masses, Liver/spleen non-palpable, Nohernias and Normoactive bowel soundsSkin: Intact, no lesionsASSESSMENT/PLAN:1. DUB (dysfunctional uterine bleeding) - ICD9: 626.8, ICD10: N93.8Follow-up after ultrasound- US FEMALE PELVIS TRANSVAGDavid E Biats, DO [facility] PROGRESSon 05-18-2017 Protein mass conc HNO ID: [id number] thor: Francy Serranoervice: (none)Author Type: PhysicianType: Progress NotesFiled: 05/18/2017 2:47 PMNote Text:ASSESSMENT/PLAN:1. Episode of visual disturbance - ICD9: 368.9, ICD10: H53.9 (primarydiagnosis)- VISUAL FIELD 24-2 OU (BOTH EYES)-normal2. Posterior vitreous detachment of right eye - ICD9: 379.21, ICD10:H43.811Patient advised Posterior vitreous detachment (PVD)No tear, no hemorrhage, no retinal detachmentPatient advised signs AND symptoms of retinal detachmentPatient to follow 3 F'S information sheet as directedNo activity restrictionsReturn as neededCarol VERNON TopeteThe documentation for this note was completed by Martha Topete RN actingas a scribe for Francy Edge MD. 05/18/2017 2:42 PM.3 Ref error-no RXThe documentation recorded by the scribe accurately reflects the service Ipersonally performed and the decisions made by me. I have confirmed andedited as necessary the relevant ophthalmic history, ROS, and the neuroexam findings as obtained by others. I have seen and examined OlamideI have discussed the case and the management of this patient's care withthe Resident/Fellow, if applicable. I also have reviewed and agree withthe assessment and plan as stated above and agree with all of its relevantcomponents.Francy Edge MD Normal [facility] Protein mass conc HNO ID: [id number] thor: Leena Tristanice: (none)Author Type: PhysicianType: Progress NotesFiled: 05/18/2017 11:34 AMNote Text:Seen with infantRecently gave to 3rd childMother has Chiari anomalyHPISymptoms originally started after second in 2014, and flared upwith recent childHA's, visual symptoms during migrainesAlso Balance problemsEpisodes of cognitive impairmentNT L side of bodyMRI Bran, C/S, and T/s available for reviewMRI reveals 7-9 mm (depending on cervical or brain MRI) tonsillar descentCrowding of foramen magnumNo base of skull abnNo Syringomyelia or tetheringAPFindings explainedIIH and Chiari discussedReq Neuro-opthalmology evaluationPt not interested in intervention now with infants at homeFU 09/05 with C/S MRI, or prn any worsening of symptomsLeena Zhao MD Normal [facility] Protein mass conc HNO ID: [id number] thor: Pasha Padron: (none)Author Type: Physician AssistantType: Progress NotesFiled: 05/18/2017 11:34 AMNote Text:CC : Paitent with a chief complaint of chiari malformation.Interval HPI : Ms. Hyman is 31 year old female with complaints ofmigraines, loss vision, vomiting, balance issues, cognitive issues andnumbness and tingling in the left.Patient started having migraines in 2014. After having her last baby [id number], the migraines got worse. During the migraines she would lose hervision. This started last July. She started also having numbness in the Larm after holding anything for more than 15 mins. Due to the frequencyand the migraines picking up, she went to the doctor. She had an MRI andwas referred to us. She is currently . When she bends herhead down or looking up causes her symptoms. She is also having balanceissues, as well as memory issues.ROS: see chartCurrent Medications : all meds are on the chart and have been reviewed byme. No change.Allergies : allergies are on the chart and have been reviewed by . Onelia.EXAM :Awake and [id number] symmetricSpeech ClearTongue midlineNo pronator driftNo past pointingRAMs wnlB/l blanket inspector wnlBiceps and triceps wnlGait wnlTandem walking normalDTR's +2 b/l in UE = and symmetricAssessment :MRIs reviewedCerebellar tonsillar ectopia 7-9mmVisual symptomsPlan :F/u ophthalmologyMRI in 6 mos for follow up.JULEE Holden-CFebruary 201711:07 AM Normal [facility] Enrique 12-27-2016 STEVEN Telephone (NEMO) NICOL CHINCHILLA ([id number]) 1985 [facility] Time Provider Ustnusqbmj54/3/17 FRANCY HARVEY During your visit today, we recorded the following information about you:Oxana Justice RN 12/27/2016 2:53 PM SignedPt calls-needs order for breast pump. Previous pump has broken and insuranceneeds new order faxed to [phone].Please file and PRINT rx.Nancy Joseph RN 12/27/2016 4:23 PM SignedFaxed.Sherry Joseph As of Date: 12/27/2016 Noted Allergy ReactionLATEX 11/03/2015 4 - HivesOXYCODONE 11/09/2015 1 - Mental Status ChangeDate Reviewed: 11/15/2016Reviewed by: Francy Harvey - Fully AssessedReason for Visit: Orders [681]Order(s):Breast Pump DeviceDOUBLE ELECTRIC BREAST PUMP--TO USE PRNDisp: 1 DeviceRfl: 0Prescriptions as of 12/27/2016 Sig: BREAST PUMP DOUBLE ELECTRIC BREAST PUMP--* NORGESTIMATE 0.25 MG-ETHINYL * Take 1 tablet by mouth once d*Problem List As Of Date 12/27/2016 Noted Resolved Hyperemesis complicating , antepartum *INVALID FOR*02/22/2016 Obesity affecting in first trimester *INVALID FOR*11/15/2016 History of delivery, currently *INVALID FOR*11/15/2016 11 weeks gestation of [Z3A.11] INVALID FOR*02/22/2016 Nausea and vomiting of , antepartum [O*INVALID FOR*11/15/2016 Cervical cerclage suture present in second trim*INVALID FOR*11/15/2016 Abnormal glucose complicating [O99.81*INVALID FOR*11/15/2016 More...Prescriptions ordered this encounter Disp Refills Start End BREAST PUMP 1 De* 0 12/27/2016 Class: Print RX Sig: DOUBLE ELECTRIC BREAST PUMP--TO USE PRNEncounter Number: [id number] Status:Closed by FRANCY HARVEY DO on 12/27/16 Normal [facility] Vital Signs Date Time Vital Sign Value Performing Clinician Granti brett 08-28-2024 11:44-0400 Body height 158.8 cm Jeannette Quarles MD Work Phone: [facility] 08-28-2024 11:44-0400 Body mass index (BMI) [Ratio] 42.66 kg/m2 Jeannette Quarles MD Work Phone: [facility] 08-28-2024 11:44-0400 Body weight 107.5 kg Jeannette Quarles MD Work Phone: [facility] 08-28-2024 11:44-0400 Diastolic blood pressure 78 mm[Hg] Jeannette Quarles MD Work Phone: [facility] 08-28-2024 11:44-0400 Heart rate 61 /min Jeannette Quarles MD Work Phone: [facility] 08-28-2024 11:44-0400 Respiratory rate 16 /min Jeannette Quarles MD Work Phone: [facility] 08-28-2024 11:44-0400 SaO2% (BldA) [Mass fraction] 98 % Jeannette Quarles MD Work Phone: [facility] 08-28-2024 11:44-0400 Systolic blood pressure 124 mm[Hg] Jeannette Quarles MD Work Phone: [facility] 06-26-2024 10:19-0400 Body mass index (BMI) [Ratio] 42.33 kg/m2 Willie Guevara MD Work Phone: [facility] 06-26-2024 10:19-0400 Body weight 106.69 kg Willie Guevara MD Work Phone: [facility] 06-26-2024 10:19-0400 Diastolic blood pressure 80 mm[Hg] Willie Guevara MD Work Phone: [facility] 06-26-2024 10:19-0400 Systolic blood pressure 118 mm[Hg] Willie Guevara MD Work Phone: [facility] 06-14-2024 11:28-0400 Body mass index (BMI) [Ratio] 41.76 kg/m2 Willie Guevara MD Work Phone: [facility] 06-14-2024 11:28-0400 Body weight 105.23 kg Willie Guevara MD Work Phone: [facility] 06-14-2024 11:28-0400 Diastolic blood pressure 84 mm[Hg] Willie Guevara MD Work Phone: [facility] 06-14-2024 11:28-0400 Systolic blood pressure 126 mm[Hg] Willie Guevara MD Work Phone: [facility] 05-17-2024 15:57-0500 Body mass index (BMI) [Ratio] 42.12 kg/m2 Nurse Wstr Work Phone: [facility] 05-17-2024 15:57-0500 Body weight 106.14 kg Nurse Wstr Work Phone: [facility] 05-17-2024 15:57-0500 Diastolic blood pressure 88 mm[Hg] Nurse Wstr Work Phone: [facility] 05-17-2024 15:57-0500 Systolic blood pressure 130 mm[Hg] Nurse Wstr Work Phone: [facility] 01-15-2024 10:11-0400 Body mass index (BMI) [Ratio] 41.54 kg/m2 Nurse Wstr Work Phone: [facility] 01-15-2024 10:11-0400 Body weight 104.69 kg Nurse Wstr Work Phone: [facility] 01-15-2024 10:11-0400 Diastolic blood pressure 74 mm[Hg] Nurse Wstr Work Phone: [facility] 01-15-2024 10:11-0400 Systolic blood pressure 114 mm[Hg] Nurse Wstr Work Phone: [facility] 11-10-2023 15:46-0400 Body height 158.8 cm Willie Guevara MD Work Phone: [facility] 11-10-2023 15:46-0400 Body mass index (BMI) [Ratio] 40.32 kg/m2 Willie Guevara MD Work Phone: [facility] 11-10-2023 15:46-0400 Body weight 101.61 kg Willie Guevara MD Work Phone: [facility] 11-10-2023 15:46-0400 Diastolic blood pressure 72 mm[Hg] Willie Guevara MD Work Phone: [facility] 11-10-2023 15:46-0400 Systolic blood pressure 130 mm[Hg] Willie Guevara MD Work Phone: [facility] 12-16-2022 15:10-0400 Body height 157.5 cm Willie Guevara MD Work Phone: [facility] 12-16-2022 15:10-0400 Body weight 103.96 kg Willie Guevara MD Work Phone: [facility] 12-16-2022 15:10-0400 Diastolic blood pressure 72 mm[Hg] Willie Guevara MD Work Phone: [facility] 12-16-2022 15:10-0400 Systolic blood pressure 110 mm[Hg] Willie Guevara MD Work Phone: [facility] 08-01-2021 08:55-0400 Body temperature 97.3 [degF] Den Pendlebury VICE PRINCIPAL.BOTTOM FILLER Work Phone: [facility] 08-01-2021 08:55-0400 Body [facility] 102.[facility].BOTTOM FILLER Work Phone: [facility] 08-01-2021 08:55-0400 Diastolic blood pressure 74 mm[Hg] Den Pendlebury VICE PRINCIPAL.BOTTOM FILLER Work Phone: [facility] 08-01-2021 08:55-0400 Heart rate 83 /min Den Pendlebury VICE PRINCIPAL.BOTTOM FILLER Work Phone: [facility] 08-01-2021 08:55-0400 Respiratory rate 18 /min [facility] PRINCIPAL.BOTTOM FILLER Work Phone: [facility] 08-01-2021 08:55-0400 SaO2% (BldA) [Mass fraction] 98 % [facility]ICE PRINCIPAL.BOTTOM FILLER Work Phone: [facility] 08-01-2021 08:55-0400 Systolic blood pressure 122 mm[Hg] [facility] VICE PRINCIPAL.BOTTOM FILLER Work Phone: [facility] Encounters Encounter Date Encounter Type Care Provider Facility Start: 10-03-2024 ambulatory Abad Harper ty:[facility] Start: 09-20-2024 ambulatory Jeannette Alfaro y:[facility] Start: 09-17-2024 Encounter for other preprocedural examination Jeannette Quarles [facility] Start: 08-28-2024 End: 08-28-2024 Patient encounter procedure Jeannette Quarles MD Work Phone: OB/Gynecology Comment on above: Menorrhagia with reg ular cycle (Primary Dx); Intramural uterine fibroid; Adenomyosis of the uterus; Vaginal discharge; Postoperative pain Start: 08-28-2024 End: 08-28-2024 ambulatory JEANNETTE QUARLES Facility:[facility] Start: 07-23-2024 End: 07-26-2024 Admission to same day surgery center [facility] Provider OB/Gynecology Comment on above: surgery date Start: 07-23-2024 End: 07-26-2024 E-mail encounter from caregiver [facility] Provider OB/Gynecology Start: 07-19-2024 End: 07-19-2024 ambulatory JEANNETTE QUARLES Facility:[facility] Start: 06-26-2024 End: 06-26-2024 ambulatory WILLIE GUEVARA Facility:[facility] Start: 06-26-2024 End: 06-26-2024 Patient encounter procedure Willie Guevara MD Work Phone: OB/Gynecology Comment on above: Adenomyosis of the u terus (Primary Dx); Dyspareunia, female Start: 06-20-2024 End: 06-20-2024 ambulatory Pensionholder Information Clerk [employer]str [employer] Work Phone: OB/Gynecology Start: 06-20-2024 End: 06-20-2024 Patient encounter procedure Us Tech 1 Wstr Mob OB/Gynecology Start: 06-14-2024 End: 06-14-2024 ambulatory WILLIE GUEVARA Facility:[facility] Start: 06-14-2024 End: 06-14-2024 Patient encounter procedure Willie Guevara MD Work Phone: OB/Gynecology Comment on above: Vaginal discharge (P rimary Dx); Pelvic pain in female; Family history of ovarian cancer; Screen for STD (sexually transmitted disease) Start: 05-17-2024 End: 05-17-2024 Nursing evaluation of patient and report Nurse Shot Grinder Operator [facility] Wstr Work Phone: OB/Gynecology Comment on above: Need for prophylacti c vaccination/inoculation against viral disease (Primary Dx) Start: 05-17-2024 End: 05-17-2024 ambulatory JAYLON BOYD Facility:[facility] Start: 01-15-2024 End: 01-15-2024 ambulatory [facility] Facility:[facility] Start: 01-15-2024 End: 01-15-2024 Nursing evaluation of patient and report Nurse Shot Grinder Operator [facility] Wstr Work Phone: OB/Gynecology Comment on above: Need for prophylacti c vaccination/inoculation against viral disease (Primary Dx) Start: 11-13-2023 End: 11-13-2023 ambulatory JAYLON BOYD Facility:[facility] Start: 11-10-2023 End: 11-10-2023 ambulatory WILLIE GUEVARA Facility:[facility] Start: 11-10-2023 End: 11-10-2023 Patient encounter procedure Willie Guevara MD Work Phone: OB/Gynecology Comment on above: Encounter for gyneco logical examination (general) (routine) without abnormal findings (Primary Dx); Screening for cervical cancer; Encounter for screening for human papillomavirus (HPV); Need for prophylactic vaccination/inoculation against viral disease Start: 11-10-2023 End: 11-10-2023 Patient encounter status Willie Guevara MD Work Phone: [facility] Start: 12-16-2022 End: 12-16-2022 Patient encounter procedure Willie Guevara MD Work Phone: OB/Gynecology Comment on above: Encounter for gyneco logical examination without abnormal finding (Primary Dx); Encounter for screening for malignant neoplasm of cervix; Special screening examination for human papillomavirus (HPV) Start: 12-16-2022 End: 12-16-2022 Patient encounter status Willie Guevara MD Work Phone: [facility] Start: 08-01-2021 End: 08-01-2021 Office outpatient visit 15 minutes Den Burrows APRN.CNP Work Phone: [facility] Comment on above: Eustachian tube dysf unction, right (Primary Dx) Start: 01-25-2018 End: 01-25-2018 Patient encounter LEENA JAEGER CECE [facility] Start: 01-10-2018 End: 01-16-2018 [facility]: 01-05-2018 End: 01-09-2018 [facility] Start: 12-25-2017 Encounter for other preprocedural examination LEENA ZHAO [facility] Start: 12-25-2017 End: 12-25-2017 [facility] 11-21-2017 End: 11-22-2017 Patient encounter FRANCY [facility] Start: 11-21-2017 Encounter for gynecological examination (general) (routine) without abnormal findings FRANCY [facility] Start: 11-21-2017 End: 11-21-2017 Patient encounter FRANCY [facility] Start: 11-20-2017 End: 11-21-2017 Patient encounter PASHA MENDIOLA [facility] Start: 11-16-2017 End: 11-17-2017 Patient encounter LEENA JAEGER [facility] Start: 07-13-2017 End: 07-14-2017 [facility] Start: 07-03-2017 Patient encounter PASHA Rehman lity:[facility] Start: 05-30-2017 End: 05-30-2017 Patient encounter FRANCY [facility] Start: 05-23-2017 End: 05-23-2017 Patient encounter FRANCY [facility] Start: 05-18-2017 End: 05-22-2017 Patient encounter FRANCY EDGE [facility] Procedures Date Procedure Procedure Detail Performing Clinician Start: 08-28-2024 UA DIP,URINE HCG (POC) Jeannette Quarles MD Work Phone: Start: 06-20-2024 Us pelvic nonobstetr ic real-time image complete Willie Guevara MD Work Phone: Start: 12-26-2017 Antibody screen LEENA RUEDA Comment on above: Performed By: #### T [id number] ####[facility] [place], [place] [id number] Start: 11-16-2017 Adult depression scr eening assessment Denkathleen Burrows APRN.BOTTOM FILLER Work Phone: Plan of Treatment Date Care Activity Detail Author Start: 01-31-2025 End: 01-31-2025 Patient encounter procedure 01/31/2025 2:00 PM EST Office Visit OB/Gynecology [address] [place] [address] Willie Guevara MD [address] [place] [address] (Fax) Annual OB/Gynecology Comment on above: Annual Start: 11-25-2024 Influenza vaccination Influenz a Vaccine (Season Ended) [facility] Start: 11-15-2024 End: 11-15-2024 Patient encounter procedure 11/15/2024 4:00 PM EDT Office Visit OB/Gynecology [address] [place] [address] Willie Guevara MD [address] [place] [address] (Fax) Annual OB/Gynecology Comment on above: Annual Start: 11-09-2024 Screening for malign ant neoplasm of cervix Cervical Cancer Screening [facility] Start: 10-01-2024 End: 10-01-2024 Patient encounter procedure 10/01/2024 3:40 PM EDT Office Visit OB/Gynecology [address] [place] [address] Jeannette Quarles MD [address] [place] [address] (Fax) 1 week post op OB/Gynecology Comment on above: 1 week post op Start: 08-27-2024 End: 08-27-2024 Patient encounter procedure 08/27/2024 10:20 AM EDT Office Visit OB/Gynecology [address] [place] [address] Jeannette Quarles MD [address] [place] [address] emb & pre-op surgery 09/20 OB/Gynecology Comment on above: emb & pre-op surgery 09/20 Start: 07-19-2024 End: 07-19-2024 Patient encounter procedure 07/19/2024 3:20 PM EDT Office Visit OB/Gynecology [address] [place] [address] Jeannette Quarles MD [address] [place] [address] hysterectomy consult with RR or DM referred by GERARDO OB/Gynecology Comment on above: hysterectomy consult with RR or DM referred by G[facility]ARDO Start: 06-20-2024 End: 06-20-2024 Manual pelvic examination 06/20/2024 8:30 AM EDT Procedure OB/Gynecology [address] [place], [place] [id number] Remote, Pensionholder Information Clerk [employer] [address] [place] [address] Pelvic pain OB/Gynecology Comment on above: Pelvic pain Start: 06-14-2024 End: 06-14-2025 US Pelvis PELVIC US [facility] Anc Imaging Routine Pelvic pain in female Expected: 06/14/2024, Expires: 06/14/2025 [facility] Work Phone: Comment on above: Expected: 06/14/2024 , Expires: 06/14/2025 Start: 05-17-2024 End: 05-17-2024 Nursing evaluation of patient and report 05/17/2024 9:00 AM EST Nurse Visit OB/Gynecology [address] [place] [id number] Wstr, Nurse Shot Grinder Operator [facility] [address] [place] [id number] HPV #3 OB/Gynecology Comment on above: HPV #3 Start: 05-12-2024 HPV Vaccine (3 - 3-d ose SCDM series) HPV Vaccine (3 - 3-dose SCDM series) [facility] Start: 05-08-2024 9vhpv vacc 2/3 dose sched im use HPV VACCINE, 9-VALENT (GARDASIL 9) Immunization/Injection Routine Expected: 05/08/2024 (Approximate) [facility] Comment on above: Expected: 05/08/2024 (Approximate) Start: 01-12-2024 End: 01-12-2024 Nursing evaluation of patient and report 01/12/2024 3:00 PM EDT Nurse Visit OB/Gynecology [address] [place], [place] [id number] Wstr, Nurse Shot Grinder Operator [facility] [address] [place], [place] [id number] HPV OB/Gynecology Comment on above: HPV Start: 01-09-2024 9vhpv vacc 2/3 dose sched im use HPV VACCINE, 9-VALENT (GARDASIL 9) Immunization/Injection Routine Expected: 01/09/2024 (Approximate) [facility] Comment on above: Expected: 01/09/2024 (Approximate) Start: 12-17-2023 Screening for malign ant neoplasm of cervix Cervical Cancer Screening [facility] Start: 12-08-2023 HPV Vaccine (2 - 3-d ose SCDM series) HPV Vaccine (2 - 3-dose SCDM series) [facility] Start: 11-26-2023 Covid-19 Vaccine ( season) Covid-19 Vaccine ( season) [facility] Start: 11-26-2023 Influenza vaccination Influenza Vacc ine (#1) [facility] Start: 11-25-2022 Influenza vaccination Influenza Vacc ine (#1) [facility] Start: 11-21-2022 PAP TESTING PAP TESTING [facility] Start: 03-27-2022 Depression Assessment Depression Ass essment [facility] Start: 11-16-2018 Adult depression screening assessment DEPRESSION SCREENING [facility] Start: 2016 HPV TESTING HPV TESTING [facility] Start: 2005 Hepatitis B Vaccine (1 of 3 - 19+ 3-dose series) Hepatitis B Vaccine (1 of 3 - 19+ 3-dose series) [facility] Start: 2005 Urine microalbumin profile [facility] Start: 2004 Anxiety Screening Anxiety Screening [facility] Start: 2004 Depression Screening Depression Scre ening [facility] Start: 2004 HIV SCREENING HIV SCREENING [facility] Start: 2004 HIV screening HIV Screening [facility] Start: 1986 Hepatitis B Vaccine (1 of 3 - 3-dose series) Hepatitis B Vaccine (1 of 3 - 3-dose series) [facility] BACTERIAL VAGINOSIS NAAT BACTERIAL VAGINOSIS NAAT Lab Routine Vaginal discharge 06/14/2024 11:47 AM EDT [facility] BACTERIAL VAGINOSIS NAAT BACTERIAL VAGINOSIS NAAT Lab Routine Menorrhagia with regular cycle Vaginal discharge 08/28/2024 12:17 PM EDT [facility] ARIAN/TRICHOMONAS NAAT ARIAN/TRICHOMONAS NAAT Lab Routine Vaginal discharge 06/14/2024 11:47 AM EDT [facility] ARIAN/TRICHOMONAS NAAT ARIAN/TRICHOMONAS NAAT Lab Routine Menorrhagia with regular cycle Vaginal discharge 08/28/2024 12:17 PM EDT [facility] Chlamydia trachomatis+Neisseria gonorrhoeae DNA [Presence] in Unspecified specimen by SHREYAS with probe detection GONORRHEA/CHLAMYDIA NAAT Lab Routine Vaginal discharge Pelvic pain in female 06/14/2024 11:47 AM EDT [facility] Endometrial bx w/wo endocervix bx w/o dilat spx ENDOMETRIAL BIOPSY Procedures Routine Menorrhagia with regular cycle Intramural uterine fibroid Adenomyosis of the uterus Ordered: 08/28/2024 [facility] Work Phone: Comment on above: Ordered: 08/28/2024 PAP TEST PAP TEST Lab [facility] Encounter for screening for malignant neoplasm of cervix Special screening examination for human papillomavirus (HPV) 12/16/2022 4:05 PM EDT [facility] Work Phone: PAP TEST PAP TEST Lab [place] Screening for cervical cancer Encounter for screening for human papillomavirus (HPV) 11/10/2023 4:06 PM EDT [facility] Therapeutic prophylactic/dx injection subq/im THER/PROPH/DIAG INJ, SC/IM Procedures Routine Need for prophylactic vaccination/inoculation against viral disease Ordered: 11/10/2023 [facility] Work Phone: Comment on above: Ordered: 11/10/2023 Tissue Pathology bio psy report SURGICAL PATHOLOGY Lab Routine Menorrhagia with regular cycle Intramural uterine fibroid Adenomyosis of the uterus Ordered: 08/28/2024 [facility] Comment on above: [facility] Immun[facility] Date Immunization Notes Care Provider Wallace kuhn 05-17-2024 Human Papillomavirus 9-valent vaccine Nurse Wstr Work Phone: [facility] 01-15-2024 Human Papillomavirus 9-valent vaccine Nurse Wstr Work Phone: [facility] 11-10-2023 Human Papillomavirus 9-valent vaccine Willie Guevara MD Work Phone: [facility] 01-21-2023 influenza, injectabl e, quadrivalent, preservative free [facility] Provider [facility] 01-21-2023 influenza virus vacc ine, unspecified formulation Willie Guevara MD Work Phone: [facility] 12-17-2021 Influenza, injectabl e, [place] Canine Kidney, preservative free, quadrivalent [facility] Provider [facility] 12-17-2021 influenza virus vacc ine, unspecified formulation Willie Guevara MD Work Phone: [facility] 01-29-2021 influenza, injectabl e, quadrivalent, preservative free [facility] Provider [facility] 01-09-2018 influenza, injectabl e, quadrivalent, preservative free Den Burrows VICE PRINCIPAL.BOTTOM FILLER Work Phone: [facility] 02-08-2016 influenza, injectabl e, quadrivalent, preservative free Den Burrows VICE PRINCIPAL.BOTTOM FILLER Work Phone: [facility] Payers Date Payer Category Payer Self-pay 2016 Private Health Insurance DEYANIRA ANTONIOA [employer] PPO [id number] 2016-Present [phone] [id number] [place] [id number] O [id number] 2016 Private Health Insurance [id number] 2013 Private Health Insurance [id number] 2013 Private Health Insurance [id number] 1986 Unknown [id number] [id number] 1986 Unknown [id number] 2.278 1986 Unknown [id number]. 2.278 1986 Unknown [id number]. 2.278 1986 Unknown [id number]. 2.278 1986 Unknown [id number]. 2.278 1986 Unknown [id number]. 2.278 1986 Unknown [id number] 2.627 Unknown [id number] [id number] Unknown [id number] [id number] Social History Date Type Detail Facility Start: 11-03-2015 End: 12-16-2022 Tobacco smoking status [facility] Never smoked tobacco [facility] Start: 11-03-2015 End: 12-16-2022 Tobacco use and exposure Smokeless tobacco non-user [facility] Start: 08-01-2021 End: 07-19-2024 Alcohol intake Current drinker of alcohol (finding) [facility] Start: 12-25-2017 History SDOH Alcohol Comment rarely [facility] Start: 1985 Sex Assigned At Female [facility] Start: 07-22-2021 End: 08-01-2021 Exposure to SARS-CoV-2 (event) Not sure [facility] Start: 12-16-2022 End: 06-14-2024 History of Social function [facility] Start: 12-16-2022 End: 06-14-2024 Tobacco use panel [facility] PHQ2 Score 0 [facility] Start: 03-22-2021 Gender identity Identifies as female gender (finding) [facility] Start: 03-22-2021 Sexual orientation Heterosexual (fin ding) [facility] Start: 11-03-2023 Sexual orientation Bisexual (finding ) [facility] Medical Equipment Procedure Code Equipment Code Equipment Origin al Text Equipment Identifier Dates Patch Durepair Bovine Collagen Matrix 2x2in Dural Resorbable Duraplasty - [id number] Start: 01-05-2018 Functional Status Date Assessment Result Facility 01-16-2018 Are you deaf, or do you have serious difficulty hearing No 01/16/2018 5:07 PM Jes Rodriguez RN No [facility] 01-16-2018 Are you blind, or do you have serious difficulty seeing, even when wearing glasses No 01/16/2018 5:07 PM Jes Rodriguez RN No [facility] 01-16-2018 Do you have serious difficulty walking or climbing stairs No 01/16/2018 5:07 PM Jes Rodriguez RN No [facility] 01-16-2018 Do you have difficul ty dressing or bathing No 01/16/2018 5:07 PM Jes Rodriguez RN No [facility] 01-16-2018 Because of a physica l, mental, or emotional condition, do you have difficulty doing errands alone such as visiting a physician's office or shopping No 01/16/2018 5:07 PM Jes Rodriguez RN No [facility] Mental Status Date Assessment Result Facility 01-16-2018 Because of a physica l, mental, or emotional condition, do you have serious difficulty concentrating, remembering, or making decisions No 01/16/2018 5:07 PM Jes Rodriguez RN No [facility] Clinical Notes 05-25-2016 to 08-28-2024 Jeannette Quarles MD - 08/28/2024 11:48 AM Jeannette Hartman MD - 08/28/2024 11:48 AM Jeannette Graham MD - 08/28/2024 11:27 AM EDTPatient Instructions Note Date & Type Note Facility 08-28-2024 Note [facility] Medical Records Department [address] [place] [address] History Physical Exam 08/28/24 1253 MR#: [id number] Acct: [id number] Name: NICOL HYMAN Rep #: [id number] : 1985 39 From: Jeannette Quarles MD PCP: Dr. Jaylon Boyd, DO Status:PRE SDC Location: [facility] History and Physical Date of Admission: 09/20/24 HPI: The patient is a 39 year old female presenting for pre-operative visit. She is scheduled for TLH, bilateral salpingectomy and cystoscopy, for adenomyosis, menorrhagia, deep dyspareunia and intramural uterine fibroid on 09/20/24. Procedure discussed along with risks, benefits and complications. Other alternatives discussed for management. Consent form signed? Yes. ? PAST MEDICAL HISTORY PAST MEDICAL HISTORYDiagnosisDate???Chiari I malformation (HCC)?Postoperative cellulitis of surgical wound01/11/2018 ? PAST SURGICAL HISTORY PAST SURGICAL HISTORYProcedureLateralityDate??? APPENDECTOMY?CERCLAGE CERVIX PREG; VAG???2017???EXTRACTION ERUPTED TOOTH/EXR???07/10/2023???LAPAROSC OPIC CYSTECTOMY?Dermoid???PAST SURGICAL HISTORY OF???2018???Chiari Malformation Surgery???REDUCTION OF LARGE BREAST???08/02/2022 ? CURRENT MEDICATIONS Current Outpatient MedicationsMedicationSigDispenseR efill???multivit,thx,calcium,iron ,mins (MULTIVITAMIN AND MINERAL ORAL)Take by mouth.?No current facility-administered medications for this visit. ? ALLERGIES: Latex and Oxycodone ??? PERSONAL HISTORY: SOCIAL HISTORY Social History???Tobacco Use???Smoking status:Never???Smokeless tobacco:NeverVaping Use???Vaping status:Never UsedSubstance Use Topics???Alcohol use:Yes?Comment: rarely???Drug use:No ??? FAMILY HISTORY: FAMILY HISTORY FAMILY HISTORY ProblemRelationAge of Onset???Ovarian cancerMother? 50's???DiabetesFather?other ( Defects)Father?other (Endometriosis)Father?other (Other)Son? tonsils adnoids/hernia repair???other (Other)Child? lump on back - us ? REVIEW OF SYMPTOMS: GENERAL: denies fevers or chills ENDOCRINOLOGY: has not been on steroids Cardiology : denies palpitations or chest pain Respiratory: denies SOB or cough Hematology: denies history of prolonged bleeding or easy bruising or VTE Allergy: Denies history of personal or family history of allergy to anesthesia ??? PHYSICAL EXAMINATION: ??? VITALS: Blood pressure 124/78, pulse 61, resp. rate 16, height 158.8 cm (5' 2.5), weight 107.5 kg (237 lb), last menstrual period 06/10/2024, SpO2 98%. ??? GENERAL: The patient is well nourished, well hydrated in no acute distress. , The patient is oriented to time, place, and person. NECK: Supple. No lynphadenopathy, normal thyroid, no thyromegaly. LUNGS: Clear to auscultation bilaterally. no wheezes, rhonchi or rales HEART: Regular rate and rhythm, Normal heart sounds, and No murmurs or gallops ??? Pelvic US on 06/20/24: Impression The uterus is anteverted and measures 92 mm x 43 mm x 54 mm. The myometrium is heterogeneous, asymmetrically thickened, echogenic and is suggestive of adenomyosis. The endometrial thickness is 6.7 mm. The endometrium is inhomogenous however no discrete polyp is identified. There is a right lateral anterior wall intramural fibroid that measures 6 mm x 5 mm x 7 mm. The right ovary measures 43 mm x 22 mm x 21 mm. The left ovary measures 26 mm x 15 mm x 16 mm. There is trace free fluid visualized. ? IMPRESSION: menorrhagia, deep dyspareunia, adenomyosis, intramural uterine fibroid ??? PLAN: The risks/benefits/alternatives and personal involved for the planned TLH, bilateral salpingectomy and cystoscopy were reviewed with the patient. Her questions were answered to her satisfaction and she desires to proceed. Consent was signed. I reviewed with her postop instructions and expectations. ? I have reviewed and updated past medical and surgical history, medications and allergies Assessment Plan Assessment/Plan (1) Menorrhagia with regular cycle: (2) Deep dyspareunia: (3) Intramural uterine fibroid: (4) Adenomyosis: 08/28/24 1254 Cosigner Signature (if applicable): CC: Dr. Jeannette Quarles MD; Dr. Jaylon Boyd DO Signed [facility] 08-28-2024 History and physical note Pre-Op History and Physical HPI: The patient is a 39 year old female presenting for pre-operative visit. She is scheduled for TLH, bilateral salpingectomy and cystoscopy, for adenomyosis, menorrhagia, deep dyspareunia and intramural uterine fibroid on 09/20/24. Procedure discussed along with risks, benefits and complications. Other alternatives discussed for management. Consent form signed? Yes. PAST MEDICAL HISTORY Diagnosis Date Chiari I malformation (HCC) Postoperative cellulitis of surgical wound 01/11/2018 PAST SURGICAL HISTORY Procedure Laterality Date APPENDECTOMY CERCLAGE CERVIX PREG; VAG 2017 EXTRACTION ERUPTED TOOTH/EXR 07/10/2023 LAPAROSCOPIC CYSTECTOMY Dermoid PAST SURGICAL HISTORY OF 2018 Chiari Malformation Surgery REDUCTION OF LARGE BREAST 08/02/2022 Current Outpatient Medications Medication Sig Dispense Refill multivit,thx,calcium,iron,mins (MULTIVITAMIN AND MINERAL ORAL) Take by mouth. No current facility-administered medications for this visit. ALLERGIES: Latex and Oxycodone PERSONAL HISTORY: Social History Tobacco Use Smoking status: Never Smokeless tobacco: Never Vaping Use Vaping status: Never Used Substance Use Topics Alcohol use: Yes Comment: rarely Drug use: No FAMILY HISTORY: FAMILY HISTORY Problem Relation Age of Onset Ovarian cancer Mother 50's Diabetes Father other ( Defects) Father other (Endometriosis) Father other (Other) Son tonsils adnoids/hernia repair other (Other) Child lump on back - us REVIEW OF SYMPTOMS: GENERAL: denies fevers or chills ENDOCRINOLOGY: has not been on steroids Cardiology : denies palpitations or chest pain Respiratory: denies SOB or cough Hematology: denies history of prolonged bleeding or easy bruising or VTE Allergy: Denies history of personal or family history of allergy to anesthesia PHYSICAL EXAMINATION: VITALS: Blood pressure 124/78, pulse 61, resp. rate 16, height 158.8 cm (5' 2.5), weight 107.5 kg (237 lb), last menstrual period 06/10/2024, SpO2 98%. GENERAL: The patient is well nourished, well hydrated in no acute distress. , The patient is oriented to time, place, and person. NECK: Supple. No lynphadenopathy, normal thyroid, no thyromegaly. LUNGS: Clear to auscultation bilaterally. no wheezes, rhonchi or rales HEART: Regular rate and rhythm, Normal heart sounds, and No murmurs or gallops Pelvic US on 06/20/24: Impression The uterus is anteverted and measures 92 mm x 43 mm x 54 mm. The myometrium is heterogeneous, asymmetrically thickened, echogenic and is suggestive of adenomyosis. The endometrial thickness is 6.7 mm. The endometrium is inhomogenous however no discrete polyp is identified. There is a right lateral anterior wall intramural fibroid that measures 6 mm x 5 mm x 7 mm. The right ovary measures 43 mm x 22 mm x 21 mm. The left ovary measures 26 mm x 15 mm x 16 mm. There is trace free fluid visualized. IMPRESSION: menorrhagia, deep dyspareunia, adenomyosis, intramural uterine fibroid PLAN: The risks/benefits/alternatives and personal involved for the planned TLH, bilateral salpingectomy and cystoscopy were reviewed with the patient. Her questions were answered to her satisfaction and she desires to proceed. Consent was signed. I reviewed with her postop instructions and expectations. I have reviewed and updated past medical and surgical history, medications and allergies Jeannette Quarles M.D. [facility] 08-28-2024 History and physical note Pre-Op History and Physical HPI: The patient is a 39 year old female presenting for pre-operative visit. She is scheduled for TLH, bilateral salpingectomy and cystoscopy, for adenomyosis, menorrhagia, deep dyspareunia and intramural uterine fibroid on 09/20/24. Procedure discussed along with risks, benefits and complications. Other alternatives discussed for management. Consent form signed? Yes. PAST MEDICAL HISTORY Diagnosis Date Chiari I malformation (HCC) Postoperative cellulitis of surgical wound 01/11/2018 PAST SURGICAL HISTORY Procedure Laterality Date APPENDECTOMY CERCLAGE CERVIX PREG; VAG 2017 EXTRACTION ERUPTED TOOTH/EXR 07/10/2023 LAPAROSCOPIC CYSTECTOMY Dermoid PAST SURGICAL HISTORY OF 2018 Chiari Malformation Surgery REDUCTION OF LARGE BREAST 08/02/2022 Current Outpatient Medications Medication Sig Dispense Refill multivit,thx,calcium,iron,mins (MULTIVITAMIN AND MINERAL ORAL) Take by mouth. No current facility-administered medications for this visit. ALLERGIES: Latex and Oxycodone PERSONAL HISTORY: Social History Tobacco Use Smoking status: Never Smokeless tobacco: Never Vaping Use Vaping status: Never Used Substance Use Topics Alcohol use: Yes Comment: rarely Drug use: No FAMILY HISTORY: FAMILY HISTORY Problem Relation Age of Onset Ovarian cancer Mother 50's Diabetes Father other ( Defects) Father other (Endometriosis) Father other (Other) Son tonsils adnoids/hernia repair other (Other) Child lump on back - us REVIEW OF SYMPTOMS: GENERAL: denies fevers or chills ENDOCRINOLOGY: has not been on steroids Cardiology : denies palpitations or chest pain Respiratory: denies SOB or cough Hematology: denies history of prolonged bleeding or easy bruising or VTE Allergy: Denies history of personal or family history of allergy to anesthesia PHYSICAL EXAMINATION: VITALS: Blood pressure 124/78, pulse 61, resp. rate 16, height 158.8 cm (5' 2.5), weight 107.5 kg (237 lb), last menstrual period 06/10/2024, SpO2 98%. GENERAL: The patient is well nourished, well hydrated in no acute distress. , The patient is oriented to time, place, and person. NECK: Supple. No lynphadenopathy, normal thyroid, no thyromegaly. LUNGS: Clear to auscultation bilaterally. no wheezes, rhonchi or rales HEART: Regular rate and rhythm, Normal heart sounds, and No murmurs or gallops Pelvic US on 06/20/24: Impression The uterus is anteverted and measures 92 mm x 43 mm x 54 mm. The myometrium is heterogeneous, asymmetrically thickened, echogenic and is suggestive of adenomyosis. The endometrial thickness is 6.7 mm. The endometrium is inhomogenous however no discrete polyp is identified. There is a right lateral anterior wall intramural fibroid that measures 6 mm x 5 mm x 7 mm. The right ovary measures 43 mm x 22 mm x 21 mm. The left ovary measures 26 mm x 15 mm x 16 mm. There is trace free fluid visualized. IMPRESSION: menorrhagia, deep dyspareunia, adenomyosis, intramural uterine fibroid PLAN: The risks/benefits/alternatives and personal involved for the planned TLH, bilateral salpingectomy and cystoscopy were reviewed with the patient. Her questions were answered to her satisfaction and she desires to proceed. Consent was signed. I reviewed with her postop instructions and expectations. I have reviewed and updated past medical and surgical history, medications and allergies Jeannette Quarles M.D. documented in this encounter [facility] 08-28-2024 Instructions Olivia Todd MA - 08/28/2024 11:30 AM EDT YOUR RECOVERY After your biopsy you may have: Vaginal bleeding (less than a normal menstrual period) Mild cramping Do NOT put anything in the vagina for 1 week after your endometrial biopsy. This includes: tampons douches and refraining from having sexual intercourse If you have any discomfort, you may take an over the counter pain medication (motrin, advil, ibuprofen, tylenol, etc). If this does not relieve your discomfort, contact the office. It is okay to wear a sanitary pad until the discharge and spotting stops. RISKS Although problems seldom occur with endometrial biopsies, there can be some complications. You may feel faint during and shortly after the procedure as well as have some bleeding after the procedure. There is also a risk of infection after the procedure. These complications are rare and can be easily treated. You should contact you doctor is you have any of the following: Heavy bleeding (more than your normal period) Bleeding with clots Severe abdominal pain Fever (more than 100.4F) Foul smelling vaginal discharge RESULTS We will have the results of your biopsy in 1-2 weeks. If you do not hear the results of your biopsy after 2 weeks, please contact the office for the results. If you have any additional questions or concerns please do not hesitate to contact the office. documented in this encounter [facility] 08-28-2024 Note HNO ID: [id number] Author: JEANNETTE QUARLES MD Service: ? Author Type: Physician Type: Progress Notes Filed: 08/28/2024 12:52 Note Text: Nicol Hyman is a 39 year old female who presents for problem visit for f/u menses and pain. HPI: 39 YOF who has completed child bearing presents for f/u for pain/fibroids and heavy menses. No new c/o today. Not bleeding today. Some vaginal discharge and h/o BV 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 LMP: 06/10/2024 (Exact Date), Having periods Age at Menarche: Age at First : Age at Menopause: [employer] History Comments: Sexual Activity: Yes; Male Contraception: Vasectomy PAST MEDICAL HISTORY Diagnosis Date Chiari I malformation (HCC) Postoperative cellulitis of surgical wound 01/11/2018 PAST SURGICAL HISTORY Procedure Laterality Date APPENDECTOMY CERCLAGE CERVIX PREG; VAG 2017 EXTRACTION ERUPTED TOOTH/EXR 07/10/2023 LAPAROSCOPIC CYSTECTOMY Dermoid PAST SURGICAL HISTORY OF 2018 Chiari Malformation Surgery REDUCTION OF LARGE BREAST 08/02/2022 FAMILY HISTORY Problem Relation Age of Onset Ovarian cancer Mother 50's Diabetes Father other ( Defects) Father other (Endometriosis) Father other (Other) Son tonsils adnoids/hernia repair other (Other) Child lump on back - us Social History Tobacco Use Smoking status: Never Smokeless tobacco: Never Vaping Use Vaping status: Never Used Substance Use Topics Alcohol use: Yes Comment: rarely Drug use: No Current Outpatient Medications Medication Sig HYDROcodone-acetaminophen (NORCO) 5-325 mg per tablet Take 1 tablet by mouth every 8 hours as needed for pain for up to 7 days. ibuprofen (MOTRIN) 600 mg tablet Take 1 tablet by mouth every 6 hours as needed for pain. acetaminophen (TYLENOL EXTRA STRENGTH) 500 mg tablet Take 2 tablets by mouth every 8 hours as needed for pain. take 2 tablets alone or one with a norco every 8 hours docusate sodium (COLACE) 100 mg capsule Take 1 capsule by mouth two times a day as needed for constipation. multivit,thx,calcium,iron,mins (MULTIVITAMIN AND MINERAL ORAL) Take by mouth. No current facility-administered medications for this visit. Allergies As of Date: 08/28/2024 Allergen Noted Reaction LATEX 11/03/2015 Hives and Rash OXYCODONE 11/09/2015 Mental Status Change Fully Assessed 07/19/2024 RAllergies and current medication updated:Yes SENSITIVE EXAM: The sensitive examination was discussed with the Patient or Patient's Authorized Tying In Machine Operator. As applicable, any other physician, advance practice provider, medical student, or other health professional student that will be observing or involved in the sensitive examination for educational or training purposes was discussed with the Patient or Authorized Tying In Machine Operator. The Patient or Authorized Tying In Machine Operator has agreed to proceed with the sensitive examination. (Sensitive examination includes inspection and/or palpation of the breasts, pelvis, prostate and anorectal regions). EXAM: BP 124/78 Pulse 61 Resp 16 Ht 5' 2.5 (1.59m) Wt 237 lb (107.5kg) SpO2 98% LMP 06/10/2024 BMI 42.63 kg/(m2). GENERAL: pleasant, female in no apparent distress ABDOMEN: soft, non-tender, no hernia, and no masses PELVIC: external genitalia normal, normal Bartholin's glands, urethra, Eastland's glands, no vulvar lesions, no cervical lesions, good vaginal support, physiologic discharge present, normal appearing perineal body and perianal region BIMANUAL: uterus normal size, shape and consistency, no adnexal masses, and boggy, mobile, no descent ASSESSMENT AND PLAN: Assessment AND Plan Menorrhagia with regular cycle Orders: UA DIP,URINE HCG (POC) ENDOMETRIAL BIOPSY SURGICAL PATHOLOGY ARIAN/TRICHOMONAS NAAT BACTERIAL VAGINOSIS NAAT Intramural uterine fibroid Orders: UA DIP,URINE HCG (POC) ENDOMETRIAL BIOPSY SURGICAL PATHOLOGY Adenomyosis of the uterus Orders: UA DIP,URINE HCG (POC) ENDOMETRIAL BIOPSY SURGICAL PATHOLOGY Vaginal discharge screen today due to history and upcoming surgery Orders: ARIAN/TRICHOMONAS NAAT BACTERIAL VAGINOSIS NAAT Postoperative pain Orders: HYDROcodone-acetaminophen (NORCO) 5-325 mg per tablet; Take 1 tablet by mouth every 8 hours as needed for pain for up to 7 days. 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 Desires to proceed. Declines or has failed other conservative optiobns. Understands she will be permanently unable to bear children in the future. D/w her postop restrictions. Change to [facility] based on exam today. Decision for surgery today. Jeannette Quarles MD Nicol is a 39 year old Female who presents today for an endometrial biopsy for abnormal uterine bleeding. test: negative UNIVERSAL PROTOCOL / SAFETY CHECKLIST Procedure to be Performed: endometrial biopsy Sign In: A Moment o (more content not included)... [facility] 08-28-2024 History of Present illness Narrative Nicol Hyman is a 39 year old female who presents for problem visit for f/u menses and pain. HPI: 39 YOF who has completed child bearing presents for f/u for pain/fibroids and heavy menses. No new c/o today. Not bleeding today. Some vaginal discharge and h/o BV 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 LMP: 06/10/2024 (Exact Date), Having periods Age at Menarche: Age at First : Age at Menopause: [employer] History Comments: Sexual Activity: Yes; Male Contraception: Vasectomy PAST MEDICAL HISTORY Diagnosis Date Chiari I malformation (HCC) Postoperative cellulitis of surgical wound 01/11/2018 PAST SURGICAL HISTORY Procedure Laterality Date APPENDECTOMY CERCLAGE CERVIX PREG; VAG 2017 EXTRACTION ERUPTED TOOTH/EXR 07/10/2023 LAPAROSCOPIC CYSTECTOMY Dermoid PAST SURGICAL HISTORY OF 2018 Chiari Malformation Surgery REDUCTION OF LARGE BREAST 08/02/2022 FAMILY HISTORY Problem Relation Age of Onset Ovarian cancer Mother 50's Diabetes Father other ( Defects) Father other (Endometriosis) Father other (Other) Son tonsils adnoids/hernia repair other (Other) Child lump on back - Social History Tobacco Use Smoking status: Never Smokeless tobacco: Never Vaping Use Vaping status: Never Used Substance Use Topics Alcohol use: Yes Comment: rarely Drug use: No Current Outpatient Medications Medication Sig HYDROcodone-acetaminophen (NORCO) 5-325 mg per tablet Take 1 tablet by mouth every 8 hours as needed for pain for up to 7 days. ibuprofen (MOTRIN) 600 mg tablet Take 1 tablet by mouth every 6 hours as needed for pain. acetaminophen (TYLENOL EXTRA STRENGTH) 500 mg tablet Take 2 tablets by mouth every 8 hours as needed for pain. take 2 tablets alone or one with a norco every 8 hours docusate sodium (COLACE) 100 mg capsule Take 1 capsule by mouth two times a day as needed for constipation. multivit,thx,calcium,iron,mins (MULTIVITAMIN AND MINERAL ORAL) Take by mouth. No current facility-administered medications for this visit. Allergies As of Date: 08/28/2024 Allergen Noted Reaction LATEX 11/03/2015 Hives and Rash OXYCODONE 11/09/2015 Mental Status Change Fully Assessed 07/19/2024 RAllergies and current medication updated:Yes SENSITIVE EXAM: The sensitive examination was discussed with the Patient or Patient's Authorized Tying In Machine Operator. As applicable, any other physician, advance practice provider, medical student, or other health professional student that will be observing or involved in the sensitive examination for educational or training purposes was discussed with the Patient or Authorized Tying In Machine Operator. The Patient or Authorized Tying In Machine Operator has agreed to proceed with the sensitive examination. (Sensitive examination includes inspection and/or palpation of the breasts, pelvis, prostate and anorectal regions). EXAM: BP 124/78 Pulse 61 Resp 16 Ht 5' 2.5 (1.59m) Wt 237 lb (107.5kg) SpO2 98% LMP 06/10/2024 BMI 42.63 kg/(m^2). GENERAL: pleasant, female in no apparent distress ABDOMEN: soft, non-tender, no hernia, and no masses PELVIC: external genitalia normal, normal Bartholin's glands, urethra, Eastland's glands, no vulvar lesions, no cervical lesions, good vaginal support, physiologic discharge present, normal appearing perineal body and perianal region BIMANUAL: uterus normal size, shape and consistency, no adnexal masses, and boggy, mobile, no descent ASSESSMENT AND PLAN: Assessment & Plan Menorrhagia with regular cycle Orders: UA DIP,URINE HCG (POC) ENDOMETRIAL BIOPSY SURGICAL PATHOLOGY ARIAN/TRICHOMONAS NAAT BACTERIAL VAGINOSIS NAAT Intramural uterine fibroid Orders: UA DIP,URINE HCG (POC) ENDOMETRIAL BIOPSY SURGICAL PATHOLOGY Adenomyosis of the uterus Orders: UA DIP,URINE HCG (POC) ENDOMETRIAL BIOPSY SURGICAL PATHOLOGY Vaginal discharge screen today due to history and upcoming surgery Orders: ARIAN/TRICHOMONAS NAAT BACTERIAL VAGINOSIS NAAT Postoperative pain Orders: HYDROcodone-acetaminophen (NORCO) 5-325 mg per tablet; Take 1 tablet by mouth every 8 hours as needed for pain for up to 7 days. d/w her short and longterm risks w/ hyst. Desires to proceed. Declines or has failed other conservative optiobns. Understands she will be permanently unable to bear children in the future. D/w her postop restrictions. Change to [facility] based on exam today. Decision for surgery today. Jeannette Quarles MD Nicol is a 39 year old Female who presents today for an endometrial biopsy for abnormal uterine bleeding. test: negative UNIVERSAL PROTOCOL / SAFETY CHECKLIST Procedure to be Performed: endometrial biopsy Sign In: A Moment of CARE was completed. Appropriate PPE (Personal Protective Equipment) worn by all providers involved with the procedure. Special equipment not required. Patient/Surrogate Stated/Verified: Patient name, Date of , Relevant allergies, and The intended procedure Time Out: Relevant labs, photos, and/or imaging studies are not applicable. Intended patient and procedure match the source document(s) (e.g. consent, H&P, associated studies [imaging, pathology]) are not applicable. Consent obtained and matches the intended procedure. Yes. Correct side/site is not applicable. Medications required for this procedure are not applicable. Fire risk assessed and is not applicable. Implants: are not applicable. Sign Out: Specimens are all correctly labeled and sent. All instruments, equipment, possible retained foreign bodies are accounted for. Yes. The post-procedure plan of care has been communicated to the patient or surrogate. PROCEDURE: EXTERNAL GENITALIA: Normal in appearance without lesions VAGINA: Normal in appearance without lesions BIOPSY: Speculum placed into the vagina with excellent visualization of the cervix. Cervix cleaned with betadine. Anterior lip of cervix grasped with single toothed tenaculum. Uterus sounded to 8 cm. Pipelle inserted into the uterus without difficulty and endometrial biopsy obtained. Specimen labeled and sent to pathology. Procedure Summary: Patient tolerated procedure well. ASSESSMENT: abnormal uterine bleeding PLAN: Specimens labeled and sent to Pathology. Will notify patient of results in 1-2 weeks. Post-procedure instructions reviewed and written material given to the patient. Jeannette Quarles MD documented in this encounter [facility] 07-19-2024 Note HNO ID: [id number] Author: JEANNETTE QUARLES MD Service: ? Author Type: Physician Type: Progress Notes Filed: 07/19/2024 13:52 Note Text: VIRTUAL VISIT PROGRESS NOTE This is a virtual visit using [employer] Video Visit. It required patient-provider interaction for the medical decision making as documented below. I have communicated my name and active licensure. The patient's identity and physical location were verified at the time of this visit. Either the patient or their legal claims service representative has been informed of the risks and benefits of -- and alternatives to -- treatment through a remote evaluation and consents to proceed with the evaluation remotely. Nicol Hyman is a 39 year old female seen for pelvic pain. Has had ovarian cysts and had to have one removed in the past. Has had pain during vaginal sex. Started about 10 months ago and some spotting after intercourse. Feels pain like something getting bumped, crampy after to the point she wants to avoid intercourse. Spotting before her period and heavy periods w/ large clots at times and then spots for few days. Total bleeding 9 days, used to be 4. Cramping worse before heavy bleeding. Doesn't usually take meds, tylenol if really needs something. Uses heat. Does limit activities and does keep her awake at night. Partner has vasectomy and she does not plan future child bearing. Has had BV recently. Took med and back to normal. No h/o of STI or pelvic infections. Tried OCPs in past and had mood side effects. Mother had ovarian ca in her 50s but survives and no other family h/o ca and she didn't have chemo. HISTORY REVIEWED (electronic chart updated): PAST MEDICAL HISTORY Diagnosis Date Chiari I malformation (HCC) Postoperative cellulitis of surgical wound 01/11/2018 PAST SURGICAL HISTORY Procedure Laterality Date APPENDECTOMY CERCLAGE CERVIX PREG; VAG 2017 EXTRACTION ERUPTED TOOTH/EXR 07/10/2023 LAPAROSCOPIC CYSTECTOMY Dermoid PAST SURGICAL HISTORY OF 2018 Chiari Malformation Surgery REDUCTION OF LARGE BREAST 08/02/2022 FAMILY HISTORY Problem Relation Age of Onset Ovarian cancer Mother 50's Diabetes Father other ( Defects) Father other (Endometriosis) Father other (Other) Son tonsils adnoids/hernia repair other (Other) Child lump on back - us Social History Tobacco Use Smoking status: Never Smokeless tobacco: Never Vaping Use Vaping status: Never Used Substance Use Topics Alcohol use: Yes Comment: rarely Drug use: No Current Outpatient Medications Medication Sig multivit,thx,calcium,iron,mins (MULTIVITAMIN AND MINERAL ORAL) Take by mouth. No current facility-administered medications for this visit. ALLERGIES Allergen Reactions Latex Hives Oxycodone Mental Status Change REVIEW OF SYSTEMS: GENERAL: feeling well without fatigue, no recent change in weight GI: normal appetite, tolerating PO well, BMs normal, and no abdominal pain : urination is normal and no change in urine color/smell PHYSICAL EXAMINATION: VIDEO EXAM: (if completed, performed via video enabled technology) GENERAL: alert and appropriate, in no distress, well-hydrated, well nourished, and happy, smiling, interactive Assessment AND Plan Adenomyosis of the uterus Deep dyspareunia Intramural uterine fibroid Menorrhagia with regular cycle Orders: ENDOMETRIAL BIOPSY needs EMB before surgery reviewed pelvic US last pap/HPV would consider TSH if didn't have recently and CBC not an endometrial ablation candidate w/ the adenomyosis. Declines mirena. D/w her r/b/a to hysterectomy, LAVH, bilateral salpingectomy. 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 Preop and postop expectations/limitations. She desires to proceed. tried ocps, had mood side effects. Jeannette Quarles MD [facility] 06-26-2024 Note HNO ID: [id number] Author: WILLIE GUEVARA MD Service: ? Author Type: Physician Type: Progress Notes Filed: 06/26/2024 12:07 Note Text: Nicol Hyman is a 38 year old female who presents for problem visit for . HPI: She presents to discuss her US results and pelvic pain. Patient reports so much pain with intercourse that she is unable to be sexually active. This is very bothersome to her. 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 LMP: 06/10/2024 (Exact Date), Having periods Age at Menarche: Age at First : Age at Menopause: [employer] History Comments: Sexual Activity: Yes; Male Contraception: Vasectomy PAST MEDICAL HISTORY Diagnosis Date Chiari I malformation (HCC) Postoperative cellulitis of surgical wound 01/11/2018 PAST SURGICAL HISTORY Procedure Laterality Date APPENDECTOMY CERCLAGE CERVIX PREG; VAG 2017 EXTRACTION ERUPTED TOOTH/EXR 07/10/2023 LAPAROSCOPIC CYSTECTOMY Dermoid PAST SURGICAL HISTORY OF 2018 Chiari Malformation Surgery REDUCTION OF LARGE BREAST 08/02/2022 FAMILY HISTORY Problem Relation Age of Onset Ovarian cancer Mother 50's Diabetes Father other ( Defects) Father other (Endometriosis) Father other (Other) Son tonsils adnoids/hernia repair other (Other) Child lump on back - Social History Tobacco Use Smoking status: Never Smokeless tobacco: Never Vaping Use Vaping status: Never Used Substance Use Topics Alcohol use: Yes Comment: rarely Drug use: No Current Outpatient Medications Medication Sig multivit,thx,calcium,iron,mins (MULTIVITAMIN AND MINERAL ORAL) Take by mouth. No current facility-administered medications for this visit. Allergies As of Date: 06/26/2024 Allergen Noted Reaction LATEX 11/03/2015 Hives OXYCODONE 11/09/2015 Mental Status Change Fully Assessed 06/26/2024 Allergies and current medication updated:Yes SENSITIVE EXAM: Sensitive exam not performed. EXAM: BP 118/80 Wt 235 lb 3.2 oz (106.7kg) LMP 06/10/2024 GENERAL: pleasant, female in no apparent distress ASSESSMENT AND PLAN: Assessment AND Plan Adenomyosis of the uterus Dyspareunia, female Discussed R/B/A of treatment options. She declines a Mirena IUD and wishes to proceed with hysterectomy. Patient to schedule hysterectomy consult. Medical Decision Making: Problems: Moderate: New problem with uncertain prognosis Risk: Moderate: Moderate risk from testing/treatment Medical Decision Making Level: 4 - Moderate Willie Guevara MD [facility] 06-26-2024 History of Present illness Narrative Nicol Hyman is a 38 year old female who presents for problem visit for . HPI: She presents to discuss her US results and pelvic pain. Patient reports so much pain with intercourse that she is unable to be sexually active. This is very bothersome to her. 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 LMP: 06/10/2024 (Exact Date), Having periods Age at Menarche: Age at First : Age at Menopause: [employer] History Comments: Sexual Activity: Yes; Male Contraception: Vasectomy PAST MEDICAL HISTORY Diagnosis Date Chiari I malformation (HCC) Postoperative cellulitis of surgical wound 01/11/2018 PAST SURGICAL HISTORY Procedure Laterality Date APPENDECTOMY CERCLAGE CERVIX PREG; VAG 2017 EXTRACTION ERUPTED TOOTH/EXR 07/10/2023 LAPAROSCOPIC CYSTECTOMY Dermoid PAST SURGICAL HISTORY OF 2018 Chiari Malformation Surgery REDUCTION OF LARGE BREAST 08/02/2022 FAMILY HISTORY Problem Relation Age of Onset Ovarian cancer Mother 50's Diabetes Father other ( Defects) Father other (Endometriosis) Father other (Other) Son tonsils adnoids/hernia repair other (Other) Child lump on back - us Social History Tobacco Use Smoking status: Never Smokeless tobacco: Never Vaping Use Vaping status: Never Used Substance Use Topics Alcohol use: Yes Comment: rarely Drug use: No Current Outpatient Medications Medication Sig multivit,thx,calcium,iron,mins (MULTIVITAMIN AND MINERAL ORAL) Take by mouth. No current facility-administered medications for this visit. Allergies As of Date: 06/26/2024 Allergen Noted Reaction LATEX 11/03/2015 Hives OXYCODONE 11/09/2015 Mental Status Change Fully Assessed 06/26/2024 Allergies and current medication updated:Yes SENSITIVE EXAM: Sensitive exam not performed. EXAM: BP 118/80 Wt 235 lb 3.2 oz (106.7kg) LMP 06/10/2024 GENERAL: pleasant, female in no apparent distress ASSESSMENT AND PLAN: Assessment & Plan Adenomyosis of the uterus Dyspareunia, female Discussed R/B/A of treatment options. She declines a Mirena IUD and wishes to proceed with hysterectomy. Patient to schedule hysterectomy consult. Medical Decision Making: Problems: Moderate: New problem with uncertain prognosis Risk: Moderate: Moderate risk from testing/treatment Medical Decision Making Level: 4 - Moderate Willie Guevara MD documented in this encounter [facility] 06-20-2024 Note HNO ID: [id number] Author: LYUDMILA BARBA MD Service: ? Author Type: Physician Type: Progress Notes Filed: 06/20/2024 22:02 Note Text: The patient presents for requested ultrasound. Full report available in the Imaging tab in [facility]. Lyudmila Barba MD [facility] 06-20-2024 History of Present illness Narrative The patient presents for requested ultrasound. Full report available in the Imaging tab in [facility]. Lyudmila Barba MD documented in this encounter [facility] 06-14-2024 Note Addended by: Mamta TODD on: 06/14/2024 11:58 AM Modules accepted: Orders [facility] 06-14-2024 Miscellaneous Notes Addended by: OLIVIA TODD on: 06/14/2024 11:58 AM Modules accepted: Orders documented in this encounter [facility] 06-14-2024 Note HNO ID: [id number] Author: WILLIE GUEVARA MD Service: ? Author Type: Physician Type: Progress Notes Filed: 06/14/2024 11:53 Note Text: Nicol Hyman is a 38 year old female who presents for problem visit. HPI: Patient reports menses with clots 2 months ago. The past 2 weeks she reports pain with intercourse. Also she reports yellow-green discharge. Patient reports regular menses this month but had 2 days of spotting prior to menses (6 days of total bleeding) . 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 LMP: 12/26/2023 (Exact Date), Having periods Age at Menarche: Age at First : Age at Menopause: [employer] History Comments: Sexual Activity: Yes; Male Contraception: Vasectomy PAST MEDICAL HISTORY Diagnosis Date Chiari I malformation (HCC) Postoperative cellulitis of surgical wound 01/11/2018 PAST SURGICAL HISTORY Procedure Laterality Date APPENDECTOMY CERCLAGE CERVIX PREG; VAG 2017 EXTRACTION ERUPTED TOOTH/EXR 07/10/2023 LAPAROSCOPIC CYSTECTOMY Dermoid PAST SURGICAL HISTORY OF 2018 Chiari Malformation Surgery REDUCTION OF LARGE BREAST 08/02/2022 FAMILY HISTORY Problem Relation Age of Onset Ovarian cancer Mother Diabetes Father other ( Defects) Father other (Endometriosis) Father other (Other) Son tonsils adnoids/hernia repair other (Other) Child lump on back - Social History Tobacco Use Smoking status: Never Smokeless tobacco: Never Vaping Use Vaping status: Never Used Substance Use Topics Alcohol use: Yes Comment: rarely Drug use: No Current Outpatient Medications Medication Sig multivit,thx,calcium,iron,mins (MULTIVITAMIN AND MINERAL ORAL) Take by mouth. No current facility-administered medications for this visit. Allergies As of Date: 06/14/2024 Allergen Noted Reaction LATEX 11/03/2015 Hives OXYCODONE 11/09/2015 Mental Status Change Fully Assessed 01/15/2024 Allergies and current medication updated:Yes SENSITIVE EXAM: The sensitive examination was discussed with the Patient or Patient's Authorized Tying In Machine Operator. As applicable, any other physician, advance practice provider, medical student, or other health professional student that will be observing or involved in the sensitive examination for educational or training purposes was discussed with the Patient or Authorized Tying In Machine Operator. The Patient or Authorized Tying In Machine Operator has agreed to proceed with the sensitive examination. (Sensitive examination includes inspection and/or palpation of the breasts, pelvis, prostate and anorectal regions). EXAM: LMP 12/26/2023 GENERAL: pleasant, female in no apparent distress PELVIC: external genitalia normal, normal Bartholin's glands, urethra, Eastland's glands, no vulvar lesions, no cervical lesions, good vaginal support, physiologic discharge present, normal appearing perineal body and perianal region ASSESSMENT AND PLAN: Assessment AND Plan Vaginal discharge Orders: ARIAN/TRICHOMONAS NAAT BACTERIAL VAGINOSIS NAAT GONORRHEA/CHLAMYDIA NAAT Pelvic pain in female Orders: PELVIC US WHI; Future GONORRHEA/CHLAMYDIA NAAT UA DIP, URINE (POC) Family history of ovarian cancer Screen for STD (sexually transmitted disease) Medical Decision Making: Problems: Moderate: New problem with uncertain prognosis Risk: Moderate: Drug management Medical Decision Making Level: 4 - Moderate Willie Guevara MD [facility] 06-14-2024 History of Present illness Narrative Nicol Hyman is a 38 year old female who presents for problem visit. HPI: Patient reports menses with clots 2 months ago. The past 2 weeks she reports pain with intercourse. Also she reports yellow-green discharge. Patient reports regular menses this month but had 2 days of spotting prior to menses (6 days of total bleeding) . 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 LMP: 12/26/2023 (Exact Date), Having periods Age at Menarche: Age at First : Age at Menopause: [employer] History Comments: Sexual Activity: Yes; Male Contraception: Vasectomy PAST MEDICAL HISTORY Diagnosis Date Chiari I malformation (HCC) Postoperative cellulitis of surgical wound 01/11/2018 PAST SURGICAL HISTORY Procedure Laterality Date APPENDECTOMY CERCLAGE CERVIX PREG; VAG 2017 EXTRACTION ERUPTED TOOTH/EXR 07/10/2023 LAPAROSCOPIC CYSTECTOMY Dermoid PAST SURGICAL HISTORY OF 2018 Chiari Malformation Surgery REDUCTION OF LARGE BREAST 08/02/2022 FAMILY HISTORY Problem Relation Age of Onset Ovarian cancer Mother Diabetes Father other ( Defects) Father other (Endometriosis) Father other (Other) Son tonsils adnoids/hernia repair other (Other) Child lump on back - us Social History Tobacco Use Smoking status: Never Smokeless tobacco: Never Vaping Use Vaping status: Never Used Substance Use Topics Alcohol use: Yes Comment: rarely Drug use: No Current Outpatient Medications Medication Sig multivit,thx,calcium,iron,mins (MULTIVITAMIN AND MINERAL ORAL) Take by mouth. No current facility-administered medications for this visit. Allergies As of Date: 06/14/2024 Allergen Noted Reaction LATEX 11/03/2015 Hives OXYCODONE 11/09/2015 Mental Status Change Fully Assessed 01/15/2024 Allergies and current medication updated:Yes SENSITIVE EXAM: The sensitive examination was discussed with the Patient or Patient's Authorized Tying In Machine Operator. As applicable, any other physician, advance practice provider, medical student, or other health professional student that will be observing or involved in the sensitive examination for educational or training purposes was discussed with the Patient or Authorized Tying In Machine Operator. The Patient or Authorized Tying In Machine Operator has agreed to proceed with the sensitive examination. (Sensitive examination includes inspection and/or palpation of the breasts, pelvis, prostate and anorectal regions). EXAM: LMP 12/26/2023 GENERAL: pleasant, female in no apparent distress PELVIC: external genitalia normal, normal Bartholin's glands, urethra, Eastland's glands, no vulvar lesions, no cervical lesions, good vaginal support, physiologic discharge present, normal appearing perineal body and perianal region ASSESSMENT AND PLAN: Assessment & Plan Vaginal discharge Orders: ARIAN/TRICHOMONAS NAAT BACTERIAL VAGINOSIS NAAT GONORRHEA/CHLAMYDIA NAAT Pelvic pain in female Orders: PELVIC US WHI; Future GONORRHEA/CHLAMYDIA NAAT UA DIP, URINE (POC) Family history of ovarian cancer Screen for STD (sexually transmitted disease) Medical Decision Making: Problems: Moderate: New problem with uncertain prognosis Risk: Moderate: Drug management Medical Decision Making Level: 4 - Moderate Willie Guevara MD documented in this encounter [facility] 05-17-2024 Note HNO ID: [id number] Author: AKSHAT RONDON MA Service: ? Author Type: Mineral Wool Insulation Supervisor Type: Progress Notes Filed: 05/17/2024 16:03 Note Text: Patient identified by name and date of . Nicol Hendricksonkristyn is here for her HPV Gardasil vaccination, injection # three of the series. Patient ?No Gardasil injection was given without incident. See immunizations for details of immunizations administered today. VIS sheet provided: Yes Patient advised to follow up in Series completed Provider Jayne Cardona APRN CNM was present in office at time of injection. Akshat Rondon MA [facility] 05-17-2024 History of Present illness Narrative Patient identified by name and date of . Nicol Hyman is here for her HPV Gardasil vaccination, injection # three of the series. Patient ?No Gardasil injection was given without incident. See immunizations for details of immunizations administered today. VIS sheet provided: Yes Patient advised to follow up in Series completed Provider Jayne Cardona APRN CNM was present in office at time of injection. Akshat Rondon MA documented in this encounter [facility] 05-17-2024 Instructions Akshat Rondon MA - 05/17/2024 3:56 PM EST Gardasil Gardasil is a vaccine to protect against Human Papillomavirus (HPV) types 6, 11, 16, 18, 31,33,45, 52, 58. These viruses cause cancer and precancerous lesions on the cervix (opening between vagina and uterus), in the vagina and on the vulva (skin around the outside of the vagina) as well as genital warts. The vaccine cannot cause these diseases and cannot treat them if already present. Gardasil works best if given before contact with HPV. Most people are exposed to HPV soon after starting sexual activity. The vaccine is recommended between the ages of 9 and 45. Gardasil does not protect against all strains of HPV. Women who receive the vaccine still need to have regular pelvic exams and cervical cancer screening with the pap smear. You should ask your doctor if Gardasil is right for you if you have a weakened immune system, a bleeding disorder, plan to become soon or have a current illness causing fever. Gardasil is not recommended for women. You should be sure your doctor is aware of any allergies you have and all medications and herbal supplements you take. Gardasil is given to those ages 9-14 in 2 doses at 0 and 8 months. In ages 15-45, three injections are given at 0,2,6 months. Common side effects include pain, redness, itching and swelling at the injection site, nausea, fever, dizziness and fainting. Rare but potentially serious reactions have been reported. These include allergic reaction, swollen glands, joint and muscle pain, weakness and Guillain-[place] syndrome. documented in this encounter [facility] 01-15-2024 Note HNO ID: [id number] Author: MARIE STEWARD RN Service: ? Author Type: Registered Nurse Type: Progress Notes Filed: 01/15/2024 10:22 Note Text: Patient identified by name and date of . Nicol Hyman is here for her HPV 9 vaccination, injection # two of the series. Patient ?No Gardasil injection was given without incident. See immunizations for details of immunizations administered today. VIS sheet provided: Yes Patient advised to follow up in 4 months from the 2nd injection Provider CARLOS was present in office at time of injection. Marie Steward RN [facility] 01-15-2024 History of Present illness Narrative Patient identified by name and date of . Nicol Hyman is here for her HPV 9 vaccination, injection # two of the series. Patient ?No Gardasil injection was given without incident. See immunizations for details of immunizations administered today. VIS sheet provided: Yes Patient advised to follow up in 4 months from the 2nd injection Provider CARLOS was present in office at time of injection. Marie Steward RN documented in this encounter [facility] 01-15-2024 Instructions Marie Steward RN - 01/15/2024 10:09 AM EDT Gardasil Gardasil is a vaccine to protect against Human Papillomavirus (HPV) types 6, 11, 16, 18, 31,33,45, 52, 58. These viruses cause cancer and precancerous lesions on the cervix (opening between vagina and uterus), in the vagina and on the vulva (skin around the outside of the vagina) as well as genital warts. The vaccine cannot cause these diseases and cannot treat them if already present. Gardasil works best if given before contact with HPV. Most people are exposed to HPV soon after starting sexual activity. The vaccine is recommended between the ages of 9 and 45. Gardasil does not protect against all strains of HPV. Women who receive the vaccine still need to have regular pelvic exams and cervical cancer screening with the pap smear. You should ask your doctor if Gardasil is right for you if you have a weakened immune system, a bleeding disorder, plan to become soon or have a current illness causing fever. Gardasil is not recommended for women. You should be sure your doctor is aware of any allergies you have and all medications and herbal supplements you take. Gardasil is given to those ages 9-14 in 2 doses at 0 and 8 months. In ages 15-45, three injections are given at 0,2,6 months. Common side effects include pain, redness, itching and swelling at the injection site, nausea, fever, dizziness and fainting. Rare but potentially serious reactions have been reported. These include allergic reaction, swollen glands, joint and muscle pain, weakness and Guillain-[place] syndrome. documented in this encounter [facility] 11-10-2023 Note HNO ID: [id number] Author: WINSTON BORJA MA Service: ? Author Type: Mud Analysis Operator Type: Progress Notes Filed: 11/10/2023 16:20 Note Text: Patient identified by name and date of . Nicol Hyman is here for her HPV 9 vaccination, injection # one of the series. Patient ?No Gardasil injection was given without incident. See immunizations for details of immunizations administered today. VIS sheet provided: Yes Patient advised to follow up in 2 months from the 1st injection Provider Cleve was present in office at time of injection. Winston Borja MA [facility] 11-10-2023 History of Present illness Narrative Patient identified by name and date of . Nicol Whelanchayanarendra is here for her HPV 9 vaccination, injection # one of the series. Patient ?No Gardasil injection was given without incident. See immunizations for details of immunizations administered today. VIS sheet provided: Yes Patient advised to follow up in 2 months from the 1st injection Provider Cleve was present in office at time of injection. Winston Borja MA Fashion Patternmaker offered: Patient declines. Nicol is a 38 year old who presents for an annual gynecologic exam without complaints. Menses: cycles every 28-30 days and 4 days of flow. Contraception: vasectomy HPV vaccine: No Last Pap: 12/23/2022 normal HPV: 12/19/2022 positive History of abnormal pap: HRHPV positive 2022 Last mammogram: never OB History T2 L3 SAB0 IAB0 Ectopic0 Multiple0 Live Births3 [employer] History LMP: 11/04/2023 (Exact Date), Having periods Age at Menarche: Age at First : Age at Menopause: [employer] History Comments: Sexual Activity: Yes; Male Contraception: Vasectomy PAST MEDICAL HISTORY No date: Chiari I malformation (HCC) 01/11/2018: Postoperative cellulitis of surgical woundPAST SURGICAL HISTORY No date: APPENDECTOMY 2017: CERCLAGE CERVIX PREG; VAG 07/10/2023: EXTRACTION ERUPTED TOOTH/EXR No date: LAPAROSCOPIC CYSTECTOMY Comment: Dermoid 2018: PAST SURGICAL HISTORY OF Comment: Chiari Malformation Surgery 08/02/2022: REDUCTION OF LARGE BREAST FAMILY HISTORY Problem Relation Age of Onset Ovarian cancer Mother Diabetes Father other ( Defects) Father other (Endometriosis) Father other (Other) Son tonsils adnoids/hernia repair other (Other) Child lump on back - SOCIAL HISTORY Social History Tobacco Use Smoking status: Never Smokeless tobacco: Never Vaping Use Vaping Use: Never used Substance Use Topics Alcohol use: Yes Comment: rarely Drug use: No REVIEW OF SYSTEMS Abdomen: No abdominal pain, nausea, vomiting, diarrhea, or constipation. No bloating, early satiety, indigestion, or increased flatulence. Bladder: No dysuria, gross hematuria, urinary frequency, urinary urgency, or incontinence. Breast: No breast lumps, nipple d/c, overlying skin changes, redness or skin retraction. Allergies and current medication updated:Yes EXAM: BP 130/72 Ht 5' 2.5 (1.59m) Wt 224 lb (101.6kg) LMP 11/04/2023 BMI 40.29 kg/(m^2). GENERAL: pleasant, female in no apparent distress BREAST: soft, non-tender, symmetric, no dominant mass, normal nipple-areolar complex, no lymphadenopathy, and no nipple discharge CHEST: Normal inspiratory effort ABDOMEN: soft, non-tender, and no masses PELVIC: external genitalia normal, normal Bartholin's glands, urethra, Eastland's glands, no vulvar lesions, no cervical lesions, good vaginal support, physiologic discharge present, normal appearing perineal body and perianal region BIMANUAL: uterus normal size, shape and consistency, no adnexal masses, and non-tender RECTOVAGINAL: deferred. NEURO: alert and oriented x3,exam grossly non-focal EXTREMITIES: normal ASSESSMENT/PLAN: 1) Health maintenance: Pap done with HPV. Mammogram starting age 40. Nutrition, exercise and routine health maintenance exams reviewed. Calcium/Vitamin D supplementation information provided. HPV vaccine: ordered 2) Contraception: vasectomy. Contraceptive options reviewed and information provided. 3) Follow up one year or sooner as needed Willie Guevara MD documented in this encounter [facility] 11-10-2023 Instructions Willie Guevara MD - 11/10/2023 3:53 PM EDT Gardasil Gardasil is a vaccine to protect against Human Papillomavirus (HPV) types 6, 11, 16, 18, 31,33,45, 52, 58. These viruses cause cancer and precancerous lesions on the cervix (opening between vagina and uterus), in the vagina and on the vulva (skin around the outside of the vagina) as well as genital warts. The vaccine cannot cause these diseases and cannot treat them if already present. Gardasil works best if given before contact with HPV. Most people are exposed to HPV soon after starting sexual activity. The vaccine is recommended between the ages of 9 and 45. Gardasil does not protect against all strains of HPV. Women who receive the vaccine still need to have regular pelvic exams and cervical cancer screening with the pap smear. You should ask your doctor if Gardasil is right for you if you have a weakened immune system, a bleeding disorder, plan to become soon or have a current illness causing fever. Gardasil is not recommended for women. You should be sure your doctor is aware of any allergies you have and all medications and herbal supplements you take. Gardasil is given to those ages 9-14 in 2 doses at 0 and 8 months. In ages 15-45, three injections are given at 0,2,6 months. Common side effects include pain, redness, itching and swelling at the injection site, nausea, fever, dizziness and fainting. Rare but potentially serious reactions have been reported. These include allergic reaction, swollen glands, joint and muscle pain, weakness and Guillain-[place] syndrome. Calcium and Vitamin D Supplementation (from the National Institutes of Health Office of Dietary Supplements 2011) Calcium is required by the body for blood vessel, muscle, hormone and nerve functioning. Most of the body's calcium is stored in the bones and teeth where it supports structure and function. Bone is continuously broken down and reformed. When bone breakdown exceeds formation, especially in postmenopausal women, bone loss can increase the risk of osteoporosis and fractures. In addition to low calcium intake, women who smoke, have a family history of osteoporosis, are thin, or , or who take certain medications such as cancer chemotherapy, seizure mediations and steroids are at increased risk of osteoporosis. The calcium requirements in women change with age. The National Institutes of Health (NIH) recommends: 1000mg elemental calcium for premenopausal women age 19-50 1200mg elemental calcium for postmenopausal women and all women over 50 Milk, yogurt, and cheese are rich natural sources of calcium and are the major food contributors in the [place]. For example, 8oz of milk (whole, lowfat or skim) contains about 300mg calcium, 8oz of yogurt contains 415mg. Nondairy sources include salmon and sardines and vegetables, such as [place] cabbage, kale, and broccoli. Foods fortified with calcium include many fruit juices, tofu and cereals. For more food calcium content information, visit http://ods.od.nih.gov/factsheets/ calcium. Calcium supplements come in several different forms. Remember that the recommendations are for millgrams (mg) of elemental calcium which may be less than the total weight of the supplement. The amount of elemental calcium is required to be printed on the label. Calcium carbonate is the least expensive form. It must be taken on a full stomach to be properly absorbed. Some patients may experience gas or constipation. Calcium phosphate and calcium citrate may be taken either with or without food and tend to have less side effects but are generally more expensive. Because of its ability to neutralize stomach acid, calcium carbonate is found in some yvol-epy-gssjyea antacid products, such as Tums and Rolaids . Depending on its strength, each chewable pill or softchew provides 200 to 400 mg of elemental calcium. The percentage of calcium absorbed depends on the total amount of elemental calcium consumed at one time. Absorption is highest in doses <500mg. So a woman who takes 1,000mg/day of calcium from supplements should split the dose and take 500mg at two separate times during the day. Too much calcium can cause kidney stones, constipation, difficulty absorbing other nutrients and calcium buildup in blood vessels. Women under 50 should not exceed 2500mg/day (2000mg/day for women over 50) of calcium from food and supplements. Excessive alcohol and caffeine intake can inhibit absorption of calcium. Calcium can reduce the absorption of some medications if taken at the same time of day (bisphosphonates, thyroid medication, Phenytoin and other seizure medications, some antibiotics and iron supplements). Vitamin D promotes calcium absorption in the gut and maintains adequate blood levels of calcium and phosphate for normal bone growth and bone remodeling. Vitamin D also helps regulate cell growth as well as nerve, muscle and immune system function. Vitamin D is produced in the skin as a result of ultraviolet sunlight rays and must be altered in the liver and kidney to become its active form. Recommended intake according to the National Institutes of Health is 600 International Units (IU) for girls and women ages 1-70 and 800 IU for women over 70. Very few foods in nature contain vitamin D. The flesh of fatty fish (such as salmon, tuna, and mackerel) and fish liver oils are among the best sources. Small amounts of vitamin D are found in beef liver, cheese, mushrooms and egg yolks. Most people meet at least some of their vitamin D needs through exposure to sunlight. Season, time of day, length of day, cloud cover, smog, skin melanin content, and sunscreen are among the factors that affect UV radiation exposure and vitamin D synthesis. Despite the importance of the sun for vitamin D synthesis, it is prudent to limit exposure of skin to sunlight and avoid tanning beds. UV radiation is a carcinogen responsible for most of the estimated 1.5 million skin cancers that occur annually in the [place]. Lifetime cumulative UV damage to skin is also responsible for some age-associated dryness and other cosmetic changes. In supplements and fortified foods, vitamin D is available in two forms, D2 (ergocalciferol) and D3 (cholecalciferol). The two are equivalent at normal supplement doses. For women who require high supplement doses because of vitamin D deficiency, D3 may work better to raise blood levels. Some medications can prevent proper absorption of Vitamin D. These include laxatives, corticosteroids like prednisone, the seizure drugs phenobarbital and phenytoin, the weight-loss drug orlistat ( Xenical and AlliTM) and the cholesterol-lowering drug cholestyramine (Questran , LoCholest , and Prevalite ). Talk to your doctor about adjusting your recommended daily vitamin D dosage if you take these medications. You should not exceed 4000 mg of vitamin D supplementation daily unless specifically prescribed by your doctor. documented in this encounter [facility] 11-10-2023 Note HNO ID: [id number] Author: WILLIE GUEVARA MD Service: ? Author Type: Physician Type: Progress Notes Filed: 11/10/2023 16:20 Note Text: Fashion Patternmaker offered: Patient declinesNeena Bailey is a 38 year old who presents for an annual gynecologic exam without complaints. Menses: cycles every 28-30 days and 4 days of flow. Contraception: vasectomy HPV vaccine: No Last Pap: 12/23/2022 normal HPV: 12/19/2022 positive History of abnormal pap: HRHPV positive 2022 Last mammogram: never OB History T2 L3 SAB0 IAB0 Ectopic0 Multiple0 Live Births3 [employer] History LMP: 11/04/2023 (Exact Date), Having periods Age at Menarche: Age at First : Age at Menopause: [employer] History Comments: Sexual Activity: Yes; Male Contraception: Vasectomy PAST MEDICAL HISTORY No date: Chiari I malformation (HCC) 01/11/2018: Postoperative cellulitis of surgical woundPAST SURGICAL HISTORY No date: APPENDECTOMY 2017: CERCLAGE CERVIX PREG; VAG 07/10/2023: EXTRACTION ERUPTED TOOTH/EXR No date: LAPAROSCOPIC CYSTECTOMY Comment: Dermoid 2018: PAST SURGICAL HISTORY OF Comment: Chiari Malformation Surgery 08/02/2022: REDUCTION OF LARGE BREAST FAMILY HISTORY Problem Relation Age of Onset Ovarian cancer Mother Diabetes Father other ( Defects) Father other (Endometriosis) Father other (Other) Son tonsils adnoids/hernia repair other (Other) Child lump on back - SOCIAL HISTORY Social History Tobacco Use Smoking status: Never Smokeless tobacco: Never Vaping Use Vaping Use: Never used Substance Use Topics Alcohol use: Yes Comment: rarely Drug use: No REVIEW OF SYSTEMS Abdomen: No abdominal pain, nausea, vomiting, diarrhea, or constipation. No bloating, early satiety, indigestion, or increased flatulence. Bladder: No dysuria, gross hematuria, urinary frequency, urinary urgency, or incontinence. Breast: No breast lumps, nipple d/c, overlying skin changes, redness or skin retraction. Allergies and current medication updated:Yes EXAM: BP 130/72 Ht 5' 2.5 (1.59m) Wt 224 lb (101.6kg) LMP 11/04/2023 BMI 40.29 kg/(m2). GENERAL: pleasant, female in no apparent distress BREAST: soft, non-tender, symmetric, no dominant mass, normal nipple-areolar complex, no lymphadenopathy, and no nipple discharge CHEST: Normal inspiratory effort ABDOMEN: soft, non-tender, and no masses PELVIC: external genitalia normal, normal Bartholin's glands, urethra, Eastland's glands, no vulvar lesions, no cervical lesions, good vaginal support, physiologic discharge present, normal appearing perineal body and perianal region BIMANUAL: uterus normal size, shape and consistency, no adnexal masses, and non-tender RECTOVAGINAL: deferred. NEURO: alert and oriented x3,exam grossly non-focal EXTREMITIES: normal ASSESSMENT/PLAN: 1) Health maintenance: Pap done with HPV. Mammogram starting age 40. Nutrition, exercise and routine health maintenance exams reviewed. Calcium/Vitamin D supplementation information provided. HPV vaccine: ordered 2) Contraception: vasectomy. Contraceptive options reviewed and information provided. 3) Follow up one year or sooner as needed Willie Guevara MD [facility] 12-16-2022 History of Present illness Narrative Fashion Patternmaker offered: Patient declines. Nicol is a 37 year old who presents for an annual gynecologic exam without complaints. Menses: cycles every 28-30 days and 4 days of flow. Contraception: vasectomy HPV vaccine: No Last Pap: 11/24/2017 normal History of abnormal pap: No Last mammogram: never OB History T2 L3 SAB0 IAB0 Ectopic0 Multiple0 Live Births3 [employer] History LMP: 12/04/2022 (Exact Date), Unknown Age at Menarche: Age at First : Age at Menopause: [employer] History Comments: Sexual Activity: Yes; Male Contraception: Vasectomy PAST MEDICAL HISTORY Diagnosis Date Chiari I malformation (HCC) Postoperative cellulitis of surgical wound 01/11/2018 PAST SURGICAL HISTORY Procedure Laterality Date APPENDECTOMY CERCLAGE CERVIX PREG; VAG 2017 LAPAROSCOPIC CYSTECTOMY Dermoid PAST SURGICAL HISTORY OF 2018 Chiari Malformation Surgery REDUCTION OF LARGE BREAST 08/02/2022 FAMILY HISTORY Problem Relation Age of Onset Ovarian cancer Mother Diabetes Father other ( Defects) Father other (Endometriosis) Father other (Other) Son tonsils adnoids/hernia repair other (Other) Child lump on back - SOCIAL HISTORY Social History Tobacco Use Smoking status: Never Smokeless tobacco: Never Vaping Use Vaping Use: Never used Substance Use Topics Alcohol use: Yes Comment: rarely Drug use: No REVIEW OF SYSTEMS Abdomen: No abdominal pain, nausea, vomiting, diarrhea, or constipation. No bloating, early satiety, indigestion, or increased flatulence. Bladder: No dysuria, gross hematuria, urinary frequency, urinary urgency, or incontinence. Breast: No breast lumps, nipple d/c, overlying skin changes, redness or skin retraction. Allergies and current medication updated:Yes EXAM: BP 110/72 Ht 5' 2 (1.58m) Wt 229 lb 3.2 oz (104.0kg) LMP 12/04/2022 BMI 41.91 kg/(m^2). GENERAL: pleasant, female in no apparent distress BREAST: soft, non-tender, symmetric, no dominant mass, normal nipple-areolar complex, no lymphadenopathy, and no nipple discharge CHEST: Normal inspiratory effort ABDOMEN: soft, non-tender, and no masses PELVIC: external genitalia normal, normal Bartholin's glands, urethra, Eastland's glands, no vulvar lesions, no cervical lesions, good vaginal support, physiologic discharge present, normal appearing perineal body and perianal region BIMANUAL: uterus normal size, shape and consistency, no adnexal masses, and non-tender RECTOVAGINAL: deferred. NEURO: alert and oriented x3,exam grossly non-focal EXTREMITIES: normal ASSESSMENT/PLAN: 1) Health maintenance: Pap done with HPV. Mammogram starting age 40. Nutrition, exercise and routine health maintenance exams reviewed. 2) Contraception: vasectomy. Contraceptive options reviewed and information provided. 3) Follow up one year or sooner as needed Willie Guevara MD documented in this encounter [facility] 08-01-2021 History of Present illness Narrative Subjective HPI Nontoxic-appearing female presents urgent care chief complaint right ear pain nasal congestion. Duration of symptoms week and a half. Associated symptoms listed above. Has not used any OTC medication. Patient states discomfort is consistent. Describes it as muffled/pressure sensation. Denies history of recent ear infections. Denies history of ear trauma or otorrhea. Denies any known sick contacts. Denies any fever body aches chills nausea vomiting abdominal pain trismus tinnitus cough chest pain shortness of breath or change in bowel or bladder habits. Past medical history prescription medication use and allergies reviewed. .Patient presents with: Ear Pain: (RT) ear pain, x1.5 wks pain rated 6 PAST MEDICAL HISTORY Diagnosis Date Chiari I malformation (HCC) Postoperative cellulitis of surgical wound 01/11/2018 PAST SURGICAL HISTORY Procedure Laterality Date APPENDECTOMY CERCLAGE CERVIX PREG; VAG 2017 LAPAROSCOPIC CYSTECTOMY Dermoid ALLERGIES Latex and Oxycodone MEDICATIONS multivit,thx,calcium,iron,mins (MULTIVITAMIN AND MINERAL ORAL) Take by mouth. FAMILY HISTORY Problem Relation Age of Onset Ovarian cancer Mother Diabetes Father other ( Defects) Father other (Endometriosis) Father other (Other) Son tonsils adnoids/hernia repair other (Other) Child lump on back - Social History Tobacco Use Smoking status: Never Smoker Smokeless tobacco: Never Used Substance Use Topics Alcohol use: Yes Comment: rarely Drug use: No BP 122/74 Pulse 83 Temp 36.3 C (97.3 F) Resp 18 Wt 102.3 kg (225 lb 9.6 oz) LMP 11/07/2017 (Exact Date) SpO2 98% BMI 41.26 kg/m Review of Systems Constitutional: Negative for chills, fever and malaise/fatigue. HENT: Positive for congestion and ear pain. Negative for ear discharge, sinus pain and sore throat. Eyes: Negative for blurred vision, pain, discharge and redness. Respiratory: Negative for cough, hemoptysis, sputum production, shortness of breath, wheezing and stridor. Cardiovascular: Negative for chest pain. Gastrointestinal: Negative for abdominal pain, diarrhea, nausea and vomiting. Musculoskeletal: Negative for myalgias. Skin: Negative for itching and rash. Neurological: Negative for dizziness and headaches. Objective Physical Exam Vitals and nursing note reviewed. Constitutional: General: She is not in acute distress. Appearance: She is not diaphoretic. HENT: Head: Normocephalic and atraumatic. Jaw: No trismus, tenderness or swelling. Right Ear: Hearing, tympanic membrane, ear canal and external ear normal. No decreased hearing noted. No drainage, swelling or tenderness. No mastoid tenderness. Tympanic membrane is not perforated, erythematous or bulging. Left Ear: Hearing, tympanic membrane, ear canal and external ear normal. No decreased hearing noted. No drainage, swelling or tenderness. No mastoid tenderness. Tympanic membrane is not perforated, erythematous or bulging. Ears: Comments: Clear fluid noted behind right TM. Nose: Congestion present. Mouth/Throat: Lips: [place]. Mouth: Mucous membranes are moist. Pharynx: Oropharynx is clear. Uvula midline. No pharyngeal swelling, oropharyngeal exudate, posterior oropharyngeal erythema or uvula swelling. Eyes: General: Right eye: No discharge. Left eye: No discharge. Conjunctiva/sclera: Conjunctivae normal. Pupils: Pupils are equal, round, and reactive to light. Cardiovascular: Rate and Rhythm: Normal rate and regular rhythm. Heart sounds: Normal heart sounds. Pulmonary: Effort: Pulmonary effort is normal. No tachypnea, accessory muscle usage or respiratory distress. Breath sounds: Normal breath sounds. No stridor. No wheezing, rhonchi or rales. Chest: Chest wall: No tenderness. Abdominal: Palpations: Abdomen is soft. Tenderness: There is no abdominal tenderness. Musculoskeletal: General: No tenderness. Normal range of motion. Cervical back: Normal range of motion and neck supple. No rigidity or tenderness. Lymphadenopathy: Head: Right side of head: No submental, submandibular, tonsillar, preauricular, posterior auricular or occipital adenopathy. Left side of head: No submental, submandibular, tonsillar, preauricular, posterior auricular or occipital adenopathy. Cervical: No cervical adenopathy. Right cervical: No superficial or posterior cervical adenopathy. Left cervical: No superficial or posterior cervical adenopathy. Skin: General: Skin is warm and dry. Findings: No rash. Neurological: Mental Status: She is alert and oriented to person, place, and time. ASSESSMENT/PLAN: 1. Eustachian tube dysfunction, right - ICD9: 381.81, ICD10: H69.81 Patient diagnosed with eustachian tube dysfunction. No evidence of bacterial infection noted. Patient was educated on supportive therapies. Patient will follow up with primary care provider as needed. Patient was instructed to immediately proceed to emergency room for any new, worsening, or symptoms lasting longer than anticipated. The patient's clinical presentation is otherwise unremarkable at this time. Based on exam and clinical finding, the patient is stable for discharge. Plan of care was discussed with patient. Patient verbalizes understanding and agrees to plan of care. This note was generated using [employer] software. It may contain errors in wording, punctuation, or spelling. Den Burrows APRN.WANDY documented in this encounter [facility] 05-25-2016 History of Past i llness Narrative Problem Noted Date Resolved Date Abnormal glucose complicating 05/26/19 17 11/15/2016 Overview: Will complete a 3 hour glucose Cervical cerclage suture present in second trime ster 04/26/2016 11/15/2016 Hyperemesis complicating , antepartum 1 04/09/2015 02/22/2016 Obesity affecting in first trimester 1 04/09/2015 11/15/2016 History of delivery, currently in first trimester 02/08/2016 11/15/2016 11 weeks gestation of 02/08/2016 02/22/2016 Nausea and vomiting of , antepartum 11/15/2016 documented as of this encounter (statuses as of 08/01/2021) [facility] History of Past illness Narrative* Problem Noted Date Diagnosed Date Resolved Date Abnormal glucose complicating 05/25/2016 11/15/2016 Overview: Will complete a 3 hour glucose Cervical cerclage suture pre sent in second trimester 04/26/2016 11/15/2016 Hyperemesis complicating pre gnancy, antepartum 02/08/2016 02/22/2016 Obesity affecting in first trimester 02/08/2016 11/15/2016 History of delivery, currently in first trimester 02/08/2016 11/15/2016 11 weeks gestation of 02/08/2016 02/22/2016 Nausea and vomiting of , antepartum 6 11/15/2016 documented as of this encounter (statuses as of 12/17/2022) [facility] note* Diagnosis Eustachian tube dysfunction, right- Primary documented in this encounter [facility] note* Diagnosis Encounter for gynecological examination without abnormal finding- Primary Routine gynecological examination Encounter for screening for malignant neoplasm of cervix Screening for malignant neoplasm of the cervix Special screening examination for human papillomavirus (HPV) documented in this encounter [facility] note* Diagnosis Encounter for gynecological examination (general) (routine) without abnormal findings- Primary Screening for cervical cancer Screening for malignant neoplasm of the cervix Encounter for screening for human papillomavirus (HPV) Special screening examination for human papillomavirus (HPV) Need for prophylactic vaccination/inoculation against viral disease Need for prophylactic vaccination and inoculation against other viral diseases documented in this encounter [facility] note* Diagnosis Need for prophylactic vaccination/inoculation against viral disease- Primary Need for prophylactic vaccination and inoculation against other viral diseases [facility]* Diagnosis Need for prophylactic vaccination/inoculation against viral disease- Primary Need for prophylactic vaccination and inoculation against other viral diseases documented in this encounter [facility] note* Diagnosis Vaginal discharge- Primary Leukorrhea, not specified as infective Pelvic pain in female Unspecified symptom associated with female genital organs Family history of ovarian cancer Family history of malignant neoplasm of ovary Screen for STD (sexually transmitted disease) Screening examination for venereal disease documented in this encounter [facility] note* Diagnosis Pelvic pain in female- Primary Unspecified symptom associated with female genital organs Intramural uterine fibroid Adenomyosis of the uterus documented in this encounter [facility] note* Diagnosis Adenomyosis of the uterus- Primary Dyspareunia, female Dyspareunia documented in this encounter [facility] note* Diagnosis Adenomyosis of the uterus- Primary Deep dyspareunia Intramural uterine fibroid Menorrhagia with regular cycle Excessive or frequent menstruation Menorrhagia with regular cycle- Primary Excessive or frequent menstruation Intramural uterine fibroid Adenomyosis of the uterus Vaginal discharge Leukorrhea, not specified as infective Postoperative pain Other acute postoperative pain * Assessment & Plan Note - Jeannette Quarles MD - 08/28/2024 12:43 PM EDT Associated Problem(s): Intramural uterine fibroid Orders: UA DIP,URINE HCG (POC) ENDOMETRIAL BIOPSY SURGICAL PATHOLOGY [facility]* Diagnostic Procedure Only (Routine) - Closed Specialty Diagnoses / Procedures Referred By Juan Jose hoskins Referred To Contact [facility] Diagnoses Pelvic pain in female Procedures PELVIC US WHI US PELVIC NONOBSTETRIC REAL-TIME IMAGE COMPLETE Willie Guevara MD [address] [place] [address] Phone: tel: fax: [facility] [address] [place] [address] Referral ID Status Reason Start Date Expiration Date V isits Requested Visits Authorized [id number] Closed Auto-Generate d Referral 06/14/2024 06/14/2025 1 1 [facility] Summary Purpose Family History No Family History Records FoundNo Family History Records FoundNo Family History Records FoundNo Family History Records FoundNo Family History Records FoundNo Family History Records FoundNo Family History Records FoundNo Family History Records FoundNo Family History Records Found Advance Directives No Advanced Directives Records FoundDocuments on File Type Date Recorded 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 Advance Directive(s) 01/12/2018 8:39 AM Advance Directive(s) 01/10/2018 7:43 PM Advance Directive(s) 01/05/2018 6:50 AM Documents on File Type Date Recorded 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 Advance Directive(s) 01/12/2018 8:39 AM Documents on File Type Date Recorded 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 Advance Directive(s) 01/12/2018 8:39 AM Procedure Findings Note HNO ID: [id number]: Sa raymundo Mahnoeyervice: NeurosurgeryAuthor Type: PhysicianType: Brief Op NoteFiled: 01/05/2018 6:16 PMNote Text:BRIEF OPERATIVE / PROCEDURE NOTELOG ID: [id number]/PROCEDURE DATE: 01/05/2018INCISION/PROCEDURE START TIME: 4:16 PMINCISION CLOSE/PROCEDURE END TIME: 6:15 PMSURGEON(S)/PROCEDURALIST(S) AND DIGITAL STRATEGY MANAGER(S):Surgeon(s) and Role: * Leena Zhao - PrimaryPhysician [employer] Former Brace End: Pasha Bassett) JakubekSURGERY/PROCEDURE(S): Posterior fossa craniectomy for Chiari anomaly, [id number], Duraplasty with Durepair graft, Intradural arachnoiddissection and tonsillar cautery with microscopeANESTHESIA: GeneralFINDINGS: Severe arachnoid scarring, 4th ventricular outflow obstructionwith membraneESTIMATED BLOOD LOSS: 20 mlsSPECIMENS: NoneCOMPLICATIONS: NonePRE-OP/PRE-PROCEDURE DIAGNOSIS: Chiari malformation type I (HCC) [G93.5]/ SyrinxPOST-OP/POST-PROCEDURE DIAGNOSIS: Chiari malformation type I (HCC) [G93.5]/ SyrinxSIGNATURE: Leena Zhao MD PATIENT (more content not included)... Note HNO ID: [id number]: Sa raymundo Mahoneyervice: NeurosurgeryAuthor Type: PhysicianType: Brief Op NoteFiled: 01/12/2018 2:18 PMNote Text:BRIEF OPERATIVE / PROCEDURE NOTELOG ID: [id number]/PROCEDURE DATE: 01/12/2018INCISION/PROCEDURE START TIME: 1:38 PMINCISION CLOSE/PROCEDURE END TIME: 2:18 PMSURGEON(S)/PROCEDURALIST(S) AND DIGITAL STRATEGY MANAGER(S):Surgeon(s) and Role: * Leena Zhao - PrimaryPhysician [employer] Former Brace End: Pasha Bassett) TuanURGERY/PROCEDURE(S): Drainage and repair of occipital pseudomeningoceleANESTHESIA: GeneralFINDINGS: CSF leaking at suture line of graftESTIMATED BLOOD LOSS: 10 mlsSPECIMENS: NoneCOMPLICATIONS: NonePRE-OP/PRE-PROCEDURE DIAGNOSIS: Occipital pseudomeningocelePOST-OP/POST-PROCEDURE DIAGNOSIS: Occipital pseudomeningoceleSIGNATURE: Leena Zhao MD PATIENT NAME: Nicol WhelanchayauberDATE: January 12, 2018 : 2:16 PM PAGER/CONTACT #: [id number] Additional Source Comments INFORMATION SOURCE (unrecogn ized section and content) DATE CREATED AUTHOR 11/24/2017 [facility] DATE CREATED AUTHOR AUTHOR'S ORGANIZ ATION 11/30/2017 [facility] [employer] DATE CREATED AUTHOR AUTHOR'S ORGANIZ ATION 01/25/2018 [facility] [place] DATE CREATED AUTHOR AUTHOR'S ORGANIZ ATION 02/16/2018 [facility] DATE CREATED AUTHOR AUTHOR'S ORGANIZ ATION 03/05/2018 [facility] DATE CREATED AUTHOR AUTHOR'S ORGANIZ ATION 03/05/2018 [facility] DATE CREATED AUTHOR AUTHOR'S ORGANIZ ATION 11/17/2023 [facility] ([place]) DATE CREATED AUTHOR AUTHOR'S ORGANIZ ATION 09/03/2024 [facility] DATE CREATED AUTHOR AUTHOR'S ORGANIZ ATION 09/18/2024 [facility] Source Comments (unrecognize d section and content) In the event this informatio n is protected by the Federal Confidentiality of Alcohol and Drug Abuse Patient Records regulations: The Federal rules restrict any use of the information to criminally investigate or prosecute any alcohol or drug abuse patient.[facility] the event this information is protected by the Federal Confidentiality of Alcohol and Drug Abuse Patient Records regulations: The Federal rules restrict any use of the information to criminally investigate or prosecute any alcohol or drug abuse patient.[facility] the event this information is protected by the Federal Confidentiality of Alcohol and Drug Abuse Patient Records regulations: The Federal rules restrict any use of the information to criminally investigate or prosecute any alcohol or drug abuse patient.[facility] the event this information is protected by the Federal Confidentiality of Alcohol and Drug Abuse Patient Records regulations: The Federal rules restrict any use of the information to criminally investigate or prosecute any alcohol or drug abuse patient.[facility] the event this information is protected by the Federal Confidentiality of Alcohol and Drug Abuse Patient Records regulations: The Federal rules restrict any use of the information to criminally investigate or prosecute any alcohol or drug abuse patient.[facility] the event this information is protected by the Federal Confidentiality of Alcohol and Drug Abuse Patient Records regulations: The Federal rules restrict any use of the information to criminally investigate or prosecute any alcohol or drug abuse patient.[facility] the event this information is protected by the Federal Confidentiality of Alcohol and Drug Abuse Patient Records regulations: The Federal rules restrict any use of the information to criminally investigate or prosecute any alcohol or drug abuse patient.[facility] the event this information is protected by the Federal Confidentiality of Alcohol and Drug Abuse Patient Records regulations: The Federal rules restrict any use of the information to criminally investigate or prosecute any alcohol or drug abuse patient.[facility] the event this information is protected by the Federal Confidentiality of Alcohol and Drug Abuse Patient Records regulations: The Federal rules restrict any use of the information to criminally investigate or prosecute any alcohol or drug abuse patient.[facility] the event this information is protected by the Federal Confidentiality of Alcohol and Drug Abuse Patient Records regulations: The Federal rules restrict any use of the information to criminally investigate or prosecute any alcohol or drug abuse patient.[facility] Reason for Visit (unrecogniz ed section and content) Reason Comments Ear Pain (RT) ear pain, x1.5 wks pain rated 6 Reason Onset Date Comments Yearly Exam 12/16/2022 Reason Onset Date Comments Yearly Exam Gardasil Injection 11/10/2023 Reason Comments HPV vaccine Reason Onset Date Comments Gardasil Injection 05/17/2024 Reason Comments Vaginal Problem Reason Comments Follow Up From ultrasound Reason Comments Endometrial Biopsy Care Teams (unrecognized sec tion and content) Brain Picker Relationship Specialty Start Date End Date Jaylon Boyd PCP - General Family Practice 05/16/17 Sandy Pedro [address] [place] [address] 10/17/16 Brain Picker Relationship Specialty Start Date End Date Jaylon Boyd DO PCP - General Family Medicine 05/16/17 Sandy Pedro [address] [place] [address] 10/17/16 Brain Picker Relationship Specialty Start Date End Date Jaylon Boyd DO PCP - General Family Medicine 05/16/17 Sandy Pedro [address] [place] [address] 10/17/16 Brain Picker Relationship Specialty Start Date End Date Jaylon Boyd DO PCP - General Family Medicine 05/16/17 Sandy Pedro [address] [place] [address] 10/17/16 Brain Picker Relationship Specialty Start Date End Date Jaylon Boyd DO PCP - General Family Medicine 05/16/17 Sandy Pedro [address] [place] [address] 10/17/16 Brain Picker Relationship Specialty Start Date End Date Jaylon Boyd DO PCP - General Family Medicine 05/16/17 Sandy Pedro [address] [place] [address] 10/17/16 Brain Picker Relationship Specialty Start Date End Date Jaylon Boyd DO PCP - General Family Medicine 05/16/17 Sandy Pedro [address] [place] [address] 10/17/16 Brain Picker Relationship Specialty Start Date End Date Jaylon Boyd DO PCP - General Family Medicine 05/16/17 Sandy Pedro [address] [place] [address] 10/17/16 Brain Picker Relationship Specialty Start Date End Date Jaylon Boyd DO PCP - General Family Medicine 05/16/17 Sandy Pedro [address] [place] [address] (work) 10/17/16 FOR RECORDS PERTAINING TO PATIENTS WHO ARE OR HAVE BEEN ENROLLED IN A CHEMICAL DEPENDENCY/SUBSTANCEABUSE PROGRAM, SOME INFORMATION MAY BE OMITTED. This clinical summary was aggregated from multiple sources. Caution should be exercised in using it in the provision of clinical care. This summary normalizes information from multiple sources, and as a consequence, information in this document may materially change the coding, format and clinical context of patient data. In addition, data may be omitted in some cases. CLINICAL DECISIONS SHOULD BE BASED ON THE PRIMARY CLINICAL RECORDS. [facility] [employer] [facility]. provides no warranty or guarantee of the accuracy or completeness of information in this document.
[2024-09-20] MEDS: Lactated Ringers 1,000 ML 40 ML IV (07:00)
[2024-09-20] MEDS: Magnesium 2 GM for ERAS IV (07:00)
[2024-09-20 07:06] LABS: Internal QC Validated? YES +Cl - CLEAR BKGD; Pregnancy, Urine Negative Negative
[2024-09-20] MEDS: Acetaminophen 500 MG Tablet 1000 MG PO (07:36)
[2024-09-20] MEDS: Phenazopyridine 95 MG Tablet 190 MG PO (07:36)
[2024-09-20] MEDS: Celecoxib 200 MG Capsule 400 MG PO (07:36)
[2024-09-20] MEDS: Gabapentin 600 MG Tablet PO (07:37)
[2024-09-20] MEDS: Scopolamine 1mg/72hr Patch 1 PATCH TD (07:37)
[2024-09-20] MEDS: Enoxaparin 40 MG/0.4 ML Syringe SC (07:38)
--- NOTE | 2024-09-20 08:03 | PCM.PRE.AN2 ---
ASA Classification* ASA Classification ASA Classification: 3 Assessment & Plan Anesthesia* Anesthesia Assessment Anesthesia Assessment: Discussed sedation and/or anesthesia options, risks, benefits, and alternatives with patient/parents/legal guardian/POA. Questions invited. The patient/parents/legal guardian/POA seems to understand and agrees to proceed with anesthesia plan. Reviewed the physical assessment, medical history, allergy history and patient home medications list prior to surgery/procedure/anesthetic and documented any changes. Performed airway and anesthesia risk assessments. Anesthesia Type Anesthesia Type: General History Source History Obtained from:: Patient and Chart Anesthesia Focused Assessment* Temperature: 97.6 F Pulse Rate: 77 Blood Pressure: 124/79 Respiratory Rate: 18 Pulse Ox: 99 Oxygen Delivery Method: Room Air Airway Assessment Mouth opens: >3 cm Mallampati Score: III Teeth Condition: Caps/Crowns (Patient has a couple crowns. They are tight.) Neck Range of motion (ROM): Full ROM Labs Anesthesia Preop lab: CBC WBC 8.7 K/mm3 (4.4-11.0) 09/17/24 10:39 09/17/24 RBC 4.84 M/mm3 (4.2-5.4) 09/17/24 10:39 09/17/24 Hgb 13.6 g/dL (12.0-15.0) 09/17/24 10:39 09/17/24 Hct 42.8 % (37-47) 09/17/24 10:39 09/17/24 Plt Count 272 K/mm3 (150-450) 09/17/24 10:39 09/17/24 CHEMISTRY Potassium 3.8 mmol/L (3.5-5.1) 04/11/14 22:14 04/11/14 Sodium 136 mmol/L (136-145) 04/11/14 22:14 04/11/14 Magnesium 1.8 mg/dL (1.5-2.2) 09/17/24 10:39 09/17/24 BUN 7 mg/dL (7-18) 04/11/14 22:14 04/11/14 Creatinine 0.7 mg/dL (0.6-1.0) 04/11/14 22:14 04/11/14 Glucose 79 mg/dL (70-110) 04/11/14 22:04/11/14 COAG Urine Test Negative Negative 09/20/24 06:50 09/20/24 Pre-Assessment Diagnosis/Proposed Procedure Planned Operative Procedure(s): (B) TOTAL LAPAROSCOPIC HYSTERECTOMY, BILATERAL SALPING, CYSTOSCOPY Anesthesia History Anesthesia History - order desk caller: Anesthesia History - order desk caller Hx Hospitalization No 09/05/24 11:01 Any Problems With Anesthesia Yes: N&V 09/05/24 11:01 Cholinesterase deficiency No 09/05/24 11:01 You/Your Family Experience No 09/05/24 11:01 fever (hyperthermia) with Relationship Recent Exposure to Contagious No 09/20/24 07:29 Disease Does patient have nerve No 09/05/24 11:01 stimulator Patient instructed to have device shut off --Does patient have Pacemaker No 09/20/24 07:29 or ICD? When Was Last Pacemaker Check QUESTION #4 FULL TEXT: You/Your Family Experience fever (hyperthermia) with Anesthesia Last Oral Intake Last Oral intake: Last Oral Intake NPO since 04:40 09/20/24 07:29 Meds taken in AM with sips of No 09/20/24 07:29 water? Meds patient instructed to take am of surgery Any additional information?: Yes NPO since: 04:40 (Patient had her preop Ensure at 4:40 AM.) PONV PONV - order desk caller: PONV - order desk caller Female Yes 09/05/24 11:01 HX of Motion Sickness No 09/05/24 11:01 HX of N/V After Surgery Yes 09/05/24 11:01 Non-Smoker Yes 09/05/24 11:01 Duration of Surgery greater Yes 09/05/24 11:01 than 60 minutes Number of Risk Factors 4 09/05/24 11:01 PONV Score Severe Risk 09/05/24 11:01 Height & Weight Height & Weight: Anesthesia: Height & Weight Height 5 ft 2 in 09/20/24 07:29 Weight: 109 kg 09/20/24 07:29 Body Mass Index (BMI) 43.9 09/20/24 07:29 Respiratory Assessment Respiratory Assessment - order desk caller: Respiratory Tract Infection Hx - order desk caller Hx Respiratory Tract Infection No 09/05/24 11:01 Any additional information?: Yes Hx Respiratory Tract Infection: No (Recent allergies have caused nasal congestion. Lungs are clear.) STOP Sleep Apnea STOP Sleep Apnea - order desk caller: STOP Sleep Apnea - order desk caller Hx Hypertension No 09/05/24 11:01 Hx Sleep Apnea No 09/05/24 11:01 CPAP BIPAP Do you snore loudly (louder No 09/05/24 11:01 than talking or can be heard Do you often feel tired/ No 09/05/24 11:01 fatigued/ sleepy during daytime? Has anyone observed you stop No 09/05/24 11:01 breathing during sleep? STOP Results Negative 09/05/24 11:01 QUESTION #5 FULL TEXT : Do you snore loudly (louder than talking or can be heard through closed doors)? 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 Specify any problems Hx of Preganancy in last 3 No 09/05/24 11:01 Months Nurse Filling Out Transfusion VCHRISTIN 09/05/24 11:01 & Questions: Date: 09/05/24 09/05/24 11:01 Time: 11:03 09/05/24 11:01 Patient unable to answer at this time (ie. confused, unrespo /Reproduction History /Reproductive History - order desk caller: /Reproductive Hx- order desk caller Hx Now No 09/05/24 11:01 Gestational Age (in weeks): EDC: Hx Hx Para Hx Section SAB No 09/05/24 11:01 Active Medications Active Medications: Current Medications Generic Name Dose Route Start Last Admin Trade Name Freq PRN Reason Stop Dose Admin Acetaminophen 1,000 mg 09/20/24 08:40 09/20/24 07:36 Acetaminophen 500 Mg Tablet PO 09/20/24 08:41 1,000 mg PREOP ONE Administration Celecoxib 400 mg 09/20/24 08:40 09/20/24 07:36 Celecoxib 200 Mg Capsule PO 09/20/24 08:41 400 mg PREOP ONE Administration Dexamethasone Sodium Phosphate 8 mg 09/20/24 08:40 Dexamethasone 4 Mg/Ml Vial IV 09/20/24 08:41 INTRAOP ONE Enoxaparin Sodium 40 mg 09/20/24 08:40 09/20/24 07:38 Enoxaparin 40 Mg/0.4 Ml Syringe SC 09/20/24 08:41 40 mg PREOP ONE Administration Gabapentin 600 mg 09/20/24 08:40 09/20/24 07:37 Gabapentin 600 Mg Tablet PO 09/20/24 08:41 600 mg PREOP ONE Administration Lactated Ringer's 1,000 mls @ 40 mls/hr 09/20/24 08:40 09/20/24 07:00 IV 40 mls/hr .Q25H ANDERSON Administration Cefazolin Sodium 2 gm/ Sodium 110 mls @ 150 mls/hr 09/20/24 08:40 Chloride IV 09/20/24 09:23 INTRAOP ONE Lactated Ringer's 1,000 mls @ 70 mls/hr 09/20/24 08:40 IV .[id number] ANDERSON Magnesium Sulfate 2 gm/ 104 mls @ 208 mls/hr 09/20/24 08:40 09/20/24 07:00 Dextrose IV 09/20/24 09:09 208 mls/hr INTRAOP ONE Administration Insulin Human Lispro 0 unit 09/20/24 08:40 Insulin Lispro 100 Unit/Ml Insuln.Pen SC Q4H PRN PRN BG >/= 180, SEE PROTOCOL Protocol Ondansetron HCl 4 mg 09/20/24 08:40 Ondansetron 4 Mg/2 Ml Vial IV 09/20/24 08:41 INTRAOP ONE Phenazopyridine HCl 190 mg 09/20/24 08:40 09/20/24 07:36 Phenazopyridine 95 Mg Tablet PO 09/20/24 08:41 190 mg PREOP ONE Administration Scopolamine HBr 1 patch 09/20/24 08:40 09/20/24 07:37 Scopolamine 1mg/72hr Patch TD 09/20/24 08:41 1 patch PREOP ONE Administration PFSH Medical History Wears glasses Anxiety Alcohol use Loss of consciousness Non-smoker Chiari malformation Home Medications ?Medication ?Instructions ?Recorded ?Last Taken ?Type multivitamin (Daily Multi-Vitamin 1 tab PO DAILY 09/05/24 09/16/24 History tablet) Allergy/AdvReac Type Severity Reaction Status Date / Time latex Allergy Rash Verified 09/20/24 07:20 oxycodone Allergy Rash Verified 09/20/24 07:20 Surgical History Hx of spinal surgery Hx of bilateral breast reduction surgery Hx of appendectomy Hx of excision of dermoid cyst Hx of brain surgery Social History Smoking Status: Never smoker Review of Systems (Anesthesia) ROS Narrative System reviewed and no additional complaints, except as documented.
[2024-09-20 08:06] LABS: Bedside Glucose 113 mg/dL (74-106)
--- NOTE | 2024-09-20 08:45 | UT_PTH ---
PATIENT: NICOL ROGEL LOC: [facility] [place] U#:[id number] AGE/SX: 39/F ROOM: RE09/20/[address]: Dr. Kandy Fong MD : 1985 BED: DIS: 09/20/2024 SPEC #: [id number] RECD: 09/20/24 12:49 STATUS: JAY REAmy #: [id number] TOMER: 09/20/24 08:[address]: Kandy Fong DEPT: SURGICAL PATHOLOGY RECD BY: Akshat Mohr ENTERED: 09/20/24 13:45 SP TYPE: UTERUS OTHR DR: No Primary Care Phys Tissues: A - Uterus, NOS Procedures: Surgery Specimen Level V HEADER OPERATION: ERAS, total laparoscopic hysterectomy, bilateral salpingectomy PRE-OP DIAGNOSIS: Menorrhagia with regular cycle, deep dyspareunia, intramural uterine fibroid, adenomyosis TISSUE SUBMITTED: A- Uterus, cervix, bilateral fallopian tubes MICROSCOPIC DIAGNOSIS A. Uterus, cervix, bilateral fallopian tubes, hysterectomy, bilateral salpingectomy: Cervix: Benign squamous epithelium and endocervical glandular tissue Endometrium: Proliferative endometrium Myometrium: Leiomyoma Bilateral fallopian tubes: Benign fallopian tubes with no pathologic change MICROSCOPIC DESCRIPTION Slides are reviewed. GROSS DESCRIPTION A. Received in formalin labeled with the patient's name and date of . Designated as uterus, cervix, fallopian tubes is a 120.6 g, 8.1 x 5.3 x 4.1 cm uterus with detached attached adnexa. The serosa is bourgeois-pink with focal erythema and an area of possible adhesions (0.4 cm); the specimen is oriented using the posterior peritoneal reflection. The attached cervix is bourgeois-pink and measures 3.8 x 3.4; the 1.3 cm slit-like os is focally erythematous and patent. Mucoid containing cervical cyst are present. The cervical canal is erythematous and granular. The specimen is inked as follows: Qulkmlwn-eifhoWzsgbnclz-detrbXrsugoridyh-orange. Opening reveals a 6.6 x 3.1 cm endometrial canal lined by pink-bourgeois to red somewhat lush and measures up to 0.4 cm thick. The myometrium is bourgeois-pink, trabeculated and measures up to 2.2 cm thick. A vague, possible leiomyoma is identified (anterior), 0.6 cm; additionally, there are 2 pinpoint areas of light brown discoloration of the anterior endometrium. The detached bilateral fallopian tubes are purple-red fimbriated and measure 4.4 x 0.4 cm and 5.0 x 0.5 cm. Few paratubal cysts are identified, <0.1 cm to 0.1 cm. Material Expediter sections are submitted as follows: A1: Anterior cervixA2: Posterior cervixA3: Anterior endomyometrium, including pinpoint foci endometrial discoloration/possible serosal adhesionA4: Posterior endomyometriumA5-A6: Fallopian tubesA7: Anterior endomyometrium with foci of endometrial discoloration/ possible leiomyoma [place] 09/20/2024 CPT:[id number]
--- NOTE | 2024-09-20 09:08 | DCINST_ITS ---
Discharge Instructions Diet Discharge Diet: Light diet - advance as tolerated DC O2, CPAP, BIPAP needs Home O2 Discharge instructions: No Dressing / Incision Discharge Activity: May Shower May resume sexual activity in: 6-8 weeks and - (Nothing in your vagina for 6 weeks. No vaginal or anal intercourse for 6-8 weeks) Dressing / Incision Call your doctor if your incision/area has: Continuous Slow Oozing and Sudden Increased Bleeding Call your doctor if you observe: Fever of 101 or Higher and Using more than 1 pad per hour Cleanse incision/area with: Soap & Water and - (Your incisions have skin glue, it can get wet, leave the glue on until it falls off. ) Follow Up Care Please Follow Up With: Kandy Fong MD When: With my office in 1-2 and 6 weeks or as needed. [phone] Test Results: Test results from this visit will be discussed in further detail at your follow- up appointment, if applicable. Discharge Plan Admission Primary Reason for Your Visit: Total laparoscopic hysterectomy Attending Provider: Kandy Fong Primary Care Provider: Care Physician,No Primary Instructions Print Language: Lithuanian Discharge Orders/Prescriptions Prescriptions: No Action multivitamin [Daily Multi-Vitamin] Tablet 1 tab PO DAILY Referrals / Follow Up: Fausto Deleon DO [Non-Staff] - Disposition Disposition (needs filled in before D/C Order can be placed): Home, Self Care
[2024-09-20] MEDS: dexAMETHasone 4 MG/ML Vial 8 MG IV (09:10)
[2024-09-20] MEDS: Ondansetron 4 MG/2 ML Vial IV (09:10)
[2024-09-20] MEDS: Cefazolin 2 GM in 0.9% Normal Saline (100mL Bag) 100 ML IV (09:15)
[2024-09-20] MEDS: Bupivacaine Mpf 0.5% 30 ML VIAL (09:40)
[2024-09-20] MEDS: Lactated Ringers @ 70 MLS/HR 70 ML IV (10:50)
--- NOTE | 2024-09-20 11:08 | OP.PCM_ITS ---
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 [employer] Chief Creative Officer: Viridiana Burden MD PGY4 Tasks completed by wheelchair van operator first responder: Opening, Closing, Dissecting tissue, Hemostasis: Tie, Hemostasis: Electrocautery, Trocar and Retracting Additional family readiness support assistant?: No Type of Anesthesia: General RN Documented Start/Stop Times: Operation Date: 09/20/24 08:45 Case Time Into Pre-Op 09/20/24 06:44 Out of Pre-Op 09/20/24 08:58 Anesthesia Start 09/20/24 09:01 Into Room 09/20/24 09:01 Procedure Start 09/20/24 09:29 Procedure Start Time: 09:29 Procedure Stop Time: 11:08 Select all DRAINS/GRAFTS/IMPLANTS that apply: None Estimated Blood Loss: 75 cc Fluids Replaced: 1500 cc Specimen collected: Yes Description of specimen(s) removed: uterus, cervix, bilateral fallopian tubes Description of surgery: The patient was taken to the operating room where she was prepped and draped in the dorsal lithotomy position. Her arms were tucked to the side and padded and her legs were placed in the yellowfin stirrups. Care was taken to ensure that she was placed in a neurologically safe and neutral position. A weighted speculum was placed in the vagina and the anterior lip of the cervix was grasped with a single-tooth tenaculum. The cervix sounded to 9 centimeters. The uterine country sales manager was placed into the cervix and the balloon inflated. The Was secured down to the cervix to the cervix. The Clarke catheter was placed to straight drain. Attention was turned to the abdominal portion of the case. Before skin incisions were made they were infiltrated with 0.5% Marcaine solution for local anesthetic. A 5 mm intraumbilical incision was made and while tenting the anterior abdominal wall up with towel clamps a 5 mm blade less trocar and sleeve were advanced directly into the peritoneal cavity using the Visiport trocar. Peritoneal placement was confirmed with the laparoscope the pneumoperitoneum was created, and the underlying abdominal contents were intact. The patient was placed in Trendelenburg and the above findings were noted. Right and left lateral 5 mm trochars were placed under direct visualization without difficulty. There was a 2 x 2 cm area of adhesion near the umbilicus that was taken down with the LigaSure device. Care was taken to examine the adhesions before this to ensure bowel was entrapped within them.. This was done to allow for adequate visualization from the umbilical port. The antimesenteric portion of the tube was clamped sealed and transected serially on both sides with the LigaSure device. The round ligaments were clamped sealed and transected and a window was made in the peritoneum. The utero-ovarian ligaments were then clamped sealed and transected with the LigaSure device and the pedicles were hemostatic The bladder flap was dissected down with the LigaSure device and blunt dissection and the uterine arteries were then skeletonized. The uterine arteries were clamped sealed and transected on both sides with the LigaSure device. Then along the cardinal ligament uterine arteries adjacent to the cervix were clamped sealed and transected with the LigaSure device to move them away from the vaginal cuff angle. At this point the pedicles were all examined and found to be hemostatic. The bladder flap was rechecked and found to be adequately down. The monopolar tip of the LigaSure device was then used to enter the anterior vagina. The vaginal manipulator cup was noted in the vaginal colpotomy incision was made circumferentially around the cup. When the 3 and 9:00 positions of the cervicovaginal junction were reached these were clamped sealed and transected with the LigaSure device to secure any small remaining vessels. At this point the pedicles were hemostatic from above and attention was turned to the vaginal portion of the case again. The uterus was brought intact out through the vaginal colpotomy incision along with the tubes There is some bleeding from the left vaginal cuff angle and this was grasped with a Abigail clamp and suture ligated. The posterior vaginal epithelium was reapproximated to the vaginal cuff with 2-0 Vicryl in a running locked fashion. Care was taken to ensure that uterosacral ligaments were secured to the vaginal cuff. Vaginal angle sutures were placed on both sides with 0 Vicryl sutures and care was taken to ensure that the uterosacral ligament was secured into this stitch. The remainder the vagina was then closed horizontally with interrupted 0 Vicryl sutures. The cuff was hemostatic vaginally. The Clarke catheter was removed and a cystoscopy was performed. The bladder appeared normal and was intact. Both ureteral orifices were noted and both ureteral jets were seen. The cystoscope was removed and the Clarke catheter was placed back to straight drain. A sponge stick was placed in the vagina to help place traction against the vaginal cuff and the pneumoperitoneum was re-created. The pedicles were reexamined and found to be hemostatic. The vaginal cuff was hemostatic. Some Hemablast was placed over a bleeding peritoneal edge and a clamp was placed on it for 2 minutes but when it was removed it was hemostatic. The remainder of the Hemablast was placed over the pedicles. There was no active bleeding through the Hemablast the right and left lateral ports were taken out and the sites were hemostatic. The pneumoperitoneum was released and even under low pressure there was no bleeding of any of the pedicles are vaginal cuff. The umbilical port was removed. The umbilical skin incisions were closed with Monocryl suture and skin glue. The vaginal instruments were removed by me and a vaginal sweep was completed by me. I was present and scrubbed for the entire procedure. I performed the procedure with assistance. All sponge lap and needle counts were correct and the patient was transferred to the recovery room in stable condition. Surgical Findings: boggy uterus, normal cervix and vagina, normal tubes and ovaries Complications Complications: No Admit VTE Documentation VTE Present on Admission: No VTE Mechan Device Prophylaxis: SCD's VTE Pharm Prophylaxis ordered?: Yes
--- NOTE | 2024-09-20 11:29 | PCM.POST.ANE ---
Anesthesia: Postop Eval I Current Vital Signs Temperature: 36 F Pulse Rate: 83 Blood Pressure: 138/94 Respiratory Rate: 14 Pulse Ox: 97 Assessment Airway patent: Yes Spontaneous unlabored respirations: Yes nausea: No Vomiting: No Anesthesia Complication: No Fluid Hydration Crystalloid volume administer (ml): 1,600 Total IV fluid infused: 1,600 Progress Note Anesthesia document: Postop Eval 1 completed: Yes
[2024-09-20] MEDS: proMETHazine 25 MG/ML Syringe 12.5 MG IM (15:12)
--- NOTE | 2024-09-23 09:47 | POSTOPAN2_ITS ---
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 Spontaneous unlabored Yes 09/20/24 11:29 [email or web address] [email or web address] respirations Mental status nausea No 09/20/24 11:29 [email or web address] Vomiting No 09/20/24 11:29 [email or web address] Anesthesia Postop Eval I: Fluid Summary Crystalloid volume administer 1,600 09/20/24 11:29 [email or web address] (ml) Colloids volume administered ( ml) Blood Product volume administered (ml) Total IV fluid infused 1,600 09/20/24 11:29 [email or web address] Anesthesia Postop Eval I: Summary Notes Anesthesia Complication No 09/20/24 11:29 [email or web address] Anesthesia Complication Comment: Post-operative progress note Anesthesia: Postop Eval II Evaluation Mental status: Awake and Calm Pain Level: 1 nausea: No Vomiting: No Complications Anesthesia Complication: No
--- NOTE | 2024-09-23 09:47 | PCM.POSTANE2 ---
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 Spontaneous unlabored Yes 09/20/24 11:29 CASINO OPERATIONS [email or web address] respirations Mental status nausea No 09/20/24 11:29 CASINO OPERATIONS [email or web address] Vomiting No 09/20/24 11:29 CASINO OPERATIONS [email or web address] Anesthesia Postop Eval I: Fluid Summary Crystalloid volume administer 1,600 09/20/24 11:29 CASINO OPERATIONS [email or web address] (ml) Colloids volume administered ( ml) Blood Product volume administered (ml) Total IV fluid infused 1,600 09/20/24 11:29 CASINO OPERATIONS [email or web address] Anesthesia Postop Eval I: Summary Notes Anesthesia Complication No 09/20/24 11:29 CASINO OPERATIONS [email or web address] Anesthesia Complication Comment: Post-operative progress note Anesthesia: Postop Eval II Evaluation Mental status: Awake and Calm Pain Level: 1 nausea: No Vomiting: No Complications Anesthesia Complication: No
== END 2024-09-20 15:26 | disposition home or self-care (01) ==
LOC: SDC 06:40 → AC 06:41
PROVIDERS: Referring Provider Obstetrics & Gynecology; Visit Provider Obstetrics & Gynecology
PROC: 0UT94ZZ Resection of Uterus, Percutaneous Endoscopic Approach (ICD-10-PCS; CPT 58571; principal; 2024-09-20 08:25)
DX: N80.03 Adenomyosis of the uterus (principal); N94.12 Deep dyspareunia; N92.0 Excessive and frequent menstruation with regular cycle; D25.1 Intramural leiomyoma of uterus
CPT/HCPCS: 58571; 00840; 36415; 81025; 82962; 83735; 85027; 86850; 86900; 86901; 88307; J2405

== ENCOUNTER → 2024-10-03 | Outpatient (CLI) | payer OTHER, SELFPAY ==
[2024-10-03 15:32] LABS: Hematocrit 38.9 % (37-47); Hemoglobin 12.7 g/dL (12.0-15.0); Immature Granulocytes Count 0.020 X10^3/uL (0.0-0.0); Mean Corp Hgb Conc 32.6 g/dL (32-36); Mean Corpuscular Volume 87.2 fL (81-99); Mean Platelet Vol. 11.9 fl (6.2-12.0); NRBC Flagged by Analyzer 0 % (0-5); Platelet Count 320 K/mm3 (150-450); RBC Distribution Width CV 13.2 % (11.6-14.6); RBC Distribution Width SD 41.6 fl (35.1-43.9); Red Blood Count 4.46 M/mm3 (4.2-5.4); White Blood Count 9.9 K/mm3 (4.4-11.0)
[2024-10-03 16:08] LABS: AST(SGOT) 21 U/L (<=31); Alanine Aminotransfer ALT/SGPT 19 U/L (<=34); Albumin, Serum 4.0 g/dL (3.5-5.0); Alkaline Phosphatase 87 U/L (35-104); Anion Gap 10 (5-15); BUN 7 mg/dL (4-19); BUN/Creat Ratio 9.0 RATIO (10-20); Calcium,Total 9.2 mg/dL (7.6-11.0); Carbon Dioxide 23.9 mmol/L (21.0-32.0); Chloride 104 mmol/L (98-108); Globulin 3.5 g/dL (2.2-4.2); Glucose 97 mg/dL (70-99); Potassium 5.0 mmol/L (3.3-5.1)
== END | disposition home or self-care (01) ==
LOC: BIMLAB 14:03
PROVIDERS: Visit Provider Internal Medicine
DX: Z00.00 Encounter for general adult medical examination without abnormal findings (principal); E66.01 Morbid (severe) obesity due to excess calories
CPT/HCPCS: 36415; 80053; 83036; 85025

== ENCOUNTER 2025-01-10 22:43 | Emergency (ER) | payer OTHER, SELFPAY ==
[2025-01-10 22:43] VITALS: BP 145/110; PULSE 68; RESP 18; TEMP 36.3; O2SAT 98; BMI 45.5
--- NOTE | 2025-01-10 22:53 | RAD_ITS ---
PROCEDURE: RIGHT TOE(S) MIN 2 VIEWS 01/10/2025 REASON FOR EXAM: PAIN TECHNIQUE: Procedure Code: RADTO Modality: DX Procedure: TOE(S) MIN 2 VIEWS Laterality: Right COMPARISON: None. FINDINGS: No acute fracture or dislocation. Alignment is anatomic. Preserved joint spaces. No aggressive osseous lesion. No marked soft tissue swelling or radiopaque foreign body. RAD/Toe(s) Min 2 Views IMPRESSION: No fracture or dislocation. Reading Location: [id number]
--- NOTE | 2025-01-10 23:36 | EDS_ITS ---
HPI History of Present Illness HPI Narrative: 39-year-old female was walking in the pool on steps and injured her right great toe. This occurred in July, 5 months ago. She has had intermittent pain in her toe since that time. Has not had it evaluated. Chief Complaint: Lower Extremity Injury Occured/Mechanism Mechanism/Context: Yes injury and Yes blunt trauma Onset/Context/Timing Onset: Month(s) Context: Sudden Onset Timing: Intermittent Quality of Pain: Sharp Current Severity: Mild Maximum Severity: Mild Associated Symptoms Associated Symptoms: Negative for Parasthesia, Weakness or Loss of Funtion Narrative Narrative: 39-year-old female injured her toe 5 months ago in July when walking into a pool. Has not had it evaluated till tonight. She has had intermittent pain. No prior foot surgery. Prior similar symptoms: Yes Recent Illness/Hospitalization: No PFSH PFS Medical History Encounter to establish care Morbid obesity Preventative health care Wears glasses Anxiety Alcohol use Loss of consciousness Non-smoker Chiari malformation Home Medications ?Medication ?Instructions ?Recorded ?Last Taken ?Type multivitamin (Daily Multi-Vitamin 1 tab PO DAILY 09/0509/16/24 History tablet) Allergy/AdvReac Type Severity Reaction Status Date / Time latex Allergy Rash Verified 01/10/25 22:43 oxycodone Allergy Rash Verified 01/10/25 22:43 Family History Father Diabetes CVA (cerebral vascular accident) Mother Anesthesia complication Asthma Cervical cancer Anxiety Chiari malformation Sister Suicide attempt Brother Suicide attempt Son Asthma Grandfather Asthma CVA (cerebral vascular accident) Grandfather Diabetes Surgical History Hx of spinal surgery Hx of bilateral breast reduction surgery Hx of appendectomy Hx of excision of dermoid cyst Hx of brain surgery Social History adopted: No household members: family current occupational status: employed current occupational exposures/hazards: No Smoking Status: Never smoker details: holidays diet: lactose free what type of physical activity do you participate in: walking frequency: 3-4 times per week duration: 30-45 minutes/day seatbelt use: always do you feel safe at home: Yes ROS ROS ED ROS Narrative Denies recent illness. Constitutional Constitutional ED: Denies chills or fever(s) Eyes Eyes: Denies blurry vision ENT ENT ED: Denies ear pain Cardiovascular Cardiovascular: Denies chest pain or palpitations Respiratory/Chest Respiratory/Chest: Denies cough or dyspnea Gastrointestinal Gastrointestinal: Denies abdominal pain Genitourinary Genitourinary ED: Denies dysuria or hematuria Musculoskeletal Musculoskeletal: Denies arthralgias or back pain Integumentary Denies abscess or Abrasions Neurologic Neurologic: Denies headache(s) or paresthesias Psychiatric Psychiatric: Denies anxiety or depression Endocrine Endocrinology: Denies polydipsia, polyphagia or polyuria Hematologic/Lymphatic Hematologic/Lymphatic: Denies easy bleeding, easy bruising or lymphadenopathy Allergic/Immunologic Allergic/Immunologic ED: Denies mouth swelling, tongue swelling or urticaria EXAM Physical Exam Narrative Exam Narrative: 4-year-old female sitting upright in bed. Vital signs stable afebrile. No acute distress. Significant other at bedside. H EENT exam pupils round react light. Moist mucous members. Neck nontender. Lungs clear equal symmetrical bilaterally. Heart regular rhythm rate about 70 no murmur. Chest wall ribs nontender. Abdomen soft nontender. Moving all 4 extremities. Specifically right hip right knee right ankle nontender nonswollen. Able to wiggle her toes. Normal DP pulse. There is no swelling or discoloration of her foot. Nails are in good shape. Right great toe there is mild tenderness at the MTP. There is no swelling or redness or joint effusion. Normal touch sensation. Otherwise exam unremarkable. Const Vital Signs: 01/10/25 22:43 Temperature 97.3 F L Temperature Source Temporal Pulse Rate 68 Respiratory Rate 18 Blood Pressure 145/110 H Blood Pressure Mean 121 Pulse Ox 98 Oxygen Delivery Method Room Air MDM MDM MDM Narrative Medical decision making narrative: Right foot pain after injuring her right great toe 5 months ago in a swimming pool. She has had intermittent pain and just wanted to be evaluated tonight. Exam is benign other than reproducible tenderness to the right great toe MTP. No swelling or infection. X-ray was obtained read by myself and the radiologist no acute fracture or dislocation. She was instructed to follow-up with podiatry as needed. Motrin Tylenol for pain. Ice. History & Record Review Discussion w/independent historian: Patient Additional record(s) reviewed:: Prior ED visit and Prior labs Radiography Diagnostic Testing: Clinical Impression(s) from Imaging Studies Toe X-Ray 01/10/25 22:53 IMPRESSION: No fracture or dislocation. Reading Location: [facility] Right great toe, 3 views, interpreted by myself and radiologist shows no acute fracture. No dislocation. Discharge Plan Triage Chief Complaint: Lower Extremity Injury ED Provider: Dyllan Pleitez Dx/Rx/DC Orders Clinical Impression: Pain in toe Prescriptions: No Action multivitamin [Daily Multi-Vitamin] Tablet 1 tab PO DAILY Primary Care Provider: Abad Parrish Referrals: Abad Parrish MD [Primary Care Provider, Internal Medicine] Den Calzada DPM [Med Staff - Active Staff, Podiatry] - 10-14 Days if not better Activity Restrictions/Additional Instructions: Ice your toe. Motrin for pain and swelling. Tylenol for pain. If this is not getting better follow-up with Dr. Den Calzada he is a local pattern wheel maker. Your x-ray looks good. There is no break. There is no dislocation. That does not mean however there could be another injury that we cannot see on x-ray. Print Language: Jordanian Disposition Disposition: Home, Self Care
[2025-01-10 23:45] VITALS: BP 135/85; PULSE 81; RESP 18; TEMP 36.3; O2SAT 98
--- OUTSIDE RECORDS SUMMARY | 2025-01-10 23:45 | XMS RPT_ITS | CCD ---
Author Organization [facility] [place] Informat ion Partnership [facility] Care Team Providers Care Screen Printing Stencil Preparer Name Role Phone BIATS, FRANCY Mills Unavailable Unavailable BIATS, FRANCY Mills Unavailable Unavailable BIATS, FRANCY Mills Unavailable Unavailable BIATS, FRANCY Mills Unavailable Unavailable PASHA MENDIOLA (PA-C) Unavailable Unavaila ble BIATS, FRANCY Mills Unavailable Unavailable BIATS, FRANCY Mills Unavailable Unavailable BIATS, FRANCY Mills Unavailable Unavailable BIATS, FRANCY Mills Unavailable Unavailable DEB JAYLON F Unavailable Unavailable JAKUBEK PASHA Unavailable Unavailable DEB JAYLON F Unavailable Unavailable BIATS, FRANCY Mills Unavailable Unavailable DEB JAYLON F Unavailable Unavailable BIATS, FRANCY Mills Unavailable Unavailable JAKUBEKPASHA Unavailable Unavailable DEB JAYLON F Unavailable Unavailable BIATS, FRANCY Mills Unavailable Unavailable BIATS, FRANCY Mills Unavailable Unavailable DEB JAYLON F Unavailable Unavailable BIATS, FRANCY Mills Unavailable Unavailable IMCA Unavailable Unavailable DEB, JAYLON F Unavailable Unavailable VORSTERLEENA Unavailable Unavaila ble DEB, JAYLON F Unavailable Unavailable BURKFRANCY GOLDMAN Unavailable Unavailable LEENA ZHAO Unavailable Unavaila ble VORSTLEENA HERRERA Unavailable Unavaila ble VORSTLEENA HERRERA Unavailable Unavaila ble PASHA MENDIOLA (PA-C) Unavailable Unavaila ble VORSTERLEENA Unavailable Unavaila ble FIONASTLEENA HERRERA Unavailable Unavaila ble VORSTLEENA HERRERA Unavailable Unavaila ble VORSTLEENA HERRERA Unavailable Unavaila ble VORSTERLEENA Unavailable Unavaila ble VORSTERLEENAANNES Unavailable Unavaila ble Deb Jalyon F Primary Care Provider Sandy Pedro Unavailable Deb HAMPTON Jaylon Juliana Primary Care Provider [phone] Sandy Pedro Unavailable Deb DO, Jaylon Andrews Primary Care Provider JAYLON BOYD DO Attending Unavailable DEB HAMPTON, JAYLON Primary Care Unavailable Ajit JOYCE, Dr. Gaitan Attending Provider Ajit JOYCE, Dr. Gaitan Referring Provider Care Physician, No Primary Primary Care Provider Unavailable Shivani JOYCE, Dr. Melgoza Attending Provider Care Physician, No Primary Referring Provider Un available Care Physician, No Primary Primary Care Unava ilable Abad Parrish Attending Unavailable Care Physician, No Primary Referring Unava ilable Care Physician, No Primary Primary Care Unava ilable Abad Parrish Attending Unavailable Care Physician, No Primary Primary Care Unava ilable Jeannette Quarles Referring Unavailable Jeannette uQarles Attending Unavailable DEB, JAYLON F Primary Care Unavailable ALEXIA RAUSCH Attending Unavailable JEANNETTE QUARLES Attending Unavailable DEB, JAYLON F Primary Care Unavailable JEANNETTE QUARLES Attending Unavailable DEB, JAYLON F Primary Care Unavailable JEANNETTE QUARLES Attending Unavailable DEB, JAYLON F Primary Care Unavailable WILLIE GUEVARA Attending Unavailable DEB, JAYLON F Primary Care Unavailable WILLIE GUEVARA Referring Unavailable DEB, JAYLON F Primary Care Unavailable WILLIE GUEVARA Attending Unavailable DEB, JAYLON F Primary Care Unavailable DEB, JAYLON F Primary Care Unavailable DEB, JAYLON F Primary Care Unavailable WILLIE GUEVARA Attending Unavailable DEB, JAYLON F Primary Care Unavailable JEANNETTE QUARLES Attending Unavailable DEB, JAYLON F Primary Care Unavailable Allergies Allergy Classification Reported Allergen(s) Allergy Type Date of Onset Reaction(s) Facility (20 sources) Latex; Translations: [LATEX] Propensity to adverse reactions to drug (disorder) 6 Hives, Rash [facility] (20 sources) oxyCODONE; Translations: [OXYCODONE] Drug Allergy 6 Mental Status Change [facility] Medications Current Medications Medication Drug Class(es) Dates Sig (Normalized) Sig (Original) acetaminophen 500 mg oral tablet (6 sources) Start: 08-28-2024 take 2 tablets by mouth every eight hours as needed acetaminophen (TYLENOL EXTRA STRENGTH) 500 mg tablet Take 2 tablets by mouth every 8 hours as needed for pain. take 2 tablets alone or one with a norco every 8 hours 90 tablet 1 08/28/2024 Active cephalexin 500 mg oral capsule (1 source) Cephalosporin Antibacterial Start: 10-13-2024 End: 10-18-2024 take 1 capsule by mouth four times daily cephALEXin (KEFLEX) 500 mg capsule Indications: Cellulitis of skin Take 1 capsule by mouth four times daily for 5 days. 20 capsule 10/13/2024 10/18/2024 Active docusate sodium 100 mg oral capsule (6 sources) Start: 08-28-2024 take 1 capsule by mouth every twelve hours as needed docusate sodium (COLACE) 100 mg capsule Take 1 capsule by mouth two times a day as needed for constipation. 30 capsule 1 08/28/2024 Active ibuprofen 600 mg oral tablet (6 sources) Nonsteroidal Anti-inflammatory Drug Start: 08-28-2024 take 1 [...] Active multivit,thx,calciu m,iron,mins (MULTIVITAMIN AND MINERAL ORAL) (15 sources) multivit,thx,abby ci um,iron,mins (MULTIVITAMIN AND MINERAL ORAL) Take by mouth. Active multivit,thx,abby cium,iron,mins (MULTIVITAMIN AND MINERAL ORAL) Take by mouth. 0 Active Comment on above: Take by mouth. Multivitamin (Daily Multi-Vitamin) tablet (3 sources) Start: 09-05-2024 Multivitamin (Daily Multi-Vitamin) tablet Active 1 {tbl} PO DAILY September 05, 2024 12:00am Completed/Discontinued Medications Medication Drug Class(es) Dates Sig (Normalized) Sig (Original) acetaminophen 325 mg / HYDROcodone bitartrate 5 mg oral tablet (2 sources) Opioid Agonist Start: 09-20-2024 End: 09-27-2024 take 1 tablet by mouth every eight hours as needed HYDROcodone-aceta minophen (NORCO) 5-325 mg per tablet Take 1 tablet by mouth every 8 hours as needed for pain. 09/20/2024 09/27/2024 Start: 08-28-2024 End: 09-04-2024 take 1 tablet by mouth every eight hours as needed for pain HYDROcodone-acetaminophen (NORCO) 5-325 mg per tablet Indications: Postoperative pain Take 1 tablet by mouth every 8 hours as needed for pain for up to 7 days. 10 tablet 08/28/2024 09/04/2024 Active Prenat.Vits,Abby,Xxy-Wzzd-Oen ic ( Vitamins) 1 EACH tablet (3 sources) Start: 02-03-2017 End: 09-05-2024 take 1 tablet by mouth once daily Prenat.Vits,Abby,Wcj-Ldgn-Lxaal ( Vitamins) 1 EACH tablet Discontinued 1 NMA PO DAILY February 03, 2017 1:00am September 05, 2024 10:51am Problems Active Problems Problem Classification Problem Date Documented Date Episodic/Chronic Administrative/social admission (4 sources) First encounter by subject; Translations: [Persons encountering health services in other specified circumstances] 10-03-2024 Episodic Endometriosis (11 sources) Uterine adenomyosis; Translations: [Adenomyosis of the uterus] 06-20-2024 Chronic Headache, including migraine (1 source) Headache; Translations: [Headache] Onset: 01-10-2018 Episodic Headache; including migraine (7 sources) Migraine; Translations: [Migraine, unspecified, not intractable, without status migrainosus] Onset: 11-25-2014 07-19-2024 Chronic Menstrual disorders (10 sources) Menorrhagia; Translations: [Excessive and frequent menstruation with regular cycle] Onset: 08-28-2024 08-28-2024 Chronic Other aftercare (3 sources) Wound ; Translations: [Encounter for other specified surgical aftercare] 08-22-2022 Episodic Other eye disorders (15 sources) Posterior vitreous detachment of right eye; Translations: [Vitreous degeneration, right eye] Onset: 05-18-2017 05-18-2017 Chronic Other female genital disorders (2 sources) Other specified abnormal uterine and vaginal bleeding; Translations: [Other specified abnormal uterine and vaginal bleeding] Onset: 05-23-2017 Chronic Other female genital disorders (1 source) Pain in female genitalia on intercourse; Translations: [Unspecified dyspareunia] 06-26-2024 Chronic Other female genital disorders (7 sources) Deep pain on intercourse; Translations: [Deep dyspareunia] 08-28-2024 Chronic Other female genital disorders (1 source) Deep dyspareunia; Translations: [Deep dyspareunia] Onset: 07-19-2024 Chronic Other female genital disorders (2 sources) Vaginal discharge; Translations: [Other specified noninflammatory disorders of vagina] 06-14-2024 Episodic Other female genital disorders (1 source) Other specified noninflammatory disorders of vagina; Translations: [Vaginal discharge] Onset: 08-28-2024 Episodic Other nervous system disorders (4 sources) Compression of brain; Translations: [Compression of brain] Onset: 11-20-2017 Chronic Other nervous system disorders (15 sources) Chiari malformation type I; Translations: [Compression of brain] Onset: 12-20-2017 12-20-2017 Chronic Other nervous system disorders (2 sources) Other acute postprocedural pain; Translations: [Other acute postprocedural pain] Onset: 01-05-2018 Episodic Other nervous system disorders (1 source) Postoperative pain ; Translations: [Other acute postprocedural pain] 08-28-2024 Episodic Other nutritional; endocrine; and metabolic disorders (3 sources) Morbid (severe) obesity due to excess calories; Translations: [Morbid (severe) obesity due to excess calories] Onset: 11-21-2017 Chronic Other nutritional; endocrine; and metabolic disorders (15 sources) Body mass index 40+ - severely obese; Translations: [Morbid (severe) obesity due to excess calories] Onset: 11-21-2017 11-21-2017 Chronic Other nutritional; endocrine; and metabolic disorders (4 sources) Morbid obesity; Translations: [Morbid (severe) obesity due to excess calories] 10-03-2024 Chronic Otitis media and related conditions (1 source) Dysfunction of right eustachian tube; Translations: [Other specified disorders of Eustachian tube, right ear] Episodic Residual codes; unclassified (1 source) Family history of malignant neoplasm of ovary; Translations: [Family history of malignant neoplasm of ovary] 06-14-2024 Episodic Residual codes; unclassified (2 sources) Postoperative state; Translations: [Other specified postprocedural states] 10-01-2024 Episodic Residual codes; unclassified (1 source) Other specified postprocedural states; Translations: [Post-operative state] Onset: 10-01-2024 Episodic Skin and subcutaneous tissue infections (2 sources) Cellulitis of skin; Translations: [Cellulitis, unspecified] Onset: 10-13-2024 10-13-2024 Episodic Unclassified (4 sources) Encounter for screening [...] 06-20-2024 06-14-2024 Episodic Benign neoplasm of uterus (20 sources) Intramural leiomyoma of uterus; Translations: [Intramural leiomyoma of uterus] Onset: 06-20-2024 Resolved: 11-05-2024 06-20-2024 Episodic Blindness and vision defects (20 sources) Unspecified visual disturbance; Translations: [Visual disturbance] Onset: 05-18-2017 05-18-2017 Episodic Complications of surgical procedures or medical care (15 sources) Post-operative wound cellulitis; Translations: [Infection following a procedure, other surgical site, initial encounter] Onset: 01-11-2018 01-11-2018 Episodic Diabetes or abnormal glucose tolerance complicating ; childbirth; or the puerperium (13 sources) Abnormal glucose level; Translations: [Abnormal glucose complicating ] Onset: 05-25-2016 Resolved: 11-15-2016 11-15-2016 Episodic Genitourinary symptoms and ill-defined conditions (2 sources) Dysuria; Translations: [Dysuria] Onset: 11-21-2017 Episodic Immunizations and screening for infectious disease (7 sources) Patient encounter status; Translations: [Encounter for screening for human papillomavirus (HPV)] Onset: 05-17-2024 12-16-2022 Episodic Other complications of (13 sources) Maternal obesity complicating , childbirth and the puerperium, antepartum; Translations: [Obesity complicating , first trimester] Onset: 02-08-2016 Resolved: 11-15-2016 11-15-2016 Chronic Other complications of (13 sources) Hyperemesis gravidarum; Translations: [Mild hyperemesis gravidarum] Onset: 02-08-2016 Resolved: 02-22-2016 02-22-2016 Episodic Other complications of (13 sources) High risk ; Translations: [Supervision of other high risk pregnancies, first trimester] Onset: 02-08-2016 Resolved: 11-15-2016 11-15-2016 Episodic Other complications of (13 sources) Vomiting of , unspecified; Translations: [Unspecified vomiting of , antepartum condition or complication] Onset: 02-08-2016 Resolved: 11-15-2016 11-15-2016 Episodic Other complications of (13 sources) Cervical cerclage suture present; Translations: [Maternal care for cervical incompetence, second trimester] Onset: 04-26-2016 Resolved: 11-15-2016 11-15-2016 Episodic Residual codes; unclassified (13 sources) Gestation period, 11 weeks; Translations: [11 weeks gestation of ] Onset: 02-08-2016 Resolved: 02-22-2016 02-22-2016 Episodic Unclassified (2 sources) Morbid (severe) obesity due to excess calories Onset: 11-21-2017 Results Test Name Value Interpretation Reference Range Facility [facility]on 11-05-2024 CNOV Office Visit (OBGYWM ) NICOL HYMAN ([id number]) 1985 F Date Time Provider Department 11/05/24 8:30 AM JEANNETTE QUARLES OBGYWM During your visit today, we recorded the following information about you: Blood pressure Weight 124/78 108.9 kg Jeannette Quarles MD 11/05/2024 8:53 AM Signed DATE OF SERVICE: 11/05/2024 PROBLEM: Nicol Hyman presents for postop visit. SURGERY AND DATE: 09/20/24 PATHOLOGY: benign SUBJECTIVE/INTERVAL HISTORY: Nicol Hyman reports that she feels well. No fever or chills. BM and urination back to normal. No incisional redness, swelling, or drainage. Patient reports that her appetite is good. Pain minimal . . SENSITIVE EXAM: The sensitive examination was discussed with the Patient or Patient's Authorized Mail Examiner. As applicable, any other physician, advance practice provider, medical student, or other health professional student that will be observing or involved in the sensitive examination for educational or training purposes was discussed with the Patient or Authorized Mail Examiner. The Patient or Authorized Mail Examiner has agreed to proceed with the sensitive examination. (Sensitive examination includes inspection and/or palpation of the breasts, pelvis, prostate and anorectal regions). OBJECTIVE: VITALS: BP: 124/78 . ABDOMEN: Abdomen soft, non-tender, no hepatosplenomegaly. Incision healing well. PELVIC: External genitalia normal. Vagina normal on speculum exam. Uterus, cervix, adnexa surgically absent. No urethral, bladder or pelvic masses. Cuff smooth. Sutures resolved . ASSESSMENT: postop TLH, bilateral salpingectomy and cysto PLAN: 1. Discussed results of pathology and implications with patient. 2. Postop restrictions reviewed. Jeannette Quarles MD Allergies As of Date: 11/05/2024 Noted Allergy Reaction LATEX 11/03/2015 4 - Hives 2 - Rash OXYCODONE 11/09/2015 1 - Mental Status Change Date Reviewed: 11/05/2024 Reviewed by: Jeannette Quarles MD - Fully Assessed Reason for Visit: Post-Op Visit [1236] Primary Visit Diagnosis:Post-operative state [Z98.890] Prescriptions as of 11/05/2024 - ibuprofen (MOTRIN) 600 mg tablet Take 1 tablet by mouth every 6 hours as needed for pain. - acetaminophen (TYLENOL EXTRA STRENGTH) 500 mg tablet Take 2 tablets by mouth every 8 hours as needed for pain. take 2 tablets alone or one with a norco every 8 hours - docusate sodium (COLACE) 100 mg capsule Take 1 capsule by mouth two times a day as needed for constipation. - multivit,thx,calcium,iron,mi ns (MULTIVITAMIN AND MINERAL ORAL) Take by mouth. Problem List As Of Date 11/05/2024 Noted Resolved Hyperemesis complicating , antepartum *02/08/2016 [...] 05/22/2017 Obesity, Class III, BMI >= 40 [E66.813] 11/21/2017 Arnold-Chiari malformation, type I (HCC) [G93.5]12/20/2017 Postoperative cellulitis of surgical wound [T81*01/11/2018 Intramural uterine fibroid [D25.1] 06/20/2024 11/05/2024 Migraines [G43.909] 11/25/2014 Encounter Status:Closed by JEANNETTE QUARLES on 11/05/24 [facility] Codie 10-13-2024 CNOV Office Visit ([facility]OUCA) NICOL HYMAN ([id number]) 1985 F Date Time Provider Department 10/13/24 8:15 AM ALEXIA RAUSCH During your visit today, we recorded the following information about you: Temperature Pulse Respiration Blood pressure 97.2 degrees 102/minute 16/minute 110/68 Weight 110.2 kg Alexia Rausch MD 10/13/2024 8:21 AM Signed [facility] Subjective Nicol Hyman is a 39 year old female. Patient presents with: Derm Problem: ? bite on buttock x last night Pt here with 1 day hx of a lesion on left buttock now pain ful red and spreading tried to squeeze it out now worse no hx of MRSA Review of Systems Constitutional: Negative for chills, fatigue and fever. Skin: Positive for rash. Objective BP 110/68 Pulse 102 Temp 36.2 ?C (97.2 ?F) Resp 16 Wt 110.2 kg (242 lb 15.2 oz) LMP 06/10/2024 (Exact Date) SpO2 97% BMI 43.73 kg/m? Physical Exam Vitals and nursing note reviewed. Exam conducted with a saw repairer present. Constitutional: Appearance: Normal appearance. She is not ill-appearing. Skin: General: Skin is warm. Findings: Erythema and lesion present. Comments: 2 cm diameter of redness with a central lesion dark in color mild superficial induaration Neurological: Mental Status: She is alert. {ASSESSMENT/PLAN: 1. Cellulitis of skin - ICD9: 682.9, ICD10: L03.90 Return here as needed - CEPHALEXIN 500 MG CAPSULE Alexia Rausch MD Differential Diagnoses - cellulitis is more likely for the following reason(s): suggested by HANDP - abscess is less likely for the following reason(s): HANDP not suggestive Disposition The patient was discharged. Procedures Allergies As of Date: 10/13/2024 Noted Allergy Reaction LATEX 11/03/2015 4 - Hives 2 - Rash OXYCODONE 11/09/2015 1 - Mental Status Change Date Reviewed: 10/13/2024 Reviewed by: Le Rosario MA - Fully Assessed Reason for Visit: Derm Problem [33] Cmt: ? bite on buttock x last night Primary Visit Diagnosis:Cellulitis of skin [L03.90] Order(s):cephALEXin (KEFLEX) 500 mg capsuleTake 1 capsule by mouth four times daily for 5 days.Disp: 20 capsuleRfl: 0 Prescriptions as of 10/13/2024 - cephALEXin (KEFLEX) 500 mg capsule Take 1 capsule by mouth four times daily for 5 days. - ibuprofen (MOTRIN) 600 mg tablet Take 1 tablet by mouth every 6 hours as needed for pain. - acetaminophen (TYLENOL EXTRA STRENGTH) 500 mg tablet Take 2 tablets by mouth every 8 hours as needed for pain. take 2 tablets alone or one with a norco every 8 hours - docusate sodium (COLACE) 100 mg capsule Take 1 capsule by mouth two times a day as needed for constipation. - multivit,thx,calcium,iron,mi ns (MULTIVITAMIN AND MINERAL ORAL) Take by mouth. Problem List As Of Date 10/13/2024 Noted Resolved Hyperemesis complicating , antepartum *02/08/2016 [...] 05/22/2017 Obesity, Class III, BMI >= 40 [E66.813] 11/21/2017 Arnold-Chiari malformation, type I (HCC) [G93.5]12/20/2017 Postoperative cellulitis of surgical wound [T81*01/11/2018 Intramural uterine fibroid [D25.1] 06/20/2024 Migraines [G43.909] 11/25/2014 Prescriptions ordered this encounter Disp Refills Start End CEPHALEXIN 500 MG CAPSULE 20 c* 0 10/13/2024 10/18/2024 Route: PO Sig: Take 1 capsule by mouth four times daily for 5 days. Level of Service: OFFICE/OUTPATIENT NEW MODERATE MDM 45 MINUTES [20972] Encounter Status:Closed by ALEXIA RAUSCH on 10/13/24 Normal [facility] Absolute lymphocyte countOrd ered By: Abad Parrish on 10-03-2024 Lymphocytes Auto (Unsp spec) [#/Vol] 2.30 10*3/uL 0.83-4.51 [facility] Absolute neutrophil countOrd ered By: Abad Parrish on 10-03-2024 Neutrophils (Bld) [#/Vol] 6.5 10*3/uL 2.0-7.7 [facility] Anion gap in Serum or Plasma Ordered By: Abad Parrish on 10-03-2024 Anion gap [Moles/Vol] 10 mmol/L 5- [facility] Automated lymphocyte count a s percentage of total leukocytesOrdered By: Abad Parrish on 10-03-2024 Lymphocytes/100 WBC Auto (Unsp spec) 23.4 % - [facility] BUN/creatinine ratioOrdered By: rajeev Parrish on 10-03-2024 Urea nitrogen/Creatinine [Mass ratio] 9.0 mg/mg Low - [facility] Basophil percentageOrdered B y: Abad Parrish on 10-03-2024 Basophils/100 WBC (Bld) 0.4 % 0- [facility] Bilirubin, totalOrdered By: Abad Parrish on 10-03-2024 Bilirubin [Mass/Vol] 0.23 mg/dL 0.00-1.30 [facility] CBC W/Diff, Automatedon 09-24 Absolute Lymph 2.30 X10 3/uL Normal 0.83-4.51 [facility] Comment on above: Performed By: #### L 501.9917, L500.4050, L100.0100 ####[facility] [address] [place], [place], [address] Absolute Neut 6.5 X10 3/uL Normal 2.0-7.7 [facility] Comment on above: Performed By: #### L [id number], L500.4050, L100.0100 ####[facility] [address] [place], [address] Basophils/100 WBC (Bld) 0.4 % Normal 0-1 [facility] Comment on above: Performed By: #### L [id number], L500.4050, L100.0100 ####[facility] [address] [place], [address] Eosinophils/100 WBC (Bld) 1.8 % Normal 0-5 [facility] Comment on above: Performed By: #### L 501.9985, L500.4050, L100.0100 ####[facility] [address] [place], [address] Erythrocyte distribution width (RBC) [Ratio] 13.2 % Normal 11.6-14.6 [facility] Comment on above: Performed By: #### L [id number], L500.4050, L100.0100 ####[facility] [address] [place], [address] Hematocrit (Bld) [Volume fraction] 38.9 % Normal 37-47 [facility] Comment on above: Performed By: #### L [id number], [id number], L100.0100 ####[facility] [address] [place], [address] Hemoglobin (Bld) [Mass/Vol] 12.7 g/dL Normal 12.0-15.0 [facility] Comment on above: Performed By: #### L [id number], [id number], L100.0100 ####[facility] [address] [place], [address] IG% 0.200 Normal 0.0-0.9 [facility] Comment on above: Result Comment: IG% - Immature Granulocytes (promyelocytes, myelocytes and metamyelocytes) > 1% indicates that a LEFT SHIFT is Present. Performed By: #### L [id number], L500.4050, L100.0100 ####[facility] [address] [place], [address] Lymphocytes/100 WBC (Bld) 23.4 % Normal 19-41 [facility] Comment on above: Performed By: #### L 501.9985, [id number], L100.0100 ####[facility] [address] [place], [address] MCH (RBC) [Entitic mass] 28.5 pg Normal 27.0-32.0 [facility] Comment on above: Performed By: #### L [id number], [id number], L100.0100 ####[facility] [address] [place], [address] MCHC (RBC) [Mass/Vol] 32.6 g/dL Normal 32-36 [facility] Comment on above: Performed By: #### L [id number], [id number], L100.0100 ####[facility] [address] [place], [address] MCV (RBC) [Entitic vol] 87.2 fL Normal 81-99 [facility] Comment on above: Performed By: #### L [id number], [id number], L100.0100 ####[facility] [address] [place], [address] Monocytes/100 WBC (Bld) 8.3 % Normal 0-10 [facility] Comment on above: Performed By: #### L 501.9985, [id number], L100.0100 ####[facility] [address] [place], [address] Neutrophils/100 WBC (Bld) 65.9 % Normal 47-70 [facility] Comment on above: Performed By: #### L [id number], [id number], L100.0100 ####[facility] [address] [place], [address] Nucleated RBC (Bld) [#/Vol] 0 10*3/uL Normal 0-5 [facility] Comment on above: Performed By: #### L [id number], [id number], L100.0100 ####[facility] [address] [place], [address] Platelet mean volume (Bld) [Entitic vol] 11.9 fL Normal 6.2-12.0 [facility] Comment on above: Performed By: #### L [id number], [id number], L100.0100 ####[facility] [address] [place], [address] Platelets (Bld) [#/Vol] 320 10*3/uL Normal 150-450 [facility] Comment on above: Performed By: #### L 501.9985, L500.4050, L100.0100 ####[facility] [address] [place], [address] RBC (Bld) [#/Vol] 4.46 10*6/uL Normal 4.2-5.4 [facility] Comment on above: Performed By: #### L 501.9985, L500.4050, L100.0100 ####[facility] [address] [place], [address] RDW SD 41.6 fl Normal 35.1-43.9 [facility] Comment on above: Performed By: #### L 501.9985, L500.4050, L100.0100 ####[facility] [address] [place], [address] WBC (Bld) [#/Vol] 9.9 10*3/uL Normal 4.4-11.0 [facility] Comment on above: Performed By: #### L 501.9985, L500.4050, L100.0100 ####[facility] [address] [place], [address] Carbon dioxide, total [Moles /volume] in Central venous bloodOrdered By: Abad Parrish on 10-03-2024 CO2 [Moles/Vol] 23.9 mmol/L 21.0-32.0 [facility] Chloride assayOrdered By: Herb Parrish on 10-03-2024 Chloride [Moles/Vol] 104 mmol/L 98-108 [facility] Comprehensive Metabolic Prof ilon 10-03-2024 Albumin [Mass/Vol] 4.0 g/dL Normal 3.5-5.0 [facility] Comment on above: Performed By: #### L 501.9985, L500.4050, L100.0100 ####[facility] [address] [place], [address] Albumin/Globulin [Mass ratio] 1.1 {ratio} Normal 0.9-2.4 [facility] Comment on above: Performed By: #### L 501.9985, L500.4050, L100.0100 ####[facility] [address] [place], [address] ALK PHOS 87 U/L Normal 35-104 [facility] Comment on above: Performed By: #### L 501.9985, L500.4050, L100.0100 ####[facility] [address] [place], [address] ALT [Catalytic activity/Vol] 19 U/L Normal <=34 [facility] Comment on above: Performed By: #### L 501.9985, L500.4050, L100.0100 ####[facility] [address] [place], [address] AST [Catalytic activity/Vol] 21 U/L Normal <=31 [facility] Comment on above: Performed By: #### L 501.9985, L500.4050, L100.0100 ####[facility] [address] [place], [address] Bilirubin [Mass/Vol] 0.23 mg/dL Normal 0.00-1.30 [facility] Comment on above: Performed By: #### L 501.9985, L500.4050, L100.0100 ####[facility] [address] [place], [address] BUN/CRE 9.0 RATIO Low 10-20 [facility] Comment on above: Performed By: #### L 501.9985, L500.4050, L100.0100 ####[facility] [address] [place], [address] Calcium [Mass/Vol] 9.2 mg/dL Normal 7.6-11.0 [facility] Comment on above: Performed By: #### L 501.9985, L500.4050, L100.0100 ####[facility] [address] [place], [address] Chloride [Moles/Vol] 104 mmol/L Normal 98-108 [facility] Comment on above: Performed By: #### L 501.9985, L500.4050, L100.0100 ####[facility] [address] [place], [address] CO2 [Moles/Vol] 23.9 mmol/L Normal 21.0-32.0 [facility] Comment on above: Performed By: #### L 501.9985, L500.4050, L100.0100 ####[facility] [address] [place], [address] Creatinine [Mass/Vol] 0.80 mg/dL Normal 0.70-1.20 [facility] Comment on above: Performed By: #### L 501.9985, L500.4050, L100.0100 ####[facility] [address] [place], [address] GAP 10 Normal 5-15 [facility] Comment on above: Performed By: #### L 501.9985, L500.4050, L100.0100 ####[facility] [address] [place], [address] GFR/1.73 sq M.predicted among non-blacks MDRD (S/P/Bld) [Vol rate/Area] 97 mL/min/{1.73_m2} Normal >60 [facility] Comment on above: Result Comment: mL/m in/1.73m2 CKD-EPI Creatinine Equation (2020) Performed By: #### L 501.9985, L500.4050, L100.0100 ####[facility] [address] [place], [address] Globulin (S) [Mass/Vol] 3.5 g/dL Normal 2.2-4.2 [facility] Comment on above: Performed By: #### L 501.9985, L500.4050, L100.0100 ####[facility] [address] [place], [address] Glucose [Mass/Vol] 97 mg/dL Normal 70-99 [facility] Comment on above: Performed By: #### L 501.9985, L500.4050, L100.0100 ####[facility] [address] [place], [address] Potassium [Moles/Vol] 5.0 mmol/L Normal 3.3-5.1 [facility] Comment on above: Performed By: #### L 501.9985, L500.4050, L100.0100 ####[facility] [address] [place], [address] Sodium [Moles/Vol] 138 mmol/L Normal 133-145 [facility] Comment on above: Performed By: #### L 501.9985, L500.4050, L100.0100 ####[facility] [address] [place], [address] T PROT 7.4 g/dL Normal 5.9-8.4 [facility] Comment on above: Performed By: #### L 501.9985, L500.4050, L100.0100 ####[facility] [address] [place], [address] Urea nitrogen [Mass/Vol] 7 mg/dL Normal 4-19 [facility] Comment on above: Performed By: #### L 501.9985, L500.4050, L100.0100 ####[facility] [address] [place], [address] Eosinophil percentageOrdered By: Abad Parrish on 10-03-2024 Eosinophils/100 WBC (Bld) 1.8 % 0-5 [facility] Erythrocyte distribution wid th ratioOrdered By: Abad Parrish on 10-03-2024 Erythrocyte distribution width (RBC) [Ratio] 13.2 % 11.6-14.6 [facility] Erythrocyte distribution wid th standard deviationOrdered By: Abad Parrish on 10-03-2024 Erythrocyte distribution width (RBC) [Ratio] 41.6 fl 35.1-43.9 [facility] Glomerular filtration rate ( GFR) estimation/1.73 sq m using serum, plasma, or whole bOrdered By: Abad Parrish on 10-03-2024 GFR/1.73 sq M.predicted among non-blacks MDRD (S/P/Bld) [Vol rate/Area] 97 mL/min/{1.73_m2} >60 [facility] Comment on above: mL/min/1.73m2 CKD-EP I Creatinine Equation (2020) Hematocrit Auto (Bld) [Volum e fraction]Ordered By: Abad Parrish on 10-03-2024 Hematocrit (Bld) [Volume fraction] 38.9 % 37-47 [facility] Hemoglobin A1con 10-03-2024 HbA1c (Bld) [Mass fraction] 5.9 % High <=5.6 [facility] Comment on above: Result Comment: Norm al < 5.7 % Prediabetic 5.7 - 6.4 % Diabetic >or= 6.5 % Please note range changes. Performed By: #### L 501.9985, L500.4050, L100.0100 ####[facility] [address] [place], [address] Hemoglobin A1c percentageOrd ered By: Abad Parrish on 10-03-2024 HbA1c (Bld) [Mass fraction] 5.9 % High <5.7 [facility] Comment on above: Normal < 5.7 % Predi abetic 5.7 - 6.4 % Diabetic >or= 6.5 % Please note range changes. Hemoglobin measurementOrdere d By: Abad Parrish on 10-03-2024 Hemoglobin (Bld) [Mass/Vol] 12.7 g/dL 12.0-15.0 [facility] Immature granulocytes/100 WB C Auto (Bld)Ordered By: Abad Parrish on 10-03-2024 Immature granulocytes/100 WBC (Bld) 0.200 % 0.0-0.9 [facility] Comment on above: IG% - Immature Granu locytes (promyelocytes, myelocytes and metamyelocytes) > 1% indicates that a LEFT SHIFT is Present. Internal Medicine Office Vis itoalesia 10-03-2024 Internal Medicine Office Visit [facility] [address] [place] [address] [place] [address] OFFICE VISIT Date of Service: 10/03/24 MR#: [id number] Acct: [id number] Name: NICOL HYMAN Rep #: [id number] : 1985 Provider: Dr. Abad alberto MD Age/Sex: 39/F Location: 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 Quarles. pt states she is doing well, no concerns. [facility] Medical History (Updated 10/03/24 @ 14:[address] Abad Parrish MD) Encounter to establish care Morbid obesity Preventative health care Wears glasses Anxiety Alcohol use Loss of consciousness Non-smoker Chiari malformation Surgical History Hx of spinal surgery Hx of bilateral breast reduction surgery Hx of appendectomy Hx of excision of dermoid cyst Hx of brain surgery Family History (Updated 10/03/24 @ 13:28 by Wendy De La O LPN) Father Diabetes CVA (cerebral vascular accident) Mother Anesthesia complication Asthma Cervical cancer Anxiety Chiari malformation Sister Suicide attempt Brother Suicide attempt Son Asthma Grandfather Asthma CVA (cerebral vascular accident) Grandfather Diabetes Social History (Updated 10/03/24 @ 13:23 by Wendy De La O LPN) adopted: No household members: family current occupational status: employed current occupational exposures/hazards: No Smoking Status: Never smoker details: holidays diet: lactose free what type of physical activity do you participate in: walking frequency: 3-4 times per week duration: 30-45 minutes/day seatbelt use: always do you feel safe at home: Yes HPI HPI 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 She reports a history of Chiari malformation, for which she underwent decompression surgery in 2018. Her family history is significant for stroke, diabetes mellitus and asthma, with her father having had a stroke and a general family history of asthma. The patient recently underwent a hysterectomy two weeks ago, performed by Dr. Jeannette Quarles, and reports that her recovery is progressing well without complications. She denies any significant concerns post-surgery and has no acute issues at present. No known history of hypertension, but blood pressure readings that have been elevated in the past, particularly during hospital visits. Her blood pressure was noted to be slightly elevated during today's visit, but she reports normal readings at home and during a recent appointment. The patient maintains an active lifestyle, engaging in regular exercise such as treadmill workouts. She consumes alcohol rarely and does not smoke. Her sleep is generally good, averaging six to seven hours per night, although she notes occasional disturbances due to her children. Attestation: Documentation on this patient encounter was supported using ambient scribe technology/ voice AI technology. The patient consented to recording for the purpose of documenting the encounter. Skylar brower reviewed content of the generated note prior to signature. ROS Const Constitutional: No body ache, chills, excessive sweating, fatigue, fever(s), frequent falls, headache(s), snoring, weight change, sleep problems, abnormal sleep pattern or change in appetite Eyes Eyes: No blurry vision, change in vision, eye pain or Light sensitivity ENT ENT: No abnormal hearing, ear or mastoid pain, tinnitus, nasal congestion, headache(s), neck pain or sore throat Resp Respiratory: No cough, shortness of breath, snoring or wheezing Cardio Cardiology: No chest pain at rest, chest pain with exertion, excessive sweating, shortness of breath, dyspnea on exertion, lightheadedness, orthopnea or palpitations Gastro GI: No abdominal pain, change in bowel habits, constipation, cramping, diarrhea, nausea/dyspepsia or vomiting Genitourin (more content not included)... Normal [facility] Laboratory - Chemistry and C hemistry - challengeOrdered By: Abad Parrish on 10-03-2024 AST [Catalytic activity/Vol] 21 U/L <32 [facility] MCV (mean corpuscular volume ) determinationOrdered By: Abad Parrish on 10-03-2024 MCV (RBC) [Entitic vol] 87.2 fL 81-99 [facility] Mean corpuscular hemoglobin (MCH) determinationOrdered By: Abad Parrish on 10-03-2024 MCH (RBC) [Entitic mass] 28.5 pg 27.0-32.0 [facility] Mean corpuscular hemoglobin concentration (MCHC) determinationOrdered By: Abad Parrish on 10-03-2024 MCHC (RBC) [Mass/Vol] 32.6 g/dL 32-36 [facility] Mean platelet volume determi nationOrdered By: Abad Parrish on 10-03-2024 Platelet mean volume (Bld) [Entitic vol] 11.9 fL 6.2-12.0 [facility] Monocyte percentageOrdered B y: Abad Parrish on 10-03-2024 Monocytes/100 WBC (Bld) 8.3 % 0-10 [facility] Neutrophil percentageOrdered By: Abda Parrish on 10-03-2024 Neutrophils/100 WBC (Bld) 65.9 % 47-70 [facility] Nucleated red blood cell per centageOrdered By: Abad Parrish on 10-03-2024 Nucleated RBC/100 WBC (Bld) [Ratio] 0 % 0-5 [facility] Platelet countOrdered By: Herb Parrish on 10-03-2024 Platelets (Bld) [#/Vol] 320 10*3/uL 150-450 [facility] Potassium measurement (mass/ volume)Ordered By: Abad Parrish on 10-03-2024 Potassium (Unsp spec) [Mass/Vol] 5.0 mmol/L 3.3-5.1 [facility] RBC Auto (Bld) [#/Vol]Ordere d By: Abad Parrish on 10-03-2024 RBC (Bld) [#/Vol] 4.46 10*6/uL 4.2-5.4 [facility] Serum creatinine measurement (mass/volume)Ordered By: Abad Parrish on 10-03-2024 Creatinine [Mass/Vol] 0.80 mg/dL 0.70-1.20 [facility] Serum globulin measurementOr dered By: Abad Parrish on 10-03-2024 Globulin (S) [Mass/Vol] 3.5 g/dL 2.2-4.2 [facility] Serum glucose measurement (m ass/volume)Ordered By: Abad Parrish on 10-03-2024 Glucose [Mass/Vol] 97 mg/dL 70-99 [facility] Serum or plasma alanine littlejohn otransferase (ALT) measurementOrdered By: Abad Parrish 10-03-2024 ALT [Catalytic activity/Vol] 19 U/L <35 [facility] Serum or plasma albumin manuel urement (mass/volume)Ordered By: Abad Parrish on 10-03-2024 Albumin [Mass/Vol] 4.0 g/dL 3.5-5.0 [facility] Serum or plasma albumin/glob ulin mass ratioOrdered By: Abad Parrish 10-03-2024 Albumin/Globulin [Mass ratio] 1.1 {ratio} 0.9-2.4 [facility] Serum or plasma alkaline homero sphatase measurementOrdered By: Abad Parrish 10-03-2024 ALP [Catalytic activity/Vol] 87 U/L 35-104 [facility] Serum or plasma calcium manuel urement (mass/volume)Ordered By: Abad Parrish 10-03-2024 Calcium [Mass/Vol] 9.2 mg/dL 7.6-11.0 [facility] Serum or plasma urea nitroge n measurement (mass/volume)Ordered By: Abad Parrish 10-03-2024 Urea nitrogen [Mass/Vol] 7 mg/dL 4-19 [facility] Sodium levelOrdered By: Mojgan Parrish on 10-03-2024 Sodium [Moles/Vol] 138 mmol/L 133-145 [facility] Total proteinOrdered By: Robert Parrish 10-03-2024 Protein [Mass/Vol] 7.4 g/dL 5.9-8.4 [facility] White blood cell (WBC) count Ordered By: Abad Parrish on 10-03-2024 WBC (Bld) [#/Vol] 9.9 10*3/uL 4.4-11.0 [facility] CNOVon 10-01-2024 CNOV Office Visit (OBGYWM ) NICOL HYMAN ([id number]) 1985 F Date Time Provider Department 10/01/24 3:40 PM JEANNETTE QUARLES OBGYWM During your visit today, we recorded the following information about you: Blood pressure Weight 122/74 108 kg Jeannette Quarles MD 10/01/2024 3:54 PM Signed DATE OF SERVICE: 10/01/2024 PROBLEM: Nicol Hyman presents for postop visit. SURGERY AND DATE: 09/20/24 [facility] PATHOLOGY: pending SUBJECTIVE/INTERVAL HISTORY: Nicol Hyman reports that she feels well. No fever or chills. No shortness of breath, cough, or chest pain. No incisional redness, swelling, or drainage. Patient reports that her appetite is good. BM are still a little slow but had several BMs since and using stool softener. Urination normal now if BM regularly. No vaginal bleeding.. SENSITIVE EXAM: Sensitive exam not performed. OBJECTIVE: ABDOMEN: Abdomen soft, non-tender, no hepatosplenomegaly. Incisions healing well. PE ASSESSMENT: Postop check [facility], path pending PLAN: 1. Discussed results of pathology and implications with patient. 2. Postop restrictions reviewed. Jeannette Quarles MD Allergies As of Date: 10/01/2024 Noted Allergy Reaction LATEX 11/03/2015 4 - Hives 2 - Rash OXYCODONE 11/09/2015 1 - Mental Status Change Date Reviewed: 10/01/2024 Reviewed by: Olivia Todd MA - Fully Assessed Reason for Visit: Post-Op Visit [1236] Primary Visit Diagnosis:Post-operative state [Z98.890] Prescriptions as of 10/01/2024 - ibuprofen (MOTRIN) 600 mg tablet Take 1 tablet by mouth every 6 hours as needed for pain. - acetaminophen (TYLENOL EXTRA STRENGTH) 500 mg tablet Take 2 tablets by mouth every 8 hours as needed for pain. take 2 tablets alone or one with a norco every 8 hours - docusate sodium (COLACE) 100 mg capsule Take 1 capsule by mouth two times a day as needed for constipation. - multivit,thx,calcium,iron,mi ns (MULTIVITAMIN AND MINERAL ORAL) Take by mouth. Problem List As Of Date 10/01/2024 Noted Resolved Hyperemesis complicating , antepartum *02/08/2016 [...] 05/22/2017 Obesity, Class III, BMI >= 40 [E66.813] 11/21/2017 Arnold-Chiari malformation, type I (HCC) [G93.5]12/20/2017 Postoperative cellulitis of surgical wound [T81*01/11/2018 Intramural uterine fibroid [D25.1] 06/20/2024 Migraines [G43.909] 11/25/2014 Encounter Status:Closed by JEANNETTE QUARLES on 10/01/24 [facility] MR/[id number] 09-23-2024 MR/POSTOPAN2 [facility] Medical Records Department [address] [place] [address] Anesthesia Postop Eval II 09/23/24 0947 MR#: [id number] Acct: [id number] Name: NICOL HYMAN Rep #: [id number] : 1985 39 From: Corky Flores MD PCP: Care Physician,No Primary Status: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 ADULTS DIRECTOR.JYUN Spontaneous unlabored Yes 09/20/24 11:29 SENIOR ADULTS DIRECTOR.JYUN respirations Mental status nausea No 09/20/24 11:29 SENIOR ADULTS DIRECTOR.JYUN Vomiting No 09/20/24 11:29 SENIOR ADULTS DIRECTOR.JYUN Anesthesia Postop Eval I: Fluid Summary Crystalloid volume administer 1,600 09/20/24 11:29 SENIOR ADULTS DIRECTOR.JYUN (ml) Colloids volume administered ( ml) Blood Product volume administered (ml) Total IV fluid infused 1,600 09/20/24 11:29 SENIOR ADULTS DIRECTOR.JYUN Anesthesia Postop Eval I: Summary Notes Anesthesia Complication No 09/20/24 11:29 SENIOR ADULTS DIRECTOR.JYUN Anesthesia Complication Comment: Post-operative progress note Anesthesia: Postop Eval II Evaluation Mental status: Awake and Calm Pain Level: 1 nausea: No Vomiting: No Complications Anesthesia Complication: No 09/23/2447 Date Corky Flores MD Cosigner Signature: Date CC: Signed Normal [facility] Bedside Glucoseon 09-20-2024 FINGERSTICK GLU 113 mg/dL High 74-106 [facility] Comment on above: Result Comment: ARIEL GEMENT OF PATIENT CARE PER NURSING PROTOCOL Performed By: #### L 501.080 #### [facility] Laboratory [address] [place], [address] CNOPon 09-20-2024 CNOP Operative Note (Enc) (OBGYWM) Encounter Status:Closed by JEANNETTE QUARLES on 09/20/24 [facility] Discharge Instructionon 08-26 Discharge Instruction [facility] Medical Records Department [address] [place] [address] Instructions for Home/Discharge Instructions 09/20/24 0908 MR#: [id number] Acct: [id number] Name: NICOL HYMAN Rep #: [id number] : 1985 39 From: Jeannette Quarles MD PCP: Care Physician,No Primary Status:REG [facility] Discharge Instructions Diet Discharge Diet: Light diet - advance as tolerated DC O2, CPAP, BIPAP needs Home O2 Discharge instructions: No Dressing / Incision Discharge Activity: May Shower May resume sexual activity in: 6-8 weeks and - (Nothing in your vagina for 6 weeks. No vaginal or anal intercourse for 6-8 weeks) Dressing / Incision Call your doctor if your incision/area has: Continuous Slow Oozing and Sudden Increased Bleeding Call your doctor if you observe: Fever of 101 or Higher and Using more than 1 pad per hour Cleanse incision/area with: Soap Water and - (Your incisions have skin glue, it can get wet, leave the glue on until it falls off. ) Follow Up Care Please Follow Up With: Jeannette Quarles MD When: With my office in 1-2 and 6 weeks or as needed. [phone] Test Results: Test results from this visit will be discussed in further detail at your follow-up appointment, if applicable. Discharge Plan Admission Primary Reason for Your Visit: Total laparoscopic hysterectomy Attending Provider: Jeannette Quarles Primary Care Provider: Care Physician,No Primary Instructions Print Language: Cambodian Discharge Orders/Prescriptions Prescriptions: No Action multivitamin [Daily Multi-Vitamin] Tablet 1 tab PO DAILY Referrals / Follow Up: Jaylon Boyd DO [Non-Staff] - Disposition Disposition (needs filled in before D/C Order can be placed): Home, Self Care 09/20/24 0922 Jeannette Quarles MD CC: No Primary Care Physician Signed Normal [facility] deOrdered By: Jeannette Quarles on 09-20-2024 Glucose [Mass/Vol] 113 mg/dL High 74-106 [facility] Comment on above: MANAGEMENT OF PATIEN T CARE PER NURSING PROTOCOL MR/POSTOP.ANEon 09-20-2024 [facility] Department [address] [place] [address] Anesthesia Postop Eval I 09/20/24 1129 MR#: [id number] Acct: [id number] Name: NICOL HYMAN Rep #: [id number] : 1985 39 From: Can Bassett CRNA PCP: Care Physician,No Primary Status:REG [facility] Y Race: AA Location: [place] [address] Anesthesia: Postop Eval I Current Vital Signs Temperature: 36 F Pulse Rate: 83 Blood Pressure: 138/94 Respiratory Rate: 14 Pulse Ox: 97 Assessment Airway patent: Yes Spontaneous unlabored respirations: Yes nausea: No Vomiting: No Anesthesia Complication: No Fluid Hydration Crystalloid volume administer (ml): 1,600 Total IV fluid infused: 1,600 Progress Note Anesthesia document: Postop Eval 1 completed: Yes 09/20/24 1130 Date Can Bassett CRNA Cosigner Signature: Date CC: Signed Normal [facility] Operative Reporton Operative Report [facility] Medical Records Department [address] [place] [address] Operative Report 09/20/24 1108 MR#: [id number] Acct: [id number] Name: NICOL HYMAN Rep #: [id number] : 1985 39 From: Jeannette Quarles MD PCP: Care Physician,No Primary Status:[facility] Location: [place] [address] Problems Associated Problem List Diagnoses (1) Adenomyosis: (2) Intramural uterine fibroid: (3) Deep dyspareunia: (4) Menorrhagia with regular cycle: Operative Report (Standard) Operative Information Date of Procedure: 09/20/24 Pre-Operative Diagnosis: adenomyosis, menorrhagia, dyspareunia Post-Operative Diagnosis: same Surgery/Procedure Performed: TLH, bilateral salpingectomy and cystoscopy teacher specialist: Yes [employer] Manager: Viridiana Burden MD PGY4 Tasks completed by loan officer assistant: Opening, Closing, Dissecting tissue, Hemostasis: Tie, Hemostasis: Electrocautery, Trocar and Retracting Additional salon shampoo assistant?: No Type of Anesthesia: General RN Documented Start/Stop Times: Operation Date: 09/20/24 08:45 Case Time Into Pre-Op 09/20/24 06:44 Out of Pre-Op 09/20/24 08:58 Anesthesia Start 09/20/24 09:01 Into Room 09/20/24 09:01 Procedure Start 09/20/24 09:29 Procedure Start Time: 09:29 Procedure Stop Time: 11:08 Select all DRAINS/GRAFTS/IMPLANTS that apply: None Estimated Blood Loss: 75 cc Fluids Replaced: 1500 cc Specimen collected: Yes Description of specimen(s) removed: uterus, cervix, bilateral fallopian tubes Description of surgery: The patient was taken to the operating room where she was prepped and draped in the dorsal lithotomy position. Her arms were tucked to the side and padded and her legs were placed in the yellowfin stirrups. Care was taken to ensure that she was placed in a neurologically safe and neutral position. A weighted speculum was placed in the vagina and the anterior lip of the cervix was grasped with a single-tooth tenaculum. The cervix sounded to 9 centimeters. The uterine on site construction superintendent was placed into the cervix and the balloon inflated. The Was secured down to the cervix to the cervix. The Clarke catheter was placed to straight drain. Attention was turned to the abdominal portion of the case. Before skin incisions were made they were infiltrated with 0.5% Marcaine solution for local anesthetic. A 5 mm intraumbilical incision was made and while tenting the anterior abdominal wall up with towel clamps a 5 mm blade less trocar and sleeve were advanced directly into the peritoneal cavity using the Visiport trocar. Peritoneal placement was confirmed with the laparoscope the pneumoperitoneum was created, and the underlying abdominal contents were intact. The patient was placed in Trendelenburg and the above findings were noted. Right and left lateral 5 mm trochars were placed under direct visualization without difficulty. There was a 2 x 2 cm area of adhesion near the umbilicus that was taken down with the LigaSure device. Care was taken to examine the adhesions before this to ensure bowel was entrapped within them.. This was done to allow for adequate visualization from the umbilical port. The antimesenteric portion of the tube was clamped sealed and transected serially on both sides with the LigaSure device. The round ligaments were clamped sealed and transected and a window was made in the peritoneum. The utero-ovarian ligaments were then clamped sealed and transected with the LigaSure device and the pedicles were hemostatic The bladder flap was dissected down with the LigaSure device and blunt dissection and the uterine arteries were then skeletonized. The uterine arteries were clamped sealed and transected on both sides with the LigaSure device. Then along the cardinal ligament uterine arteries adjacent to the cervix were clamped sealed and transected with the LigaSure device to move them away from the vaginal cuff angle. At this point the pedicles were all examined and found to be hemostatic. The bladder flap was rechecked and found to be adequately down. The monopolar tip of the LigaSure device was then used to enter the anterior vagina. The vaginal manipulator cup was noted in the vaginal colpotomy incision was made circumferentially around the cup. When the 3 and 9:00 positions of the cervicovaginal junction were reached these were clamped sealed and transected with the LigaSure device to secure any small remaining vessels. At this point the pedicles were hemostatic from above and attention was turned to the vaginal portion of the case again. The uterus was brought intact out through the vaginal colpotomy incision along with the tubes There is some bleeding from the left vaginal cuff angle and this was grasped with a Abigail clamp and suture ligated. The posterior vaginal epithelium was reapproximated to the vaginal cuff with 2-0 Vicryl in a running (more content not included)... Normal [facility] ,Urineon 09-20-2024 Beta HCG ( test) Ql (U) Negative Normal [facility] Comment on above: Result Comment: Very dilute urine specimens, as indicated by a low specific gravity, may not contain rental sales representative levels of hCG. If is still suspected, a first morning urine specimen should be collected 48 hours later and tested. Performed By: #### L 400.7600 ####[facility] [address] [place], [place], [address] Surgery Specimen Level Von 0 09-20-2024 Surgery Specimen Level V -------- Patient Age/Sex Location Account Attending Physician -------- NICOL HYMAN 39/F [facility] [id number] Dr. Jeannette Quarles MD -------- Specimen: [id number] Received: 09/20/24 Status: [place] Num: [id number] Spec Type: UTERUS Subm Dr: Dr. Jeannette Quarles MD HEADER OPERATION: ERAS, total laparoscopic hysterectomy, bilateral salpingectomy PRE-OP DIAGNOSIS: Menorrhagia with regular cycle, deep dyspareunia, intramural uterine fibroid, adenomyosis TISSUE SUBMITTED: A- Uterus, cervix, bilateral fallopian tubes -------- MICROSCOPIC DIAGNOSIS A. Uterus, cervix, bilateral fallopian tubes, hysterectomy, bilateral salpingectomy: Cervix: Benign squamous epithelium and endocervical glandular tissue Endometrium: Proliferative endometrium Myometrium: Leiomyoma Bilateral fallopian tubes: Benign fallopian tubes with no pathologic change MICROSCOPIC DESCRIPTION Slides are reviewed. GROSS DESCRIPTION A. Received in formalin labeled with the patient's name and date of . Designated as uterus, cervix, fallopian tubes is a 120.6 g, 8.1 x 5.3 x 4.1 cm uterus with detached attached adnexa. The serosa is bourgeois-pink with focal erythema and an area of possible adhesions (0.4 cm); the specimen is oriented using the posterior peritoneal reflection. The attached cervix is bourgeois-pink and measures 3.8 x 3.4; the 1.3 cm slit-like os is focally erythematous and patent. Mucoid containing cervical cyst are present. The cervical canal is erythematous and granular. The specimen is inked as follows: Ocrazyop-hmzatKjhqqyzan-jijy kParametrium-orange. Opening reveals a 6.6 x 3.1 cm endometrial canal lined by pink-bourgeois to red somewhat lush and measures up to 0.4 cm thick. The myometrium is bourgeois-pink, trabeculated and measures up to 2.2 cm thick. A vague, possible leiomyoma is identified (anterior), 0.6 cm; additionally, there are 2 pinpoint areas of light brown discoloration of the anterior endometrium. The detached bilateral fallopian tubes are purple-red fimbriated and measure 4.4 x 0.4 cm and 5.0 x 0.5 cm. Few paratubal cysts are identified, <0.1 cm to 0.1 cm. Mail Examiner sections are submitted as follows: A1: Anterior cervixA2: Posterior cervixA3: Anterior endomyometrium, including pinpoint foci endometrial discoloration/possible serosal adhesionA4: Posterior endomyometriumA5-A6: Fallopian tubesA7: Anterior endomyometrium with foci of endometrial discoloration/ possible leiomyoma [facility] 09/20/2024 CPT:74620 -------- Patient Age/Sex Location Account Attending Physician -------- NICOL HYMAN 39/F [facility] [id number] Dr. Jeannette Quarles MD -------- Signed (signature on file) Dr. Camille Gunderson DO 10/04/24 1606 -------- Normal [facility] Comment on above: Performed By: #### P SUV #### [facility] [address] [place], [address] Urine testOrdered By: Jeannette Quarles on 09-20-2024 HCG ( test) Ql (U) Negative [facility] Comment on above: Very dilute urine sp ecimens, as indicated by a low specificgravity, may not contain rental sales representative levels of hCG. If is still suspected, a first morning urinespecimen should be collected 48 hours later and tested. CBC-Complete Blood Cnt No Di ffon 09-17-2024 Erythrocyte distribution width (RBC) [Ratio] 13.3 % Normal 11.6-14.6 [facility] Comment on above: Performed By: #### B TSPAT, L400.7600, L100.0500, L501.5200 #### [facility] [address] [place], [address] Hematocrit (Bld) [Volume fraction] 42.8 % Normal 37-47 [facility] Comment on above: Performed By: #### B TSPAT, L400.7600, L100.0500, L501.5200 #### [facility] [address] [place], [address] Hemoglobin (Bld) [Mass/Vol] 13.6 g/dL Normal 12.0-15.0 [facility] Comment on above: Performed By: #### B TSPAT, L400.7600, L100.0500, L501.5200 #### [facility] [address] [place], [address] MCH (RBC) [Entitic mass] 28.1 pg Normal 27.0-32.0 [facility] Comment on above: Performed By: #### B TSPAT, L400.7600, L100.0500, L501.5200 #### [facility] [address] [place], [address] MCHC (RBC) [Mass/Vol] 31.8 g/dL Low 32-36 [facility] Comment on above: Performed By: #### B TSPAT, L400.7600, L100.0500, L501.5200 #### [facility] [address] [place], [address] MCV (RBC) [Entitic vol] 88.4 fL Normal 81-99 [facility] Comment on above: Performed By: #### B TSPAT, L400.7600, L100.0500, L501.5200 #### [facility] [address] [place], [address] Platelet mean volume (Bld) [Entitic vol] 12.2 fL High 6.2-12.0 [facility] Comment on above: Performed By: #### B TSPAT, L400.7600, L100.0500, L501.5200 #### [facility] [address] [place], [address] Platelets (Bld) [#/Vol] 272 10*3/uL Normal 150-450 [facility] Comment on above: Performed By: #### B TSPAT, L400.7600, L100.0500, L501.5200 #### [facility] [address] [place], [address] RBC (Bld) [#/Vol] 4.84 10*6/uL Normal 4.2-5.4 [facility] Comment on above: Performed By: #### B TSPAT, L400.7600, L100.0500, L501.5200 #### [facility] [address] [place], [address] RDW SD 43.2 fl Normal 35.1-43.9 [facility] Comment on above: Performed By: #### B TSPAT, L400.7600, L100.0500, L501.5200 #### [facility] [address] [place], [address] WBC (Bld) [#/Vol] 8.7 10*3/uL Normal 4.4-11.0 [facility] Comment on above: Performed By: #### B TSPAT, L400.7600, L100.0500, L501.5200 #### [facility] [address] [place], [address] Erythrocyte distribution wid th ratioOrdered By: Jeannette Quarles on 09-17-2024 Erythrocyte distribution width (RBC) [Ratio] 13.3 % 11.6-14.6 [facility] Erythrocyte distribution wid th standard deviationOrdered By: Jeannette Quarles on 09-17-2024 Erythrocyte distribution width (RBC) [Ratio] 43.2 fl 35.1-43.9 [facility] Hematocrit Auto (Bld) [Volum e fraction]Ordered By: Jeannette Quarles on 09-17-2024 Hematocrit (Bld) [Volume fraction] 42.8 % 37-47 [facility] Hemoglobin measurementOrdere d By: Jeannette Quarles on 09-17-2024 Hemoglobin (Bld) [Mass/Vol] 13.6 g/dL 12.0-15.0 [facility] MCV (mean corpuscular volume ) determinationOrdered By: Jeannette Quarles on 09-17-2024 MCV (RBC) [Entitic vol] 88.4 fL 81-99 [facility] Magnesiumon 09-17-2024 Magnesium [Mass/Vol] 1.8 mg/dL Normal 1.5-2.2 [facility] Comment on above: Performed By: #### B TSPAT, L400.7600, L100.0500, L501.5200 ####[facility] [address] [place], [place], [id number] Magnesium measurement (mass/ volume)Ordered By: Jeannette Quarles on 09-17-2024 Magnesium (Unsp spec) [Mass/Vol] 1.8 mg/dL 1.5-2.2 [facility] Mean corpuscular hemoglobin (MCH) determinationOrdered By: Jeannette Quarles on 09-17-2024 MCH (RBC) [Entitic mass] 28.1 pg 27.0-32.0 [facility] Mean corpuscular hemoglobin concentration (MCHC) determinationOrdered By: Jeannette Quarles on 09-17-2024 MCHC (RBC) [Mass/Vol] 31.8 g/dL Low 32-36 [facility] Mean platelet volume determi nationOrdered By: Jeannette Quarles on 09-17-2024 Platelet mean volume (Bld) [Entitic vol] 12.2 fL High 6.2-12.0 [facility] Platelet countOrdered By: Laura Quarles on 09-17-2024 Platelets (Bld) [#/Vol] 272 10*3/uL 150-450 [facility] ,Urineon 09-17-2024 Beta HCG ( test) Ql (U) [facility] Comment on above: Result Comment: NOT LISSETH UNTIL [id number] Performed By: #### B TSPAT, L400.7600, L100.0500, L501.5200 #### [facility] [address] [place], [address] INTERNAL QC OK? Normal [facility] Comment on above: Result Comment: NOT LISSETH UNTIL [id number] Performed By: #### B TSPAT, L400.7600, L100.0500, L501.5200 #### [facility] [address] [place], [place], [address] RECORD KIT LOT# [facility] Comment on above: Result Comment: NOT LISSETH UNTIL [id number] Performed By: #### B TSPAT, L400.7600, L100.0500, L501.5200 #### [facility] [address] [place], [address] RBC Auto (Bld) [#/Vol]Ordere d By: Jeannette Quarles on 09-17-2024 RBC (Bld) [#/Vol] 4.84 10*6/uL 4.2-5.4 [facility] Type AND Screen - PAT ONLYon 09-17-2024 Ab SCREEN GEL Negative Normal [facility] Comment on above: Order Comment: Surge ry Date: 09/20/24Reason for Laboratory Test PRE-[id number](B) TOTAL LAPAROSCOPIC HYSTERECTOMY, BILATERAL SALPING, Performed By: #### B TSPAT, L400.7600, L100.0500, L501.5200 ####[facility] [address] [place], [address] White blood cell (WBC) count Ordered By: Jeannette Quarles on 09-17-2024 WBC (Bld) [#/Vol] 8.7 10*3/uL 4.4-11.0 [facility] BACTERIAL VAGINOSIS NAATon 0 08-28-2024 Lactobacillus crispatus+gasseri+alan senii + Gardnerella vaginalis + Atopobium vaginae rRNA SHREYAS+probe Ql (Vag fld) Not detected Normal Not detected [facility] Comment on above: Order Comment: Speci men Type: SWABOrdering Facility: [facility] Address: [address] [place] [address] Performed By: #### C VTV, BVAMP ####[facility] LABCLIA [id number] [place] [address] [place] ARIAN/TRICHOMONAS NAATon 0 08-28-2024 C. glabrata RNA SHREYAS+probe Ql (Vag fld) Not detected Normal Not detected [facility] Comment on above: Order Comment: Speci men Type: SWABOrdering Facility: [facility] Address: [address] [place] [address] Performed By: #### C VTV, BVAMP ####[facility] LABCLIA [id number] [address] [place] Arian sp DNA SHREYAS+probe Ql (Vag fld) Not detected Normal Not detected [facility] Comment on above: Order Comment: Speci men Type: SWABOrdering Facility: [facility] Address: [address] [place] [address] Result Comment: The Arian species group target includes C. albicans, C. tropicalis, C. parapsilosis, and C. dubliniensis. Performed By: #### C VTV, BVAMP ####[facility] LABIA [id number] [address] [place] T. vaginalis DNA SHREYAS+probe Ql (Unsp spec) Not detected Normal Not detected [facility] Comment on above: Order Comment: Speci men Type: SWABOrdering Facility: [facility] Address: [address] [place] [address] Performed By: #### C VTV, BVAMP ####[facility] LABIA [id number] [address] [place] CNOVon 08-28-2024 CNOV Office Visit (OBGYWM ) NICOL HYMAN ([id number]) 1985 F Date Time Provider Department 08/28/24 [...] Living3 SAB0 IAB0 Ectopic0 Multiple0 Live Births3 Pack Out Operator History LMP: 06/10/2024 (Exact Date), Having periods Age at Menarche: Age at First : Age at Menopause: Pack Out Operator History Comments: Sexual Activity: Yes; Male Contraception: [...] times a day as needed for constipation. multivit,thx,calcium,iron,mi ns (MULTIVITAMIN AND MINERAL ORAL) Take by mouth. No current facility-administered medications for this visit. Allergies As of Date: 08/28/2024 Allergen Noted Reaction LATEX 11/03/2015 Hives and Rash OXYCODONE 11/09/2015 Mental Status Change Fully Assessed 07/19/2024 RAllergies and current medication updated:Yes SENSITIVE EXAM: The sensitive examination was discussed with the Patient or Patient's Authorized Mail Examiner. As applicable, any other physician, advance practice provider, medical student, or other health professional student that will be observing or involved in the sensitive examination for educational or training purposes was discussed with the Patient or Authorized Mail Examiner. The Patient or Authorized Mail Examiner has agreed to proceed with the sensitive [...] external genitalia normal, normal Bartholin's glands, urethra, Verdigris's glands, no vulvar lesions, no cervical lesions, [...] to 7 days. d/w her short and custodial risks w/ hyst. Desires to proceed. Declines or has failed other conservative optiobns. Understands she will be permanently unable to bear children in the future. D/w her postop restrictions. Change to [facility] based on exam t (more content not included)... Normal [facility] HISTORY PHYSICALon HISTORY PHYSICAL HNO ID: [id number] Author: JEANNETTE QUARLES MD Service: ? Author [...] Current Outpatient Medications Medication Sig Dispense Refill multivit,thx,calcium,iron,mi ns (MULTIVITAMIN AND MINERAL ORAL) Take by mouth. [...] medications and allergies Jeannette Quarles M.D. Normal [facility] Pathology biopsy report Jose (Tiss)on 08-28-2024 AP DISCLAIMER Normal [facility] Comment on above: Order Comment: Speci men Type: TISSUE SPECIMENOrdering Facility: [facility] Address: [address] [place] [address] Result Comment: Eusebia hawk Developed Test (LDT) Disclaimer: Performance characteristics of immunohistochemical, immunofluorescent, and chromogenic in-situ hybridization tests have been determined by the performing laboratory within [facility]'s [facility] ([facility], [facility], [facility], [facility], [facility], [facility], or [facility]) in a manner consistent with CLIA requirements. One or more of these tests may not have been cleared or approved by the FDA. [facility] is regulated under CLIA as qualified to perform high-complexity testing. These tests are used for clinical purposes. These should not be regarded as investigational or for research. Positive and negative controls stain appropriately. Performed By: #### 6 6121-5 ####[facility] LABCLIA [id number] [place] [address] [address] [place] CASE REPORT Normal [facility] Comment on above: Order Comment: Speci men Type: TISSUE SPECIMENOrdering Facility: [facility] Address: [address] [place] [address] Result Comment: Surg ica Pathology Report Case: [id number] Authorizing Provider: Jeannette Quarles MD Collected: 08/28/2024 12:17 PM Ordering Location: OB/Gynecology Received: 08/29/2024 07:16 AM Pathologist: Sandy Collier MD Specimen: Endometrium, Biopsy Performed By: #### 6 6121-5 ####[facility] LABCLIA [id number] [place] [address] [place] CLINICAL HISTORY menorrhagia with reg ular cycle Normal [facility] Comment on above: Order Comment: Speci men Type: TISSUE SPECIMENOrdering Facility: [facility] Address: [address] [place] [address] Performed By: #### 6 6121-5 ####[facility] LABCLIA [id number] [place] [id number] [place] FINAL DIAGNOSIS Normal [facility] Comment on above: Order Comment: Speci men Type: TISSUE SPECIMENOrdering Facility: [facility] Address: [address] [place] [address] Result Comment: Endo metrium, biopsy: - Early secretory pattern endometrium. at 1454 EDT Performed By: #### 6 6121-5 ####[facility] LABCLIA [id number] [address] [address] [place] FINAL PERFORMING LAB Normal [facility] Comment on above: Order Comment: Speci men Type: TISSUE SPECIMENOrdering Facility: [facility] Address: [address] [place] [address] Result Comment: Diag nostic interpretation performed at: [facility], [address] [place], [place] [address] CLIA# [id number] Shoemaking Finisher: Justen Cueva MD Performed By: #### 6 6121-5 ####[facility] LABCLIA [id number] [place] [address] [place] GROSS DESCRIPTION Normal [facility] Comment on above: Order Comment: Speci men Type: TISSUE SPECIMENOrdering Facility: [facility] Address: [address] [place] [address] Result Comment: A. E ndometrium, Biopsy Received in formalin are multiple bourgeois-brown, soft and feathery segments of tissue aggregating to 2.6 x 1.9 x 0.1 cm. Totally submitted in one cassette. Gross examination performed at [facility], [address] [place] [address] August 29, 2024 8:04 PM Performed By: #### 6 6121-5 ####[facility] LABIA [id number] [place] [address] [place] UA DIP,URINE HCG (POC)on Beta HCG ( test) Ql (U) Negative Negative [facility] Comment on above: Location:[facility], [address] [place], [address] [employer] (POCT) Internal QC [facility] Location:[facility], [address] , [place], [address] [facility] POINT OF CARE [facility] CNOVon 06-26-2024 CNOV Office Visit (OBGYWM ) NICOL HYMAN ([id number]) 1985 F Date Time Provider Department 06/26/24 10:30 AM WILLIE GUEVARA During your visit today, we recorded the [...] Living3 SAB0 IAB0 Ectopic0 Multiple0 Live Births3 Pack Out Operator History LMP: 06/10/2024 (Exact Date), Having periods Age at Menarche: Age at First : Age at Menopause: Pack Out Operator History Comments: Sexual Activity: Yes; Male Contraception: [...] use: No Current Outpatient Medications Medication Sig multivit,thx,calcium,iron,mi ns (MULTIVITAMIN AND MINERAL ORAL) Take by mouth. [...] female [N94.10] Prescriptions as of 06/26/2024 - multivit,thx,calcium,iron,mi ns (MULTIVITAMIN AND MINERAL ORAL) Take by mouth. [...] fibroid [D25.1] 06/20/2024 Encounter Status:Closed by WILLIE GUEVAAR on 06/26/24 Normal [facility] US Pelvison 06-20-2024 Indication pelvic pain, right [...] Read By: Lyudmila Barba M.D. MATERNAL MEDICINE [facility] Radiology Study observation (narrative) [facility] BACTERIAL VAGINOSIS NAATon 0 06-14-2024 Lactobacillus crispatus+gasseri+alan senii + Gardnerella vaginalis + Atopobium vaginae rRNA SHREYAS+probe Ql (Vag fld) Detected Abnormal Not detected [facility] Comment on above: Order Comment: Speci men Type: SWABOrdering Facility: [facility] Address: [address] [place] [address] Performed By: #### 3 6902-5, BVAMP ####[facility] LABCLIA [id number] [place] [address] [place] C. trachomatis+N. gonorrhoea e DNA SHREYAS+probe Ql (Unsp spec)on 06-14-2024 C. trachomatis rRNA SHREYAS+probe Ql (Unsp spec) Not detected Normal Not detected [facility] Comment on above: Order Comment: Speci men Type: SWABOrdering Facility: [facility] Address: [address] [place] [address] Performed By: #### 3 6902-5, BVAMP ####[facility] LABCLIA [id number] [place] [address] [place] N. gonorrhoeae rRNA SHREYAS+probe Ql (Unsp spec) Not detected Normal Not detected [facility] Comment on above: Order Comment: Speci men Type: SWABOrdering Facility: [facility] Address: [address] [place] [address] Performed By: #### 3 6902-5, BVAMP ####[facility] LABCLIA [id number] [place] [address] [place] ARIAN/TRICHOMONAS NAATon 0 06-14-2024 C. glabrata RNA SHREYAS+probe Ql (Vag fld) Not detected Normal Not detected [facility] Comment on above: Order Comment: Speci men Type: SWABOrdering Facility: [facility] Address: [address] [place] [address] Performed By: #### C VTV ####[facility] LABCLIA [id number] [place] [address] [place] Arian sp DNA SHREYAS+probe Ql (Vag fld) Not detected Normal Not detected [facility] Comment on above: Order Comment: Speci men Type: SWABOrdering Facility: [facility] Address: [address] [place] [address] Result Comment: The Arian species group target includes C. albicans, C. tropicalis, C. parapsilosis, and C. dubliniensis. Performed By: #### C VTV ####[facility] LABCLIA [id number] [address] T. vaginalis DNA SHREYAS+probe Ql (Unsp spec) Not detected Normal Not detected [facility] Comment on above: Order Comment: Speci men Type: SWABOrdering Facility: [facility] Address: [address] [place] [address] Performed By: #### C VTV ####[facility] LABCLIA [id number] [address] OF [facility] CNOVon 06-14-2024 CNOV Office Visit (OBGYWM ) NICOL HYMAN ([id number]) 1985 F Date Time Provider Department 06/14/24 11:20 AM WILLIE GUEVARA OBGYWMichelle During your visit today, we recorded the [...] Living3 SAB0 IAB0 Ectopic0 Multiple0 Live Births3 Pack Out Operator History LMP: 12/26/2023 (Exact Date), Having periods Age at Menarche: Age at First : Age at Menopause: Pack Out Operator History Comments: Sexual Activity: Yes; Male Contraception: [...] use: No Current Outpatient Medications Medication Sig multivit,thx,calcium,iron,mi ns (MULTIVITAMIN AND MINERAL ORAL) Take by mouth. No current facility-administered medications for this visit. Allergies As of Date: 06/14/2024 Allergen Noted Reaction LATEX 11/03/2015 Hives OXYCODONE 11/09/2015 Mental Status Change Fully Assessed 01/15/2024 Allergies and current medication updated:Yes SENSITIVE EXAM: The sensitive examination was discussed with the Patient or Patient's Authorized Mail Examiner. As applicable, any other physician, advance practice provider, medical student, or other health professional student that will be observing or involved in the sensitive examination for educational or training purposes was discussed with the Patient or Authorized Mail Examiner. The Patient or Authorized Mail Examiner has agreed to proceed with the sensitive examination. (Sensitive examination includes inspection and/or palpation of the breasts, pelvis, prostate and anorectal regions). EXAM: LMP 12/26/2023 GENERAL: pleasant, female in no apparent distress PELVIC: external genitalia normal, normal Bartholin's glands, urethra, Verdigris's glands, no vulvar lesions, no cervical lesions, [...] disease) [Z11.3] Order(s):ARIAN/TRICHOMONAS NAAT [SQCVTV] Order #: [id number]. #:[id number] BACTERIAL VAGINOSIS NAAT [SQBVAMP] Order #: [id number]. #:[id number] PELVIC US WHI [2036040] Order #: [id number]: 1 FUTURE GONORRHEA/CHLAMYDIA NAAT [SQGCCT] Order #: [id number]. #:[id number] Prescriptions as of 06/14/2024 - multivit,thx,calcium,iron,mi ns (MULTIVITAMIN AND MINERAL ORAL) Take by mouth. Problem List As Of Date 06/14/2024 Noted Resolved Hyperemesis complicating , antepartum *02/08/2016 02/22/2016 Obesity affecting in first trimester *02/08/2016 11/15/2016 (more content not included)... Normal [facility] CNNURSEon 05-17-2024 CNNURSE Nurse Visit (OBGYWM) NICOL HYMAN ([id number]) 1985 F Date Time Provider Department 05/17/24 4:00 PM NURSE CONE WINDER [facility] OBGYWM During your visit today, we recorded [...] in office at time of injection. STELLA Rayo Morgan, MA 05/17/2024 3:56 PM Signed Gardasil Gardasil is [...] glands, joint and muscle pain, weakness and Guillain-Smithdale syndrome. Allergies As of Date: 05/17/2024 Noted Allergy Reaction LATEX 11/03/2015 4 - Hives OXYCODONE 11/09/2015 1 - Mental Status Change Date Reviewed: 01/15/2024 Reviewed by: Marie Steward RN - Fully Assessed Reason for Visit: Gardasil Injection [1654] Primary Visit Diagnosis:Need for prophylactic vaccination/inoculation against viral disease [Z23] Prescriptions as of 05/17/2024 - multivit,thx,calcium,iron,mi ns (MULTIVITAMIN AND MINERAL ORAL) Take by mouth. [...] herbal supplemen (more content not included)... Normal [facility] CNNURSEon 01-15-2024 [facility] Nurse Visit (OBGYWM) NICOL HYMAN ([id number]) 1985 F Date Time Provider Department 01/15/24 10:00 AM NURSE CONE WINDER [facility] OBGYWM During your visit today, we [...] glands, joint and muscle pain, weakness and Guillain-Smithdale syndrome. Allergies As of Date: 01/15/2024 Noted Allergy Reaction LATEX 11/03/2015 4 - Hives OXYCODONE 11/09/2015 1 - Mental Status Change Date Reviewed: 01/15/2024 Reviewed by: Marie Steward RN - Fully Assessed Reason for Visit: HPV vaccine [Other] Primary Visit Diagnosis:Need for prophylactic vaccination/inoculation against viral disease [Z23] Prescriptions as of 01/15/2024 - multivit,thx,calcium,iron,mi ns (MULTIVITAMIN AND MINERAL ORAL) Take by mouth. [...] herbal sup (more content not included)... Normal [facility] .CCLNICOSon 11-16-2023 Cotinine <2 Normal <2 [facility] ([place]) Comment on above: Result Comment: Acti ve [...] developed and its performance characteristics determined by [facility]'s [facility] Pathology and Laboratory [facility] [place] ([facility]). It has not been cleared or approved by the FDA. [facility] is regulated under CLIA as qualified to perform high-complexity testing. This test is used for clinical purposes. It should not be regarded as investigational or for research. Performed By: [place] [place] [place] [address] Record Tabulating Clerk: Justen Cueva III, M.D. CLIA#: [id number] Performed By: #### C BC, LIPID, CMP, TSH, GFR, NICOT, ADIFF, ANEU #### [place] [address] Nicotine Lvl <2 Normal <2 [facility] ([place]) Comment on above: Result Comment: Perf ormed By: [place] [address] Record Tabulating Clerk: Justen Cueva III, M.D. CLIA#: [id number] Performed By: #### C BC, LIPID, CMP, TSH, GFR, NICOT, ADIFF, ANEU #### [place] [address] .Auto Diffon 11-13-2023 Basophil, Absolute 0.0 10 3/mcL Normal 0.0-0.2 [facility] ([place]) Comment on above: Performed By: #### C BC, LIPID, CMP, TSH, GFR, NICOT, ADIFF, ANEU #### [place] [address] Basophils/100 WBC (Bld) 0.5 % Normal 0.0-2.5 [facility] ([place]) Comment on above: Performed By: #### C BC, LIPID, CMP, TSH, GFR, NICOT, ADIFF, ANEU #### [place] [address] Eosinophil, Absolute 0.0 10 3/mcL Normal 0.0-0.4 [facility] ([place]) Comment on above: Performed By: #### C BC, LIPID, CMP, TSH, GFR, NICOT, ADIFF, ANEU #### [address] [address] Eosinophils/100 WBC (Bld) 0.2 % Normal 0.0-7.0 [facility] ([place]) Comment on above: Performed By: #### C BC, LIPID, CMP, TSH, GFR, NICOT, ADIFF, ANEU #### [address] [address] Lymphocyte, Absolute 1.6 10 3/mcL Normal 0.8-3.9 [facility] ([place]) Comment on above: Performed By: #### C BC, LIPID, CMP, TSH, GFR, NICOT, ADIFF, ANEU #### [address] [address] Lymphocytes/100 WBC (Bld) 22.0 % Normal 10.0-50.0 [facility] ([place] Comment on above: Performed By: #### C BC, LIPID, CMP, TSH, GFR, NICOT, ADIFF, ANEU #### [address] [address] Monocyte, Absolute 0.6 10 3/mcL Normal 0.2-1.0 [facility] ([place]) Comment on above: Performed By: #### C BC, LIPID, CMP, TSH, GFR, NICOT, ADIFF, ANEU #### [address] [address] Monocytes/100 WBC (Bld) 8.1 % Normal 1.7-13.0 [facility] ([place]) Comment on above: Performed By: #### C BC, LIPID, CMP, TSH, GFR, NICOT, ADIFF, ANEU #### [address] [address] Neutrophils/100 WBC (Bld) 69.2 % Normal 37.0-80.0 [facility] ([place]) Comment on above: Performed By: #### C BC, LIPID, CMP, TSH, GFR, NICOT, ADIFF, ANEU #### [address] [address] .GFRon 11-13-2023 GFR 85 ml/min/1.73sqm Normal [facility] ([place]) Comment on above: Result Comment: GFR Population [...] CMP, TSH, GFR, NICOT, ADIFF, ANEU #### [address] [address] GFR Non- 70 ml/min/1.73sqm Normal [facility] ([place]) Comment on above: Result Comment: GFR Population [...] CMP, TSH, GFR, NICOT, ADIFF, ANEU #### [address] [address] .NEUABSon 11-13-2023 Neutrophil, Absolute 4.9 10 3/mcL Normal 2.9-6.2 [facility] ([place]) Comment on above: Performed By: #### C BC, LIPID, CMP, TSH, GFR, NICOT, ADIFF, ANEU #### [address] [address] CBCon 11-13-2023 Erythrocyte distribution width (RBC) [Ratio] 14.3 % Normal 11.5-14.5 [facility] ([place]) Comment on above: Performed By: #### C BC, LIPID, CMP, TSH, GFR, NICOT, ADIFF, ANEU #### [address] [address] Hematocrit (Bld) [Volume fraction] 42.1 % Normal 37.0-47.0 [facility] ([place]) Comment on above: Performed By: #### C BC, LIPID, CMP, TSH, GFR, NICOT, ADIFF, ANEU #### [address] [address] Hgb 13.9 G/dL Normal 12.0-16.0 [facility] ([place]) Comment on above: Performed By: #### C BC, LIPID, CMP, TSH, GFR, NICOT, ADIFF, ANEU #### [address] [address] MCH (RBC) [Entitic mass] 29.1 pg Normal 27.0-31.2 [facility] ([place]) Comment on above: Performed By: #### C BC, LIPID, CMP, TSH, GFR, NICOT, ADIFF, ANEU #### [address] [address] MCHC 32.9 G/dL Low 33.0-37.0 [facility] ([place]) Comment on above: Performed By: #### C BC, LIPID, CMP, TSH, GFR, NICOT, ADIFF, ANEU #### [address] [address] MCV (RBC) [Entitic vol] 88.5 fL Normal 80.0-94.0 [facility] ([place]) Comment on above: Performed By: #### C BC, LIPID, CMP, TSH, GFR, NICOT, ADIFF, ANEU #### [address] [address] Platelet 252 10 3/mcL Normal 130-400 [facility] ([place]) Comment on above: Performed By: #### C BC, LIPID, CMP, TSH, GFR, NICOT, ADIFF, ANEU #### [address] [address] Platelet mean volume (Bld) [Entitic vol] 10.3 fL Normal 7.4-10.4 [facility] ([place]) Comment on above: Performed By: #### C BC, LIPID, CMP, TSH, GFR, NICOT, ADIFF, ANEU #### [address] [address] RBC 4.76 10 6/mcL Normal 4.20-5.40 [facility] ([place]) Comment on above: Performed By: #### C BC, LIPID, CMP, TSH, GFR, NICOT, ADIFF, ANEU #### [address] [address] WBC 7.1 10 3/mcL Normal 4.6-10.8 [facility] ([place]) Comment on above: Performed By: #### C BC, LIPID, CMP, TSH, GFR, NICOT, ADIFF, ANEU #### [address] [address] CMPon 11-13-2023 Albumin Level 4.0 G/dL Normal 3.5-5.0 [facility] ([place] Comment on above: Performed By: #### C BC, LIPID, CMP, TSH, GFR, NICOT, ADIFF, ANEU #### [address] [address] Albumin/Globulin [Mass ratio] 1.0 {ratio} Low 1.1-2.5 [facility] ([place] Comment on above: Performed By: #### C BC, LIPID, CMP, TSH, GFR, NICOT, ADIFF, ANEU #### [address] [address] ALP [Catalytic activity/Vol] 84 U/L Normal 40-135 [facility] ([place]) Comment on above: Performed By: #### C BC, LIPID, CMP, TSH, GFR, NICOT, ADIFF, ANEU #### [address] [address] ALT [Catalytic activity/Vol] 27 U/L Normal 14-59 [facility] ([place]) Comment on above: Performed By: #### C BC, LIPID, CMP, TSH, GFR, NICOT, ADIFF, ANEU #### [address] [address] AST [Catalytic activity/Vol] 21 U/L Normal 10-40 [facility] ([place]) Comment on above: Performed By: #### C BC, LIPID, CMP, TSH, GFR, NICOT, ADIFF, ANEU #### [address] [address] Bili Total 0.6 mg/dL Normal 0.2-1.0 [facility] ([place]) Comment on above: Result Comment: Use of this assay is not recommended for patients undergoing treatment with eltrombopag due to the potential for falsely elevated results. Performed By: #### C BC, LIPID, CMP, TSH, GFR, NICOT, ADIFF, ANEU #### [address] [address] BUN/Creatinine Ratio 7 ratio Normal 7-27 [facility] ([place]) Comment on above: Performed By: #### C BC, LIPID, CMP, TSH, GFR, NICOT, ADIFF, ANEU #### [address] [address] Calcium [Mass/Vol] 9.4 mg/dL Normal 8.4-10.2 [facility] ([place]) Comment on above: Performed By: #### C BC, LIPID, CMP, TSH, GFR, NICOT, ADIFF, ANEU #### [address] [address] Chloride [Moles/Vol] 102 mmol/L Normal 98-107 [facility] ([place]) Comment on above: Performed By: #### C BC, LIPID, CMP, TSH, GFR, NICOT, ADIFF, ANEU #### [place] [address] CO2 [Moles/Vol] 25 mmol/L Normal 22-29 [facility] ([place]) Comment on above: Performed By: #### C BC, LIPID, CMP, TSH, GFR, NICOT, ADIFF, ANEU #### [place] [address] Creatinine [Mass/Vol] 0.90 mg/dL Normal 0.55-1.02 [facility] ([place]) Comment on above: Performed By: #### C BC, LIPID, CMP, TSH, GFR, NICOT, ADIFF, ANEU #### [place] [address] Electrolyte Balance 14.0 mEq/L Normal 4.0-15.0 [facility] ([place]) Comment on above: Performed By: #### C BC, LIPID, CMP, TSH, GFR, NICOT, ADIFF, ANEU #### [place] [address] Globulin 3.9 G/dL Normal [facility] ([place]) Comment on above: Performed By: #### C BC, LIPID, CMP, TSH, GFR, NICOT, ADIFF, ANEU #### [place] [address] Glucose [Mass/Vol] 79 mg/dL Normal 70-105 [facility] ([place]) Comment on above: Performed By: #### C BC, LIPID, CMP, TSH, GFR, NICOT, ADIFF, ANEU #### [place] [address] Potassium [Moles/Vol] 4.3 mmol/L Normal 3.5-5.1 [facility] ([place]) Comment on above: Performed By: #### C BC, LIPID, CMP, TSH, GFR, NICOT, ADIFF, ANEU #### [place] [address] Sodium [Moles/Vol] 141 mmol/L Normal 136-145 [facility] ([place]) Comment on above: Performed By: #### C BC, LIPID, CMP, TSH, GFR, NICOT, ADIFF, ANEU #### [address] [place], [place] [address] Total Protein 7.9 G/dL Normal 6.4-8.2 [facility] ([place]) Comment on above: Performed By: #### C BC, LIPID, CMP, TSH, GFR, NICOT, ADIFF, ANEU #### [address] [place], [place] [address] Urea nitrogen [Mass/Vol] 6 mg/dL Low 7-18 [facility] ([place]) Comment on above: Performed By: #### C BC, LIPID, CMP, TSH, GFR, NICOT, ADIFF, ANEU #### [address] [address] LIPIDon 11-13-2023 Cholesterol [Mass/Vol] 203 mg/dL High 0-200 [facility] ([place]) Comment on above: Result Comment: Chol esterol Reference Interval: Less than 200 Desirable 200-239 Borderline high risk 240 and above High risk Performed By: #### C BC, LIPID, CMP, TSH, GFR, NICOT, ADIFF, ANEU #### [address] [address] Cholesterol in HDL [Mass/Vol] 76 mg/dL High 40-60 [facility] ([place]) Comment on above: Performed By: #### C BC, LIPID, CMP, TSH, GFR, NICOT, ADIFF, ANEU #### [address] [place], [place] [address] Cholesterol in LDL [Mass/Vol] 115 mg/dL Normal 0-130 [facility] ([place]) Comment on above: Performed By: #### C BC, LIPID, CMP, TSH, GFR, NICOT, ADIFF, ANEU #### [address] [address] Triglyceride [Mass/Vol] 61 mg/dL Normal 0-150 [facility] ([place]) Comment on above: Result Comment: Trig lyceride Reference Interval: Less than 150 Normal 150-199 Borderline high risk 200-499 High risk 500 or higher Very high risk Performed By: #### C BC, LIPID, CMP, TSH, GFR, NICOT, ADIFF, ANEU #### [address] [place], [place] [address] TSHon 11-13-2023 TSH Qn 1.45 m[IU]/L Normal 0.36-3.74 [facility] ([place]) Comment on above: Performed By: #### C BC, LIPID, CMP, TSH, GFR, NICOT, ADIFF, ANEU #### [address] [place], [place] [address] CNOVon 11-10-2023 CNOV Office Visit (OBGYWM ) NICOL HYMAN ([id number]) 1985 F Date Time Provider Department 11/10/23 3:40 PM WILLIE GUEVARA During your visit today, we recorded the following information about you: Blood pressure Weight Height Last Period 130/72 101.6 kg 1.588 m 11/04/23 Willie Guevara MD 11/10/2023 4:20 PM 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 Bailey is a 38 year old who presents for an annual gynecologic exam without complaints. Menses: cycles every 28-30 days and 4 days of flow. Contraception: vasectomy HPV vaccine: No Last Pap: 12/23/2022 normal HPV: 12/19/2022 positive History of abnormal pap: HRHPV positive 2022 Last mammogram: never OB History T2 L3 SAB0 IAB0 Ectopic0 Multiple0 Live Births3 Pack Out Operator History LMP: 11/04/2023 (Exact Date), Having periods Age at Menarche: Age at First : Age at Menopause: Pack Out Operator History Comments: Sexual Activity: Yes; Male Contraception: [...] external genitalia normal, normal Bartholin's glands, urethra, Verdigris's glands, no vulvar lesions, no cervical lesions, [...] become pregn (more content not included)... Normal [facility] HIGH RISK HUMAN PAPILLOMA MANUEL (HPV), PCR FOR DETECTION AND GENOTYPINGon 11-10-2023 HPV 16 Ag Ql (Unsp spec) Not detected Normal Not detected [facility] Comment on above: Order Comment: Speci men Type: FLUID SPECIMENOrdering Facility: [facility] Address: [address] [place] [address] Performed By: #### H PVHRT, [id number] ####[facility] LABCLIA [id number] [id number] [address] [place] HPV 18 Ag Ql (Unsp spec) Not detected Normal Not detected [facility] Comment on above: Order Comment: Speci men Type: FLUID SPECIMENOrdering Facility: [facility] Address: [address] [place] [address] Performed By: #### H PVHRT, [id number] ####[facility] LABCLIA [id number] [place] [address] [place] HPV 31+33+35+39+45+51+52+ 56+58+59+66+68 DNA SHREYAS+probe Ql (Cvx) Not detected Normal Not detected [facility] Comment on above: Order Comment: Speci men Type: FLUID SPECIMENOrdering Facility: [facility] Address: [address] [place] [address] Result Comment: High Risk HPV Other Type includes HPV types 31, 33, 35, 39, 45, 51, 52, 56, 58, 59, 66 and 68. Performed By: #### H PVHRT, [id number] ####[facility] LABCLIA [id number] [place] [address] [place] PAP TESTon 11-10-2023 ADEQUACY Satisfactory for interpretation. Normal [facility] Comment on above: Order Comment: Speci men Type: FLUID SPECIMENOrdering Facility: [facility] Address: [address] [place] [address] Performed By: #### H PVHRT, [id number] ####[facility] LABCLIA [id number] [place] [address] [place] CASE REPORT Normal [facility] Comment on above: Order Comment: Speci men Type: FLUID SPECIMENOrdering Facility: [facility] Address: [address] [place] [address] Result Comment: Gyne cologic Cytology Report Case: [id number] Authorizing Provider: Willie Guevara MD Collected: 11/10/2023 04:06 PM Ordering Location: OB/Gynecology Received: 11/10/2023 04:55 PM First Screen: Reyes, Ingrid, CT, ASCP Specimen: Pap Test, ThinPrep, Cervix Performed By: #### H PVHRT, [id number] ####[facility] LABCLIA [id number] [place] [address] [place] CLINICAL HISTORY, CYTOLOGY, WOOD GRAINER Positive Normal [facility] Comment on above: Order Comment: Speci men Type: FLUID SPECIMENOrdering Facility: [facility] Address: [address] [place] [address] Performed By: #### H PVHRT, [id number] ####[facility] LABCLIA [id number] [place] [address] [place] FINAL PERFORMING LAB Normal [facility] Comment on above: Order Comment: Speci men Type: FLUID SPECIMENOrdering Facility: [facility] Address: [address] [place] [address] Result Comment: Tech nical component, brand director screening performed at [facility], [address] [place], [place] [id number] CLIA# [id number] Diagnostic interpretation performed at [facility], [address] [place], [place] [address] CLIA# [id number] Shoemaking Finisher: Justen Cueva M.D. Performed By: #### H PVHRT, [id number] ####[facility] LABCLIA [id number] [place] [address] [place] HPV REFLEX Yes HPV Normal [facility] Comment on above: Order Comment: Speci men Type: FLUID SPECIMENOrdering Facility: [facility] Address: [address] [place], [place] [address] Performed By: #### H PVHRT, [id number] ####[facility] LABCLIA [id number] [place] [address] [place] INTERPRETATION, CYTOLOGY, WOOD GRAINER Normal [facility] Comment on above: Order Comment: Speci men Type: FLUID SPECIMENOrdering Facility: [facility] Address: [address] [place] [address] Result Comment: Nega tive for intraepithelial lesion or malignancy. Performed By: #### H PVHRT, [id number] ####[facility] LABCLIA [id number] [address] [address] [place] LMP 11/04/2023 Normal [facility] Comment on above: Order Comment: Speci men Type: FLUID SPECIMENOrdering Facility: [facility] Address: [address] [place] [address] Performed By: #### H PVHRT, [id number] ####[facility] LABCLIA [id number] [address] [address] [place] PAP DISCLAIMER COMMENT The Pap Smear is a screening test for cervical cancer. False negative results occur with all screening tests, emphasizing the need for rescreening at recommended intervals, and clinical correlation. Normal [facility] Comment on above: Order Comment: Speci men Type: FLUID SPECIMENOrdering Facility: [facility] Address: [address] [place] [address] Performed By: #### H PVHRT, [id number] ####[facility] LABCLIA [id number] [place] [address] [place] PAP TERMINAL PRESS OPERATOR COMMENT This specimen has be en analyzed by the ThinPrep Imaging System, an automated imaging and review system, which assists the laboratory in evaluating cells on ThinPrep Pap tests. Following automated imaging, selected christensen from every slide are reviewed by a brand director. Normal [facility] Comment on above: Order Comment: Speci men Type: FLUID SPECIMENOrdering Facility: [facility] Address: [address] [place] [address] Performed By: #### H PVHRT, [id number] ####[facility] LABCLIA [id number] [place] [id number] [place] CASE MANAGEMon 01-16-2018 CASE MANAGEM HNO ID: [id number] thor: Audrey Wasserman ([place])e: Care ManagementAuthor Type: Social WorkerType: Care Mgt Progress NoteFiled: 01/16/2018 2:08 PMNote Text:CARE MANAGEMENT DISCHARGE NOTESERVICE DATE: 01/16/2018SERVICE TIME: 2:08 PM LOS: 4 daysPt's to transport home at 5pm. No skilled needs at DC. Pt to [place] with self care.SIGNATURE: BRAYAN Bernal PATIENT NAME: Nicol HymanDATE: January 16, 2018 : 2:08 PM PAGER/CONTACT #: [phone] [facility] 01-16-2018 CN HNO ID: [id number] thor: Pasha Dickersonervice: NeurosurgeryAuthor Type: Physician AssistantType: Discharge SummariesFiled: 01/18/2018 1:26 PMNote Text: -Attestation signed by Leena Zhao at 01/18/2018 1:52 Kathya Zhao MD DISCHARGE SUMMARYPATIENT NAME: Nicol Hyman ADMISSION DATE: 01/10/2018MRN: [id number] DISCHARGE DATE: 01/16/2018[facility]: Jaylon Boyd DO Code Status: [...] Hospitalizations (12 mos.)SIGNATURE: Pasha Mendiola PA-C PAGER: [phone]: January 16, 2018TIME: 1:35 PM Normal [facility] CONSULT PROGon 01-16-2018 Protein mass conc HNO ID: [id number] thor: Connie (Wandy) Randy TraceyosService: Pain ManagementAuthor Type: Nurse PractitionerType: Consult Progress NoteFiled: 01/16/2018 10:05 AMNote Text:APMS PROGRESS NOTEPATIENT NAME: Nicol HymanMRN: [id number] DATE: 01/16/2018SERVICE TIME: 9:00 AMASSESSMENTNicol Hyman is [...] Latex Hives- Oxycodone Mental Status ChangeMEDICATIONS:Current hospital medications:loratadine-pseud oephedrine ER 10-240 mg 1 tablet (CLARITIN-D 24) [...] 7.5 oz) SpO2 97% BMI 42.70kg/m?Affect: awake, walj4Yxlhixp Impression: appears comfortableMoving all extremitiesRespiratory Exam:Respirations: Breathing [...] 1.00 - 4.00 k/uL 2.63Mono% % 8.1Abs Rich <0.87 k/uL 1.05 (H)Eosin% % 0.5Abs Eosin <0.46 k/uL 0.06Baso% % 0.1Abs Baso <0.11 k/uL <0.03SIGNATURE:Connie Rosario,CAPTAIN WAITER.MOTORSPORTS TECHNICIAN PATIENT NAME: Nicol YamelDATE: January 16, 2018 : 09:00 AM PAGER/CONTACT #: [facility] [phone] [facility] NURSING PROGon 01-16-2018 Protein mass conc HNO ID: [id number] thor: Jes (Rn) FLACO Yarbroughervice: (none)Author Type: Registered NurseType: Nursing Progress NoteFiled: 01/16/2018 5:14 PMNote Text: Nursing Progress NotePatient Name: Nicol WhelandelilahMRN: [id number] Location: TC/AR-XKWY-58 ____Daily Note:AANDOx3 up independently. 05/06 pain noted at incision site.Lidoderm patch applied. Notified PA of right ear pain. Reviewed dischargeinstructions with patient, patient verbalized understanding ofinstructions. Patient left via wheelchair with belongings in stablecondition at 1700.This note was completed by: Jes Yarbrough RN [facility] Protein mass conc HNO ID: [id number] thor: Sloane (Vernon) Deric, RNService: (none)Author Type: Registered NurseType: Nursing Progress NoteFiled: 01/16/2018 12:49 AMNote Text: Nursing Progress NotePatient Name: Nicol HymanMRN: [id number] Location: [place] [address]/WB-YXSO-89 ____Daily Note:Pt is a/o x3, PERRL. C/o mild pain at incision site, Reports relief frompain management regimen. LS clear throughout on RA. Denies n/v anddizziness. In pleasant spirits. Pt safety maintained, call light withinreach.This note was completed by: Sloane Leos RN [facility] PROGRESSon 01-16-2018 Protein mass conc HNO ID: [id number] thor: Pasha Michaud (Julee-Payton) DontekService: NeurosurgeryAuthor Type: Physician AssistantType: Progress NotesFiled: 01/16/2018 4:26 PMNote Text: -Attestation signed by Leena Zhao at 01/16/2018 4:52 Kathya Zhao MD [facility] UROSURGERY POST OP PROGRESS NOTESERVICE DATE: 01/16/2018SERVICE TIME: 1330POST OP DAY: # 4SUBJECTIVEPatient states that she is now having ear pain.OBJECTIVEGeneral: AANDOx 3, NAD, RICH orozco, AFVSS.Incision: dressing CDI.Drain: no drain.Clarke: no clarke.Most recent labs and imaging results..Current hospital medications:loratadine-pseud oephedrine ER 10-240 mg 1 tablet (CLARITIN-D 24) [...] of surgical wound (01/11/2018)Medication and Non-Pharmacologic VTE Prophylaxis/Eepbzhwlxhkvsn65 /20/18 1445 activity - mobilize patient (fl,oh)01/11/18 1430 vte pharmacologic prophylaxis contraindicated (fl,oh)01/11/18 1430 pneumatic compression stockings (fl,oh)VTE Prophylaxis: VTE prophylaxis appropriateNicol Hyman is a 32 year old status post pseudomeningocelerepair.OK to DC homePt seen and examined with Dr. Zhao. All recommendations discussed withand initiated by Dr. Zhao.Pt seen and examined with Dr. Zhao. Allrecommendations discussed with and initiated by Dr. Zhao.SIGNATURE: Pasha Mendiola PA-C PATIENT NAME: Nicol HymanDATE: January 16, 2018 : 1:35 PM PAGER/CONTACT #:[phone] [facility] CASE MANAGEMon 01-15-2018 CASE MANAGEM HNO ID: [id number] thor: Audrey Weeks (Sw)Serhomae: Care ManagementAuthor Type: Social WorkerType: Care Mgt Progress NoteFiled: 01/15/2018 11:43 AMNote Text:CARE MANAGEMENT PROGRESS NOTESERVICE DATE: 01/15/2018SERVICE TIME: 11:42 AM LOS: 3 daysNo skilled needs anticipated. bedside and will transport home atTN. DC anticipated for tomorrow.SIGNATURE: BRAYAN Bernal PATIENT NAME: Nicol HymanDATE: January 15, 2018 : 11:42 AM PAGER/CONTACT #: [phone] [facility] CONSULT PROGon 01-15-2018 Protein mass conc HNO ID: [id number] thor: Connie Shahrvice: Pain ManagementAuthor Type: Nurse PractitionerType: Consult Progress NoteFiled: 01/15/2018 10:54 AMNote Text:APMS PROGRESS NOTEPATIENT NAME: Nicol HymanMRN: [id number] DATE: 01/15/2018SERVICE TIME: 9:37 AMASSESSMENTNicol Hyman is [...] care.Please call us with any questions or concerns.APMS will continue to follow.SUBJECTIVECHIEF COMPLAINT: Right sided [...] 7.5 oz) SpO2 98% BMI 42.70kg/m?Affect: awake, egfg2Oneyqlw Impression: appears comfortableMoving all extremitiesRespiratory Exam:Respirations: Breathing [...] 1.00 - 4.00 k/uL 2.63Mono% % 8.1Abs Rich <0.87 k/uL 1.05 (H)Eosin% % 0.5Abs Eosin <0.46 k/uL 0.06Baso% % 0.1Abs Baso <0.11 k/uL <0.03SIGNATURE:Connie Rosario,CAPTAIN WAITER.MOTORSPORTS TECHNICIAN PATIENT NAME: Nicol MontesinosDATE: January 15, 2018 : 09:37 AM PAGER/CONTACT #: [facility] [phone] [facility] PROGRESSon 01-15-2018 Protein mass conc HNO ID: [id number] thor: Pasha Taylorice: NeurosurgeryAuthor Type: Physician AssistantType: Progress NotesFiled: 01/15/2018 9:19 AMNote Text: -Attestation signed by Leena Zhao at 01/15/2018 10:37 Apolonia Zhao MD NE UROSURGERY POST OP PROGRESS NOTESERVICE DATE: 01/15/2018SERVICE TIME: [...] of surgical wound (01/11/2018)Medication and Non-Pharmacologic VTE Prophylaxis/Pgmaymijltxqjo95 /20/18 1445 activity - mobilize patient (ne,oh)01/11/18 1430 vte pharmacologic prophylaxis contraindicated (ne,oh)01/11/18 1430 pneumatic compression stockings (ne,ky)VTE Prophylaxis: VTE prophylaxis appropriateNicol Hyman is a 32 year old status post pseudomeningocelerepair.Nilesh mmend increasing activity and discharge planning.Anticipate discharge in 1 day.SIGNATURE: Pasha Mendiola PA-C PATIENT NAME: Nicol HymanDATE: January 15, 2018 : 9:18 AM PAGER/CONTACT #:[phone] [facility] CONSULT PROGon 01-14-2018 Protein mass conc HNO ID: [id number] thor: Xander PichardoSerhomae: Pain ManagementAuthor Type: Physician AssistantType: Consult Progress NoteFiled: 01/14/2018 11:17 AMNote Text:PERIPHERAL NERVE CATHETER PROGRESS NOTEPATIENT NAME: Nicol HymanMRN: [id number] DATE: 01/14/2018SERVICE TIME: 11:01 AMASSESSMENTNicol Hyman is [...] progress and plan of care with Dr. Parry: Xander Pichardo PA-C PATIENT NAME: Nicol Cain WalteruberDATE: January 14, 2018 : 11:01 AM PAGER/CONTACT #: [facility] [phone] [facility] NURSING PROGon 01-14-2018 Protein mass conc HNO ID: [id number] thor: Opal (Rn) Adriana Moya: (none)Author Type: Registered NurseType: Nursing Progress NoteFiled: 01/14/2018 8:58 PMNote Text: Nursing Progress NotePatient Name: Nicol HymanN: [id number] Location: [facility]/LY-QOSI-71 ____Daily Note: pt AANDox3, follows commands. Headache pain 3/10 aftermedication. Denies nausea. Dressing clean, dry and intact. atbedside. Safety maintained, call light in reach, will continue to monitor.This note was completed by: Opal Moya RN [facility] Protein mass conc HNO ID: [id number] thor: Jes DempseyRn) Edmundo Yarbroughice: (none)Author Type: Registered NurseType: Nursing Progress NoteFiled: 01/14/2018 7:48 PMNote Text: Nursing Progress NotePatient Name: Nicol HymanMRN: [id number] Location: [place] [address]/XA-DPLI-01 ____Daily Note:AANDOx3 c/o of 10/10 sharp throbbing headache. [...] note was completed by: Jes Yarbrough RN [facility] Protein mass conc HNO ID: [id number] thor: Sloane (Rn) FLACO Leoservice: (none)Author Type: Registered NurseType: Nursing Progress NoteFiled: 01/14/2018 6:34 AMNote Text: Nursing Progress NotePatient Name: Nicol HymanMRN: [id number] Location: [place] [address]/MY-VJUL-37 ____Daily Note:Pt is a/o x3, PERRL. C/o headache, [...] than pain meds.This note was completed by: Sloane Leos RN [facility] PROCEDUREon 01-14-2018 Protein mass conc HNO ID: [id number] thor: Rena (Vernon) FLACO Hoervice: PICC TeamAuthor Type: Registered NurseType: ProceduresFiled: 01/14/2018 11:55 AMNote Text:PICC/VASCULAR ACCESS PROGRESS NOTESERVICE DATE: 01/14/2018SERVICE TIME: 1130Called to place PIV after unsuccessful RN attempt. #22 gauge 1.75 in IVstarted left antecubital fossa using ultrasound guidance. Brisk bloodreturn and flushed with 10 ml normal saline. No signs of complication.SIGNATURE: Rena Ho RN PATIENT NAME: Nicol WhelanentruberDATE: January 14, 2018 : 11:55 AM Normal [facility] PROGRESSon 01-14-2018 Protein mass conc HNO ID: [id number] thor: Noy Kang) Rafia Deee: NeurosurgeryAuthor Type: Physician AssistantType: Progress NotesFiled: 01/14/2018 [...] or drainageDressing CDI.LABS:CBC, Coags, BMP, Mg, PhosURINALYSISSpecific [place], UrDate Value Ref Range Botuhx7012/25/2017 1.018 1.005 - 1.030 Final Glucose, UrineDate Value Ref Range Ugwyxz8212/25/2017 Negative Negative mg/dL Final Bilirubin, UrineDate Value Ref Range Fcmqac4012/25/2017 Negative Negative Final Ketones, UrineDate Value Ref Range Gtiimm6312/25/2017 Negative Negative Final Hemoglobin/Bl ood,UrDate Value Ref Range Ndtvla6512/25/2017 Negative Negative Final Protein, UrineDate Value Ref Range Ahkdbg5212/25/2017 Negative Negative mg/dL Final Urobilinogen, UrineDate Value Ref Range Rjoxqn5404/26/2016 neg Normal (<1.1) EU Final LeukocytesDat e Value Ref Range Kikjrc1108/16/2016 neg Neg Final WBC, UrineDate Value Ref Range Yqdeyz3612/25/2017 0-5 0 - 5 /HPF Final Noy Hernandez PA-C Normal [facility] NURSING PROGon 01-13-2018 Protein mass conc HNO ID: [id number] thor: Monique (Rn) FLACO Feldmanervice: (none)Author Type: Registered NurseType: Nursing Progress NoteFiled: 01/13/2018 8:07 PMNote Text: Nursing Progress NotePatient Name: Nicol WhelandelilahMRN: [id number] Location: [place] [address]/NU-NQTX-61 ____Daily Note: Pt A/Ox3, Pt having some increased pain and headache todayversus right after surgery yesterday. Pt given the oral pain meds as perorders. Pt did feel some nausea today but was able to tolerate oralintake for breakfast and lunch. Pt given oral phenergan for the nausea asper the orders. Pt continuing on IVF and [facility] AB[facility] is a standby assist for safety. [...] note was completed by: Monique Feldman RN [facility] Protein mass conc HNO ID: [id number] thor: Sally Michaud (Rn) Derrick, RNService: (none)Author Type: Registered NurseType: Nursing Progress NoteFiled: 01/13/2018 6:11 AMNote Text: Nursing Progress NotePatient Name: Nicol HymanN: [id number] Location: [place] [address]/PO-KQEP-46 ____Daily Note:patient a/ox3. Up with standby assist. Patient complains ofdizziness at times. denies any nausea or vomiting. Patient has 6/10headache, prn tylenol given. Dressing to head and neck clean dry andintact. Patient currently in bed, call light in reach.This note was completed by: Sally Meza, VERNON [facility] PROGRESSon 01-13-2018 Protein mass conc HNO ID: [id number] thor: Noy Kang) Rafia Deee: NeurosurgeryAuthor Type: [...] LTDressing CDILABS:CBC, Coags, BMP, Mg, PhosRecent Labs WBC 12.98*HB 14.1HCT 43.2PLT 399NA 140K 4.1CHLOR 101CO2 27BUN 9CREAT 0.83GLUC 91CA 8.8URINALYSISSpecific [place], UrDate Value Ref Range Gixuyd4612/25/2017 1.018 1.005 - 1.030 Final Glucose, UrineDate Value Ref Range Ealitk0812/25/2017 Negative Negative mg/dL Final Bilirubin, UrineDate Value Ref Range Qxkdjm0112/25/2017 Negative Negative Final Ketones, UrineDate Value Ref Range Gbxosw1912/25/2017 Negative Negative Final Hemoglobin/Bl ood,UrDate Value Ref Range Luklwe2712/25/2017 Negative Negative Final Protein, UrineDate Value Ref Range Qzaaug3412/25/2017 Negative Negative mg/dL Final Urobilinogen, UrineDate Value Ref Range Lzksyy5504/26/2016 neg Normal (<1.1) EU Final LeukocytesDat e Value Ref Range Bpknxl8008/16/2016 neg Neg Final WBC, UrineDate Value Ref Range Bacwjc1412/25/2017 0-5 0 - 5 /HPF Final Noy Hernandez PA-C Normal [facility] ANES Juan 01-12-2018 ANES POST HNO ID: [id number] thor: Apolinar HawthorneeService: AnesthesiologyAuthor Type: AnesthesiologistType: Anesthesia PostOpFiled: 01/12/2018 2:58 PMNote Text:POST ANESTHESIA EVALUATION NOTESERVICE DATE: 01/12/2018SERVICE TIME: 2:58 PMDOB: 1985Vitals: 745 01/12/1814P: 144/90 118/60 142/97 127/89Pulse: 65 72 90 [...] 12, 2018 : 2:58 PM PAGER/CONTACT #: [phone] [facility] ANES PREOPon 01-12-2018 ANES PREOP HNO ID: [id number] thor: Apolinar Asherrvice: AnesthesiologyAuthor Type: AnesthesiologistType: Anesthesia PreOpFiled: 01/12/2018 1:18 PMNote Text:REGIONAL ANESTHESIOLOGY DAY OF SURGERY NOTEPATIENT NAME: Nicol HymanMRN: [id number]: 1985Procedure(s) (LRB):REPAIR CSF LEAK W/O LAMINECTOMY (N/A)Surgeon(s):Leena Gleason body mass index is 39.87 kg/m? as calculated from the following: Height as of this encounter: 157.5 cm (5' 2). Weight as of this encounter: 98.9 kg (218 lb).ASA Class: 2Adequate NPO status: YesAllergies:ALLERGIESAllerg en Reactions- Latex Hives- Oxycodone Mental Status ChangeAirway Assessment: MP 3; Neck ROM: Full ROM without neurologic symptoms;Airway Evaluation: Small Mouth OpeningDentition: Teeth intactSymptoms of Sleep Apnea: DeniesMost recent lab results:HGB 14.1 01/10/2018Hematocrit 43.2 01/10/2018Potassium 4.1 01/10/2018Platelet Count 399 01/10/2018PT Sec 10.3 12/25/2017APTT 30.5 12/25/2017PT INR 1.0 12/25/2017Creatinine 0.83 01/10/2018EKG:unchanged from previous tracingsVitals: 01/12/180057 74213BP: 125/69 118/63 144/90 118/60Pulse: 61 60 65 [...] contains updated information obtained within 48 hours ofSurgery/Procedure.SIGNATUR E: Apolinar Pardo MD PATIENT NAME: Nicol HymanDATE: January 12, 2018 : 1:17 PM PAGER/CONTACT #: [facility] NURSING PROGon 01-12-2018 Protein mass conc HNO ID: [id number] thor: Monique (Rn) FLACO Feldmanervice: (none)Author Type: Registered NurseType: Nursing Progress NoteFiled: 01/12/2018 7:57 PMNote Text: Nursing Progress NotePatient Name: Nicol WhelandelilahMRN: [id number] [facility] ____Daily Note:08:00: Pt lying flat with legs elevated. Pt has 2 ice packsapplied to each side of her neck, Pt states she is in pain 10/10 butmorphine is not working so declined medication.10:00: Pt assisted to BR, Pt continues to have neck pain and KIM, 10/10.Room dark and door closed as per Pt [...] note was completed by: Monique Feldman RN [facility] Protein mass conc HNO ID: [id number] thor: Sally Michaud (Rn) Derrick, RNService: (none)Author Type: Registered NurseType: Nursing Progress NoteFiled: 01/12/2018 5:29 AMNote Text: Nursing Progress NotePatient Name: Nicol Payton HymanMRN: [id number] Location: [place] [address]/XO-UUSC-76 ____Daily Note:patient a/ox3. Patient has a continuous 10/10 headache, prnpain medications. Patient also complains of nausea, IV phenergan given.This note was completed by: Sally Meza RN [facility] OPERATIVE NOon 01-12-2018 OPERATIVE NO HNO ID: [id number] thor: Leena Mahoneyervice: NeurosurgeryAuthor Type: PhysicianType: Operative ReportFiled: 01/13/2018 11:28 AMNote Text:[facility] - Operative ReportSMACRINANICOL ELDRIDGE CDOB: 1985AGE: 32.SEX: FMRN: [id number] TYPE: IHOSP SVC: EMERLOCATION: [id number] PHYSICIAN: Leena Zhao M.D.CSN NUMBER: [id number] OF SURGERY/PROCEDURE: 01/12/2018INCISION/PROCEDURE START TIME: 1338 hours.INCISION CLOSE/PROCEDURE END TIME: 1418 hours.PREOPERATIVE DIAGNOSIS: Occipital pseudomeningocele.POSTOPERAT KATIANA DIAGNOSIS: Occipital pseudomeningocele.SURGEON: Leena Zhao M.D.STEAM BOX HAND: Assisted by JULEE Bose.SURGERY/PROCEDURE: Drainage and repair of occipital pseudomeningocele.ANESTHESIA : General endotracheal.FINDINGS: CSF leaking at the suture line of the graft.BLOOD LOSS: 10 cc.SPECIMENS: None.COMPLICATIONS: None.PREOPERATIVE CLINICAL NOTE: The patient is a 32-year-old female who hadsuccessful decompression of a Chiari malformation 1 week ago on01/05/2018. She recovered uneventfully and was discharged home.However, she presented earlier this week with headaches and eventuallynoticed some fluid at her incisional line. [facility]. The leak continued and we offered her surgical re-exploration and drainage of an occipitalpseudomeningocele.D ESCRIPTION OF PROCEDURE: Prior to the procedure, the [...] a head wrap as well. We removed theMayfield laborer heading and the pin sites were free of any bleeding. Thepatient was returned to the supine position and handed back toAnesthesia for further recovery.Leena Zhao M.D.SV:[id number] #: [id number]: 01/12/2018 14:30:47 Normal [facility] CASE MGT INIT ASSESon 2017 CASE MGT INIT KYLEIGH HNO ID: [id number] thor: Audrey Chavez) Lawanda: Care ManagementAuthor Type: Social WorkerType: Care Mgt Initial AssessmentFiled: 01/11/2018 1:48 PMNote Text:CARE MANAGEMENT: ASSESSMENT AND DISCHARGE PLANSERVICE DATE: 01/11/2018SERVICE TIME: 1:44 PMPRIMARY CARE PHYSICIAN:RANDELL Adkinshone: [phone] STATUS: ObservationNeeds Prior to Discharge: To Be DeterminedMEDICAL:Patient/Re presentative Stated Goals:To have reduction in painHealth Insurance: Kinetic PPOCignaHealth Issues Impacting Discharge Plan: CSF leak from incision siteLast Admission Date: Previous admit date: 01/05/2018Is this Within the Past 30 days? YesIs This a Planned Readmission? No: Recurrent symptoms of underlyingdiseaseFollowed Up with Appointment Prior to Admission: Patient scheduled, butreadmitted priorWhere Did the Patient Come From? HomeIntervention Taken to Avoid Future Readmission? SurgeryAdvance Directive:Current Advance Directive: NoneCare Critical Care Physician Assistant Attempted to Assist with AD Completion: YesAction: [...] Admission: NoneHas the Patient Been in a Mcfp Facility in the Past 30 days? NoSOCIAL:Living Arrangement: HomeLives With: Spouse and childrenFinancial Resources: UnemployedPrimary Contact: Extended Emergency Contact InformationPrimary Emergency Contact: Kalyan Hymanress: [address] [place] [address] [facility] Milfodvh: SpouseSupportive: YesOther Important Patient Contacts: NoneCaregiver Assessment:Caregiver [...] - 0I feel financially burdened by my snq-im-bqxjfz expenses for myprescription medication: Disagree completely - [...] had craniectomyon 01/07/18. Pt admitted from home. STROKE PROGRAM COORDINATOR pt independent and caring for herkids at home. No skilled needs anticipated at DC. Pt on add on schedulefor surgery, anticipate later today or tomorrow. [place]at [place]. SW to remain available for transitional planning.SIGNATURE: BRAYAN Bernal PATIENT NAME: Nicol HymanDATE: January 11, 2018 : 1:44 PM PAGER/CONTACT #: [phone] [facility] HISTORY PHYSICALon 8 HISTORY PHYSICAL HNO ID: [id number] thor: Pasha Bassett) Tuanervice: NeurosurgeryAuthor Type: Physician AssistantType: HANDPFiled: 01/11/2018 1:21 PMNote Text:HISTORY AND PHYSICAL EXAMINATIONSERVICE DATE: 01/11/2018SERVICE TIME: 1:17 [facility] CARE PHYSICIAN: Faustino Adkins patient is a 32-year-old female with h/o [...] kg/m?Body mass index is 39.87 kg/m?.Awake and rtmsvab1RBNEati symmetricSpeech clearTongue midlineNo neuro deficits noted.DATA:Diagnostic tests reviewed for today's visit:Most recent labs and imaging results.Assessment/PlanActiv e Problems: CSF leak from incision site Assessment AND Plan:Surgery today if OR Time available.Resolved Problems: * No resolved hospital problems. *SIGNATURE: Pasha Mendiola PA-C PATIENT NAME: Nicol HymanDATE: January 11, 2018 : 1:17 PM PAGER/CONTACT #: [phone] [facility] NURSING PROGon 01-11-2018 Protein mass conc HNO ID: [id number] thor: Criss (Rn) FLACO Chavarriaervice: (none)Author Type: Registered NurseType: Nursing Progress NoteFiled: 01/11/2018 1:23 PMNote Text: Nursing Progress NotePatient Name: Nicol HymanMRN: [id number] Location: [place] [address]/TU-KNIH-31 ____Daily Note:Pt reports pain 3/10 this am, however [...] note was completed by: Criss Chavarria RN [facility] Protein mass conc HNO ID: [id number] thor: Yari (Rn) Jabari, FLACOervice: (none)Author Type: Registered NurseType: Nursing Progress NoteFiled: 01/11/2018 3:58 AMNote Text: Nursing Progress NotePatient Name: Nicol HendricksonkristynN: [id number] Location: /XF-QWTX-17 ____Daily Note:2200: Pt admitted into from ED in stable condition. Purple Teampaged for orders.2330: Purple Team not here Dr. Cece patel [id number]: Morphine given. Dressing assessed. No drainage noted. Pt states herpain is 12/10.0130: Yellowish drainage noted to be leaking from bottom of incision site.Pt complaining of 8/[address] Cece jarquin. Morphine changed to Q2 andMotrin added.This note was completed by: Yari Barboza RN Normal [facility] ALLIED HEALTHon 01-10-2018 ALLIED HEALTH HNO ID: [id number] thor: José Ruby (Tech)vice: RadiologyAuthor Type: TechnicianType: Allied HealthFiled: 01/10/2018 7:20 PMNote Text: Radiology Service Progress NotePATIENT NAME: Nicol HymanMRN: [id number] OF SERVICE: January 10, 2018TIME: 7:20 PMPATIENT IDENTITY VERIFICATION COMPLETED USING TWO (2) METHODS: Patientconfirmed name verbally and ID band matches..PATIENT GENDER DATA: MalePATIENT RELEVANT IMPLANT DATA REVIEWED: Not ApplicableRADIOLOGY DEPARTMENT: CT; Exam(s) Completed: BrainPERIPHERAL IV DATA: Not applicableSIGNED BY: Robson RUBYober 2017 7:20 PM [facility] CBC and Differentialon 01-10 Abs Baso <0.03 Normal <0.11 [facility] Comment on above: Performed By: #### C BCDIF CMP ####[place] [id number] Abs Rich 1.05 k/uL High <0.87 [facility] Comment on above: Performed By: #### C BCDIF CMP ####[place] [id number] Abs Neut 9.23 k/uL High 1.45-7.50 [facility] Comment on above: Performed By: #### C BCDIF CMP ####[place] [id number] Basophils/100 WBC Auto (Bld) 0.1 % [facility] Comment on above: Performed By: #### C BCDIF, CMP ####[place] [id number] DTYPE Auto Diff [facility] Comment on above: Performed By: #### C BCDIF, CMP ####[place] [address] Eosinophils Auto #/vol (Bld) 0.06 10*3/uL Normal <0.46 [facility] Comment on above: Performed By: #### C BCDIF, CMP ####[place] [address] Eosinophils/100 WBC Auto (Bld) 0.5 % Normal [facility] Comment on above: Performed By: #### C BCDIF, CMP ####[place] [address] Erythrocyte distribution width Auto Ratio (RBC) 13.5 % Normal 11.5-15.0 [facility] Comment on above: Performed By: #### C BCDIF, CMP ####[place] [address] Hematocrit Auto Volume Fraction (Bld) 43.2 % Normal 36.0-46.0 [facility] Comment on above: Performed By: #### C BCDIF, CMP ####[place] [address] Hemoglobin mass conc (Bld) 14.1 g/dL Normal 11.5-15.5 [facility] Comment on above: Performed By: #### C BCDIF, CMP ####[place] [address] Lymphocytes Auto #/vol (Bld) 2.63 10*3/uL Normal 1.00-4.00 [facility] Comment on above: Performed By: #### C BCDIF, CMP ####[address] Lymphocytes/100 WBC Auto (Bld) 20.3 % Normal [facility] Comment on above: Performed By: #### C BCDIF, CMP ####[address] MCH Auto Entitic mass (RBC) 28.7 pG Normal 26.0-34.0 [facility] Comment on above: Performed By: #### C BCDIF, CMP ####[place] [phone] MCHC Auto mass conc (RBC) 32.6 g/dL Normal 30.5-36.0 [facility] Comment on above: Performed By: #### C BCDIF, CMP ####[place] [phone] MCV Auto Entitic volume (RBC) 87.8 fL Normal 80.0-100.0 [facility] Comment on above: Performed By: #### C BCDIF, CMP ####[place] [phone] Monocytes/100 WBC Auto (Bld) 8.1 % Normal [facility] Comment on above: Performed By: #### C BCDIF, CMP ####[place] [phone] Neutrophils/100 WBC Auto (Bld) 71.0 % Normal [facility] Comment on above: Performed By: #### C BCDIF, CMP ####[phone] Platelet mean volume Auto Entitic volume (Bld) 11.2 fL Normal 9.0-12.7 [facility] Comment on above: Performed By: #### C BCDIF, CMP ####[phone] Platelets Auto #/vol (Bld) 399 10*3/uL Normal 150-400 [facility] Comment on above: Performed By: #### C BCDIF, CMP ####[place] [phone] RBC Auto #/vol (Bld) 4.92 10*6/uL Normal 3.90-5.20 [facility] Comment on above: Performed By: #### C BCDIF, CMP ####[place] [phone] WBC Auto #/vol (Bld) 12.98 10*3/uL High 3.70-11.00 [facility] Comment on above: Performed By: #### C [place], [facility] ####[facility] [place], [place] [phone] Enrique 01-10-2018 CNPN Telephone (NIQ) -NICOL HYMAN ([id number]) 1985 FDate Time Provider Qcntekyiep06/17/18 LEENA ZHAO During your visit today, we recorded the following information about you:Chandni Andrews [facility] 01/10/2018 4:22 PM SignedPatient's called. Patient was discharged yesterday and later todaynoticed clear fluid leaking from the incision. Please advise. The number [phone].Sky Quezada, RN, RN 01/10/2018 4:49 PM SignedPatient [...] will also be [facility] in [facility]ictomorrow at [facility] for incision check at [address] Zhao.Spoke with spouse and informed of the above. Informed that if her symtpomsworsen then she is to be seen in the ED between now and tomorrow morning.Will have electrician front spares scheduler place patient on schedule.Chandni Campos [facility] 01/10/2018 4:46 PM SignedPatient's called again. His ijyszj-pz-mnu is freaking out becauseher daughter cannot put [...] agreed.Informed spouse who will bring patient to [facility].Allergies As of Date: 01/10/2018 Noted Allergy ReactionLATEX 11/03/2015 4 - HivesOXYCODONE 11/09/2015 1 - Mental Status ChangeDate Reviewed: 01/10/2018Reviewed by: Yari DempseyRn) VERNON Barboza - Fully AssessedReason for Visit: [...] (HCC) [G93.5] INVALID FOR* More... Status:Closed by SKY QUEZADA on 01/10/18 Normal [facility] CT BRAIN WO IVCONon 01-11-20 CT BRAIN [...] skull base and imaged soft tissues are unremarkable.IMPRESSION:Post surgical changes of suboccipital decompression; trace postoperative blood [...] further evaluated by MRI without and with contrast.Weir Fisher: JET Transcribe Date/Time: Jan 10 2018 7:35PDictated by : MARGARET FISHER MDThis examination was interpreted and the report reviewed and electronically signed by: MARGARET FISHER MD on Jan 10 2018 7:50PM [id number] Normal [facility] Comp Metabolic Panelon 01-10 Albumin mass conc 3.9 g/dL Normal 3.5-5.0 [facility] Comment on above: Performed By: #### C BCDI, CMP ####[facility] [place], [place] [phone] ALP enzyme act/vol 68 U/L Normal 34-123 [facility] Comment on above: Performed By: #### C BCDIF, CMP ####[place] [phone] ALT enzyme act/vol 57 U/L High 0-45 [facility] Comment on above: Performed By: #### C BCDIF, CMP ####[place] [address] Anion gap 3 molar conc 12 mmol/L Normal 9-18 [facility] Comment on above: Performed By: #### C BCDIF, CMP ####[place] [address] AST enzyme act/vol 21 U/L Normal 7-40 [facility] Comment on above: Performed By: #### C BCDIF, CMP ####[place] [phone] Bilirubin mass conc 0.3 mg/dL Normal 0.2-1.3 [facility] Comment on above: Performed By: #### C BCDIF, CMP ####[place] [phone] Calcium mass conc 8.8 mg/dL Normal 8.5-10.5 [facility] Comment on above: Performed By: #### C BCDIF, CMP ####[place] [address] Chloride molar conc 101 mmol/L Normal 98-110 [facility] Comment on above: Performed By: #### C BCDIF, CMP ####[place] [address] CO2 molar conc 27 mmol/L Normal 23-32 [facility] Comment on above: Performed By: #### C BCDIF, CMP ####[place] [phone] Creatinine mass conc 0.83 mg/dL Normal 0.70-1.40 [facility] Comment on above: Result Comment: Revi ewed Performed By: #### C BCDIF, CMP ####[place] [phone] eGFR- Amer. >60 Normal >60 [facility] Comment on above: Performed By: #### C BCDIF, CMP ####[place] [phone] GFR/1.73 sq M predicted among non-blacks MDRD vol rate/area (S/P/Bld) mL/min/{1.73_m2} Normal >60 [facility] Comment on above: Performed By: #### C BCDIF, CMP ####[place] [phone] Glucose mass conc 91 mg/dL Normal 65-100 [facility] Comment on above: Performed By: #### C BCDIF, CMP ####[place] [phone] Potassium molar conc 4.1 mmol/L Normal 3.5-5.0 [facility] Comment on above: Performed By: #### C BCDIF, CMP ####[place] [phone] Protein mass conc 7.2 g/dL Normal 6.0-8.4 [facility] Comment on above: Performed By: #### C BCDIF, CMP ####[place] [phone] Sodium molar conc 140 mmol/L Normal 132-148 [facility] Comment on above: Performed By: #### C BCDIF, CMP ####[place] [phone] Urea nitrogen mass conc 9 mg/dL Normal 8-25 [facility] Comment on above: Performed By: #### C BCDIF, CMP ####[place] [phone] ED NOTEon 01-10-2018 ED NOTE HNO ID: [id number] thor: Ruthann (Rn) FLACO Wyattervice: (none)Author Type: Registered NurseType: ED NotesFiled: 01/10/2018 8:29 PMNote Text: While medic placing line he stated that it looked like the pt eyes rolledinto the back of her head and her head shook, but pt denies having any hxof seizures; notified MD [facility] ED NOTE HNO ID: [id number] Author: Ruthann DempseyRn) VERNON Wyatt Service: (none) Author Type: Registered Nurse Type: ED Notes Filed: 01/10/2018 7:36 PM Note Text: Pt return from CT Normal [facility] ED NOTE HNO ID: [id number] Author: Jayne DempseyRn) VERNON Moran Service: Nursing Author Type: Registered Nurse Type: ED Notes Filed: 01/10/2018 7:23 PM Note Text: Report to Lizeth KWON. Patient transported to CT scan Normal [facility] ED NOTE HNO ID: [id number] thor: Jayne (Rn) FLACO Moranervice: NursingAuthor Type: Registered NurseType: ED NotesFiled: 01/10/2018 6:51 PMNote Text: Pt states she had a craniotomy/decompression surgery 5 days ago by . Today, approximately 3 hours STROKE PROGRAM COORDINATOR, she had clear drainage from herincision site, 10/10 headache and blurriness to both eyes, along withdizziness and nausea. Pt states she felt like she had a fever this morningand was having hot and cold sweats. Pt currently afebrile. She isaccompanied to ED by .Surgical incision to posterior neck is closed with cristina, wellapproximated, no redness noted. [facility] ED PROV NOTEon 01-10-2018 Protein mass conc HNO ID: [id number] thor: JASON Herringervice: Emergency MedicineAuthor Type: PhysicianType: ED Provider NotesFiled: 01/10/2018 9:20 PMNote Text:ED Provider NotePatient Name: Nicol HendricksonkristynMRN: [id number] DATE: 01/10/18HistoryPatient presents with:Post Op Drainage: surgery on monday, craniotomy/ decompression surgery onfriday, clear drainage from incisionNausea: new onset from [...] Negative for abdominal pain.Endocrine: Negative.Genitourinary: Negative.Musculoskeletal: Negative.Skin: Negative.Allergic/Immunologi c: Negative.Neurological: Positive for weakness and headaches.Hematological: Negative.Psychiatric/Behavio ral: Negative. Negative for behavioral problems.Physical ExamBP 137/90 [...] flexion, 5/5 BL wrist palmar extension,dorsiflexion. 5/5 wooden box maker stengthSensation to light touch intact.No dysmetria with finger nose finger. Normal cerebellar function withheel to gil bilaterally.Skin: Skin is warm. She is not diaphoretic.Psychiatric: She has a normal mood and affect. Her behavior is normal.Thought content normal.Diagnostic TestingED Labs Ordered and Reviewed - No data to displayProceduresED Course / Clinical ImpressionClinical Impressions as of Jan 105Cellulitis of drainage site, post-operativeNonintractable headache, unspecified chronicity [...] at disposition is improved.SIGNATURE: Chau HERRING MD01/10/182119 Normal [facility] HOSPon 01-10-2018 HOSP Patient:Cris Pillai CMRN: Height:5' 2(1.575 m)Weight:218 lb (98.884 [...] I (HCC) [G93.5]Postoperative cellulitis of surgical wound [T81.49XA]Allergies:LatexOxy codoneDate Verified: 01/12/18Lab ValuesLab Value Units Date High LowPOTA* 4.1 mmol/L 01/10/2018 5.0 3.5HEMA* 43.2 % 01/10/2018 46.0 36.0Progress Notes ([facility]US FRVW):Sky Quezada, RN, RN 01/11/2018 2:[address] Zhao he would like patient to be placed on the surgery schedule fortomorrow. She will have a Occipital Pseudomenigocele Repair. Spoke withBecky in surgery scheduling and patient will be placed on the schedule fortomorrow at 1330.Progress Notes ([facility]):[facility] 01/10/2018 4:22 PM SignedPatient's called. Patient was discharged yesterday and later todaynoticed clear fluid leaking from the incision. Please advise. The number [phone].Sky Quezada, RN, RN 01/10/2018 4:49 PM SignedPatient [...] will also be seen in clinic tomorrow [facility] for incision check at [address] Zhao.Spoke with spouse and informed of the above. Informed that if her symtpomsworsen then she is to be seen in the ED between now and tomorrow morning.Will have electrician front spares scheduler place patient on schedule.Chandni Andrews [facility] 01/10/2018 4:46 PM SignedPatient's called again. His pptekf-ng-bqp is freaking out because sophia cannot put [...] above. Informed that I was sending patient [facility] for evaluation and she agreed.Informed spouse who will bring patient to [facility]. Normal [facility] Basic Metabolic Panlon 01-09 Anion gap 3 molar conc 13 mmol/L Normal 9-18 [facility] Comment on above: Performed By: #### B MP, CBCDIF ####[place] [phone] Calcium mass conc 8.7 mg/dL Normal 8.5-10.5 [facility] Comment on above: Performed By: #### B SANTA, CBCDIF ####[place] [phone] Chloride molar conc 103 mmol/L Normal 98-110 [facility] Comment on above: Performed By: #### B SANTA, CBCDIF ####[place] [phone] CO2 molar conc 21 mmol/L Low 23-32 [facility] Comment on above: Performed By: #### B SANTA, CBCDIF ####[place] [phone] Creatinine mass conc 0.63 mg/dL Low 0.70-1.40 [facility] Comment on above: Performed By: #### B SANTA, CBCDIF ####[place] [phone] eGFR- Amer. >60 Normal >60 [facility] Comment on above: Performed By: #### B MP, CBCDIF ####[facility] [place] [phone] GFR/1.73 sq M predicted among non-blacks MDRD vol rate/area (S/P/Bld) mL/min/{1.73_m2} Normal >60 [facility] Comment on above: Performed By: #### B MP, CBCDIF ####[place] [phone] Glucose mass conc 115 mg/dL High 65-100 [facility] Comment on above: Performed By: #### B MP, CBCDIF ####[place] [phone] Potassium molar conc 4.3 mmol/L Normal 3.5-5.0 [facility] Comment on above: Performed By: #### B MP, CBCDIF ####[place] [phone] Sodium molar conc 137 mmol/L Normal 132-148 [facility] Comment on above: Performed By: #### B MP, CBCDIF ####[address] Urea nitrogen mass conc 8 mg/dL Normal 8-25 [facility] Comment on above: Performed By: #### B MP, CBCDIF ####[place] [phone] CBC and Differentialon 01-09 Abs Baso <0.03 Normal <0.11 [facility] Comment on above: Performed By: #### B MP, CBCDIF ####[address] Abs Rich 0.63 k/uL Normal <0.87 [facility] Comment on above: Performed By: #### B MP, CBCDIF ####[place] [phone] Abs Neut 11.48 k/uL High 1.45-7.50 [facility] Comment on above: Performed By: #### B MP, CBCDIF ####[place] [phone] Basophils/100 WBC Auto (Bld) 0.0 % Normal [facility] Comment on above: Performed By: #### B MP, CBCDIF ####[place] [phone] DTYPE Auto Diff Normal [facility] Comment on above: Performed By: #### B MP, CBCDIF ####[place] [phone] Eosinophils Auto #/vol (Bld) 10*3/uL Normal <0.46 [facility] Comment on above: Performed By: #### B MP, CBCDIF ####[place] [phone] Eosinophils/100 WBC Auto (Bld) 0.0 % Normal [facility] Comment on above: Performed By: #### B MP, CBCDIF ####[place] [phone] Erythrocyte distribution width Auto Ratio (RBC) 13.3 % Normal 11.5-15.0 [facility] Comment on above: Performed By: #### B MP, CBCDIF ####[place] [phone] Hematocrit Auto Volume Fraction (Bld) 38.2 % Normal 36.0-46.0 [facility] Comment on above: Performed By: #### B MP, CBCDIF ####[place] [phone] Hemoglobin mass conc (Bld) 12.8 g/dL Normal 11.5-15.5 [facility] Comment on above: Performed By: #### B MP, CBCDIF ####[place] [phone] Lymphocytes Auto #/vol (Bld) 1.17 10*3/uL Normal 1.00-4.00 [facility] Comment on above: Performed By: #### B MP, CBCDIF ####[place] [phone] Lymphocytes/100 WBC Auto (Bld) 8.8 % Normal [facility] Comment on above: Performed By: #### B MP, CBCDIF ####[place] [phone] MCH Auto Entitic mass (RBC) 29.2 pG Normal 26.0-34.0 [facility] Comment on above: Performed By: #### B MP, CBCDIF ####[place] [phone] MCHC Auto mass conc (RBC) 33.5 g/dL Normal 30.5-36.0 [facility] Comment on above: Performed By: #### B MP, CBCDIF ####[place] [phone] MCV Auto Entitic volume (RBC) 87.2 fL Normal 80.0-100.0 [facility] Comment on above: Performed By: #### B MP, CBCDIF ####[place] [phone] Monocytes/100 WBC Auto (Bld) 4.7 % Normal [facility] Comment on above: Performed By: #### B MP, CBCDIF ####[place] [phone] Neutrophils/100 WBC Auto (Bld) 86.5 % Normal [facility] Comment on above: Performed By: #### B MP, CBCDIF ####[place] [phone] Platelet mean volume Auto Entitic volume (Bld) 12.5 fL Normal 9.0-12.7 [facility] Comment on above: Performed By: #### B MP, CBCDIF ####[place] [phone] Platelets Auto #/vol (Bld) 221 10*3/uL Normal 150-400 [facility] Comment on above: Performed By: #### B MP, CBCDIF ####[place] [phone] RBC Auto #/vol (Bld) 4.38 10*6/uL Normal 3.90-5.20 [facility] Comment on above: Performed By: #### B MP, CBCDIF ####[place] [phone] WBC Auto #/vol (Bld) 13.28 10*3/uL High 3.70-11.00 [facility] Comment on above: Performed By: #### B , [facility] ####[facility] [place], [place] [phone] CNDSon 01-09-2018 CNDS HNO ID: [id number] thor: Pasha Dickersonervice: NeurosurgeryAuthor Type: Physician AssistantType: Discharge SummariesFiled: 01/10/2018 3:29 PMNote Text: -Attestation signed by Leena Zhao at 01/10/2018 9:22 Kathya Zhao MD DISCHARGE SUMMARYPATIENT NAME: Nicol Hyman ADMISSION DATE: 01/05/2018MRN: [id number] DISCHARGE DATE: 01/09/2018Attending Physician: [facility]Fill[facility] Physician: Jaylon Boyd DO Code Status: Not [...] Course:The patient was electively admitted to the [facility]. After being optimized for surgery, Nicol [...] Disposition - HomeSIGNATURE: Pasha Mendiola PA-C PAGER: [phone]: January 09, 2018TIME: 12:31 PM [facility] NURSING PROGon 01-09-2018 Protein mass conc HNO ID: [id number] thor: Ruth (Rn) Edmundo Songice: NursingAuthor Type: Registered NurseType: Nursing Progress NoteFiled: 01/09/2018 2:49 PMNote Text: Nursing Progress NotePatient Name: Nicol HymanMRN: [id number] Location: [place] [address]/[id number]-[id number] ____Daily Note:Pt discharged to home with no needs. Discharge instruction,medication, reconciliation, and follow up care/appointments were reviewedwith the patient and family. Patient verbalized understanding. Pt left theunit in stable condition by wheelchair @ 1445 . Belongings sent with pt.This note was completed by: Ruth Song RN [facility] Protein mass conc HNO ID: [id number] thor: Ruth Kearney) Chappelear, RNService: NursingAuthor Type: Registered NurseType: Nursing Progress NoteFiled: 01/09/2018 12:49 PMNote Text: Nursing Progress NotePatient Name: Nicol HymanMRN: [id number] Location: [facility]/LS-URDR-18 ____Daily Note:Pt denies nausea or vomiting. Refused a.m. Zofran. Colace andtylenol given. Pt tolerating diet. Up independently to bathroom withsteady gait. in room to assist if needed. Fluids d/c'd. VSS.Initial post op dressing intact and no additional drainage noted. No neurodeficits. Safety maintained. Call light in reach Will continue to monitor.This note was completed by: Ruth Song RN [facility] PLAN OF CAREon 01-09-2018 PLAN OF CARE HNO ID: [id number] thor: Shanice Poon (Recycling Crew Supervisor)Service: (none)Author Type: TechnicianType: Plan of CareFiled: 01/10/2018 10:15 AMNote Text:[facility] BEDSIDE DELIVERY SURVEY1. Patient to use [facility] Bedside Delivery - NO prefer ownpharmacy2. If fax, patient would like us to fax prescriptions to [facility]. Pharmacy: b. Location: c. Phone:3. Insurance card on file - NO4. Credit card for payment - NO [facility] PROGRESSon 01-09-2018 Protein mass conc HNO ID: [id number] thor: Pasha Bassett) DontekService: NeurosurgeryAuthor Type: Physician [...] mg ORAL q 6 H PRNphenol 1 [place] (CHLORASEPTIC) 1 [place] MUCOUS MEMBRANE (TOPICAL MOUTH ANDTHROAT) q 2 [...] type I (HCC) (12/20/2017)Medication and Non-Pharmacologic VTE Prophylaxis/Rdrvduczyiihep71 /15/18 1330 activity - mobilize patient (ne,ky)01/08/18 0900 vte pharmacologic prophylaxis contraindicated (ne,ky)01/08/18 0900 pneumatic compression stockings (ne,ky)01/05/18 1900 vte pharmacologic prophylaxis contraindicated (ne,oh)01/05/18 1845 vte pharmacologic prophylaxis contraindicated (ne,ky)VTE Prophylaxis: VTE prophylaxis appropriateNicol Hyman is a 32 year old status post chiari decompression.Pt seen and examined with Dr. Zhao. All recommendations discussed withand initiated by Dr. Zhao.Recommend increasing activity, physical therapy , occupational therapy anddischarge planning.Anticipate discharge in 1 day.SIGNATURE: Pasha Mendiola PA-C PATIENT NAME: Nicol HymanDATE: January 09, 2018 : 12:00 PM PAGER/CONTACT #:JONESX#[phone] [facility] THERAPY NTon 01-09-2018 THERAPY NT HNO ID: [id number] thor: Clint (Pt) IvkovicService: Physical TherapyAuthor Type: Physical TherapistType: Therapy (PT/OT/Speech/Resp)Filed: 01/09/2018 9:49 AMNote Text:Physical Therapy EvaluationSERVICE DATE: 01/09/2018SERVICE TIME: 5 to 08ROOM: [id number]-96Lunlimewtyt Discharge Disposition: Outpatient Physical TherapyRecommended Discharge Disposition Comments: when appropriate per MDAnticipated Discharge Needs: Supervision at HomePhysical Assist at Home for:Cleaning;Laundry;Meals;S hopping;TransportationSuperv ision at Home due to: (decreased endurance)Recommended Discharge Equipment: No equipment needs anticipatedPT Recommendations to Nursing: Ambulate without devicePT 6 Clicks Score: 22Precautions/Activity Restrictions: Fall Risk;Lines/Tubes/DrainsIsola tion Type: NoneASSESSMENT :32 yo patient admitted to [...] per week): 2 Current admissionTreatment Interventions: Energy ConservationTraining;Strengt hening;Balance Training;Functional MobilityTraining;Neuromuscul ar Re-educationPlan of Care developed with: Patient;FamilyTREATMENT INTERVENTIONS:Therapy Diagnosis: Reduced mobility-other;Decreased activities of dailyliving (ADL);Muscle Weakness (generalized);Unsteadiness on feetInterventions Provided: Evaluation;Therapeutic Exercise (35302)$ Evaluation-Low (58746) Billed Units: 1 unitTherapeutic Exercise (17746) Treatment Minutes: 81 unitSkilled Intervention(s): Instruction in therapeutic exercise bilat LE'sfor strengthening and endurance trainingVerbal and tactile cuing provided for proper technique and tempo.Education in purpose and frequency to complete exercises.Cues given to pt to perform at slower speed to optimize muscularstrengthening.Educat ed pt regarding role of PT, potential discharge options, andreasoning for discharge recommendation. Pt sits in chair with alarm inplace, call light and phone near pt post treatment.Total Timed Code Treatment Minutes: 8Total Treatment Time (minutes): 25FUNCTIONAL G CODE:PT 6 Clicks Score: 22 (01/09/18 0755)Mobility: Walking and Moving Around Current Status (G8978): CJ ()Mobility: Walking and Moving Around Goal Status (G8979): CJ ()Based on clinical assessment and the score on the 6 Clicks FunctionalAssessment Tool, the G code and corresponding severity modifiers aredocumented above.SUBJECTIVE:Current Hospital Course: Chart reviewed; 32 yo patient admitted to thehospital for cervical laminectomy.Reason for Physical Therapy Consult [...] documentation flowsheet forcomplete details for this therapy evaluation/treatment.SIGNATU RE: Clint Rhodes, PT PATIENT NAME: Nicol WatsonuberDATE: January 09, 2018 : 9:47 AM Normal [facility] Basic Metabolic Panlon 01-08 Anion gap 3 molar conc 12 mmol/L Normal - [facility] Comment on above: Performed By: #### B SANTA, CBCDIF ####[place] [phone] Calcium mass conc 8.3 mg/dL Low 8.5-10.5 [facility] Comment on above: Performed By: #### Maksim PRATT, CBCDIF ####[place] [phone] Chloride molar conc 104 mmol/L Normal 98-110 [facility] Comment on above: Performed By: #### Maksim PRATT, CBCDIF ####[place] [phone] CO2 molar conc 24 mmol/L Normal 23-32 [facility] Comment on above: Performed By: #### B SANTA, CBCDIF ####[place] [phone] Creatinine mass conc 0.80 mg/dL Normal 0.70-1.40 [facility] Comment on above: Performed By: #### B SANTA, CBCDIF ####[place] [phone] eGFR- Amer. >60 Normal >60 [facility] Comment on above: Performed By: #### B SANTA, CBCDIF ####[place] [facility] [place], [place] [address] GFR/1.73 sq M predicted among non-blacks MDRD vol rate/area (S/P/Bld) mL/min/{1.73_m2} Normal >60 [facility] Comment on above: Performed By: #### B MP, CBCDIF ####[facility] [place], [place] [address] Glucose mass conc 88 mg/dL Normal 65-100 [facility] Comment on above: Performed By: #### B MP, CBCDIF ####[place] [phone] Potassium molar conc 3.9 mmol/L Normal 3.5-5.0 [facility] Comment on above: Performed By: #### B MP, CBCDIF ####[place] [phone] Sodium molar conc 140 mmol/L Normal 132-148 [facility] Comment on above: Performed By: #### B MP, CBCDIF ####[place] [phone] Urea nitrogen mass conc 6 mg/dL Low 8-25 [facility] Comment on above: Performed By: #### B SANTA, CBCDIF ####[facility] [place], [place] [address] CASE MGT INIT [facility] [address] [facility] HNO ID: [id number] thor: Shanta (Rn) FLACO Zuritaervice: Care ManagementAuthor Type: Registered NurseType: Care Mgt Initial AssessmentFiled: 01/08/2018 12:15 PMNote Text:CARE MANAGEMENT: ASSESSMENT AND DISCHARGE PLANSERVICE DATE: 01/08/2018SERVICE TIME: 11:15AMPRIMARY CARE PHYSICIAN:RANDELL Adkinshone: [phone] STATUS: InpatientNeeds Prior to Discharge: To Be DeterminedMEDICAL:Patient/Re presentative Stated Goals:To have reduction in painTo have reduction in symptomsTo improve my functional statusTo return home to life as it wasHealth Insurance: [employer] PPO.Health Issues Impacting Discharge Plan: Newly diagnosed ChiariMalformation S/P C1 lami/ Crani 01/05/18Last Admission Date: noneIs this Within the Past 30 days? NoAdvance Directive:Current Advance Directive: NoneCare Critical Care Physician Assistant Attempted to Assist with AD Completion: YesAction: [...] Admission: NoneHas the Patient Been in a Mcfp Facility in the Past 30 days? NoSOCIAL:Living Arrangement: HomeLives With: Spouse and childrenFinancial Resources: UnemployedPrimary Contact: Extended Emergency Contact InformationPrimary Emergency Contact: Kalyan Hymanress: [phone] [place] [phone] [place] [address] Eutoan Ztqtnqhp: SpouseSupportive: YesOther Important Patient Contacts: NoneCaregiver Assessment:Caregiver [...] - 0I feel financially burdened by my [id number]-[id number] expenses for myprescription medication: Disagree completely - [...] spouse and children in a home in [place], [place]. Pt wasIPTA , cares for her children, denies needs after discharge. Supportivehusband and pt's mother is caring for children.TCC will be available for any needs that may arise.SIGNATURE: Shanta Zurita RN,BSN PATIENT NAME: Nicol HymanDATE: January 08, 2018 : 11:26 AM PAGER/CONTACT #: [phone] Normal [facility] CBC and Differentialon 01-08 Abs Baso <0.03 Normal <0.11 [facility] Comment on above: Performed By: #### B SANTA CBCDIF ####[place] [phone] Abs Rich 1.09 k/uL High <0.87 [facility] Comment on above: Performed By: #### B SANTA CBCDIF ####[place] [phone] Abs Neut 10.30 k/uL High 1.45-7.50 [facility] Comment on above: Performed By: #### B SANTA CBCDIF ####[place] [phone] Basophils/100 WBC Auto (Bld) 0.1 % Normal [facility] Comment on above: Performed By: #### B MP, CBCDIF ####[place] [phone] DTYPE Auto Diff Normal [facility] Comment on above: Performed By: #### B MP, CBCDIF ####[place] [phone] Eosinophils Auto #/vol (Bld) 0.03 10*3/uL Normal <0.46 [facility] Comment on above: Performed By: #### B MP, CBCDIF ####[place] [phone] Eosinophils/100 WBC Auto (Bld) 0.2 % Normal [facility] Comment on above: Performed By: #### B MP, CBCDIF ####[address] Erythrocyte distribution width Auto Ratio (RBC) 14.0 % Normal 11.5-15.0 [facility] Comment on above: Performed By: #### B MP, CBCDIF ####[address]10 Hematocrit Auto Volume Fraction (Bld) 39.4 % Normal 36.0-46.0 [facility] Comment on above: Performed By: #### B MP, CBCDIF ####[address] Hemoglobin mass conc (Bld) 12.7 g/dL Normal 11.5-15.5 [facility] Comment on above: Performed By: #### B MP, CBCDIF ####[place] [phone] Lymphocytes Auto #/vol (Bld) 1.90 10*3/uL Normal 1.00-4.00 [facility] Comment on above: Performed By: #### B MP, CBCDIF ####[place] [phone] Lymphocytes/100 WBC Auto (Bld) 14.3 % Normal [facility] Comment on above: Performed By: #### B MP, CBCDIF ####[place] [phone] MCH Auto Entitic mass (RBC) 28.9 pG Normal 26.0-34.0 [facility] Comment on above: Performed By: #### B MP, CBCDIF ####[place] [phone] MCHC Auto mass conc (RBC) 32.2 g/dL Normal 30.5-36.0 [facility] Comment on above: Performed By: #### B SANTA, CBCDIF ####[place] [phone] MCV Auto Entitic volume (RBC) 89.5 fL Normal 80.0-100.0 [facility] Comment on above: Performed By: #### B MP, CBCDIF ####[phone] Monocytes/100 WBC Auto (Bld) 8.2 % Normal [facility] Comment on above: Performed By: #### B MP, CBCDIF ####[place] [phone] Neutrophils/100 WBC Auto (Bld) 77.2 % Normal [facility] Comment on above: Performed By: #### B MP, CBCDIF ####[place] [phone] Platelet mean volume Auto Entitic volume (Bld) 11.8 fL Normal 9.0-12.7 [facility] Comment on above: Performed By: #### B MP, CBCDIF ####[place] [phone] Platelets Auto #/vol (Bld) 287 10*3/uL Normal 150-400 [facility] Comment on above: Performed By: #### B MP, CBCDIF ####[place] [phone] RBC Auto #/vol (Bld) 4.40 10*6/uL Normal 3.90-5.20 [facility] Comment on above: Performed By: #### B SANTA, CBCDIF ####[facility] [place], [place] [phone] WBC Auto #/vol (Bld) 13.33 10*3/uL High 3.70-11.00 [facility] Comment on above: Performed By: #### B SANTA, CBCDIF ####[facility] [place], [place] [phone] NURSING PROGon 01-08-2018 Protein mass conc HNO ID: [id number] thor: Ale (Rn) Micheal, RNService: ASSESSMENTAuthor Type: Registered NurseType: Nursing Progress NoteFiled: 01/08/2018 1:34 PMNote Text: Nursing Progress NotePatient Name: Nicol WhelandelilahMRN: [id number] Location: [place] [address]/HH-[id number]-84 ____Daily Note:0800 Pt AANDOx3. Follows simple commands. PERRLA [...] note was completed by: Ale Burton RN [facility] PROGRESSon 01-08-2018 Protein mass conc HNO ID: [id number] thor: Pasha Taylorice: NeurosurgeryAuthor Type: Physician AssistantType: Progress NotesFiled: 01/08/2018 9:48 AMNote Text: -Attestation signed by Leena Zhao at 01/08/2018 11:26 Apolonia Zhao MD NE UROSURGERY POST OP PROGRESS NOTESERVICE DATE: 01/08/2018SERVICE TIME: [...] mg ORAL q 6 H PRNphenol 1 [place] (CHLORASEPTIC) 1 [place] MUCOUS MEMBRANE (TOPICAL MOUTH ANDTHROAT) q 2 [...] type I (HCC) (12/20/2017)Medication and Non-Pharmacologic VTE Prophylaxis/[id number] /15/18 0900 vte pharmacologic prophylaxis contraindicated (ne,[place])01/08/18 0900 pneumatic compression stockings (ne,ky)01/05/18 1900 vte pharmacologic prophylaxis contraindicated (ne,ky)01/05/18 1845 vte pharmacologic prophylaxis contraindicated ([place])VTE Prophylaxis: VTE prophylaxis appropriateNicol Hyman is a 32 year old status post Chiari decompression.Recommend DC Dilaudid, percocet and phenerganAdd tylenol 500-1000mg, roxicodone, zofran, flexeril and decadron x 24hoursIncrease IVF for 24 hours to 100ml/hour due to minimal PO intakeEncourage activity.SIGNATURE: Pasha Mendiola PA-C PATIENT NAME: Nicol HymanDATE: January 08, 2018 : 9:44 AM PAGER/CONTACT #:[phone] [facility] THERAPY NTon 01-08-2018 THERAPY NT HNO ID: [id number] thor: Chandni Mayo (Ot) ObrienService: Occupational TherapyAuthor Type: Occupational TherapistType: Therapy (PT/OT/Speech/Resp)Filed: 01/08/2018 2:04 PMNote Text:Occupational Therapy EvaluationSERVICE DATE: 01/08/2018SERVICE TIME: 1320 to 1343ROOM: [id number] Discharge Disposition: Home OTAnticipated Discharge Needs: Physical Assist at HomePhysical Assist at Home for:Cleaning;Laundry;Meals;S hopping;TransportationRecomm ended Discharge Equipment: Shower ChairOT Recommendations to Nursing: To Bathroom for ADL?s /and or Toileting;OOBfor meals;Transfer to Chair;With assist of 1 personOT 6 Clicks Score: 24Precautions/Activity Restrictions: Fall Risk;Lines/Tubes/DrainsIsola tion Type: NoneASSESSMENT:32 yo patient admitted to the [...] Current admissionTreatment Interventions: Education;Self Care / Home Management;EnergyConservatio n Training;Joint Mobility;Strengthening;Funct ional MobilityTraining;Balance Training;Neuromuscular Re-education;Pain ManagementPlan of Care developed with: Patient;FamilyTREATMENT INTERVENTIONS:Therapy Diagnosis: Reduced mobility-other;Decreased activities of dailyliving (ADL);Muscle Weakness (generalized);Unsteadiness on feetInterventions Provided: Evaluation;Self Usp Management (34710)$ Evaluation-Low (88642) Billed Units: 1 unitSelf Usp Management (62211) Treatment Minutes: 81 unitSkilled Intervention(s): Provided cuing [...] Level Comments: Ind ADLs, IADLs, works, drives, deniesfallsOBJECTIVE:Communi cation Deficits: (soft-spoken)Responsiveness: AlertFollows Commands: 3-step CommandsCURRENT FUNCTIONAL [...] AssistanceStand to Sit Stand By AssistanceBed to ChairToilet/CommodeFunctiona l Mobility Stand By Assistance IV PolePlease see discipline specific clinical documentation flowsheet forcomplete details for this therapy evaluation/treatment.SIGNATU RE: AUDREY Martinez PATIENT NAME: Nicol HymanDATE: January 08, 2018 : 1:59 PM Normal [facility] THERAPY NT HNO ID: [id number] thor: Chandni Mayo (Ot) ObrienService: Occupational TherapyAuthor Type: Occupational TherapistType: Therapy (PT/OT/Speech/Resp)Filed: 01/08/2018 1:11 PMNote Text:OCCUPATIONAL THERAPY MISSED VISITSERVICE DATE: 01/08/2018SERVICE TIME: 1310 to 1310ROOM: [id number] Evaluation. Patient not seen due to Incomplete Orders. Ordersfor bedrest. RN notified. OT will assess when appropriate.SIGNATURE: AUDREY Martinez PATIENT NAME: Nicol BrunsonTE: January 08, 2018 : 1:10 PM Normal [facility] Basic Metabolic Panlon 01-07 Anion gap 3 molar conc 9 mmol/L Normal 9-18 [facility] Comment on above: Performed By: #### C CHASE BMP ####[facility] [place], [place] [phone] Calcium mass conc 7.9 mg/dL Low 8.5-10.5 [facility] Comment on above: Performed By: #### C RENARDF BMP ####[facility] [place], [place] [phone] Chloride molar conc 108 mmol/L Normal 98-110 [facility] Comment on above: Performed By: #### C CHASE BMP ####[place] [phone] CO2 molar conc 24 mmol/L Normal 23-32 [facility] Comment on above: Performed By: #### C BCDIF, BMP ####[place] [phone] Creatinine mass conc 0.66 mg/dL Low 0.70-1.40 [facility] Comment on above: Performed By: #### C BCDIF, BMP ####[place] [phone] eGFR- Amer. >60 Normal >60 [facility] Comment on above: Performed By: #### C BCDIF, BMP ####[place] [phone] GFR/1.73 sq M predicted among non-blacks MDRD vol rate/area (S/P/Bld) mL/min/{1.73_m2} Normal >60 [facility] Comment on above: Performed By: #### C BCDIF, BMP ####[place] [phone] Glucose mass conc 104 mg/dL High 65-100 [facility] Comment on above: Performed By: #### C BCDIF, BMP ####[place] [phone] Potassium molar conc 4.0 mmol/L Normal 3.5-5.0 [facility] Comment on above: Performed By: #### C BCDIF, BMP ####[place] [phone] Sodium molar conc 141 mmol/L Normal 132-148 [facility] Comment on above: Performed By: #### C BCDIF, BMP ####[place] [phone] Urea nitrogen mass conc 6 mg/dL Low 8-25 [facility] Comment on above: Performed By: #### C BCDIF, BMP ####[place] [phone] CBC and Differentialon 01-07 Abs Baso <0.03 Normal <0.11 [facility] Comment on above: Performed By: #### C BCDIF, BMP ####[place] [phone] Abs Rich 1.18 k/uL High <0.87 [facility] Comment on above: Performed By: #### C BCDIF, BMP ####[place] [phone] Abs Neut 13.87 k/uL High 1.45-7.50 [facility] Comment on above: Performed By: #### C BCDIF, BMP ####[place] [phone] Basophils/100 WBC Auto (Bld) 0.1 % Normal [facility] Comment on above: Performed By: #### C BCDIF, BMP ####[place] [phone] DTYPE Auto Diff Normal [facility] Comment on above: Performed By: #### C BCDIF, BMP ####[place] [phone] Eosinophils Auto #/vol (Bld) 10*3/uL Normal <0.46 [facility] Comment on above: Performed By: #### C BCDIF, BMP ####[place] [phone] Eosinophils/100 WBC Auto (Bld) 0.1 % Normal [facility] Comment on above: Performed By: #### C BCDIF, BMP ####[place] [phone] Erythrocyte distribution width Auto Ratio (RBC) 14.1 % Normal 11.5-15.0 [facility] Comment on above: Performed By: #### C BCDIF, BMP ####[place] [phone] Hematocrit Auto Volume Fraction (Bld) 36.4 % Normal 36.0-46.0 [facility] Comment on above: Performed By: #### C BCDIF, BMP ####[place] [phone] Hemoglobin mass conc (Bld) 11.9 g/dL Normal 11.5-15.5 [facility] Comment on above: Performed By: #### C BCDIF, BMP ####[place] [phone] Lymphocytes Auto #/vol (Bld) 1.26 10*3/uL Normal 1.00-4.00 [facility] Comment on above: Performed By: #### C BCDIF, BMP ####[place] [phone] Lymphocytes/100 WBC Auto (Bld) 7.7 % Normal [facility] Comment on above: Performed By: #### C BCDIF, BMP ####[phone] MCH Auto Entitic mass (RBC) 29.2 pG Normal 26.0-34.0 [facility] Comment on above: Performed By: #### C BCDIF, BMP ####[place] [phone] MCHC Auto mass conc (RBC) 32.7 g/dL Normal 30.5-36.0 [facility] Comment on above: Performed By: #### C BCDIF, BMP ####[place] [phone] MCV Auto Entitic volume (RBC) 89.4 fL Normal 80.0-100.0 [facility] Comment on above: Performed By: #### C BCDIF, BMP ####[place] [phone] Monocytes/100 WBC Auto (Bld) 7.2 % Normal [facility] Comment on above: Performed By: #### C BCDIF, BMP ####[place] [phone] Neutrophils/100 WBC Auto (Bld) 84.9 % Normal [facility] Comment on above: Performed By: #### Payton STONE, BMP ####[place] [phone] Platelet mean volume Auto Entitic volume (Bld) 11.2 fL Normal 9.0-12.7 [facility] Comment on above: Performed By: #### Payton STONE, BMP ####[place] [phone] Platelets Auto #/vol (Bld) 265 10*3/uL Normal 150-400 [facility] Comment on above: Performed By: #### Payton STONE, BMP ####[place] [phone] RBC Auto #/vol (Bld) 4.07 10*6/uL Normal 3.90-5.20 [facility] Comment on above: Performed By: #### Payton STONE, BMP ####[place] [phone] WBC Auto #/vol (Bld) 16.33 10*3/uL High 3.70-11.00 [facility] Comment on above: Performed By: #### Payton STONE, BMP ####[place] [phone] NURSING PROGon 01-07-2018 Protein mass conc HNO ID: [id number] thor: Shawn (Rn) FLACO Aliciaervice: NursingAuthor Type: Registered NurseType: Nursing Progress NoteFiled: 01/07/2018 9:02 AMNote Text: Nursing Progress NotePatient Name: Nicol HendricksonGueroN: [id number] Location: ____Daily Note: Pt. AOx3 with PERRLA intact. Pt. [...] bedside safety maintained.This note was completed by: Shwan Alicia RN [facility] Protein mass conc HNO ID: [id number] thor: Sloane (Rn) FLACO Leoservice: (none)Author Type: Registered NurseType: Nursing Progress NoteFiled: 01/07/2018 3:23 AMNote Text: Nursing Progress NotePatient Name: Nicol HymanMRN: [id number] Location: [place] [address]/SX-YOLO-11 ____Daily Note:Pt a/o x3, PERRL, drowsy upon initial asessment although improvedthroughout the night. C/o headache, pain meds given per order. LS clear,no spontaneous cough. BS hypoactive. C/o nausea, phenergen given perorder. Voiding without difficulty, clear yellow urine. Pt is up with onestaff assist. Pt safety maintained, call light within reach.2328: Temp 100.1, BP 101/47, hr 106, paged business continuity management director.2350: Rechecked temp, 99.3, pt c/o chills.0011: ordered 1L bolus NS, tylenol 650.0030 Meds administered per order. Pt c/o nausea, requesting phenergeninstead of Dr latisha paged.0036: Phenergen ordered, pharmacy called for dose to be brought up.0211: Phenergen stocked in pyxis, administered per order.This note was completed by: Sloane Leos RN Normal [facility] PROGRESSon 01-07-2018 Protein mass conc HNO ID: [id number] Author: Dontrell Boss Service: Neurosurgery Author Type: Physician Type: Progress Notes Filed: 01/07/2018 12:28 PM Note Text: KIM trudy some po inc c/d/i good strength awake and alert s/p Chiari decompression mobilize Dontrell Boss MD Normal [facility] Basic Metabolic Panlon 01-06 Anion gap 3 molar conc 11 mmol/L Normal 9-18 [facility] Comment on above: Performed By: #### B SANTA, CBCDIF ####[place] [phone] Calcium mass conc 8.3 mg/dL Low 8.5-10.5 [facility] Comment on above: Performed By: #### B SANTA, CBCDIF ####[place] [phone] Chloride molar conc 103 mmol/L Normal 98-110 [facility] Comment on above: Performed By: #### Maksim PRATT, CBCDIF ####[place] [phone] CO2 molar conc 21 mmol/L Low 23-32 [facility] Comment on above: Performed By: #### Maksim PRATT, CBCDIF ####[place] [phone] Creatinine mass conc 0.69 mg/dL Low 0.70-1.40 [facility] Comment on above: Performed By: #### B SANTA, CBCDIF ####[place] [phone] eGFR- Amer. >60 Normal >60 [facility] Comment on above: Performed By: #### B SANTA, CBCDIF ####[place] [phone] GFR/1.73 sq M predicted among non-blacks MDRD vol rate/area (S/P/Bld) mL/min/{1.73_m2} Normal >60 [facility] Comment on above: Performed By: #### B SANTA, CBCDIF ####[place] [phone] Glucose mass conc 151 mg/dL High 65-100 [facility] Comment on above: Performed By: #### B SANTA, CBCDIF ####[place] [phone] Potassium molar conc 3.8 mmol/L Normal 3.5-5.0 [facility] Comment on above: Performed By: #### B SANTA, CBCDIF ####[place] [phone] Sodium molar conc 135 mmol/L Normal 132-148 [facility] Comment on above: Performed By: #### B SANTA, CBCDIF ####[place] [phone] Urea nitrogen mass conc 8 mg/dL Normal 8-25 [facility] Comment on above: Performed By: #### B SANTA, CBCDIF ####[place] [phone] CBC and Differentialon 01-06 Abs Baso <0.03 Normal <0.11 [facility] Comment on above: Performed By: #### B SANTA, CBCDIF ####[place] [phone] Abs Rich 0.53 k/uL Normal <0.87 [facility] Comment on above: Performed By: #### B MP, CBCDIF ####[place] [phone] Abs Neut 15.33 k/uL High 1.45-7.50 [facility] Comment on above: Performed By: #### B SANTA, CBCDIF ####[place] [phone] Basophils/100 WBC Auto (Bld) 0.1 % Normal [facility] Comment on above: Performed By: #### B MP, CBCDIF ####[place] [phone] DTYPE Auto Diff Normal [facility] Comment on above: Performed By: #### B MP, CBCDIF ####[place] [phone] Eosinophils Auto #/vol (Bld) 10*3/uL Normal <0.46 [facility] Comment on above: Performed By: #### B MP, CBCDIF ####[place] [phone] Eosinophils/100 WBC Auto (Bld) 0.0 % Normal [facility] Comment on above: Performed By: #### B MP, CBCDIF ####[place] [phone] Erythrocyte distribution width Auto Ratio (RBC) 13.5 % Normal 11.5-15.0 [facility] Comment on above: Performed By: #### B MP, CBCDIF ####[place] [phone] Hematocrit Auto Volume Fraction (Bld) 39.2 % Normal 36.0-46.0 [facility] Comment on above: Performed By: #### B MP, CBCDIF ####[place] [phone] Hemoglobin mass conc (Bld) 13.1 g/dL Normal 11.5-15.5 [facility] Comment on above: Performed By: #### B MP, CBCDIF ####[place] [phone] Lymphocytes Auto #/vol (Bld) 0.63 10*3/uL Low 1.00-4.00 [facility] Comment on above: Performed By: #### B MP, CBCDIF ####[place] [phone] Lymphocytes/100 WBC Auto (Bld) 3.8 % Normal [facility] Comment on above: Performed By: #### B MP, CBCDIF ####[place] [phone] MCH Auto Entitic mass (RBC) 29.0 pG Normal 26.0-34.0 [facility] Comment on above: Performed By: #### B MP, CBCDIF ####[place] [phone] MCHC Auto mass conc (RBC) 33.4 g/dL Normal 30.5-36.0 [facility] Comment on above: Performed By: #### B MP, CBCDIF ####[place] [phone] MCV Auto Entitic volume (RBC) 86.7 fL Normal 80.0-100.0 [facility] Comment on above: Performed By: #### B MP, CBCDIF ####[place] [phone] Monocytes/100 WBC Auto (Bld) 3.2 % Normal [facility] Comment on above: Performed By: #### B MP, CBCDIF ####[place] [phone] Neutrophils/100 WBC Auto (Bld) 92.9 % Normal [facility] Comment on above: Performed By: #### B MP, CBCDIF ####[place] [phone] Platelet mean volume Auto Entitic volume (Bld) 11.7 fL Normal 9.0-12.7 [facility] Comment on above: Performed By: #### B MP, CBCDIF ####[phone] Platelets Auto #/vol (Bld) 304 10*3/uL Normal 150-400 [facility] Comment on above: Performed By: #### B MP, CBCDIF ####[place] [phone] RBC Auto #/vol (Bld) 4.52 10*6/uL Normal 3.90-5.20 [facility] Comment on above: Performed By: #### B SANTA CBCDIF ####[place] [id number] [place], [place] [phone] WBC Auto #/vol (Bld) 16.50 10*3/uL High 3.70-11.00 [facility] Comment on above: Performed By: #### B SANTA CBCDIF ####[facility] [place], [place] [phone] NURSING PROGon 01-06-2018 Protein mass conc HNO ID: [id number] thor: Shawn (Rn) Edmundo Aliciaice: NursingAuthor Type: Registered NurseType: Nursing Progress NoteFiled: 01/06/2018 3:23 PMNote Text: Nursing Progress NotePatient Name: Nicol HymanN: [id number] Location: [place] [address]/AL-UZNC-95 ____Transfer Note:Patient transferred into room/unit PKT12 in stable condition. Actionstaken: No futher actions taken at this time. Will continue to monitor andcheck with patient. Patient belongings with [id number]: Medications are held in [facility] transfer, [facility] called ICU get intensivistto release orders.1455: Medications still being held for transfer in [facility]. Unable to pull orgive any medication, [facility] called and informed ICU of this.1500: All medications still held in [facility] for transfer. This RN called ICU,instructed they will inform resident. This is the third attempt since 1250to get medications transferred over from renal technician.This note was completed by: Shawn Alicia RN [facility] Protein mass conc HNO ID: [id number] thor: Brandi DempseyRn) Edmundo Cliffordice: (none)Author Type: Registered NurseType: Nursing Progress NoteFiled: 01/06/2018 12:25 PMNote Text: Nursing Progress NotePatient Name: Nicol HymanMRN: [id number] [facility] ___Daily Note:0700 Report taken from night shift manager nurse. Safety checks in place. Neuroassessment completed with night shift manager [id number] Assessment done (see flowsheet)1000 Pt had a small emesis [id number] Report called to [facility] [id number] Assessment done (see flowsheet)1215 Pt transferred to [facility] 12This note was completed by: Brandi Clifford RN [facility] Protein mass conc HNO ID: [id number] thor: Trina (Rn) FLACO Millservice: (none)Author Type: Registered NurseType: Nursing Progress NoteFiled: 01/06/2018 6:52 AMNote Text: Nursing Progress NotePatient Name: Nicol HymanMRN: [id number] Location: [place] [address]/GN-IPI-92 ___Daily Note:190: Report received from Angelica. Assumed pt. Care.2000: Assessment complete. Pt. AANDOx2, confused on location at this timebut reorientated, able to follow commands, pupils 3 and brisk, states pain10/10 at this time, medicated, see Emar. Denies numbness and tingling andMAEx4 w/ weakness. Sister at bedside.2046: Page sent to Resident Lea for a new order for pain medication,IV, since pt. Is nauseous at this time. New order [id number]: Dr. Lea rounding at pt. Bedside. New orders received.0000: Assessment complete. See FS.0400: Assessment complete. See [id number]: Page sent to Dr. Lea regarding pt. Nausea/vomiting. Pt. HR alsoirregular but P wave still present.0500: Bladder scan done- 536ml in bladder. Page sent to resident. Ordersreceived for scope patch and straight cath.0515: CHlorhexidine bath complete. Pt. Gown changed.0520: Map Mounter at bedside. Morning labs drawn and sent.0545: Straight cathed for 750ml of urine.0630: and mother at bedside. Updated on plan of care.0700: Report given to oncoming RN.This note was completed by: TRINA MILLS RN [facility] PROGRESSon 01-06-2018 Protein mass conc HNO ID: [id number] thor: Dontrell BossService: NeurosurgeryAuthor Type: PhysicianType: Progress NotesFiled: 01/06/2018 12:46 PMNote Text:KIM and nauseaVSSno focal weaknessawake and alertstrength goodsensation intacts/p Chiari decompressionPT/OTadv dietJeveronica Boss MD [facility] ANES Juan 01-05-2018 ANES POST HNO ID: [id number] thor: Mitch Andrews VeberService: AnesthesiologyAuthor Type: AnesthesiologistType: Anesthesia PostOpFiled: 01/05/2018 8:34 [...] 05, 2018 : 8:33 PM PAGER/CONTACT #: [phone] [facility] ANES PREOPon 01-05-2018 ANES PREOP HNO ID: [id number] thor: Bucky Nelson, DOService: AnesthesiologyAuthor Type: AnesthesiologistType: Anesthesia PreOpFiled: 01/05/2018 12:12 PMNote Text:REGIONAL ANESTHESIOLOGY DAY OF SURGERY NOTEPATIENT NAME: Nicol HymanMRN: [id number]: 1985Procedure(s) (LRB):CRANIECTOMY SUBOCCIPITAL W/ CERV LAMI FOR DECOMPRESS W/ DURAL GRAFT (N/A)Surgeon(s):Leena Gleason body mass index is 40.17 kg/m? as calculated from the following: Height as of 12/25/17: 157.5 cm (5' 2). Weight as of 12/25/17: 99.6 kg (219 lb 9.6 oz).ASA Class: 2Adequate NPO status: YesAllergies:ALLERGIESAllerg en Reactions- Latex Hives- Oxycodone Mental Status ChangeAirway Assessment: MP 2; Neck ROM: Full ROM without neurologic symptoms;Airway Evaluation: No significant abnormalitiesDentition: Teeth intactSymptoms of Sleep Apnea: DeniesMost recent lab results:HGB 13.5 12/25/2017Hematocrit 43.1 12/25/2017Potassium 4.6 12/25/2017Platelet Count 291 12/25/2017PT Sec 10.3 12/25/2017APTT 30.5 12/25/2017PT INR 1.0 12/25/2017Creatinine 0.79 12/25/2017EKG:normal EKG, normal sinus rhythmVitals: BP: 118/68Pulse: 72Resp: 16Temp: 36.2 ?C (97.2 ?F)SpO2: [...] file prior to encounter.Inpatient medications reviewed in [facility].I have interviewed and examined the patient. I have reviewed the medicalrecord and/or the pre-anesthesia evaluation, pertinent labs, and testresults.Significant changes in the patient's condition since the History andPhysical, not otherwise documented in primary service progress notes: NoTmitchell [facility] contains updated information obtained within 48 hours ofSurgery/Procedure.SIGNATUR E: Bucky Nelson DO PATIENT NAME: Nicol WhelanentruberDATE: January 05, 2018 : 12:11 PM PAGER/CONTACT #: [phone] [facility] HISTORY PHYSICALon HISTORY PHYSICAL HNO ID: [id number] thor: [place] Foreman Reservice: Critical CareAuthor Type: ResidentType: HANDPFiled: 01/05/2018 7:18 [...] dryWounds/Drsgs- YesPresence of Pressure Ulcer NoCurrent Facility-Administered Medications:lidocaine-EPINEP Hrine 0.5 %-1:200,000 injection X (OR/PROCEDURE) PRNbacitracin 500 [...] mg INTRAVENOUS (PACU) PRNRECENT LABSInvalid input(s): TRANSFERRIN, PTCULTURES:NoneDATA:Diagnost ic tests reviewed for today's visit:Most recent labs and imaging results.Assessment/Plan32 year old female with hx of Chiari 1 malformation who presents to theICU s/p suboccipital craniectomy with cervical laminectomy fordecompression for neurologic monitoring.REASON FOR ICU ADMISSION: Neurologic monitoringNeuro-Acute postoperative pain -APAP ATC, oxycodone and fentanyl PRNChiari Malformation s/p decompression -Q1 neurochecks?CardiovascularHe modynamically appropriateRespiratoryAcute postoperative respiratory insufficiency -Wean O2 as tolerated?GIClears as tolerated and advance diet tomorrowRenalCreatinineDate Value Ref Range Igawil8712/25/2017 0.79 0.58 - 0.96 mg/dL Final Stable sCr with adequate UOPElectrolytes: Replace as neededFluids: NS@75?HemeNo indication for transfusion?IDComplete perioperative abxEndocrineAdequate glycemic control?PPX:Stress ulcer prophylaxis: Sucralfate (given thrombocytopenia)VTE prophylaxis:Contraindicated? Lines:Lines, Drains, and Airways Line Peripheral 01/05/18 1527 Antecubital 20 Gauge less than 1 day Peripheral 01/05/18 1540 Left Wrist 20 Gauge less than 1 daykeep linesDispo- Continue SICU care?SIGNATURE: Jason Lea MD PATIENT NAME: Nicol HymanDATE: January 05, 2018 : 5:06 PM PAGER/CONTACT #: [phone] [facility] NURSING PROGon 01-05-2018 Protein mass conc HNO ID: [id number] thor: Kristyn Kearney) Edmundo Jaramilloice: NursingAuthor Type: Registered NurseType: Nursing Progress NoteFiled: 01/05/2018 6:54 PMNote Text: Nursing Progress NotePatient Name: Nicol HymanMRN: [id number] [facility] ___Daily Note:1837 Pt arrived to SICU bed 6 in stable condition, without complication.Pt is lethargic, nonverbal and not following commands at this time. Movesall extremities, pupils equal and reactive. Pt's sister at bedside,updated by Dr Zhao. Will continue to monitor.This note was completed by: Kristyn Jaramillo RN [facility] Protein mass conc HNO ID: [id number] thor: Candis DempseyRn) Edmundo Garciaice: (none)Author Type: Registered NurseType: Nursing Progress NoteFiled: 01/05/2018 1:16 PMNote Text:1300- Pt verbalizing being upset that procedure has been delayed, upsetshe has not been updated.1315-Dr. Zhao at bedside to update patient on timing and to reassureand answer any questions. [facility] OPERATIVE NOon 01-05-2018 OPERATIVE NO HNO ID: [id number] thor: Leena Mahoneyervice: NeurosurgeryAuthor Type: PhysicianType: Operative ReportFiled: 01/07/2018 8:59 AMNote Text:[facility] - Operative ReportSMICHAEL NICOL CDOB: 1985AGE: 32.SEX: FMRN: [id number] TYPE: IHOSP SVC: NEUSLOCATION: [id number] PHYSICIAN: Leena Zhao M.D.CSN NUMBER: [id number] OF SURGERY/PROCEDURE: 01/05/2018INCISION/PROCEDURE START TIME: 1616 hours.INCISION CLOSE/PROCEDURE END TIME: 1815 hours.PREOPERATIVE DIAGNOSIS: Chiari 1 anomaly/syringomyelia.POSTOP ERATIVE DIAGNOSIS: Chiari 1 anomaly/syringomyelia.SURGEO N: Leena Zhao M.D.STEAM BOX HAND: Assisted by JULEE Bose.SURGERY/PROCEDURE:1. Posterior fossa craniectomy [...] padded. Her neck was flexed and the laborer heading was attachedto the bed.I shaved some hair [...] of thelaminectomy of C1. I used a Plummer dissector to dissect the tissuefree underneath the [...] as well as ahead wrap. The Thornton laborer heading was removed, the pin sites werefree of bleeding. The patient was returned to the supine position andhanded back to Anesthesia for extubation and further recovery in the ICU. There were no complications.Leena Zhao M.D.SV:[id number] #: [id number]: 01/05/2018 18:32:56 [facility] PT EDon 01-05-2018 PT ED HNO ID: [id number] thor: Viridiana (Rn) Xiomara RNService: NursingAuthor Type: Registered NurseType: Patient EducationFiled: 01/05/2018 9:19 AMNote Text:PRE OP LEARNING ASSESSMENTTOPIC: Survival Skills: PROCEDURE/SURGERYREADINESS TO LEARNCOGNITIVE ABILITY: Alert and orientedMOTIVATION TO LEARN: InterestedFAMILY SUPPORT: High - Very involved in pt carePATIENT LEARNS BEST BY: Individual InstructionFACTORS AFFECTING LEARNING: NonePHYSICAL LIMITATIONS AFFECTING LEARNING:None [facility] NURSING PROGon 01-01-2018 Protein mass conc HNO ID: [id number] thor: Namita (Rn) Fatemeh RNService: NeurosurgeryAuthor Type: Registered NurseType: Nursing Progress NoteFiled: 01/01/2018 9:47 AMNote Text:PACC Nurse Progress NoteHistory AND Physical:PACC Visit Date: 20-6-33Alldeywl HANDP Date: N/AED visit Date: N/AOutside HANDP Scanned Date: N/ALabs Within Last 6 Months:CBC: MP/CMP: T: TT: 12-25UA: Date 12-25Urine C+S: Date 12-25 negSTAAMP: 12-25 negTYPE AND SCREEN: Date maging Within Last 12 Months:N/ACardiac Testing:EKG in last 12 Months: Yes: Date: 12-25-17, Comment: epicBMI Percentile (PEDS):N/ARisk Assessment:N/AAnesthesia Review:N/ANarrative:Labs acceptablePre-op Considerations:N/AChart Check:Charity Weldon RNOctober 2017 9:45 AM Normal [facility] Staph aureus PCRon 8 MRSA PCR Negative Normal [facility] Comment on above: Performed By: #### S APCR ####[place] [address] [address] [place], [place] [phone] S aureus Spec Source Nasal Normal [facility] Comment on above: Performed By: #### S APCR ####[place] [address] [address] [place], [place] [phone] Staph aureus PCR Negative Normal [facility] Comment on above: Performed By: #### S APCR ####[address] [phone] Type and SCR (30D)on 018 ABO/RH(D) Positive Normal [facility] Comment on above: Performed By: #### T SCR30 ####[facility] [place], [place] [phone] APTTon 12-25-2017 aPTT Coag time (Bld) 30.5 s Normal 23.0-32.4 [facility] Comment on above: Result Comment: Unfr actionated [...] laboratory APTT reagent in use throughout the [facility]. Performed By: #### C BC, PT, PTT, BMP ####[place] [address] [place], [place] [phone] Basic Metabolic Panlon 12-25 Anion gap 3 molar conc 16 mmol/L Normal 9-18 [facility] Comment on above: Performed By: #### C BC, PT, PTT, BMP ####[place] [address], [place] [phone] Calcium mass conc 9.5 mg/dL Normal 8.5-10.2 [facility] Comment on above: Performed By: #### C BC, PT, PTT, BMP ####[place] [address] [address] [phone] Chloride molar conc 101 mmol/L Normal 97-105 [facility] Comment on above: Performed By: #### C BC, PT, PTT, BMP ####[place] [address] [address] [phone] CO2 molar conc 23 mmol/L Normal 22-30 [facility] Comment on above: Performed By: #### C BC, PT, PTT, BMP ####[place] [address] [address] [place] [phone] Creatinine mass conc 0.79 mg/dL Normal 0.58-0.96 [facility] Comment on above: Performed By: #### C BC, PT, PTT, BMP ####[place] [address] [address] [place] [phone] eGFR- Amer. >60 Normal [facility] Comment on above: Performed By: #### C BC, PT, PTT, BMP ####[place] [address] [address] [phone] GFR/1.73 sq M predicted among non-blacks MDRD vol rate/area (S/P/Bld) mL/min/{1.73_m2} Normal [facility] Comment on above: Result Comment: eGFR (Estimated [...] By: #### C BC, PT, PTT, BMP ####[facility] [address] [place], [place] [phone] Glucose mass conc 85 mg/dL Normal 74-99 [facility] Comment on above: Result Comment: The [place] Diabetes Association (ADA) provides guidance for cutoff [...] Standards of Medical Care in Diabetes 2016, [place] Diabetes Association. Diabetes Care. 2016.39(Suppl 1). Performed By: #### C BC, PT, PTT, BMP ####[facility] [address] [place], [place] [phone] Potassium molar conc 4.6 mmol/L Normal 3.7-5.1 [facility] Comment on above: Performed By: #### C BC, PT, PTT, BMP ####[facility] [address] [place], [place] [phone] Sodium molar conc 140 mmol/L Normal 136-144 [facility] Comment on above: Performed By: #### C BC, PT, PTT, BMP ####[facility] [address] [place], [place] [phone] Urea nitrogen mass conc 10 mg/dL Normal 7-21 [facility] Comment on above: Performed By: #### C BC, PT, PTT, BMP ####[facility], [place] [phone] CBCon 12-25-2017 Absolute nRBC <0.01 Normal <0.01 [facility] Comment on above: Performed By: #### C BC, PT, PTT, BMP ####[place] [address] [address] [place] [phone] Erythrocyte distribution width Auto Ratio (RBC) 13.4 % Normal 11.5-15.0 [facility] Comment on above: Performed By: #### C BC, PT, PTT, BMP ####[place] [address] [address] [phone] Hematocrit Auto Volume Fraction (Bld) 43.1 % Normal 36.0-46.0 [facility] Comment on above: Performed By: #### C BC, PT, PTT, BMP ####[place] [address] [address] [phone] Hemoglobin mass conc (Bld) 13.5 g/dL Normal 11.5-15.5 [facility] Comment on above: Performed By: #### C BC, PT, PTT, BMP ####[place] [address] [address] [phone] MCH Auto Entitic mass (RBC) 28.4 pG Normal 26.0-34.0 [facility] Comment on above: Performed By: #### C BC, PT, PTT, BMP ####[facility] [phone] MCHC Auto mass conc (RBC) 31.3 g/dL Normal 30.5-36.0 [facility] Comment on above: Performed By: #### C BC, PT, PTT, BMP ####[facility] [place] [phone] MCV Auto Entitic volume (RBC) 90.5 fL Normal 80.0-100.0 [facility] Comment on above: Performed By: #### C BC, PT, PTT, BMP ####[address], [place] [phone] Platelet mean volume Auto Entitic volume (Bld) 12.3 fL Normal 9.0-12.7 [facility] Comment on above: Performed By: #### C BC, PT, PTT, BMP ####[address], [place] [phone] Platelets Auto #/vol (Bld) 291 10*3/uL Normal 150-400 [facility] Comment on above: Performed By: #### C BC, PT, PTT, BMP ####[address], [place] [phone] RBC Auto #/vol (Bld) 4.76 10*6/uL Normal 3.90-5.20 [facility] Comment on above: Performed By: #### C BC, PT, PTT, BMP ####[address], [place] [phone] WBC Auto #/vol (Bld) 8.30 10*3/uL Normal 3.70-11.00 [facility] Comment on above: Performed By: #### C BC, PT, PTT, BMP ####[address] [phone] ECG COMPLETE W INTERPRETATIO Non 12-25-2017 Protein mass conc NAME : ELVA HYMAN : [id number] : 1985 Gender : FemaleRace : AmericanORD : [id number] Procedure Date : Dec 25 2017 09:13:37Edit Date : Dec 28 2017 08:38:33 Diagnosis:NORMAL SINUS RHYTHM WITH SINUS ARRHYTHMIANORMAL ECGConfirmed by ALEXIA RODRIGUEZ D.O. ([id number]) on 12/28/2017 8:38:26 AM Ventricular Rate : 71 BPMAtrial Rate : 71 BPMP-R Interval : 134 msQRS Duration : 70 msQ-T Interval : 400 msQTC Calculation(Bezet) : 434 msP [place] : 68 degreesR [place] : 64 degreesT [place] : 26 degrees Test Reason : preop Location : 189 : [facility] Overread By : ALEXIA RODRIGUEZ D.O.Edited By : ALEXIA RODRIGUEZ D.O.Referred By : DAYDAY MENDIOLAcquired by : Dianne solis [facility] HISTORY PHYSICALon HISTORY PHYSICAL HNO ID: [id number] thor: Karo (Julee) Dorcase: (none)Author Type: Physician AssistantType: HANDPFiled: 12/27/2017 1:08 PMNote Text:HISTORY AND PHYSICAL EXAMINATIONSERVICE DATE: 12/25/2017SERVICE TIME: 9:02 [facility] C[facility] PHYSICIAN: SALVATORE Adkins FOR VISIT:Nicol Hyman [...] feet; No history of TIAs, stroke, tremors, SOLID WASTE DISPOSAL MANAGER tumor,hemiplegia, paraplegia, quadriplegia.Respiratory: No history of current cough or dyspnea, or pneumonia in thepast 6 weeks. No history of respiratory/pulmonary symptoms or problems.Cardiovascular: Negative for chest pain, orthopnea, PND, dizziness,lightheadedness or syncope. Negative for heart murmur. Negative forpalpitations or arrhythmia. Negative for h/o DVT/PE. Negative for LEedema. No CT or heart surgery.GI: No history of GI [...] results within date range.No results found for: NZT8VPjzl recent labsMost recent imagingAll in [facility] ent has the following medical conditionsMorbidly obese-BMI 40.16Chiari MalformationMigrainesMETS:Cl imb a flight of stairs or walk up [...] 2017 : 9:02 AM PAGER/CONTACT #: Normal [facility] Protimeon 12-25-2017 INR Coag RelTime (Bld) 1.0 {INR} Normal 0.9-1.3 [facility] Comment on above: Result Comment: Sarah min K Antagonist (VKA) Therapeutic Range: INR 2 to 3 (Target INR of 2.5)Note: For patients treated with VKA drugs, such as warfarin, the [place] College of Chest Physicians 2012 Guideline recommends [...] 2.5 to 3.5 (target INR of 3).Kim VAZQUEZ, et al. Chest 2012, 141:7S-47SJamison RA, et al. [facility] 2017, 70: 252-289 Performed By: #### C BC, PT, PTT, BMP ####[place] [address] [address] [place] [phone] PT Sec 10.3 sec Normal 9.7-13.0 [facility] Comment on above: Performed By: #### C BC, PT, PTT, BMP ####[place] [address] [address], [place] [phone] Urinalysison 12-25-2017 Bilirubin, Urine Negative Normal Negative [facility] Comment on above: Performed By: #### U A ####[place] [address] [address] [phone] Clarity Cloudy Critically abnormal Clear [facility] Comment on above: Performed By: #### U A ####[place] [address] [address] [place] [phone] Color Yellow Normal Yellow [facility] Comment on above: Performed By: #### U A ####[place] [address] [address] [place] [phone] Comments SEE COMMENT Normal [facility] Comment on above: Result Comment: Micr oscopic Examination Performed Performed By: #### U A ####[place] [address] [address] [place] [phone] Epithelial Cells SEE COMMENT Normal [facility] Comment on above: Result Comment: FewS quamous Epithelial Cells Performed By: #### U A ####[place] [address] [address] [place] [phone] Glucose Ql (U) Negative Normal Negative [facility] Comment on above: Performed By: #### U A ####[place] [address] [address] [place] [phone] Hemoglobin/Blood,Ur Negative Normal Negative [facility] Comment on above: Performed By: #### U A ####[place] [address] [address] [place] [phone] INR Coag RelTime (Bld) 0-3 Normal 0-3 [facility] Comment on above: Performed By: #### U A ####[place] [address] [address] [place] [phone] Ketones Ql (U) Negative Normal Negative [facility] Comment on above: Performed By: #### U A ####[place] [address] [address] [place] [phone] Leukest Trace Critically abnormal Negative [facility] Comment on above: Performed By: #### U A ####[place] [address] [address] [place] [phone] Nitrites Negative Normal Negative [facility] Comment on above: Performed By: #### U A ####[place] [address] [address] [place] [phone] pH 6.0 Normal 4.5-8.0 [facility] Comment on above: Performed By: #### U A ####[place] [address] [address] [place] [phone] Protein, Urine Negative Normal Negative [facility] Comment on above: Performed By: #### U A ####[place] [address] [address] [place] [phone] Specific [place], Ur 1.018 Normal 1.005-1 .03 0 [facility] Comment on above: Performed By: #### U A ####[place] [address] [place], [place] [phone] Urine Ashok Comment SEE COMMENT Normal [facility] Comment on above: Result Comment: N/A Performed By: #### U A ####[place] [address] [place], [place] [phone] Urobilinogen Normal Normal Normal [facility] Comment on above: Performed By: #### U A ####[address] [phone] WBC 0-5 Normal 0-5 [facility] Comment on above: Performed By: #### U A ####[address] [phone] Urine Cultureon 12-25-2017 Bacteria identified Cx Nom (U) Sp. Request/Comment: - Best Practice Alert: To ensure optimal transport conditions and accurate culture results transfer urine specimens to foster top C and S preservative tube. Culture Result - 10,000 - <50,000 CFU/ml Normal urogenital citlali Normal [facility] Comment on above: Performed By: #### U RCUL ####[address] [phone] HOSPon 12-20-2017 HOSP Patient:Cris Pillai CMRN: Height:5' 2(1.575 m)Weight:219 lb 9.6 oz (99.61 kg)Outpatient Medications as of 01/05/18:Patient has no current outpatient medications.Admission/Clinic Administered Medications as of 01/05/18:lidocaine-EPINEPHri ne 0.5 %-1:200,000 injectionbacitracin 500 unit/gram topical ointmentProblem List:Episode of visual disturbance [H53.9]Posterior vitreous detachment of right eye [H43.811]Other visual disturbances [H53.8]Obesity, Class III, BMI >= 40 [E66.01]Chiari malformation type I (HCC) [G93.5]Allergies:LatexOxycod oneDate Verified: 01/05/18Lab ValuesLab Value Units Date High LowPOTA* 4.6 mmol/L 12/25/2017 5.1 3.7HEMA* 43.1 % 12/25/2017 46.0 36.0Progress Notes ([facility]):Alejandra Huizarsea Psr 12/26/2017 8:18 AM SignedType of form: FMLAForm received via faxWhen form is completed, call patient or patients spouseForm has been forwarded to Dr Zhao's Nurse [facility] 12/26/2017 10:36 AM SignedPt's called.Please fax completed FMLA forms to [phone]., attn:Deb Horowitz.Raulito Walters, RN, RN 12/26/2017 3:01 PM SignedFMLA paperwork received and placed in physicians folder to be filled out andsigned. Saurav Walters RN, RN 01/02/2018 9:32 AM SignedFMLA paperwork filled out and signed. Faxed back to [phone]. Pt. Notifiedthat paperwork was completed and faxed. Pt. Verbalized understanding. [facility] Office Visit (NEMO) ------NICOL HYMAN ([id number]) 1985 FDate Time Provider Department11/21/17 3:30 PM FRANCY HARVEY During your visit today, we recorded the following information about you: Blood pressure Weight Last Period 120/70 99.8 kg 11/07/17Francy Harvey DO 11/21/2017 3:45 PM Madeleine Yenni is a 32 year old female who presents with a chiefcomplaint of Yearly Exam (pain on right side, inside vagina - started last week)SUBJECTIVEDysuria and pain in right sideWent over with her past medical history, family. social historyObstetric History T2 L3 SAB0 TAB0 Ectopic0 Multiple0 Live Msfczs1XXBUQTJIUTOKDOBNXISmf ergen Reactions- Latex Hives- Oxycodone Mental Status ChangeCurrent [...] Obesity, Class III, BMI 40-49.9 (morbid obesity) ([facility]) - ICD9: 278.01,ICD10: E66.01See pcpDajohnathon Harvey, DOReferring Provider: FRANCY HARVEY [[id number]]Allergies As of Date: 11/21/2017 Noted Allergy ReactionLATEX 11/03/2015 4 - HivesOXYCODONE 11/09/2015 1 - Mental Status ChangeDate Reviewed: 11/21/2017Reviewed by: Shweta (Linoleum Tile Floor Layer) Elyssa - Fully AssessedReason for Visit: Yearly Exam [187] Cmt: pain on right side, inside vagina - started last weekPrimary Visit Diagnosis:Women's annual routine gynecological examination [Z01.419] Other Visit Diagnoses:Routine cervical smear [Z12.4] Obesity, Class III, BMI 40-49.9 (morbid obesity) ([facility]) [E66.01] Dysuria [R30.0]Order(s):PAP, CYTO WOOD GRAINER [[id number]] Order #: [id number] URINE CULTURE [SQURCUL] Order #: [id number] FUTUREPrescriptions as of 11/21/2017 Sig: RIGHT STEP [...] for annual.Follow-up and Disposition History RecordedEncounter Number: [id number] Status:Closed by FRANCY HARVEY DO on 11/21/17 Normal [facility] Cult Urineon 11-21-2017 Cult Urine Test performed at [facility] Mixed skin citlali. No further identification or susceptibility testing will be performed. Please submit a new specimen. Plates will be held for 5 days. Normal [facility] Comment on above: Performed By: #### C _URI ####[place] [address] PROGRESSon 11-21-2017 Protein mass conc HNO ID: [id number] thor: Francy Hale: (none)Author Type: PhysicianType: Progress NotesFiled: 11/21/2017 3:45 PMNote Text:Nicol Hyman is a 32 year old female who presents with a chiefcomplaint of Yearly Exam (pain on right side, inside vagina - started lastweek)SUBJECTIVEDysuria and pain in right sideWent over with her past medical history, family. social historyObstetric History T2 L3 SAB0 TAB0 Ectopic0 Multiple0 Live Hnfxse2JRUDCZSTOQCTRVNLLRAkx ergen Reactions- Latex Hives- Oxycodone Mental Status ChangeCurrent [...] (morbid obesity) (HCC) - ICD9: 278.01,ICD10: E66.01See Jeramy Harvey, DO Normal [facility] Pap,Cyto Gynon 11-21-2017 Pap,Cyto Pack Out Operator Test performed at [place] [address]NAME: NICOL HYMAN [id number] REQUESTING: FRANCY HARVEY D.O.SPECIMEN: TP CX REFLEX TO HPV ASCUS/SILRelevant History:LMP: 11/07/2017 Post-: Y,SPECIMEN ADEQUACYSATISFACTORY FOR EVALUATION. ENDOCERVICAL/TRANSFORMATION ZONECOMPONENTS PRESENT.GENERAL CATEGORIZATIONNEGATIVE FOR INTRAEPITHELIAL LESION OR MALIGNANCY.INTERPRETATION/RE SULTPARAKERATOSIS.Electronic ally signed: 11/24/2017Screened by: NARAYAN STEWART(ASCP)Signed Out by: KARO GARRISON M.D., PATHOLOGISTThe Pap test serves as a [...] 24, 2017 Page 1 of 1 Normal [facility] Comment on above: Performed By: #### C YTOP ####[place] [address] MRI CERVICAL SPINE W/O CONTR Myrna 11-20-2017 MRI CERVICAL SPINE W/O CONTRAST Performed at [facility] APPROVED BY: Artie Barney MD EXAMINATION: MRI [...] significant spinal canal or foraminal stenoses. Normal [facility] CNOVon 11-16-2017 CNOV Office Visit (NSFRVW) ----NICOL HYMAN ([id number]) 1985 FDate Time Provider Department11/16/17 10:10 AM LEENA ZHAO NSFRVW During your visit today, we recorded the following information about you: Temperature Pulse Blood pressure Weight 97.2 degrees 65/minute 124/70 99.8 kg Height 1.575 Naeem Zhao MD 11/16/2017 2:28 PM SignedNEUROSURGERY ESTABLISHEDDATE OF SERVICE: 11/16/2017DATE OF LAST VISIT: 05/18/2017SUBJECTIVE:HPI:Lyudmila Hyman is a 32 year old female [...] history of headaches, syncope, paralysis, seizures or tremorsMEDICATIONS:SUMAtript an (IMITREX) 20 mg/actuation nasal sprayprenatal vit/iron fum/folic [...] 5' 2 (1.58m) Wt 220 lb (99.8kg) TwF9073% BMI 40.23 kg/(m2).GENERAL APPEARANCE: Well nourished, well developed, and no apparent distress.NEURO PSYCH: Patient oriented to person, place, and time. Mood pleasant. Benignaffect.MUSCULOSKELETAL VISUAL INSPECTION CERVICAL: WNL THORACIC: WNL LUMBAR: WNLMOTOR: 5/5 in all muscle groups.SENSORY: Normal sensory examGAIT: Normal.NEURO TESTS:Cranial Nerves:Normal mood and affect.CNII-XII grossly intact.Ikwvxo-lr-Wixg, heel-gli tests without evidence of ataxia or incoordination.DATA [...] go ahead with decompression and FU 1 yearSOLYA Prajapatieferring Provider: LEENA ZHAO [[id number]]Allergies As of Date: 11/16/2017 Noted Allergy ReactionLATEX [...] by LEENA ZHAO MD on 11/16/17 Normal [facility] PROGRESSon 11-16-2017 Protein mass conc HNO ID: [id number] thor: Leena Mahoneyervice: (none)Author Type: PhysicianType: Progress NotesFiled: 11/16/2017 2:28 PMNote Text:NEUROSURGERY ESTABLISHEDDATE OF SERVICE: 11/16/2017DATE OF LAST VISIT: 05/18/2017SUBJECTIVE:HPI:Lyudmila Hyman is a 32 year old female [...] history of headaches, syncope, paralysis, seizures or tremorsMEDICATIONS:SUMAtript an (IMITREX) 20 mg/actuation nasal sprayprenatal vit/iron fum/folic [...] Normal.NEURO TESTS:Cranial Nerves:Normal mood and affect.CNII-XII grossly intact.Yzoday-xi-Cscr, heel-gil tests without evidence of ataxia orincoordination.DATA [...] and FU 1 yearSmehran Zhao MD Normal [facility] Group A Strep by PCRon 07-14 GAS Specimen Source Throat Swab Normal [facility] Comment on above: Performed By: #### G ASPCR ####[place] [id number] [place], [place] [phone] Group A Strep PCR Negative Normal [facility] Comment on above: Result Comment: This test was developed and its performance characteristics determined by [facility]'s Jaylon Collado [facility] Pathology and Laboratory Medicine [place] ([facility]).It has not been cleared or approved by the FDA. [facility] is regulated under CLIA as qualified to perform high-complexity testing. This test is used for clinical purposes. It should not be regarded as investigational or for research. Performed By: #### G ASPCR ####[facility] [address] [place], [place] [phone] CNOVon 07-13-2017 CNOV Office Visit (UCWSTR) ----YENNINICOL ([id number]) 1985 FDate Time Provider Department07/13/17 8:30 PM RENA DC UCWSTR During your visit today, we recorded the following information about you: Temperature Pulse Respiration Blood pressure 97.7 degrees 84/minute 18/minute 110/80 Weight 101.7 kgRena Vanda MOTORSPORTS TECHNICIAN 07/13/2017 9:04 PM SignedSubjectiveHPIPt presents with c/o [...] oriented to person, place, and time and well-developed,well-nourishe d, and in no distress. No distress.HENT:Head: Normocephalic.Right [...] Diagnosis:Right ear pain [H92.01]Order(s):RAPID STREP TEST B/O [[id number]] Order #: [id number] GROUP A STREPTOCOCCUS BY PCR [SQGASPCR] Order #: [id number] as of 07/13/2017 Sig: RIGHT STEP VITAMINS [...] by RENA DC CNP on 07/13/17 Normal [facility] PROGRESSon 07-13-2017 Protein mass conc HNO ID: [id number] thor: Rena Ilana: (none)Author Type: Nurse PractitionerType: Progress NotesFiled: 07/13/2017 [...] in agreement with plan ofcare.Rena Dc CNP Normal [facility] CNOVon 05-30-2017 CNOV Office Visit (KARINEBBATH) ------NICOL HYMAN ([id number]) 1985 FDate Time Provider Department05/30/17 2:45 PM FRANCY HARVEY [...] T2 L3 SAB0 TAB0 Ectopic0 Multiple0 Live Melulb7FADWHMSWKDDUQUJRBHKai ergen Reactions- Latex Hives- Oxycodone Mental Status ChangeCurrent [...] 15th of the next 3 monthsFollow-up for Zari E Armida Harvey Provider: FRANCY HARVEY [[id number]]Allergies As of Date: 05/30/2017 Noted Allergy ReactionLATEX 11/03/2015 4 - HivesOXYCODONE 11/09/2015 1 - Mental Status ChangeDate Reviewed: 05/30/2017Reviewed by: Shweta Kahn) Elyssa - Fully AssessedReason for Visit: Follow Up [171] Cmt: us completed in office todayPrimary Visit Diagnosis:DUB (dysfunctional uterine bleeding) [N93.8]Order(s):medroxyPROGE STERone (PROVERA, CYCRIN) 10 mg tabletTake 1 tablet [...] for annual.Follow-up and Disposition History RecordedEncounter Number: [id number] Status:Closed by FRANCY HARVEY DO on 05/30/17 [facility] CNOV Office Visit (NEMO) ------NICOL HYMAN ([id number]) 1985 FDate Time Provider Department05/30/17 2:00 PM ULTRASOUND DIRECTOR OF RADIOLOGY AG BATH NEMO During your visit today, we recorded the following information about you:Lonnie Bull 05/30/2017 4:11 PM Signed? Please call the office before going to the hospital.? If you are , go to the ER at the [facility] main campus. Do not go tothe outlying ER?s ([place], [facility] or [place]).? If you need to go to an ER and cannot or will not go downtown, please use oneof [facility]?s ER?s (not [facility], [facility] or [facility]).Referring Provider: FRANCY HARVEY [[id number]]Allergies As of Date: 05/30/2017 Noted Allergy ReactionLATEX 11/03/2015 4 - HivesOXYCODONE 11/09/2015 1 - Mental Status ChangeDate Reviewed: 05/30/2017Reviewed by: Shweta Kahn) Elyssa - Fully AssessedPrimary Visit Diagnosis:DUB (dysfunctional uterine bleeding) [N93.8]Order(s): FEMALE PELVIS TRANSVAG [[id number]] Order #: [id number] as of 05/30/2017 Sig: MEDROXYPROGESTERONE 10 MG [...] , go to the ER at the hospital main campus. Do not go to the outlying ER?s ([place] [place] or [place]). ? If you need to go to an ER and cannot or will not go downtown, please use one of [facility]?s ER?s (not [facility], [facility] or [facility]). Status:Closed by Keyword Rockstar, LONNIE on 06/02/17 Normal [facility] PROGRESSon 05-30-2017 Protein mass conc HNO ID: [id number] thor: Francy Hale: (none)Author Type: PhysicianType: Progress [...] her on Provera 10 mg fifth to hrt92rh next few monthsWent over with her past medical history, family. social historyObstetric History T2 L3 SAB0 TAB0 Ectopic0 Multiple0 Live Eniqgv5CMFKQNGLCTFMYMGIPIBcr ergen Reactions- Latex Hives- Oxycodone Mental Status ChangeCurrent [...] 15th of the next 3 monthsFollow-up for annualFrancy Harvey DO Normal [facility] CNOVon 05-23-2017 CNOV Office Visit (NEMO) ------NICOL HYMAN ([id number]) 1985 FDate Time Provider Department05/23/17 4:00 PM FRANCY HARVEY During your visit today, we recorded the following information about you: Blood pressure Weight Height Last Period 110/70 98.4 kg 1.575 m 05/09/17Francy Harvey DO 05/23/2017 4:05 PM Keotrina Hendricksonpedronarendra is a 31 year old female who presents with a chiefcomplaint of Pack Out Operator Exam (Pt keeps getting her period every [...] problems at this time. She hasn't doneanything cpla-isp-qvyswxx for this and hasn't gotten any betterWent over with her past medical history, family. social historyObstetric History T2 L3 SAB0 TAB0 Ectopic0 Multiple0 Live Fnkmfd3WQDTUMSGHGZIVWLHLFTrk ergen Reactions- Latex Hives- Oxycodone Mental Status ChangeCurrent [...] after ultrasound- US FEMALE PELVIS TRANSVAGDavid E Candice, WILMEReferring Provider: SELF [[id number]]Allergies As of Date: 05/23/2017 Noted Allergy ReactionLATEX 11/03/2015 4 - HivesOXYCODONE 11/09/2015 1 - Mental Status ChangeDate Reviewed: 05/23/2017Reviewed by: Israel ([facility]) Crissy - Fully AssessedReason for Visit: Pack Out Operator Exam [50] Cmt: Pt keeps getting her period every two weeksReason For Visit History RecordedPrimary Visit Diagnosis:DUB (dysfunctional uterine bleeding) [N93.8]Order(s):US FEMALE PELVIS TRANSVAG [[id number]] Order #: [id number] FUTUREPrescriptions as of 05/23/2017 Sig: SUMATRIPTAN 20 [...] and f/u.Follow-up and Disposition History RecordedEncounter Number: [id number] Status:Closed by FRANCY HARVEY DO on 05/23/17 [facility] PROGRESSon 05-23-2017 Protein mass conc HNO ID: [id number] thor: Francy Hale: (none)Author Type: PhysicianType: Progress NotesFiled: 05/23/2017 4:05 PMNote Text:Nicol Hyman is a 31 year old female who presents with a chiefcomplaint of Pack Out Operator Exam (Pt keeps getting her period every [...] at this time. She hasn't done anything vdbd-opl-hnoxcxh for thisand hasn't gotten any betterWent over with her past medical history, family. social historyObstetric History T2 L3 SAB0 TAB0 Ectopic0 Multiple0 Live Klncur1HHBESSPKUCFAFQKCFMVuj ergen Reactions- Latex Hives- Oxycodone Mental Status ChangeCurrent [...] FEMALE PELVIS TRANSVAGDavid E Biats, DO Normal [facility] PROGRESSon 05-18-2017 Protein mass conc HNO ID: [id number] thor: Francy Easton: (none)Author Type: PhysicianType: Progress NotesFiled: 05/18/2017 2:47 [...] information sheet as directedNo activity restrictionsReturn as neededMartha Topete RNThe documentation for this note was completed by [...] all of its relevantcomponents.Francy Edge MD Normal [facility] Protein mass conc HNO ID: [id number] thor: Leena Perez: (none)Author Type: PhysicianType: Progress NotesFiled: 05/18/2017 11:34 AMNote Text:Seen with infantRecently gave to 3rd childMother has Chiari anomalyHPISymptoms originally started after second in 2015, and flared upwith recent childHA's, visual symptoms during migrainesAlso Balance problemsEpisodes of cognitive impairmentNT L side of bodyMRI Bran, C/S, and T/s available for reviewMRI reveals 7-9 mm (depending on cervical or brain MRI) tonsillar descentCrowding of foramen magnumNo base of skull abnNo Syringomyelia or tetheringAPFindings explainedIIH and Oliari discussedReq Neuro-opthalmology evaluationPt not interested in intervention now with infants at homeFU 09/05 with C/S MRI, or prn any worsening of symptomsLeena Zhao MD Normal [facility] Protein mass conc HNO ID: [id number] thor: Pasha Bassett) Tuanervice: (none)Author Type: Physician AssistantType: Progress NotesFiled: 05/18/2017 11:34 AMNote Text:CC : Jersont with a chief complaint of chiari malformation.Interval HPI : Ms. Hyman is 31 year old female with complaints ofmigraines, loss vision, vomiting, balance issues, cognitive issues andnumbness and tingling in the left.Patient started having migraines in 2014. After having her last baby [id number], the migraines got worse. During the migraines [...] the chart and have been reviewed by me. Onelia.EXAM :Awake and fuihwMp8ONLBorl symmetricSpeech ClearTongue midlineNo pronator driftNo past pointingRAMs wnlB/l senior cost analyst wnlBiceps and triceps wnlGait wnlTandem walking normalDTR's +2 b/l in UE = and symmetricAssessment :MRIs reviewedCerebellar tonsillar ectopia 7-9mmVisual symptomsPlan :F/u ophthalmologyMRI in 6 mos for follow up.JULEE Holden-CFebruary 201711:07 AM Normal [facility] Enrique 12-27-2016 CNPN Telephone (AGOBBATH) ------NICOL HYMAN ([id number]) 1985 [facility] Time Provider Zbegspyrub03/3/17 FRANCY HARVEY During your visit today, we recorded the following information about you:Oxana Justice RN 12/27/2016 2:53 PM SignedPt calls-needs order for breast pump. Previous pump has broken and insuranceneeds new order faxed to [phone].Please file and PRINT rx.Nancy Joseph RN 12/27/2016 [...] DOUBLE ELECTRIC BREAST PUMP--TO USE PRNEncounter Number: [id number] Status:Closed by FRANCY HARVEY DO on 12/27/16 Normal [facility] Vital Signs Date Time Vital Sign Value Performing Clinician Facility 11-05-2024 08:32-0400 Body mass index (BMI) [Ratio] 43.2 kg/m2 Jeannette Quarles MD Work Phone: [facility] 11-05-2024 08:32-0400 Body weight 108.86 kg Jeannette Quarles MD Work Phone: [facility] 11-05-2024 08:32-0400 Diastolic blood pressure 78 mm[Hg] Jeannette Quarles MD Work Phone: [facility] 11-05-2024 08:32-0400 Systolic blood pressure 124 mm[Hg] Jeannette Quarles MD Work Phone: [facility] 10-13-2024 08:14-0400 Body mass index (BMI) [Ratio] 43.73 kg/m2 Alexia Rausch MD Work Phone: [facility] 10-13-2024 08:14-0400 Body temperature 97.2 [degF] lAexia Rausch MD Work Phone: [facility] 10-13-2024 08:14-0400 Body weight 110.2 kg Alexia Rausch MD Work Phone: [facility] 10-13-2024 08:14-0400 Diastolic blood pressure 68 mm[Hg] Alexia Rausch MD Work Phone: [facility] 10-13-2024 08:14-0400 Heart rate 102 /min Alexia Rausch MD Work Phone: [facility] 10-13-2024 08:14-0400 Respiratory rate 16 /min Alexia Rausch MD Work Phone: [facility] 10-13-2024 08:14-0400 SaO2% (BldA) [Mass fraction] 97 % Alexia Rausch MD Work Phone: [facility] 10-13-2024 08:14-0400 Systolic blood pressure 110 mm[Hg] Alexai Rausch MD Work Phone: [facility] 10-03-2024 13:15-0400 Body height 157.[address] Jeannette Quarles MD Work Phone: [facility] 10-03-2024 13:15-0400 Body mass index (BMI) [Ratio] 43.5 kg/m2 Dr. Jeannette Quarles MD Work Phone: [facility] 10-03-2024 13:15-0400 Body temperature 98 [degF] Dr. Jeannette Quarles MD Work Phone: [facility] 10-03-2024 13:15-0400 Body weight 107.[address] Jeannette Quarles MD Work Phone: [facility] 10-03-2024 13:15-0400 Diastolic blood pressure 76 mm[Hg] Dr. Jeannette Quarles MD Work Phone: [phone] [place] [address] 10-03-2024 13:15-0400 Heart rate 74 /min Dr. Jeannette Quarles MD Work Phone: [phone] [place] [address] 10-03-2024 13:15-0400 Respiratory rate 18 /min Dr. Jeannette Quarles MD Work Phone: [facility] 10-03-2024 13:15-0400 SaO2% (BldA) [Mass fraction] 99 % Dr. Jeannette Quarles MD Work Phone: [facility] 10-03-2024 13:15-0400 Systolic blood pressure 138 mm[Hg] Dr. Jeannette Quarles MD Work Phone: [facility] 10-01-2024 15:45-0400 Body mass index (BMI) [Ratio] 42.84 kg/m2 Jeannette Quarles MD Work Phone: [facility] 10-01-2024 15:45-0400 Body weight 107.96 kg Jeannette Quarles MD Work Phone: [facility] 10-01-2024 15:45-0400 Diastolic blood pressure 74 mm[Hg] Jeannette Quarles MD Work Phone: [facility] 10-01-2024 15:45-0400 Systolic blood pressure 122 mm[Hg] Jeannette Quarles MD Work Phone: [facility] 09-20-2024 15:00-0400 Body temperature 97.5 [degF] Dr. Jeannette Quarles MD Work Phone: [facility] 09-20-2024 15:00-0400 Diastolic blood pressure 77 mm[Hg] Dr. Jeannette Quarles MD Work Phone: [facility] 09-20-2024 15:00-0400 Heart rate 64 /min Dr. Jeannette Quarles MD Work Phone: [facility] 09-20-2024 15:00-0400 Respiratory rate 18 /min Dr. Jeannette Quarles MD Work Phone: [facility] 09-20-2024 15:00-0400 SaO2% (BldA) [Mass fraction] 94 % Dr. Jeannette Quarles MD Work Phone: [facility] 09-20-2024 15:00-0400 Systolic blood pressure 99 mm[Hg] Dr. Jeannette Quarles MD Work Phone: [facility] 09-20-2024 13:15-0400 Inhaled oxygen flow rate 4 L/min Dr. Jeannette Quarles MD Work Phone: [facility] 09-20-2024 12:30-0400 Inhaled oxygen concentration 61 % Dr. Jeannette Quarles MD Work Phone: [facility] 09-20-2024 07:29-0400 Body height 157.[address] Jeannette Quarles MD Work Phone: [facility] 09-20-2024 07:29-0400 Body mass index (BMI) [Ratio] 43.9 kg/m2 Dr. Jeannette Quarles MD Work Phone: [facility] 09-20-2024 07:29-0400 Body weight [address] Jeannette Quarles MD Work Phone: [facility] 08-28-2024 11:44-0400 Body height 158.8 cm Jeannette Quarles MD Work Phone: [facility] 08-28-2024 11:44-0400 Body mass index (BMI) [Ratio] 42.66 kg/m2 Jeannette Quarles MD Work Phone: [facility] 08-28-2024 11:44-0400 Body weight 107.5 kg Jeannette Quarles MD Work Phone: [facility] 08-28-2024 11:44-0400 Diastolic blood pressure 78 mm[Hg] Jeannette Quarles MD Work Phone: [facility] 08-28-2024 11:44-0400 Heart rate 61 /min Jeannette Quarles MD Work Phone: [facility] 08-28-2024 11:44-0400 Respiratory rate 16 /min Jeannette Quarles MD Work Phone: [facility] 08-28-2024 11:44-0400 SaO2% (BldA) [Mass fraction] 98 % Jeannette Quarles MD Work Phone: [facility] 08-28-2024 11:44-0400 Systolic blood pressure 124 mm[Hg] Jeannette Quarles MD Work Phone: [facility] 06-26-2024 10:19-0400 Body mass index (BMI) [Ratio] 42.33 kg/m2 Willie Guevara MD Work Phone: [facility] 06-26-2024 10:19-0400 Body weight 106.69 kg Willie Guevara MD Work Phone: [facility] 06-26-2024 10:19-0400 Diastolic blood pressure 80 mm[Hg] Willie Guevara MD Work Phone: [facility] 06-26-2024 10:19-0400 Systolic blood pressure 118 mm[Hg] Willie Guevara MD Work Phone: [facility] 06-14-2024 11:28-0400 Body mass index (BMI) [Ratio] 41.76 kg/m2 Willie Guevara MD Work Phone: [facility] 06-14-2024 11:28-0400 Body weight 105.23 kg Willie Guevara MD Work Phone: [facility] 06-14-2024 11:28-0400 Diastolic blood pressure 84 mm[Hg] iWllie Guevara MD Work Phone: [facility] 06-14-2024 11:28-0400 Systolic blood pressure 126 mm[Hg] Willie Guevara MD Work Phone: [facility] 05-17-2024 15:57-0500 Body mass index (BMI) [Ratio] 42.12 kg/m2 Nurse Wstr Work Phone: [facility] 05-17-2024 15:57-0500 Body weight 106.14 kg Nurse Wstr Work Phone: [facility] 05-17-2024 15:57-0500 Diastolic blood pressure 88 mm[Hg] Nurse Wstr Work Phone: [facility] 05-17-2024 15:57-0500 Systolic blood pressure 130 mm[Hg] Nurse Wstr Work Phone: [facility] 01-15-2024 10:11-0400 Body mass index (BMI) [Ratio] 41.54 kg/m2 Nurse Wstr Work Phone: [facility] 01-15-2024 10:11-0400 Body weight 104.69 kg Nurse Wstr Work Phone: [facility] 01-15-2024 10:11-0400 Diastolic blood pressure 74 mm[Hg] Nurse Wstr Work Phone: [facility] 01-15-2024 10:11-0400 Systolic blood pressure 114 mm[Hg] Nurse Wstr Work Phone: [facility] 11-10-2023 15:46-0400 Body height 158.8 cm Willie Guevara MD Work Phone: [facility] 11-10-2023 15:46-0400 Body mass index (BMI) [Ratio] 40.32 kg/m2 Willie Guevara MD Work Phone: [facility] 11-10-2023 15:46-0400 Body weight 101.61 kg Willie Guevara MD Work Phone: [facility] 11-10-2023 15:46-0400 Diastolic blood pressure 72 mm[Hg] Willie Guevara MD Work Phone: [facility] 11-10-2023 15:46-0400 Systolic blood pressure 130 mm[Hg] Willie Guevara MD Work Phone: [facility] 12-16-2022 15:10-0400 Body height 157.5 cm Willie Guevara MD Work Phone: [facility] 12-16-2022 15:10-0400 Body weight 103.96 kg Willie Guevara MD Work Phone: [facility] 12-16-2022 15:10-0400 Diastolic blood pressure 72 mm[Hg] Willie Guevara MD Work Phone: [facility] 12-16-2022 15:10-0400 Systolic blood pressure 110 mm[Hg] Willie Guevara MD Work Phone: [facility] 08-01-2021 08:55-0400 Body temperature 97.3 [degF] Den Pendlebury CAPTAIN WAITER.MOTORSPORTS TECHNICIAN Work Phone: [facility] 08-01-2021 08:55-0400 Body weight 102.33 kg Den Pendlebury CAPTAIN WAITER.MOTORSPORTS TECHNICIAN Work Phone: [facility] 08-01-2021 08:55-0400 Diastolic blood pressure 74 mm[Hg] Den Pendlebury CAPTAIN WAITER.MOTORSPORTS TECHNICIAN Work Phone: [facility] 08-01-2021 08:55-0400 Heart rate 83 /min Den Pendlebury CAPTAIN WAITER.MOTORSPORTS TECHNICIAN Work Phone: [facility] 08-01-2021 08:55-0400 Respiratory rate 18 /min Den Pendlebury CAPTAIN WAITER.MOTORSPORTS TECHNICIAN Work Phone: [facility] 08-01-2021 08:55-0400 SaO2% (BldA) [Mass fraction] 98 % Den Burrows CAPTAIN WAITER.MOTORSPORTS TECHNICIAN Work Phone: [facility] 08-01-2021 08:55-0400 Systolic blood pressure 122 mm[Hg] Den Sethsena CAPTAIN WAITER.MOTORSPORTS TECHNICIAN Work Phone: [facility] Encounters Encounter Date Encounter Type Care Provider Facility Start: 11-05-2024 End: 11-05-2024 Patient encounter procedure Jeannette Quarles MD Work Phone: OB/Gynecology Comment on above: Post-operative state (Primary Dx) Start: 11-05-2024 End: 11-05-2024 ambulatory JEANNETTE QUARLES Facility:[facility] Start: 10-13-2024 End: 10-13-2024 Office outpatient new 45 minutes Alexia Rausch MD Work Phone: [facility] Comment on above: Cellulitis of skin ( Primary Dx) Start: 10-13-2024 End: 10-13-2024 ambulatory [facility] Facility:[facility] Start: 10-10-2024 Encounter for genera l adult medical examination without abnormal findings Abad Parrish [facility] Start: 10-03-2024 End: 10-03-[address] Abad Parrish MD -[facility] Work Phone: Start: 10-03-2024 End: 10-03-[address] Abad Parrish MD [facility] Start: 10-03-2024 End: 10-03-[address] Jeannette Quarles MD Work Phone: -[facility] Start: 10-03-2024 End: 10-03-2024 ambulatory No Primary Care Physician Facility:[facility] Start: 10-01-2024 End: 10-01-2024 Patient encounter procedure Jeannette Quarles MD Work Phone: OB/Gynecology Comment on above: Post-operative state (Primary Dx) Start: 10-01-2024 End: 10-01-2024 ambulatory JEANNETTE QUARLES Facility:[facility] Start: 09-20-2024 End: 09-20-2024 Patient encounter procedure Jeannette Quarles MD Work Phone: OB/Gynecology Start: 09-20-2024 End: 09-20-2024 Admission to same day surgery center Dr. Jeannette Quarles [facility] Start: 09-20-2024 End: 09-20-[address] Jeannette Quarles MD Work Phone: [facility] Comment on above: Intramural uterine f ibroid (Primary Dx); Menorrhagia with regular cycle; Adenomyosis of the uterus; Deep dyspareunia Start: 08-29-2024 End: 10-29-2024 Follow-up encounter Viridiana Rodriguez APRN.CNP Work Phone: OB/Gynecology Start: 08-28-2024 End: 08-28-2024 Patient encounter procedure Jeannette Quarles MD Work Phone: OB/Gynecology Comment on above: Menorrhagia with reg ular cycle (Primary Dx); Intramural uterine fibroid; Adenomyosis of the uterus; Vaginal discharge; Postoperative pain Start: 08-28-2024 End: 08-28-2024 ambulatory JEANNETTE QUARLES Facility:[facility] Start: 07-23-2024 End: 07-26-2024 Admission to same day surgery center [facility] OB/Gynecology Comment on above: surgery date Start: 07-23-2024 End: 07-26-2024 E-mail encounter from caregiver [facility] OB/Gynecology Start: 07-19-2024 End: 07-19-2024 ambulatory JEANNETTE QUARLES Facility:[facility] Start: 06-26-2024 End: 06-26-2024 ambulatory WILLIE GUEVARA Facility:[facility] Start: 06-26-2024 End: 06-26-2024 Patient encounter procedure Willie Guevara MD Work Phone: OB/Gynecology Comment on above: Adenomyosis of the u terus (Primary Dx); Dyspareunia, female Start: 06-20-2024 End: 06-20-2024 ambulatory Mica Washer [facility] Work Phone: OB/Gynecology Start: 06-20-2024 End: 06-20-2024 Patient encounter procedure [employer] [facility] OB/Gynecology Start: 06-14-2024 End: 06-14-2024 ambulatory WILLIE GUEVARA Facility:[facility] Start: 06-14-2024 End: 06-14-2024 Patient encounter procedure Willie Guevara MD Work Phone: OB/Gynecology Comment on above: Vaginal discharge (P rimary Dx); Pelvic pain in female; Family history of ovarian cancer; Screen for STD (sexually transmitted disease) Start: 05-17-2024 End: 05-17-2024 Nursing evaluation of patient and report Nurse Rare/Endangered Species Specialist [facility] Wstr Work Phone: OB/Gynecology Comment on above: Need for prophylacti c vaccination/inoculation against viral disease (Primary Dx) Start: 05-17-2024 End: 05-17-2024 ambulatory [facility] Facility:[facility] Start: 01-15-2024 End: 01-15-2024 [facility] Facility:[facility] Start: 01-15-2024 End: 01-15-2024 Nursing evaluation of patient and report Nurse Rare/Endangered Species Specialist [facility] Wstr Work Phone: OB/Gynecology Comment on above: Need for prophylacti c vaccination/inoculation against viral disease (Primary Dx) Start: 11-13-2023 End: 11-13-2023 [facility] Facility:B Start: 11-10-2023 End: 11-10-2023 ambulatory WILLIE GUEVARA Facility:[facility] Start: 11-10-2023 End: 11-10-2023 Patient encounter procedure Willie Guevara MD Work Phone: OB/Gynecology Comment on above: Encounter for gyneco logical examination (general) (routine) without abnormal findings (Primary Dx); Screening for cervical cancer; Encounter for screening for human papillomavirus (HPV); Need for prophylactic vaccination/inoculation against viral disease Start: 11-10-2023 End: 11-10-2023 Patient encounter status Willie Guevara MD Work Phone: [facility] Start: 12-16-2022 End: 12-16-2022 Patient encounter procedure Willie Guevara MD Work Phone: OB/Gynecology Comment on above: Encounter for gyneco logical examination without abnormal finding (Primary Dx); Encounter for screening for malignant neoplasm of cervix; Special screening examination for human papillomavirus (HPV) Start: 12-16-2022 End: 12-16-2022 Patient encounter status Willie Guevara MD Work Phone: [facility] Start: 08-01-2021 End: 08-01-2021 Office outpatient visit 15 minutes Den Burrows APRN.CNP Work Phone: [facility] Comment on above: Eustachian tube dysf unction, right (Primary Dx) Start: 01-25-2018 End: 01-25-2018 Patient encounter LEENA JAEGER [facility] Start: 01-10-2018 End: 01-16-2018 Evaluation and management of inpatient [facility] Start: 01-05-2018 End: 01-09-2018 Evaluation and management of inpatient [facility] Start: 12-25-2017 Encounter for other preprocedural examination [facility] Start: 12-25-2017 End: 12-25-2017 Patient encounter LEENA JAEGER [facility] Start: 11-21-2017 End: 11-22-2017 Patient encounter FRANCY Mills [facility] Start: 11-21-2017 Encounter for gynecological examination (general) (routine) without abnormal findings FRANCY [facility] Start: 11-21-2017 End: 11-21-2017 Patient encounter FRANCY Mills [facility] Start: 11-20-2017 End: 11-21-2017 Patient encounter PASHA MENDIOLA [facility] Start: 11-16-2017 End: 11-17-2017 Patient encounter LEENA JAEGER [facility] Start: 07-13-2017 End: 07-14-2017 Patient encounter LEENA [facility] Start: 07-03-2017 Patient encounter PASHA west:[facility] Start: 05-30-2017 End: 05-30-2017 Patient encounter FRANCY Mills ABEBE [facility] Start: 05-23-2017 End: 05-23-2017 Patient encounter FRANCY Mills ABEBE [facility] Start: 05-18-2017 End: 05-22-2017 Patient encounter FRANCY EDGE [facility] Procedures Date Procedure Procedure Detail Performing Clinician Start: 09-20-[address] Jeannette Quarles MD Work Phone: Start: 08-28-2024 UA DIP,URINE HCG (POC) Jeannette Quarles MD Work Phone: Start: 06-20-2024 Us pelvic nonobstetr ic real-time image complete Willie Guevara MD Work Phone: Start: 12-26-2017 Antibody screen LEENA Ida RUEDA Comment on above: Performed By: #### T [id number] ####[facility] [place], [place] [phone] Start: 11-16-2017 Adult depression screening assessment Den Burrows APRN.CNP Work Phone: History of reduction of breast S/P bilateral breast reduction Dr. Jeannette Quarles MD Work Phone: Plan of Treatment Date Care Activity Detail Author Start: 01-31-2025 End: 01-31-2025 Patient encounter procedure 01/31/2025 2:00 PM EST Office Visit OB/Gynecology [address] [place] [phone] Willie Guevara MD [address] [place] [phone] Annual OB/Gynecology Comment on above: Annual Start: 11-25-[address] [facility] Start: 11-15-2024 End: 11-15-2024 Patient encounter procedure 11/15/2024 4:00 PM EDT Office Visit OB/Gynecology [address] [place] [phone] Willie Guevara MD [address] [place] [phone] Annual OB/Gynecology Comment on above: Annual Start: 11-09-2024 Screening for malign ant neoplasm of cervix Cervical Cancer Screening [facility] Start: 11-05-2024 End: 11-05-2024 Patient encounter procedure 11/05/2024 8:30 AM EDT Office Visit OB/Gynecology [address] [address] Jeannette Quarles MD [address] [place] [address] POST OP ok per RR OB/Gynecology Comment on above: POST OP ok per RR Start: 10-03-2024 CBC W Auto Different ial panel - Blood [facility] Start: 10-03-2024 Comprehensive metabo lic 2000 panel - Serum or Plasma [facility] Start: 10-03-2024 Hemoglobin A1c/Hemoglobin.total in Blood [facility] Start: 10-01-2024 End: 10-01-2024 Patient encounter procedure 10/01/2024 3:40 PM EDT Office Visit OB/Gynecology [address] [place] [address] Jeannette Quarles MD [address] [place] [address] 1 week post op OB/Gynecology Comment on above: 1 week post op Start: 09-20-2024 Anesthesia intraperi toneal lower abd w/laps nos ANESTH SURG LOWER ABDOMEN [facility] Start: 09-20-2024 Laps total hysterect 250 gm/< w/rmvl tube/ovary TLH W/T/O 250 G OR LESS [facility] Start: 09-20-2024 Patient discharge [facility] Start: 09-20-2024 Procedure discontinued [facility] Start: 09-20-2024 Ambulation without limitation [facility] Start: 09-20-2024 Medication education [facility] Start: 09-20-2024 Planned voiding [facility] Start: 09-20-2024 Taking patient vital signs [facility] Start: 09-20-2024 Vital signs measurements [facility] Start: 09-20-2024 [facility] Start: 08-27-2024 End: 08-27-2024 Patient encounter procedure 08/27/2024 10:20 AM EDT Office Visit OB/Gynecology [address] [place] [address] Jeannette Quarles MD [address] [place] [address] emb & pre-op surgery 09/20 OB/Gynecology Comment on above: emb & pre-op surgery 09/20 Start: 07-19-2024 End: 07-19-2024 Patient encounter procedure 07/19/2024 3:20 PM EDT Office Visit OB/Gynecology [address] [place] [address] Jeannette Quarles MD [address] [place] [address] hysterectomy consult with RR or DM referred by G[facility]ARD[facility] OB/Gynecology Comment on above: hysterectomy consult with RR or DM referred by GERARDO Start: 06-20-2024 End: 06-20-2024 Manual pelvic examination 06/20/2024 8:30 AM EDT Procedure OB/Gynecology [address] [place] [address] Remote, Mica Washer Gluer [facility] [address] [place] [address] Pelvic pain OB/Gynecology Comment on above: Pelvic pain Start: 06-14-2024 End: 06-14-2025 US Pelvis PELVIC US [facility] Routine Pelvic pain in female Expected: 06/14/2024, Expires: 06/14/2025 [facility] Work Phone: Comment on above: Expected: 06/14/2024 , Expires: 06/14/2025 Start: 05-17-2024 End: 05-17-2024 Nursing evaluation of patient and report 05/17/2024 9:00 AM EST Nurse Visit OB/Gynecology [address] [place] [address] Wstr, Nurse Rare/Endangered Species Specialist [facility] [address] [place], [place] [id number] HPV #3 OB/Gynecology Comment on above: HPV #3 Start: 05-12-2024 HPV Vaccine (3 - 3-d ose SCDM series) HPV Vaccine (3 - 3-dose SCDM series) [facility] Start: 05-08-2024 9vhpv vacc 2/3 dose sched im use HPV VACCINE, 9-VALENT (GARDASIL 9) Immunization/Injection Routine Expected: 05/08/2024 (Approximate) [facility] Comment on above: Expected: 05/08/2024 (Approximate) Start: 01-12-2024 End: 01-12-2024 Nursing evaluation of patient and report 01/12/2024 3:00 PM EDT Nurse Visit OB/Gynecology [address] [place] [address] Wstr, Nurse Rare/Endangered Species Specialist [facility] [address] [place], [place] [phone] HPV OB/Gynecology Comment on above: HPV Start: 01-09-2024 9vhpv vacc 2/3 dose sched im use HPV VACCINE, 9-VALENT (GARDASIL 9) Immunization/Injection Routine Expected: 01/09/2024 (Approximate) [facility] Comment on above: Expected: 01/09/2024 (Approximate) Start: 12-17-2023 Screening for malign ant neoplasm of cervix Cervical Cancer Screening [facility] Start: 12-08-2023 HPV Vaccine (2 - 3-d ose SCDM series) HPV Vaccine (2 - 3-dose SCDM series) [facility] Start: 11-26-2023 Covid-19 Vaccine ( season) Covid-19 Vaccine ( season) [facility] Start: 11-26-2023 Influenza vaccination Influenza Vacc ine (#1) [facility] Start: 11-25-2022 Influenza vaccination Influenza Vacc ine (#1) [facility] Start: 11-21-2022 PAP TESTING PAP TESTING [facility] Start: 03-27-2022 Depression Assessment Depression Ass essment [facility] Start: 11-16-2018 Adult depression scr eening assessment DEPRESSION SCREENING [facility] Start: 2016 HPV TESTING HPV TESTING [facility] Start: 2005 Hepatitis B Vaccine (1 of 3 - 19+ 3-dose series) Hepatitis B Vaccine (1 of 3 - 19+ 3-dose series) [facility] Start: 2005 Urine microalbumin profile [facility] Start: 2004 Anxiety Screening Anxiety Screening [facility] Start: 2004 Depression Screening Depression Scre ening [facility] Start: 2004 HIV SCREENING HIV SCREENING [facility] Start: 2004 HIV screening HIV Screening [facility] Start: 1986 Hepatitis B Vaccine (1 of 3 - 3-dose series) Hepatitis B Vaccine (1 of 3 - 3-dose series) [facility] Alanine aminotransfe rase [Enzymatic activity/volume] in Serum or Plasma [facility] Albumin [Mass/volume ] in Serum or Plasma [facility] Alkaline phosphatase [Enzymatic activity/volume] in Serum or Plasma [facility] Anion gap in Serum o r Plasma [facility] BACTERIAL VAGINOSIS NAAT BACTERI AL VAGINOSIS NAAT Lab Routine Vaginal discharge 06/14/2024 11:47 AM EDT [facility] BACTERIAL VAGINOSIS NAAT BACTERI AL VAGINOSIS NAAT Lab Routine Menorrhagia with regular cycle Vaginal discharge 08/28/2024 12:17 PM EDT [facility] Bilirubin, total measurement [facility] BUN/Creatinine ratio [facility] Calcium [Mass/volume ] in Serum or Plasma [facility] ARIAN/TRICHOMONAS NAAT ARIAN /TRICHOMONAS NAAT Lab Routine Vaginal discharge 06/14/2024 11:47 AM EDT [facility] ARIAN/TRICHOMONAS NAAT ARIAN /TRICHOMONAS NAAT Lab Routine Menorrhagia with regular cycle Vaginal discharge 08/28/2024 12:17 PM EDT [facility] Carbon dioxide, tota l [Moles/volume] in Central venous blood [facility] Chlamydia trachomatis+Neisseria gonorrhoeae DNA [Presence] in Unspecified specimen by SHREYAS with probe detection GONORRHEA/CHLAMYDIA NAAT Lab Routine Vaginal discharge Pelvic pain in female 06/14/2024 11:47 AM EDT [facility] Creatinine [Mass/vol ume] in Serum or Plasma [facility] Endometrial bx w/wo endocervix bx w/o dilat spx ENDOMETRIAL BIOPSY Procedures Routine Menorrhagia with regular cycle Intramural uterine fibroid Adenomyosis of the uterus Ordered: 08/28/2024 [facility] Work Phone: Comment on above: Ordered: 08/28/2024 Erythrocyte mean corpuscular volume determination [facility] Glucose [Mass/volume ] in Serum or Plasma [facility] Hematocrit [Volume Fraction] of Blood [facility] Hemoglobin [Mass/vol ume] in Blood [facility] Leukocytes [#/volume ] in Blood [facility] Mean corpuscular hemoglobin concentration determination [facility] Mean corpuscular hemoglobin determination [facility] Measurement of renal function [facility] Neutrophil count [facility] Neutrophil percent differential count [facility] PAP TEST PAP TEST Lab [facility] Encounter for screening for malignant neoplasm of cervix Special screening examination for human papillomavirus (HPV) 12/16/2022 4:05 PM EDT [facility] Work Phone: PAP TEST PAP TEST Lab [facility] Screening for cervical cancer Encounter for screening for human papillomavirus (HPV) 11/10/2023 4:06 PM EDT [facility] Platelets [#/volume] in Blood [facility] Potassium measurement [facility] Red blood cell count [facility] Red cell distributio n width determination [facility] Serum chloride measurement [facility] Sodium measurement [facility] Therapeutic prophylactic/dx injection subq/im THER/PROPH/DIAG INJ, SC/IM Procedures Routine Need for prophylactic vaccination/inoculation against viral disease Ordered: 11/10/2023 [facility] Work Phone: Comment on above: Ordered: 11/10/2023 Tissue Pathology bio psy report SURGICAL PATHOLOGY Lab Routine Menorrhagia with regular cycle Intramural uterine fibroid Adenomyosis of the uterus Ordered: 08/28/2024 [facility] Comment on above: Ordered: 08/28/2024 Total protein measurement [facility] Urea nitrogen [Mass/volume] in Serum or Plasma [facility] Immunizations Immunization Date Immunization Notes Care Provider Wallace kuhn 05-17-2024 Human Papillomavirus 9-valent vaccine Nurse Wstr Work Phone: [facility] 01-15-2024 Human Papillomavirus 9-valent vaccine Nurse Wstr Work Phone: [facility] 11-10-2023 Human Papillomavirus 9-valent vaccine Willie Guevara MD Work Phone: [facility] 01-21-2023 influenza, injectabl e, quadrivalent, preservative free [facility] Provider [facility] 01-21-2023 influenza virus vacc ine, unspecified formulation Willie Guevara MD Work Phone: [facility] 12-17-2021 Influenza, injectabl e, Madin Logan Canine Kidney, preservative free, quadrivalent [facility] Provider [facility] 12-17-2021 influenza virus vacc ine, unspecified formulation Willie Guevara MD Work Phone: [facility] 01-29-2021 influenza, injectabl e, quadrivalent, preservative free [facility] Provider [facility] 01-09-2018 influenza, injectabl e, quadrivalent, preservative free Den Burrows CAPTAIN WAITER.MOTORSPORTS TECHNICIAN Work Phone: [facility] 02-08-2016 influenza, injectabl e, quadrivalent, preservative free Den Burrows CAPTAIN WAITER.MOTORSPORTS TECHNICIAN Work Phone: [facility] Payers Date Payer Category Payer Self-pay 2016 Private Health Insurance [employer] PPO [id number] 2016-Present [phone] [facility] [id number] [place] [address] O [id number] 2016 Private Health Insurance [id number] 2013 Private Health Insurance [id number] 2013 Private Health Insurance [id number] 1986 Unknown [id number] [id number] 1986 Unknown [id number] [id number] 1986 Unknown [id number] [id number] 1986 Unknown [id number] [id number] 1986 Unknown [id number] [id number] 1986 Unknown [id number] [id number] 1986 Unknown [id number] [id number] 1986 Unknown [id number] [id number] Unknown [id number] [id number] Unknown [id number] Unknown [id number] [id number] Social History Date Type Detail Facility Start: 11-03-2015 End: 12-16-2022 Tobacco smoking status OHIS Never smoked tobacco [facility] Start: 11-03-2015 End: 12-16-2022 Tobacco use and exposure Smokeless tobacco non-user [facility] Start: 08-01-2021 End: 11-05-2024 Alcohol intake Current drinker of alcohol (finding) [facility] Start: 12-25-2017 History SDOH Alcohol Comment rarely [facility] Start: 1985 Sex Assigned At Female C [facility] Start: 07-22-2021 End: 08-01-2021 Exposure to SARS-CoV-2 (event) Not sure [facility] Start: 12-16-2022 End: 06-14-2024 History of Social function [facility] Start: 12-16-2022 End: 06-14-2024 Tobacco use panel [facility] Start: 02-26-2012 PHQ2 Score 0 [facility] Start: 03-22-2021 Gender identity Identifies as female gender (finding) [facility] Start: 03-22-2021 Sexual orientation Heterosexual (fin ding) [facility] Start: 11-03-2023 Sexual orientation Bisexual (finding ) [facility] How often to you hav e a drink containing alcohol? Monthly or less [facility] How many standard drinks containing alcohol do you have on a typical day? 1 or 2 [facility] How often do you hav e 6 or more drinks on 1 occasion? Never [facility] NEGATED: Highlighted row Not [facility] Medical Equipment Procedure Code Equipment Code Equipment Origin al Text Equipment Identifier Dates Laparoscopic abdominal hysterectomy Collagen haemostatic agent, non-antimicrobial [id number] FDA Start: 09-20-2024 Patch Durepair Bovine Collagen Matrix 2x2in Dural Resorbable Duraplasty - [id number] Start: 01-05-2018 Goals Date Patient Goal Desired Activity /State Functional Status Date Assessment Result Facility 11-05-2024 Total score [AUDIT-C] 1 11/06/19 25 8:30 AM Olivia Kline MA [facility] 01-16-2018 Are you deaf, or do you have serious difficulty hearing No 01/16/2018 5:07 PM Jes Rodriguez RN No [facility] 01-16-2018 Are you blind, or do you have serious difficulty seeing, even when wearing glasses No 01/16/2018 5:07 PM Jes Rodriguez RN No [facility] 01-16-2018 Do you have serious difficulty walking or climbing stairs No 01/16/2018 5:07 PM Jes Rodriguez RN No [facility] 01-16-2018 Do you have difficul ty dressing or bathing No 01/16/2018 5:07 PM Jes Rodriguez RN No [facility] 01-16-2018 Because of a physica l, mental, or emotional condition, do you have difficulty doing errands alone such as visiting a physician's office or shopping No 01/16/2018 5:07 PM Jes Rodriguez RN No [facility] Mental Status Date Assessment Result Facility 09-20-2024 Cognitive function Touch/Shaking [facility] Work Phone: 01-16-2018 Because of a physica l, mental, or emotional condition, do you have serious difficulty concentrating, remembering, or making decisions No 01/16/2018 5:07 PM EDT Jes Yarbrough RN No [facility] Clinical Notes 05-25-2016 to 11-05-2024 Jeannette Quarles MD - 11/05/2024 8:29 AM Alexia Davis MD - 10/13/2024 8:18 AM Jeannette Hartman MD - 10/01/2024 3:43 PM Jeannette Hartman MD - 09/20/2024 5:04 PM EDT Note Date & Type Note Facility 11-05-2024 Note HNO ID: [id number] Author: JEANNETTE QUARLES MD Service: ? Author Type: Physician Type: Progress Notes Filed: 11/05/2024 08:53 Note Text: DATE OF SERVICE: 11/05/2024 PROBLEM: Nicol Hyman presents for postop visit. SURGERY AND DATE: 09/20/24 PATHOLOGY: benign SUBJECTIVE/INTERVAL HISTORY: Nicol Hyman reports that she feels well. No fever or chills. BM and urination back to normal. No incisional redness, swelling, or drainage. Patient reports that her appetite is good. Pain minimal . . SENSITIVE EXAM: The sensitive examination was discussed with the Patient or Patient's Authorized Mail Examiner. As applicable, any other physician, advance practice provider, medical student, or other health professional student that will be observing or involved in the sensitive examination for educational or training purposes was discussed with the Patient or Authorized Mail Examiner. The Patient or Authorized Mail Examiner has agreed to proceed with the sensitive examination. (Sensitive examination includes inspection and/or palpation of the breasts, pelvis, prostate and anorectal regions). OBJECTIVE: VITALS: BP: 124/78 . ABDOMEN: Abdomen soft, non-tender, no hepatosplenomegaly. Incision healing well. PELVIC: External genitalia normal. Vagina normal on speculum exam. Uterus, cervix, adnexa surgically absent. No urethral, bladder or pelvic masses. Cuff smooth. Sutures resolved . ASSESSMENT: postop TLH, bilateral salpingectomy and cysto PLAN: 1. Discussed results of pathology and implications with patient. 2. Postop restrictions reviewed. Jeannette Quarles MD [facility] 11-05-2024 History of Present illness Narrative DATE OF SERVICE: 11/05/2024 PROBLEM: Nicol Hyman presents for postop visit. SURGERY & DATE: 09/20/24 PATHOLOGY: benign SUBJECTIVE/INTERVAL HISTORY: Nicol Hyman reports that she feels well. No fever or chills. BM and urination back to normal. No incisional redness, swelling, or drainage. Patient reports that her appetite is good. Pain minimal . . SENSITIVE EXAM: The sensitive examination was discussed with the Patient or Patient's Authorized Mail Examiner. As applicable, any other physician, advance practice provider, medical student, or other health professional student that will be observing or involved in the sensitive examination for educational or training purposes was discussed with the Patient or Authorized Mail Examiner. The Patient or Authorized Mail Examiner has agreed to proceed with the sensitive examination. (Sensitive examination includes inspection and/or palpation of the breasts, pelvis, prostate and anorectal regions). OBJECTIVE: VITALS: BP: 124/78 . ABDOMEN: Abdomen soft, non-tender, no hepatosplenomegaly. Incision healing well. PELVIC: External genitalia normal. Vagina normal on speculum exam. Uterus, cervix, adnexa surgically absent. No urethral, bladder or pelvic masses. Cuff smooth. Sutures resolved . ASSESSMENT: postop TLH, bilateral salpingectomy and cysto PLAN: 1. Discussed results of pathology and implications with patient. 2. Postop restrictions reviewed. Jeannette Quarles MD documented in this encounter [facility] 10-13-2024 Note HNO ID: [id number] Author: ALEXIA RAUSCH MD Service: ? Author Type: Physician Type: Progress Notes Filed: 10/13/2024 08:21 Note Text: URGENT CARE [facility]ENY Subjective Nicol Hyman is a 39 year old female. Patient presents with: Derm Problem: ? bite on buttock x last night Pt here with 1 day hx of a lesion on left buttock now pain ful red and spreading tried to squeeze it out now worse no hx of MRSA Review of Systems Constitutional: Negative for chills, fatigue and fever. Skin: Positive for rash. Objective BP 110/68 Pulse 102 Temp 36.2 ?C (97.2 ?F) Resp 16 Wt 110.2 kg (242 lb 15.2 oz) LMP 06/10/2024 (Exact Date) SpO2 97% BMI 43.73 kg/m? Physical Exam Vitals and nursing note reviewed. Exam conducted with a saw repairer present. Constitutional: Appearance: Normal appearance. She is not ill-appearing. Skin: General: Skin is warm. Findings: Erythema and lesion present. Comments: 2 cm diameter of redness with a central lesion dark in color mild superficial induaration Neurological: Mental Status: She is alert. {ASSESSMENT/PLAN: 1. Cellulitis of skin - ICD9: 682.9, ICD10: L03.90 Return here as needed - CEPHALEXIN 500 MG CAPSULE Alexia Rausch MD Differential Diagnoses - cellulitis is more likely for the following reason(s): suggested by HANDP - abscess is less likely for the following reason(s): HANDP not suggestive Disposition The patient was discharged. Procedures [facility] 10-13-2024 History of Present illness Narrative URGENT CARE [facility] Nicol Hmyan is a 39 year old female. Patient presents with: Derm Problem: ? bite on buttock x last night Pt here with 1 day hx of a lesion on left buttock now pain ful red and spreading tried to squeeze it out now worse no hx of MRSA Review of Systems Constitutional: Negative for chills, fatigue and fever. Skin: Positive for rash. Objective BP 110/68 Pulse 102 Temp 36.2 C (97.2 F) Resp 16 Wt 110.2 kg (242 lb 15.2 oz) LMP 06/10/2024 (Exact Date) SpO2 97% BMI 43.73 kg/m Physical Exam Vitals and nursing note reviewed. Exam conducted with a saw repairer present. Constitutional: Appearance: Normal appearance. She is not ill-appearing. Skin: General: Skin is warm. Findings: Erythema and lesion present. Comments: 2 cm diameter of redness with a central lesion dark in color mild superficial induaration Neurological: Mental Status: She is alert. {ASSESSMENT/PLAN: 1. Cellulitis of skin - ICD9: 682.9, ICD10: L03.90 Return here as needed - CEPHALEXIN 500 MG CAPSULE Alexia Rausch MD Differential Diagnoses - cellulitis is more likely for the following reason(s): suggested by H&P - abscess is less likely for the following reason(s): H&P not suggestive Disposition The patient was discharged. Procedures documented in this encounter [facility] 10-01-2024 Note HNO ID: [id number] Author: JEANNETTE QUARLES MD Service: ? Author Type: Physician Type: Progress Notes Filed: 10/01/2024 15:54 Note Text: DATE OF SERVICE: 10/01/2024 PROBLEM: Nicol Hyman presents for postop visit. SURGERY AND DATE: 09/20/24 [facility] PATHOLOGY: pending SUBJECTIVE/INTERVAL HISTORY: Nicol Hyman reports that she feels well. No fever or chills. No shortness of breath, cough, or chest pain. No incisional redness, swelling, or drainage. Patient reports that her appetite is good. BM are still a little slow but had several BMs since and using stool softener. Urination normal now if BM regularly. No vaginal bleeding.. SENSITIVE EXAM: Sensitive exam not performed. OBJECTIVE: ABDOMEN: Abdomen soft, non-tender, no hepatosplenomegaly. Incisions healing well. PE ASSESSMENT: Postop check [facility], path pending PLAN: 1. Discussed results of pathology and implications with patient. 2. Postop restrictions reviewed. Jeannette Quarles MD [facility] 10-01-2024 History of Present illness Narrative DATE OF SERVICE: 10/01/2024 PROBLEM: Nicol Hyman presents for postop visit. SURGERY & DATE: 09/20/24 [facility] PATHOLOGY: pending SUBJECTIVE/INTERVAL HISTORY: Nicol Hyman reports that she feels well. No fever or chills. No shortness of breath, cough, or chest pain. No incisional redness, swelling, or drainage. Patient reports that her appetite is good. BM are still a little slow but had several BMs since and using stool softener. Urination normal now if BM regularly. No vaginal bleeding.. SENSITIVE EXAM: Sensitive exam not performed. OBJECTIVE: ABDOMEN: Abdomen soft, non-tender, no hepatosplenomegaly. Incisions healing well. PE ASSESSMENT: Postop check TLH, path pending PLAN: 1. Discussed results of pathology and implications with patient. 2. Postop restrictions reviewed. Jeannette Quarles MD documented in this encounter [facility] 09-20-2024 Note HNO ID: [id number] Author: JEANNETTE QUARLES MD Service: ? Author Type: Physician Type: Progress Notes Filed: 09/20/2024 17:06 Note Text: Patient underwent TLH with bilateral salpingectomy at [facility] September 20, 2024 . EBL 75 cc. D/damon home same day. pathology pending. Jeannette Quarles MD [facility] 09-20-2024 History of Present illness Narrative Patient underwent TLH with bilateral salpingectomy at [facility] September 20, 2024 . EBL 75 cc. D/damon home same day. pathology pending. Jeannette Quarles MD documented in this encounter [facility] 09-20-2024 Consult note Note Date/Time September 20, 2024 11:30am [facility] Medical Records Department [address] [place] [address] Anesthesia Postop Eval I 09/20/24 1129 MR#: [id number] Acct: [id number] Name: YENNINICOL BANDAR Rep #:[id number] : 1985 39 From: Can KEANE PCP: Care Physician,No Primary Status :REG SDC Y Race: AA Location: [place] [address] Anesthesia: Postop Eval I Current Vital Signs Temperature: 36 F Pulse Rate: 83 Blood Pressure: 138/94 Respiratory Rate: 14 Pulse Ox: 97 Assessment Airway patent: Yes Spontaneous unlabored respirations: Yes nausea: No Vomiting: No Anesthesia Complication: No Fluid Hydration Crystalloid volume administer (ml): 1,600 Total IV fluid infused: 1,600 Progress Note Anesthesia document: Postop Eval 1 completed: Yes 09/20/24 1130 <Electronically signed by Can Bassett CRNA> Date _ Can Danyelle SENIOR ADULTS DIRECTOR Cosigner Signature: Date CC: ~ Signed [facility] Work Phone: 1(151) 451-204006-27-2025 Consult note [facility] Medical Records Department [address] [place] [id number] Anesthesia Postop Eval I 09/20/24 1129 MR#: [id number] Acct: [id number] Name: NICOL HYMAN Rep #:[id number] : 1985 39 From: Can KEANE PCP: Care Physician,No Primary Status :REG SDC Y Race: AA Location: [place] [address] Anesthesia: Postop Eval I Current Vital Signs Temperature: 36 F Pulse Rate: 83 Blood Pressure: 138/94 Respiratory Rate: 14 Pulse Ox: 97 Assessment Airway patent: Yes Spontaneous unlabored respirations: Yes nausea: No Vomiting: No Anesthesia Complication: No Fluid Hydration Crystalloid volume administer (ml): 1,600 Total IV fluid infused: 1,600 Progress Note Anesthesia document: Postop Eval 1 completed: Yes 09/20/24 1130 SENIOR ADULTS DIRECTOR> Date _ Can Danyelle SENIOR ADULTS DIRECTOR Cosigner Signature: Date CC: ~ Signed [facility]06-27-2025 Discharge summary Author Jeannette Quarles [facility] Note Date/Time September 20, 2024 9:22 am [facility] Medical Records Department [address] [place] [address] Instructions for Home/Discharge Instructions 09/20/24907 MR#: [id number] Acct: [id number] Name: NICOL HYMAN Rep #:[id number] : 1985 39 From: Jeannette Quarles MD PCP: Care Physician,No Primary Status :REG SDC Discharge Instructions Diet Discharge Diet: Light diet - advance as tolerated DC O2, CPAP, BIPAP needs Home O2 Discharge instructions: No Dressing / Incision Discharge Activity: May Shower May resume sexual activity in: 6-8 weeks and - (Nothing in your vagina for 6 weeks. No vaginal or anal intercourse for 6-8 weeks) Dressing / Incision Call your doctor if your incision/area has: Continuous Slow Oozing and Sudden Increased Bleeding Call your doctor if you observe: Fever of 101 or Higher and Using more than 1 pad per hour Cleanse incision/area with: Soap & Water and - (Your incisions have skin glue, it can get wet, leave the glue on until it falls off. ) Follow Up Care Please Follow Up With: Jeannette Quarles MD When: With my office in 1-2 and 6 weeks or as needed. [phone] Test Results: Test results from this visit will be discussed in further detail at your follow- up appointment, if applicable. Discharge Plan Admission Primary Reason for Your Visit: Total laparoscopic hysterectomy Attending Provider: Jeannette Quarles Primary Care Provider: Care Physician,No Primary Instructions Print Language: Cambodian Discharge Orders/Prescriptions Prescriptions: No Action multivitamin [Daily Multi-Vitamin] Tablet 1 tab PO DAILY Referrals / Follow Up: Jaylon Boyd DO [Non-Staff] - Disposition Disposition (needs filled in before D/C Order can be placed): Home, Self Care 09/20/24921<Electronically signed by Jeannette Quarles MD>Jeannette Quarles MD CC: No Primary Care Physician ~ Signed [facility] Work Phone: [phone]) 370-205306-27-2025 Procedure note [facility] Medical Records Department [address] [place] [address] Operative Report 09/20/24 1108 MR#: [id number] Acct: [id number] Name: NICOL HYMAN Rep #:[id number] : 1985 39 From: Jeannette Quarles MD PCP: Care Physician,No Primary Status :[facility] Location: [place] [address] Problems Associated Problem List Diagnoses (1) Adenomyosis: (2) Intramural uterine fibroid: (3) Deep dyspareunia: (4) Menorrhagia with regular cycle: Operative Report (Standard) Operative Information Date of Procedure: 09/20/24 Pre-Operative Diagnosis: adenomyosis, menorrhagia, dyspareunia Post-Operative Diagnosis: same Surgery/Procedure Performed: TLH, bilateral salpingectomy and cystoscopy teacher specialist: Yes Shared Services And Outsourcing Manager: Viridiana Burden MD PGY4 Tasks completed by loan officer assistant: Opening, Closing, Dissecting tissue, Hemostasis: Tie, Hemostasis: Electrocautery, Trocar and Retracting Additional salon shampoo assistant?: No Type of Anesthesia: General RN Documented Start/Stop Times: Operation Date: 09/20/24 08:45 Case Time Into Pre-Op 09/20/24 06:44 Out of Pre-Op 09/20/24 08:58 Anesthesia Start 09/20/24 09:01 Into Room 09/20/24 09:01 Procedure Start 09/20/24 09:29 Procedure Start Time: 09:29 Procedure Stop Time: 11:08 Select all DRAINS/GRAFTS/IMPLANTS that apply: None Estimated Blood Loss: 75 cc Fluids Replaced: 1500 cc Specimen collected: Yes Description of specimen(s) removed: uterus, cervix, bilateral fallopian tubes Description of surgery: The patient was taken to the operating room where she was prepped and draped in the dorsal lithotomy position. Her arms were tucked to the side and padded and her legs were placed in the yellowfin stirrups. Care was taken to ensure that she was placed in a neurologically safe and neutral position. A weighted speculum was placed in the vagina and the anterior lip of the cervix was graspedwith a single-tooth tenaculum. The cervix sounded to 9 centimeters. The uterine on site construction superintendent was placed into the cervix and the balloon inflated. The Wassecured down to the cervix to the cervix. The Clarke catheter was placed to straight drain. Attention was turned to the abdominal portion of the case. Before skin incisions were made they were infiltrated with 0.5% Marcaine solution for local anesthetic. A 5 mm intraumbilical incision was made and while tenting the anterior abdominal wall up with towel clamps a 5 mm blade less trocar and s leevewere advanced directly into the peritoneal cavity using the Visiport trocar. Peritoneal placement was confirmed with the laparoscope the pneumoperitoneum wascreated, and the underlying abdominalcontents were intact. The patient was placed in Trendelenburg and the above findings were noted. Right and left lateral 5 mm trochars were placed under direct visualization without difficulty. There was a 2 x 2 cm area of adhesion near the umbilicus that was taken down with the LigaSure device. Care was taken to examine the adhesions before this to ensure bowel was entrapped within them.. This was done to allow for adequatevisualization from the umbilical port. The antimesenteric portion of the tube was clamped sealed and transected serially on both sides with the LigaSure device. The round ligaments were clamped sealed and transected and a window was made in the peritoneum. The utero-ovarian ligaments were then clamped sealed and transected with the LigaS ure device and the pedicles were hemostatic The bladder flap was dissected down with the LigaSure device and blunt dissection and the uterine arteries were then skeletonized. The uterine arteries were clamped sealed and transected on both sides with the LigaSure device. Then along the cardinal ligament uterine arteries adjacent to the cervixwere clamped sealed and transected with the LigaSure device to move them away from the vaginal cuffangle. At this point the pedicles were all examinedand found to be hemostatic. The bladder flap was rechecked and found to be adequately down. The monopolar tip of the LigaSure device was then used to enter the anterior vagina. The vaginal manipulator cup was noted in the vaginal colpotomy incision was made circumferentially around the cup. When the 3 and 9:00 positions of the cervicovaginal junction were reached these were clamped sealed and transected with the LigaSure device to secure any small remaining vessels. At this point the pedicles were hemostatic from above and attention was turned to the vaginal portion of the case again. The uterus was brought intact out through the vaginal colpotomy incision alongwith the tubes There is some bleeding from the left vaginal cuff angle and this was grasped with a Abigail clamp andsuture ligated. The posterior vaginal epithelium was reapproximated to the vaginal cuff with 2-0 Vicryl in a running locked fashion. Care was taken to ensure that uterosacral ligaments were secured to the vaginal cuff. Vaginal angle sutures were placed on both sides with 0 Vicryl sutures andcare was taken to ensure that the uterosacral ligament was secured into this stitch. The remainder the vagina was then closed horizontally with interrupted 0 Vicryl sutures. The cuff was hemostatic vaginally. The Clarke catheter was removed and a cystoscopy was performed. The bladder appeared normal and was intact. Both ureteral orifices were noted and both ureteral jets were seen. The cystoscope was removed and the Clarke catheter was placed back to straight drain. A sponge stick was placed in the vaginato help place traction against the vaginal cuff and the pneumoperitoneum was re-created. The pedicles were reexamined and found to be hemostatic. The vaginal cuff was hemostatic. Some Hemablast was placed over a bleeding peritoneal edge and a clamp was placed on it for 2 minutes but whenit was removed it was hemostatic. The remainder of the Hemablast was placed over the pedicles. There was no active bleeding through the Hemablast the right and left lateral ports were taken out and the sites were hemostatic. The pneumoperitoneum was released and even under low pressure there was nobleeding of any of the pedicles are vaginalcuff. The umbilical port was removed. The umbilical skin incisions were closed with Monocryl suture and skin glue. The vaginal instruments were removed by me and a vaginal sweep was completed by me. I was present and scrubbed for the entire procedure. I performed the procedure with assistance. Allsponge lap and needle counts were correct and the patient was transferred to the recovery room in stable condition. Surgical Findings: boggy uterus, normal cervix and vagina, normal tubes and ovaries Complications Complications: No Admit VTE Documentation VTE Present on Admission: No VTE Mechan Device Prophylaxis: SCD's VTE Pharm Prophylaxis ordered?: Yes 09/20/24 0243 Cosigner Signature (if applicable): CC: Dr. Jeannette Quarles MD; No Primary Care Physician~ Signed [facility]06-27-2025 History and physical note Author Jeannette Quarles [facility] Note Date/Time September 20, 2024 9:08 am [facility] Medical Records Department [address] [place] [address] History & Physical Exam 08/28/24 1253 MR#: [id number] Acct: [id number] Name: NICOL HYMAN Rep #:[id number] : 1985 39 From: Jeannette Quarles MD PCP: Care Physician,No Primary Status :[facility] Location: [place] [address] History and Physical Date of Admission: 09/20/24 HPI: The patient is a 39 year old female presenting for pre-operative visit. She is scheduled for TLH, bilateral salpingectomy and cystoscopy, for adenomyosis, menorrhagia, deep dyspareunia and intramural uterine fibroid on 09/20/24. Procedure discussed along with risks, benefits and complications. Other alternatives discussed for management. Consent form signed? Yes. ? ? PAST MEDICAL HISTORY PAST MEDICAL HISTORYDiagnosisDate?Chiari I malformation (HCC)??Postoperative cellulitis of surgical wound01/11/2018 ? ? PAST SURGICAL HISTORY PAST SURGICAL HISTORYProcedureLateralityDate?APPENDECTOMY???CERCLAGE CERVIX PREG; VAG?2017?EXTRACTION ERUPTED TOOTH/EXR?07/10/2023?LAPAROSCOPIC CYSTECTOMY???Dermoid?PAST SURGICAL HISTORY OF?2018?Chiari Malformation Surgery?REDUCTION OF LARGE BREAST?08/02/2022 ? ? ? CURRENT MEDICATIONS Current Outpatient MedicationsMedicationSigDispenseRefill?multivit,thx,calcium,iron,mins (MULTIVITAMIN AND MINERAL ORAL)Take by mouth.???No current facility-administered medications for this visit. ? ? ALLERGIES: Latex and Oxycodone ? PERSONAL HISTORY: SOCIAL HISTORY Social History?Tobacco Use?Smoking status:Never?Smokeless tobacco:NeverVaping Use?Vaping status:Never UsedSubstance Use Topics?Alcohol use:Yes??Comment: rarely?Drug use:No ? FAMILY HISTORY: FAMILY HISTORY FAMILY HISTORY ProblemRelationAge of Onset?Ovarian cancerMother?? 50's?DiabetesFather??other ( Defects)Father??other (Endometriosis)Father??other(Other)Son?? tonsils adnoids/hernia repair?other (Other)Child?? lump on back - us ? ? REVIEW OF SYMPTOMS: GENERAL: denies fevers or chills ENDOCRINOLOGY: has not been on steroids Cardiology : denies palpitations or chest pain Respiratory: denies SOB or cough Hematology: denies history of prolonged bleeding or easy bruising or VTE Allergy: Denies history of personal or family history of allergy to anesthesia ? PHYSICAL EXAMINATION: ? VITALS: Blood pressure 124/78, pulse 61, resp. rate 16, height 158.8 cm (5' 2.5), weight 107.5 kg (237 lb), last menstrual period 06/10/2024, SpO2 98%. ? GENERAL: The patient is well nourished, well hydrated in no acute distress. , The patient is oriented to time, place, and person. NECK: Supple. No lynphadenopathy, normal thyroid, no thyromegaly. LUNGS: Clear to auscultation bilaterally. no wheezes, rhonchi or rales HEART: Regular rate and rhythm, Normal heart sounds, and No murmurs or gallops ? Pelvic US on 06/20/24: Impression The uterus [...] There is trace free fluid visualized. ? ? IMPRESSION: menorrhagia, deep dyspareunia, adenomyosis, intramural uterine fibroid ? PLAN: The risks/benefits/alternatives and personal involved for the planned TLH, bilateral salpingectomy and cystoscopy were reviewed with the patient. Her questions were answered to her satisfaction and she desires to proceed. Consentwas signed. I reviewed with her postop instructions and expectations. ? ? I have reviewed and updated past medical and surgical history, medications and allergies Assessment & Plan Assessment/Plan (1) Menorrhagia with regular cycle: (2) Deep dyspareunia: (3) Intramural uterine fibroid: (4) Adenomyosis: 08/28/24 1254 <Electronically signed by Jeannette Quarles MD> Cosigner Signature (if applicable): CC: Dr. Jeannette Quarles MD; No Primary Care Physician~ Signed ADDENDUM by Dr. Jeannette Quarles MD on 09/20/24 at 0908 Addendum UPDATE- I have seen the patient and performed any clinically relevant updates to the history and physical exam. 09/20/24 0908<Electronically signed by Jeannette Quarles MD> Cosigner Signature (if applicable): cc: Dr. Jeannette Quarles MD; No Primary Care Physician ~* Signed [facility] Work Phone: 1(917) 450-510706-27-2025 Consult note Author Corky Flores [facility] Note Date/Time September 20, 2024 8:11 am [facility] Medical Records Department [address] [place] [address] Pre-Anesthesia Evaluation 09/20/24 0803 MR#: [id number] Acct: [id number] Name: NICOL HYMAN Rep #:[id number] : 1985 39 From: Corky Flores MD PCP: Care Physician,No Primary Status :REG SDC Y Race: AA Location: [place] [address] ASA Classification* ASA Classification ASA Classification: 3 Assessment & Plan Anesthesia* Anesthesia Assessment Anesthesia Assessment: Discussed sedation and/or anesthesia options, risks, benefits, and alternatives with patient/parents/legal guardian/POA. Questions invited. The patient/parents/legal guardian/POA seems to understand and agrees to proceedwith anesthesia plan. Reviewed the physical assessment, medical history, allergy history and patient home medications list prior to surgery/procedure/anesthetic and documented any changes. Performed airway and anesthesia risk assessments. Anesthesia Type Anesthesia Type: General History Source History Obtained from:: Patient and Chart Anesthesia Focused Assessment* Temperature: 97.6 F Pulse Rate: 77 Blood Pressure: 124/79 Respiratory Rate: 18 Pulse Ox: 99 Oxygen Delivery Method: Room Air Airway Assessment Mouth opens: >3 cm Mallampati Score: III Teeth Condition: Caps/Crowns (Patient has a couple crowns. They are tight.) Neck Range of motion (ROM): Full ROM Labs Anesthesia Preop lab: CBC WBC 8.7 K/mm3 (4.4-11.0) 09/17/24 10:39 09/17/24 RBC 4.84 M/mm3 (4.2-5.4) 09/17/24 10:39 09/17/24 Hgb 13.6 g/dL (12.0-15.0) 09/17/24 10:39 09/17/24 Hct 42.8 % (37-47) 09/17/24 10:39 09/17/24 Plt Count 272 K/mm3 (150-450) 09/17/24 10:39 09/17/24 CHEMISTRY Potassium 3.8 mmol/L (3.5-5.1) 04/11/14 22:14 04/11/14 Sodium 136 mmol/L (136-145) 04/11/14 22:14 04/11/14 Magnesium 1.8 mg/dL (1.5-2.2) 09/17/24 10:39 09/17/24 BUN 7 mg/dL (7-18) 04/11/14 22:14 04/11/14 Creatinine 0.7 mg/dL (0.6-1.0) 04/11/14 22:14 04/11/14 Glucose 79 mg/dL (70-110) 04/11/14 22:14 04/11/14 COAG Urine Test Negative Negative 09/20/24 06:50 09/20/24 Pre-Assessment Diagnosis/Proposed Procedure Planned Operative Procedure(s): (B) TOTAL LAPAROSCOPIC HYSTERECTOMY, BILATERAL SALPING, CYSTOSCOPY Anesthesia History 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 When Was Last Pacemaker Check QUESTION #4 FULL TEXT: You/Your Family Experience fever (hyperthermia) with Anesthesia Last Oral Intake Last Oral intake: Last Oral Intake NPO since 04:40 09/20/24 07:29 Meds taken in AM with sips of No 09/20/24 07:29 water? Meds patient instructed to take am of surgery Any additional information?: Yes NPO since: 04:40 (Patient had her preop Ensure at 4:40 AM.) PONV PONV - bull rider: PONV - bull rider Female Yes 09/05/24 11:01 HX of Motion Sickness No 09/05/24 11:01 HX of N/V After Surgery Yes 09/05/24 11:01 Non-Smoker Yes 09/05/24 11:01 Duration of Surgery greater Yes 09/05/24 11:01 than 60 minutes Number of Risk Factors 4 09/05/24 11:01 PONV Score Severe Risk 09/05/24 11:01 Height & Weight Height & Weight: Anesthesia: Height & Weight Height 5 ft 2 in 09/20/24 07:29 Weight: 109 kg 09/20/24 07:29 Body Mass Index (BMI) 43.9 09/20/24 07:29 Respiratory Assessment Respiratory Assessment - bull rider: Respiratory Tract Infection Hx - bull rider Hx Respiratory Tract Infection No 09/05/24 11:01 Any additional information?: Yes Hx Respiratory Tract Infection: No (Recent allergies have caused nasal congestion. Lungs are clear.) STOP Sleep Apnea STOP Sleep Apnea - bull rider: STOP Sleep Apnea - bull rider Hx Hypertension No 09/05/24 11:01 Hx Sleep Apnea No 09/05/24 11:01 CPAP BIPAP Do you snore loudly (louder No 09/05/24 11:01 than talking or can be heard Do you often feel tired/ No 09/05/24 11:01 fatigued/ sleepy during daytime? Has anyone observed you stop No 09/05/24 11:01 breathing during sleep? STOP Results Negative 09/05/24 11:01 QUESTION #5 FULL TEXT : Do you snore loudly (louder than talking or can be heard through closed doors)? 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 Specify any problems Hx of Preganancy in last 3 No 09/05/24 11:01 Months Nurse Filling Out Transfusion VCHRISTIN 09/05/24 11:01 & Questions: Date: 09/05/24 09/05/24 11:01 Time: 11:03 09/05/24 11:01 Patient unable to answer at this time (ie. confused, unrespo /Reproduction History /Reproductive History - bull rider: /Reproductive Hx- bull rider Hx Now No 09/05/24 11:01 Gestational Age (in weeks): EDC: Hx Hx Para Hx Section SAB No 09/05/24 11:01 Active Medications Active Medications: Current Medications Generic Name Dose Route Start Last Admin Trade Name Freq PRN Reason Stop Dose Admin Acetaminophen 1,000 mg 09/20/24 08:40 09/20/24 07:36 Acetaminophen 500 Mg Tablet PO 09/20/24 08:41 1,000 mg PREOP ONE Administration Celecoxib 400 mg 09/20/24 08:40 09/20/24 07:36 Celecoxib 200 Mg Capsule PO 09/20/24 08:41 400 mg PREOP ONE Administration Dexamethasone Sodium Phosphate 8 mg 09/20/24 08:40 Dexamethasone 4 Mg/Ml Vial IV 09/20/24 08:41 INTRAOP ONE Enoxaparin Sodium 40 mg 09/20/24 08:40 09/20/24 07:38 Enoxaparin 40 Mg/0.4 Ml Syringe SC 09/20/24 08:41 40 mg PREOP ONE Administration Gabapentin 600 mg 09/20/24 08:40 09/20/24 07:37 Gabapentin 600 Mg Tablet PO 09/20/24 08:41 600 mg PREOP ONE Administration Lactated Ringer's 1,000 mls @ 40 mls/hr 09/20/24 08:40 09/20/24 07:00 IV 40 mls/hr .Q25H ANDERSON Administration Cefazolin Sodium 2 gm/ Sodium 110 mls @ 150 mls/hr 09/20/24 08:40 Chloride IV 09/20/24 09:23 INTRAOP ONE Lactated Ringer's 1,000 mls @ 70 mls/hr 09/20/24 08:40 IV .[id number] ANDERSON Magnesium Sulfate 2 gm/ 104 mls @ 208 mls/hr 09/20/24 08:40 09/20/24 07:00 Dextrose IV 09/20/24 09:09 208 mls/hr INTRAOP ONE Administration Insulin Human Lispro 0 unit 09/20/24 08:40 Insulin Lispro 100 Unit/Ml Insuln.Pen SC Q4H PRN PRN BG >/= 180, SEE PROTOCOL Protocol Ondansetron HCl 4 mg 09/20/24 08:40 Ondansetron 4 Mg/2 Ml Vial IV 09/20/24 08:41 INTRAOP ONE Phenazopyridine HCl 190 mg 09/20/24 08:40 09/20/24 07:36 Phenazopyridine 95 Mg Tablet PO 09/20/24 08:41 190 mg PREOP ONE Administration Scopolamine HBr 1 patch 09/20/24 08:40 09/20/24 07:37 Scopolamine 1mg/72hr Patch TD 09/20/24 08:41 1 patch PREOP ONE Administration PFSH Medical History Wears glasses Anxiety Alcohol use Loss of consciousness Non-smoker Chiari malformation Home Medications ?Medication ?Instructions ?Recorded ?Last Taken ?Type multivitamin (Daily Multi-Vitamin 1 tab PO DAILY 09/0509/16/24 History tablet) Allergy/AdvReac Type Severity Reaction Status Date / Time latex Allergy Rash Verified 09/20/24 07:20 oxycodone Allergy Rash Verified 09/20/24 07:20 Surgical History Hx of spinal surgery Hx of bilateral breast reduction surgery Hx of appendectomy Hx of excision of dermoid cyst Hx of brain surgery Social History Smoking Status: Never smoker Review of Systems (Anesthesia) ROS Narrative System reviewed and no additional complaints, except as documented. 09/20/24 0811 <Electronically signed by Corky haley MD> Date _ Corky Flores MD Cosigner Signature: Date CC: ~ Signed [facility] Work Phone: 1(279) 430-882406-27-2025 Discharge summary [facility] Medical Records Department [address] [place] [address] Instructions for Home/Discharge Instructions 09/20/24907 MR#: [id number] Acct: [id number] Name: NICOL HYMAN Rep #:[id number] : 1985 39 From: Jeannette Quarles MD PCP: Care Physician,No Primary Status :REG [facility] Discharge Instructions Diet Discharge Diet: Light diet - advance as tolerated DC O2, CPAP, BIPAP needs Home O2 Discharge instructions: No Dressing / Incision Discharge Activity: May Shower May resume sexual activity in: 6-8 weeks and - (Nothing in your vagina for 6 weeks. No vaginal or anal intercourse for 6-8 weeks) Dressing / Incision Call your doctor if your incision/area has: Continuous Slow Oozing and Sudden Increased Bleeding Call your doctor if you observe: Fever of 101 or Higher and Using more than 1 pad per hour Cleanse incision/area with: Soap & Water and - (Your incisions have skin glue, it can get wet, leave the glue on until it falls off. ) Follow Up Care Please Follow Up With: Jeannette Quarles MD When: With my office in 1-2 and 6 weeks or as needed. [phone] Test Results: Test results from this visit will be discussed in further detail at your follow- up appointment, if applicable. Discharge Plan Admission Primary Reason for Your Visit: Total laparoscopic hysterectomy Attending Provider: Jeannette Quarles Primary Care Provider: Care Physician,No Primary Instructions Print Language: Cambodian Discharge Orders/Prescriptions Prescriptions: No Action multivitamin [Daily Multi-Vitamin] Tablet 1 tab PO DAILY Referrals / Follow Up: Jaylon Boyd DO [Non-Staff] - Disposition Disposition (needs filled in before D/C Order can be placed): Home, Self Care 09/20/24 0922Jeannette Quarles MD CC: No Primary Care Physician ~ Signed [facility]06-27-2025 History and physical note [facility] Medical Records Department [address] [place] [address] History & Physical Exam 08/28/24 1253 MR#: [id number] Acct: [id number] Name: NICOL HYMAN Rep #:[id number] : 1985 39 From: Jeannette Quarles MD PCP: Care Physician,No Primary Status :REG [facility] Location: [place] [address] History and Physical Date of Admission: 09/20/24 HPI: The patient is a 39 year old female presenting for pre-operative visit. She is scheduled for TLH, bilateral salpingectomy and cystoscopy, for adenomyosis, menorrhagia, deep dyspareunia and intramural uterine fibroid on 09/20/24. Procedure discussed along with risks, benefits and complications. Other alternatives discussed for management. Consent form signed? Yes. ? ? PAST MEDICAL HISTORY PAST MEDICAL HISTORYDiagnosisDate?Chiari I malformation (HCC)??Postoperative cellulitis of pupvbyweeujly70/18/2018 ? ? PAST SURGICAL HISTORY PAST SURGICAL HISTORYProcedureLateralityDate?APPENDECTOMY???CERCLAGE CERVIX PREG; VAG?2017?EXTRACTION ERUPTED TOOTH/EXR?07/10/2023?LAPAROSCOPIC CYSTECTOMY???Dermoid?PAST SURGICAL HISTORY OF?2018?Chiari Malformation Surgery?REDUCTION OF LARGE BREAST?08/02/2022 ? ? ? CURRENT MEDICATIONS Current Outpatient MedicationsMedicationSigDispenseRefill?multivit,thx,calcium,iron,mins (MULTIVITAMIN AND MINERAL ORAL)Take by mouth.???No current facility-administered medications for this visit. ? ? ALLERGIES: Latex and Oxycodone ? PERSONAL HISTORY: SOCIAL HISTORY Social History?Tobacco Use?Smoking status:Never?Smokeless tobacco:NeverVaping Use?Vaping status:Never UsedSubstance Use Topics?Alcohol use:Yes??Comment: rarely?Drug use:No ? FAMILY HISTORY: FAMILY HISTORY FAMILY HISTORY ProblemRelationAge of Onset?Ovarian cancerMother?? 50's?DiabetesFather??other (BirthDefects)Father??other (Endometriosis)Father??other(Other)Son?? tonsils adnoids/hernia repair?other ( Other)Child?? lump on back - us ? ? REVIEW OF SYMPTOMS: GENERAL: denies fevers or chills ENDOCRINOLOGY: has not been on steroids Cardiology : denies palpitations or chest pain Respiratory: denies SOB or cough Hematology: denies history of prolonged bleeding or easy bruising or VTE Allergy: Denies history of personal or family history of allergy to anesthesia ? PHYSICAL EXAMINATION: ? VITALS: Blood pressure 124/78, pulse 61, resp. rate 16, height 158.8 cm (5' 2.5), weight 107.5 kg (237 lb), last menstrual period 06/10/2024, SpO2 98%. ? GENERAL: The patient is well nourished, well hydrated in no acute distress. , The patient is oriented to time, place, and person. NECK: Supple. No lynphadenopathy, normal thyroid, no thyromegaly. LUNGS: Clear to auscultation bilaterally. no wheezes, rhonchi or rales HEART: Regular rate and rhythm, Normal heart sounds, and No murmurs or gallops ? Pelvic US on 06/20/24: Impression The uterus [...] There is trace free fluid visualized. ? ? IMPRESSION: menorrhagia, deep dyspareunia, adenomyosis, intramural uterine fibroid ? PLAN: The risks/benefits/alternatives and personal involved for the planned TLH, bilateral salpingectomy and cystoscopy were reviewed with the patient. Her questions were answered to her satisfactionand she desires to proceed. Consentwas signed. I reviewed with her postop instructions and expectations. ? ? I have reviewed and updated past medical and surgical history, medications and allergies Assessment & Plan Assessment/Plan (1) Menorrhagia with regular cycle: (2) Deep dyspareunia: (3) Intramural uterine fibroid: (4) Adenomyosis: 08/28/24 1254 Cosigner Signature (if applicable): CC: Dr. Jeannette Quarles MD; No Primary Care Physician~ Signed ADDENDUM by Dr. Jeannette Quarles MD on 09/20/24 at 0908 Addendum UPDATE- I have seen the patient and performed any clinically relevant updates to the history and physical exam. 09/20/24 0908 Cosigner Signature (if applicable): cc: Dr. Jeannette Quarles MD; No Primary Care Physician ~* Signed [facility]06-27-2025 Evaluation note* Diagnosis Onset Date Resolution Status Admit Date Adenomyosis acute September 20 6:39am Deep dyspareunia acute August 6:39am Intramural uterine fibroid acute September 20, 2024 6:39am Menorrhagia with regular cycle acute September 20, 2024 6:39am [facility] Work Phone: 1(361) 616-789306-27-2025 Evaluation note* Diagnosis Onset Date Resolution Status Admit Date Adenomyosis resolved September 20 6:39am Deep dyspareunia resolved August 6:39am Intramural uterine fibroid resolved September 20, 2024 6:39am Menorrhagia with regular cycle resol liliana September 20, 2024 6:39am Encounter to establish care acute October 03, 2024 1:05pm Morbid obesity acute October 03, 2024 1:05pm Preventative health care acute October 03, 2024 1:05pm [facility] Work Phone: 1(132) 645-546006-27-2025 Consult note [facility] Medical Records Department [address] [place] [address] Pre-Anesthesia Evaluation 09/20/24 0803 MR#: [id number] Acct: [id number] Name: NICOL HYMAN Rep #:[id number] : 1985 39 From: Corky Flores MD PCP: Care Physician,No Primary Status :REG SDC Y Race: AA Location: [place] [address]- ASA Classification* ASA Classification ASA Classification: 3 Assessment & Plan Anesthesia* Anesthesia Assessment Anesthesia Assessment: Discussed sedation and/or anesthesia options, risks, benefits, and alternatives with patient/parents/legal guardian/POA. Questions invited. The patient/parents/legal guardian/POA seems to understand and agrees to proceedwith anesthesia plan. Reviewed the physical assessment, medical history, allergy history and patient home medications list prior to surgery/procedure/anesthetic and documented any changes. Performed airway and anesthesia risk assessments. Anesthesia Type Anesthesia Type: General History Source History Obtained from:: Patient and Chart Anesthesia Focused Assessment* Temperature: 97.6 F Pulse Rate: 77 Blood Pressure: 124/79 Respiratory Rate: 18 Pulse Ox: 99 Oxygen Delivery Method: Room Air Airway Assessment Mouth opens: >3 cm Mallampati Score: III Teeth Condition: Caps/Crowns (Patient has a couple crowns. They are tight.) Neck Range of motion (ROM): Full ROM Labs Anesthesia Preop lab: CBC WBC 8.7 K/mm3 (4.4-11.0) 09/17/24 10:39 09/17/24 RBC 4.84 M/mm3 (4.2-5.4) 09/17/24 10:39 09/17/24 Hgb 13.6 g/dL (12.0-15.0) 09/17/24 10:39 09/17/24 Hct 42.8 % (37-47) 09/17/24 10:39 09/17/24 Plt Count 272 K/mm3 (150-450) 09/17/24 10:39 09/17/24 CHEMISTRY Potassium 3.8 mmol/L (3.5-5.1) 04/11/14 22:14 04/11/14 Sodium 136 mmol/L (136-145) 04/11/14 22:14 04/11/14 Magnesium 1.8 mg/dL (1.5-2.2) 09/17/24 10:39 09/17/24 BUN 7 mg/dL (7-18) 04/11/14 22:14 04/11/14 Creatinine 0.7 mg/dL (0.6-1.0) 04/11/14:14 04/11/14 Glucose 79 mg/dL (70-110) 04/11/14 22:14 04/11/14 COAG Urine Test Negative Negative 09/20/24 06:50 09/20/24 Pre-Assessment Diagnosis/Proposed Procedure Planned Operative Procedure(s): (B) TOTAL LAPAROSCOPIC HYSTERECTOMY, BILATERAL SALPING, CYSTOSCOPY Anesthesia History 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 When Was Last Pacemaker Check QUESTION #4 FULL TEXT: You/Your Family Experience fever (hyperthermia) with Anesthesia Last Oral Intake Last Oral intake: Last Oral Intake NPO since 04:40 09/20/24 07:29 Meds taken in AM with sips of No 09/20/24 07:29 water? Meds patient instructed to take am of surgery Any additional information?: Yes NPO since: 04:40 (Patient had her preop Ensure at 4:40 AM.) PONV PONV - bull rider: PONV - bull rider Female Yes 09/05/24 11:01 HX of Motion Sickness No 09/05/24 11:01 HX of N/V After Surgery Yes 09/05/24 11:01 Non-Smoker Yes 09/05/24 11:01 Duration of Surgery greater Yes 09/05/24 11:01 than 60 minutes Number of Risk Factors 4 09/05/24 11:01 PONV Score Severe Risk 09/05/24 11:01 Height & Weight Height & Weight: Anesthesia: Height & Weight Height 5 ft 2 in 09/20/24 07:29 Weight: 109 kg 09/20/24 07:29 Body Mass Index (BMI) 43.9 09/20/24 07:29 Respiratory Assessment Respiratory Assessment - bull rider: Respiratory Tract Infection Hx - bull rider Hx Respiratory Tract Infection No 09/05/24 11:01 Any additional information?: Yes Hx Respiratory Tract Infection: No (Recent allergies have caused nasal congestion. Lungs are clear.) STOP Sleep Apnea STOP Sleep Apnea - bull rider: STOP Sleep Apnea - bull rider Hx Hypertension No 09/05/24 11:01 Hx Sleep Apnea No 09/05/24 11:01 CPAP BIPAP Do you snore loudly (louder No 09/05/24 11:01 than talking or can be heard Do you often feel tired/ No 09/05/24 11:01 fatigued/ sleepy during daytime? Has anyone observed you stop No 09/05/24 11:01 breathing during sleep? STOP Results Negative 09/05/24 11:01 QUESTION #5 FULL TEXT : Do you snore loudly (louder than talking or can be heard through closeddoors)? 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 Specify any problems Hx of Preganancy in last 3 No 09/05/24 11:01 Months Nurse Filling Out Transfusion VCHRISTIN 09/05/24 11:01 & Questions: Date: 09/05/24 09/05/24 11:01 Time: 11:03 09/05/24 11:01 Patient unable to answer at this time (ie. confused, unrespo /Reproduction History /Reproductive History - bull rider: /Reproductive Hx- bull rider Hx Now No 09/05/24 11:01 Gestational Age (in weeks): EDC: Hx Hx Para Hx Section SAB No 09/05/24 11:01 Active Medications Active Medications: Current Medications Generic Name Dose Route Start Last Admin Trade Name Freq PRN Reason Stop Dose Admin Acetaminophen 1,000 mg 06/27/25 08:40 09/20/24 07:36 Acetaminophen 500 Mg Tablet PO 09/20/24 08:41 1,000 mg PREOP ONE Administration Celecoxib 400 mg 09/20/24 08:40 09/20/24 07:36 Celecoxib 200 Mg Capsule PO 09/20/24 08:41 400 mg PREOP ONE Administration Dexamethasone Sodium Phosphate 8 mg 09/20/24 08:40 Dexamethasone 4 Mg/Ml Vial IV 09/20/24 08:41 INTRAOP ONE Enoxaparin Sodium 40 mg 09/20/24 08:40 09/20/24 07:38 Enoxaparin 40 Mg/0.4 Ml Syringe SC 09/20/24 08:41 40 mg PREOP ONE Administration Gabapentin 600 mg 09/20/24 08:40 09/20/24 07:37 Gabapentin 600 Mg Tablet PO 09/20/24 08:41 600 mg PREOP ONE Administration Lactated Ringer's 1,000 mls @ 40 mls/hr 09/20/24 08:40 09/20/24 07:00 IV 40 mls/hr .Q25H ANDERSON Administration Cefazolin Sodium 2 gm/ Sodium 110 mls @ 150 mls/hr 09/20/24 08:40 Chloride IV 09/20/24 09:23 INTRAOP ONE Lactated Ringer's 1,000 mls @ 70 mls/hr 09/20/24 08:40 IV .[id number] ANDERSON Magnesium Sulfate 2 gm/ 104 mls @ 208 mls/hr 09/20/24 08:40 09/20/24 07:00 Dextrose IV 09/20/24 09:09 208 mls/hr INTRAOP ONE Administration Insulin Human Lispro 0 unit 09/20/24 08:40 Insulin Lispro 100 Unit/Ml Insuln.Pen SC Q4H PRN PRN BG >/= 180, SEE PROTOCOL Protocol Ondansetron HCl 4 mg 09/20/24 08:40 Ondansetron 4 Mg/2 Ml Vial IV 09/20/24 08:41 INTRAOP ONE Phenazopyridine HCl 190 mg 09/20/24 08:40 09/20/24 07:36 Phenazopyridine 95 Mg Tablet PO 09/20/24 08:41 190 mg PREOP ONE Administration Scopolamine HBr 1 patch 09/20/24 08:40 09/20/24 07:37 Scopolamine 1mg/72hr Patch TD 09/20/24 08:41 1 patch PREOP ONE Administration [facility] Medical History Wears glasses Anxiety Alcohol use Loss of consciousness Non-smoker Chiari malformation Home Medications ?Medication ?Instructions ?Recorded ?Last Taken ?Type multivitamin (Daily Multi-Vitamin 1 tab PO DAILY 09/0509/16/24 History tablet) Allergy/AdvReac Type Severity Reaction Status Date / Time latex Allergy Rash Verified 09/20/24 07:20 oxycodone Allergy Rash Verified 09/20/24 07:20 Surgical History Hx of spinal surgery Hx of bilateral breast reduction surgery Hx of appendectomy Hx of excision of dermoid cyst Hx of brain surgery Social History Smoking Status: Never smoker Review of Systems (Anesthesia) ROS Narrative System reviewed and no additional complaints, except as documented. 09/20/24 0811 sudha JOYCE> Date _ Corky Flores MD [facility] Signature: Date CC: ~ Signed [facility]06-04-2025 [facility] Medical Records Department [address] [place] [address] History Physical Exam 08/28/24 1253 MR#: [id number] Acct: [id number] Name: YENNINICOL BANDAR Rep #: [id number] : 1985 39 From: Jeannette Quarles MD PCP: Care Physician,No Primary Status:[facility] Location: [place] [address] History and Physical Date of Admission: 09/20/24 [...] wound01/11/2018 ? PAST SURGICAL HISTORY PAST SURGICAL HISTORYProcedureLateralityDate???APPENDECTOMY?CERCLAGE CERVIX PREG; VAG???2017???EXTRACTION ERUPTED TOOTH/EXR???07/10/2023???LAPAROSCOPIC CYSTECTOMY?Dermoid???PAST SURGICAL HISTORY OF???2018???Chiari Malformation Surgery???REDUCTION OF LARGE BREAST???08/02/2022 ? CURRENT MEDICATIONS Current Outpatient MedicationsMedicationSigDispenseRefill???multivit,thx,calcium,iron,mins (MULTIVITAMIN AND MINERAL ORAL)Take by mouth.?No current facility- administered medications for this visit. ? ALLERGIES: Latex [...] (if applicable): CC: Dr. Jeannette Quarles MD; No Primary Care Physician Signed ADDENDUM by Dr. Jeannette Quarles MD on 09/20/24 at 0908 Addendum UPDATE- I have seen the patient and performed any clinically relevant updates to the history and physical exam. 09/20/24 0908 Cosigner Signature (if applicable): cc: Dr. Jeannette Quarles MD; No Primary Care Physician * [facility] History and physical note* Jeannette Quarles MD - 08/28/2024 11:48 AM EDT Pre-Op History and Physical HPI: The patient [...] patient. Her questions were answered to her satisfactionand she desires to proceed. Consent was signed. I reviewed with her postop instructions and expectations. I have reviewed and updated past medical and surgical history, medications and allergies Jeannette Quarles M.D. [facility]06-04-2025 History and physical note* Jeannette Quarles MD - 08/28/2024 11:48 AM EDT Pre-Op History and Physical HPI: The patient [...] patient. Her questions were answered to her satisfactionand she desires to proceed. Consent was signed. I reviewed with her postop instructions and expectations. I have reviewed and updated past medical and surgical history, medications and allergies Jeannette Quarles M.D. documented in this encounterMarymount Hospital06-04-2025 Instructions* Patient Instructions* Olivia Todd MA - 08/28/2024 11:30 AM [...] well as have some bleeding after the procedure.There is also a risk of infection after [...] do not hear the results of your biopsyafter 2 weeks, please contact the office for the results. If you have any additional questions or concerns please do not hesitate to contact the office. documented in this encounterMarymount Hospital06-04-2025 NoteHNO ID: [id number] Author: JEANNETTE QUARLES MD Service: ? Author [...] Living3 SAB0 IAB0 Ectopic0 Multiple0 Live Births3 Pack Out Operator History LMP: 06/10/2024 (Exact Date), Having periods Age at Menarche: Age at First : Age at Menopause: Pack Out Operator History Comments: Sexual Activity: Yes; Male Contraception: [...] discussed with the Patient or Patient's Authorized Mail Examiner. As applicable, any other physician, advance practice provider, medical student, or other health professional student that will be observing or involved in the sensitive examination for educational or training purposes was discussed with the Patient or Authorized Mail Examiner. The Patient or Authorized Mail Examiner has agreed to proceed with the sensitive [...] external genitalia normal, normal Bartholin's glands, urethra, Verdigris's glands, no vulvar lesions, no cervical lesions, [...] to 7 days. d/w her short and custodial risks w/ hyst. Desires to proceed. Declines or has failed other conservative optiobns. Understands she will be permanently unable to bear children in the future. D/w her postop restrictions. Change to [facility] based on exam today. Decision for surgery today. Jeannette Quarles MD Nicol is a 39 year old Female who presents today for an endometrial biopsy for abnormal uterine bleeding. test: negative UNIVERSAL PROTOCOL / SAFETY CHECKLIST Procedure to be Performed: endometrial biopsy Sign In: A Moment o (more content not included)...[facility]06-04-2025 History of Present illness Narrative* Jeannette Quarles MD - 08/28/2024 11:27 AM EDT Nicol Hyman is a 39 year old female who presents for problem visit for f/u menses and pain. HPI: 39 YOF who has completed child bearing presents for f/u for pain/fibroids and heavy menses. Nonew c/o today. Not bleeding today. Some vaginal discharge and h/o BV OB History Gravida3 Para3 Term2 Preterm1 AB0 Living3 SAB0 IAB0 Ectopic0 Multiple0 Live Births3 Pack Out Operator History LMP: 06/10/2024 (Exact Date), Having periods Age at Menarche: Age at First : Age at Menopause: Pack Out Operator History Comments: Sexual Activity: Yes; Male Contraception: [...] discussed with the Patient or Patient's Authorized Mail Examiner. As applicable, any other physician, advance practice provider, medical student, or other health professional student that will be observing or involved in the sensitive examination for educational or training purposes was discussed with the Patient or Authorized Mail Examiner. The Patient or Authorized Mail Examiner has agreed to proceed with the sensitive [...] external genitalia normal, normal Bartholin's glands, urethra, Verdigris's glands, no vulvar lesions, no cervical lesions, [...] to 7 days. d/w her short and custodial risks w/ hyst. Desires to proceed. Declines or has failed other conservative optiobns. Understands she will be permanently unable to bear children in the future. D/w her postop restrictions. Change to [facility] based on exam today. Decision for [...] single toothed tenaculum. Uterus sounded to 8 cm.Pipelle inserted into the uterus without difficulty and endometrial biopsy obtained. Specimen labeled and sent to pathology. Procedure Summary: Patient tolerated procedure well. ASSESSMENT: abnormal uterine bleeding PLAN: Specimens labeled and sent to Pathology. Will notify patient of results in 1-2 weeks. Post-procedure instructions reviewed and written material given to the patient. Jeannette Quarles MD documented in this encounterMarymount Hospital04-25-2025 NoteHNO ID: [id number] Author: JEANNETTE QUARLES MD Service: ? Author Type: Physician Type: Progress Notes Filed: 07/19/2024 13:52 Note Text: VIRTUAL VISIT PROGRESS NOTE This is a virtual visit using [employer] Video Visit. It required patient-provider interaction for the medical decision making as documented below. I have communicated my name and active licensure. The patient's identity and physical location were verified at the time of this visit. Either the patient or their legal rental sales representative has been informed of the risks [...] LAVH, bilateral salpingectomy. D/w her short and custodial risks/benefits of hyst. Preop and postop expectations/limitations. She desires to proceed. tried ocps, had mood side effects. Jeannette Quarles, [facility]04-02-2025 NoteHNO ID: [id number] Author: WILLIE GUEVARA MD Service: ? Author [...] Living3 SAB0 IAB0 Ectopic0 Multiple0 Live Births3 Pack Out Operator History LMP: 06/10/2024 (Exact Date), Having periods Age at Menarche: Age at First : Age at Menopause: Pack Out Operator History Comments: Sexual Activity: Yes; Male Contraception: [...] Making Level: 4 - Moderate Willie Guevara [facility]04-02-2025 History of Present illness Narrative* Willie Guevara MD - 06/26/2024 10:18 AM EDT Nicol Hyman is a 38 year old female who presents for problem visit for . HPI: She presents to discuss her US results and pelvic pain. Patient reports so much pain with intercourse that she is unable to be sexually active. This is very bothersome to her. OB History Gravida3 Para3 Term2 Preterm1 AB0 Living3 SAB0 IAB0 Ectopic0 Multiple0 Live Births3 Pack Out Operator History LMP: 06/10/2024 (Exact Date), Having periods Age at Menarche: Age at First : Age at Menopause: Pack Out Operator History Comments: Sexual Activity: Yes; Male Contraception: [...] Moderate Willie Guevara MD documented in this encounterMarymount Hospital03-27-2025 NoteHNO ID: [id number] Author: LYUDMILA BARBA MD Service: ? Author Type: Physician Type: Progress Notes Filed: 06/20/2024 22:02 Note Text: The patient presents for requested ultrasound. Full report available in the Imaging tab in [email or web address]. Lyudmila Barba [facility]03-27-2025 History of Present illness Narrative* Lyudmila Barba MD - 06/20/2024 9:50 PM EDT The patient presents for requested ultrasound. Full report available in the Imaging tab in Epic. Lyudmila Barba MD documented in this encounterMarymount Hospital03-21-2025 Note* Addendum Note - Olivia Todd MA - 06/14/2024 11:58 AM EDTAddended by: OLIVIA TODD on: 06/14/2024 11:58 AM Modules accepted: Orders [facility]03-21-2025 Miscellaneous Notes* Addendum Note - Olivia Todd MA - 06/14/2024 11:58 AM EDTAddended by: OLIVIA TODD on: 06/14/2024 11:58 AM Modules accepted: Orders documented in this encounterMarymount Hospital03-21-2025 NoteHNO ID: [id number] Author: WILLIE GUEVARA MD Service: ? Author [...] Living3 SAB0 IAB0 Ectopic0 Multiple0 Live Births3 Pack Out Operator History LMP: 12/26/2023 (Exact Date), Having periods Age at Menarche: Age at First : Age at Menopause: Pack Out Operator History Comments: Sexual Activity: Yes; Male Contraception: [...] discussed with the Patient or Patient's Authorized Mail Examiner. As applicable, any other physician, advance practice provider, medical student, or other health professional student that will be observing or involved in the sensitive examination for educational or training purposes was discussed with the Patient or Authorized Mail Examiner. The Patient or Authorized Mail Examiner has agreed to proceed with the sensitive examination. (Sensitive examination includes inspection and/or palpation of the breasts, pelvis, prostate and anorectal regions). EXAM: LMP 12/26/2023 GENERAL: pleasant, female in no apparent distress PELVIC: external genitalia normal, normal Bartholin's glands, urethra, Verdigris's glands, no vulvar lesions, no cervical lesions, [...] Making Level: 4 - Moderate Willie Guevara [facility]03-21-2025 History of Present illness Narrative* Willie Guevara MD - 06/14/2024 11:26 AM EDT Nicol Hyman is a 38 year old [...] Living3 SAB0 IAB0 Ectopic0 Multiple0 Live Births3 Pack Out Operator History LMP: 12/26/2023 (Exact Date), Having periods Age at Menarche: Age at First : Age at Menopause: Pack Out Operator History Comments: Sexual Activity: Yes; Male Contraception: [...] discussed with the Patient or Patient's Authorized Mail Examiner. As applicable, any other physician, advance practice provider, medical student, or other health professional student that will be observing or involved in the sensitive examination for educational or training purposes was discussed with the Patient or Authorized Mail Examiner. The Patient or Authorized Mail Examiner has agreed to proceed with the sensitive examination. (Sensitive examination includes inspection and/or palpation of the breasts, pelvis, prostate and anorectal regions). EXAM: LMP 12/26/2023 GENERAL: pleasant, female in no apparent distress PELVIC: external genitalia normal, normal Bartholin's glands, urethra, Verdigris's glands, no vulvar lesions, no cervical lesions, [...] Moderate Willie Guevara MD documented in this encounterMarymount Hospital02-21-2025 NoteHNO ID: [id number] Author: AKSHAT RONDON MA Service: ? Author Type: Pressure Washer Type: Progress Notes Filed: 05/17/2024 16:03 Note [...] in office at time of injection. Akshat oRndon [facility]02-21-2025 History of Present illness Narrative* Akshat Rondon MA - 05/17/2024 3:56 PM EST Patient identified by name and date of [...] injection. Akshat Rondon MA documented in this encounterMarymount Hospital02-21-2025 Instructions* Patient Instructions* Akshat Rondon MA - 05/17/2024 3:56 PM EST Gardasil Gardasil is a vaccine to protect against Human Papillomavirus (HPV) types 6, 11, 16, 18, 31,33,45, 52, 58. These viruses cause cancer and precancerous lesions on the cervix (opening between vagina and uterus), in the vagina and on the vulva (skin around the outside of the vagina) as well as genitalwarts. The vaccine cannot cause these diseases and [...] at 0 and 8 months. In ages 15- 45, three injections are given at 0,2,6 months. Common side effects include pain, redness, itching and swelling at the injection site, nausea, fever, dizziness and fainting. Rare but potentially serious reactions have been reported. These include allergic reaction, swollen glands, joint and muscle pain, weakness and Guillain-Smithdale syndrome. documented in this encounterMarymount Hospital10-21-2024 NoteHNO ID: [id number] Author: MARIE STEWARD RN Service: ? Author [...] office at time of injection. Marie Steward [facility]NEast [facility] History of Present illness Narrative* Marie Steward RN - 01/15/2024 10:09 AM EDT Patient identified by name and date of . Nicol Hendricksonpedronarendra is here for her HPV 9 vaccination, injection # two of the series. Patient ?No Gardasil injection was given without incident. See immunizations for details of immunizations administered today. VIS sheet provided: Yes Patient advised to follow up in 4 months from the 2nd injection Provider CARLOS was present in office at time of injection. Marie Steward RN documented in this encounterMarymount Hospital10-21-2024 Instructions* Patient Instructions* Marie Steward RN - 01/15/2024 10:09 AM EDT Gardasil Gardasil is a vaccine to protect against Human Papillomavirus (HPV) types 6, 11, 16, 18, 31,33,45, 52, 58. These viruses cause cancer and precancerous lesions on the cervix (opening between vagina and uterus), in the vagina and on the vulva (skin around the outside of the vagina) as well as genitalwarts. The vaccine cannot cause these diseases and [...] at 0 and 8 months. In ages 15- 45, three injections are given at 0,2,6 months. Common side effects include pain, redness, itching and swelling at the injection site, nausea, fever, dizziness and fainting. Rare but potentially serious reactions have been reported. These include allergic reaction, swollen glands, joint and muscle pain, weakness and Guillain-Smithdale syndrome. documented in this encounterMarymount Hospital08-16-2024 NoteHNO ID: [id number] Author: WINSTON BORJA MA Service: ? Author Type: Java Web Architect Type: Progress Notes Filed: 11/10/2023 16:20 Note [...] office at time of injection. Winston Borja [facility]08-16-2024 History of Present illness Narrative* Winston Borja MA - 11/10/2023 3:53 PM EDT Patient identified by name and date of . Nicol Hendricksonpedronarendra is here for her HPV 9 vaccination, injection # one of the series. Patient ?No Gardasil injection was given without incident. See immunizations for details of immunizations administered today. VIS sheet provided: Yes Patient advised to follow up in 2 months from the 1st injection Provider Cleve was present in office at time of injection. Winston Borja MA * Willie Guevara MD - 11/10/2023 3:40 PM EDT Cement Finisher offered: Patient declines. Nicol is a 38 year old who presents for an annual gynecologic exam without complaints. Menses: cycles every 28-30 days and 4 days of flow. Contraception: vasectomy HPV vaccine: No Last Pap: 12/23/2022 normal HPV: 12/19/2022 positive History of abnormal pap: HRHPV positive 2022 Last mammogram: never OB History T2 L3 SAB0 IAB0 Ectopic0 Multiple0 Live Births3 Pack Out Operator History LMP: 11/04/2023 (Exact Date), Having periods Age at Menarche: Age at First : Age at Menopause: Pack Out Operator History Comments: Sexual Activity: Yes; Male Contraception: [...] external genitalia normal, normal Bartholin's glands, urethra, Verdigris's glands, no vulvar lesions, no cervical lesions, [...] needed Willie Guevara MD documented in this encounterMarymount Hospital08-16-2024 Instructions* Patient Instructions* Willie Guevara MD - 11/10/2023 3:53 PM EDT Gardasil Gardasil is a vaccine to protect against Human Papillomavirus (HPV) types 6, 11, 16, 18, 31,33,45, 52, 58. These viruses cause cancer and precancerous lesions on the cervix (opening between vagina and uterus), in the vagina and on the vulva (skin around the outside of the vagina) as well as genitalwarts. The vaccine cannot cause these diseases and [...] at 0 and 8 months. In ages 15- 45, three injections are given at 0,2,6 months. Common side effects include pain, redness, itching and swelling at the injection site, nausea, fever, dizziness and fainting. Rare but potentially serious reactions have been reported. These include allergic reaction, swollen glands, joint and muscle pain, weakness and Guillain-Smithdale syndrome. Calcium and Vitamin D Supplementation (from [...] history of osteoporosis, are thin, or , orwho take certain medications such as cancer chemotherapy, [...] calcium and are the major food contributors inthe [place]. For example, 8oz of milk (whole, lowfat or skim) contains about 300mg calcium, 8oz of yogurt contains 415mg. Nondairy sources include salmon and sardines and vegetables, such as Yoruba cabbage, kale, and broccoli. Foods fortified with calcium include many fruit juices, tofu and cereals. For more food calcium content information, visit http://ods.od.nih.gov/factsheets/calcium. Calcium supplements come in several different forms. [...] acid, calcium carbonate is found in some [id number] antacid products, such as Tums and Rolaids . Depending on its strength, each chewable pill or softchew provides 200 to 400 mg of elemental calcium. The percentage of calcium absorbed depends on the total amount of elemental calcium consumed at onetime. Absorption is highest in doses <500mg. So [...] and maintains adequate blood levels of calcium andphosphate for normal bone growth and bone remodeling. [...] content, and sunscreen are among the factors thataffect UV radiation exposure and vitamin D synthesis. Despite the importance of the sun for vitaminD synthesis, it is prudent to limit exposure [...] available in two forms, D2 (ergocalciferol) and D3(cholecalciferol). The two are equivalent at normal supplement [...] prescribed by your doctor. documented in this encounterMarymount Hospital08-16-2024 NoteHNO ID: [id number] Author: WILLIE GUEVARA MD Service: ? Author Type: Physician Type: Progress Notes Filed: 11/10/2023 16:20 Note Text: Cement Finisher offered: Patient declinesNeena Bailey is a 38 year old who presents for an annual gynecologic exam without complaints. Menses: cycles every 28-30 days and 4 days of flow. Contraception: vasectomy HPV vaccine: No Last Pap: 12/23/2022 normal HPV: 12/19/2022 positive History of abnormal pap: HRHPV positive 2022 Last mammogram: never OB History T2 L3 SAB0 IAB0 Ectopic0 Multiple0 Live Births3 Pack Out Operator History LMP: 11/04/2023 (Exact Date), Having periods Age at Menarche: Age at First : Age at Menopause: Pack Out Operator History Comments: Sexual Activity: Yes; Male Contraception: [...] external genitalia normal, normal Bartholin's glands, urethra, Verdigris's glands, no vulvar lesions, no cervical lesions, [...] year or sooner as needed Willie Guevara [facility]09-22-2023 History of Present illness Narrative* Willie Guevara MD - 12/16/2022 3:03 PM EDT Cement Finisher offered: Patient declinesNeena Bailey is a 37 year old who presents for an annual gynecologic exam without complaints. Menses: cycles every 28-30 days and 4 days of flow. Contraception: vasectomy HPV vaccine: No Last Pap: 11/24/2017 normal History of abnormal pap: No Last mammogram: never OB History T2 L3 SAB0 IAB0 Ectopic0 Multiple0 Live Births3 Pack Out Operator History LMP: 12/04/2022 (Exact Date), Unknown Age at Menarche: Age at First : Age at Menopause: Pack Out Operator History Comments: Sexual Activity: Yes; Male Contraception: [...] external genitalia normal, normal Bartholin's glands, urethra, Verdigris's glands, no vulvar lesions, no cervical lesions, [...] needed Willie Guevara MD documented in this encounterMarymount Hospital05-08-2022 History of Present illness Narrative* Den Burrows APRN.MOTORSPORTS TECHNICIAN - 08/01/2021 8:57 AM EDT Subjective HPI Nontoxic-appearing female presents urgent care [...] right TM. Nose: Congestion present. Mouth/Throat: Lips: [place]. Mouth: Mucous membranes are moist. Pharynx: Oropharynx [...] is stable for discharge. Plan of care wasdiscussed with patient. Patient verbalizes understanding and agrees to plan of care. This note was generated using Cloud[employer] software. It may contain errors in wording, punctuation, or spelling. Den Burrows APRN.WANDY documented in this encounterMarymount Hospital03-01-2017 History of Past illness Narrative* Problem Noted Date Resolved Date Abnormal glucose [...] of this encounter (statuses as of 08/01/2021) [facility] History of Past illness Narrative* Problem [...] of this encounter (statuses as of 12/17/2022) [facility] Diagnosis Eustachian tube dysfunction, right- Primary documented [facility] encounter [facility]* Diagnosis Encounter for gynecological examination without abnormal finding- Primary Routine gynecological examination Encounter for screening for malignant neoplasm of cervix Screening for malignant neoplasm of the cervix Special screening examination for human papillomavirus (HPV) documented [facility] this encounter [facility]* Diagnosis Encounter for gynecological examination (general) (routine) without abnormal findings- Primary Screening for cervical cancer Screening for malignant neoplasm of the cervix Encounter for screening for human papillomavirus (HPV) Special screening examination for human papillomavirus (HPV) Need for prophylactic vaccination/inoculation against viral disease Need for prophylactic vaccination and inoculation against other viral diseases documented [facility] encounter [facility] Diagnosis Need for prophylactic vaccination/inoculation against viral disease- Primary Need for prophylactic vaccination and inoculation against other viral diseases [facility] Diagnosis Need for prophylactic vaccination/inoculation against viral disease- Primary Need for prophylactic vaccination and inoculation against other viral diseases [facility]* Diagnosis Vaginal discharge- Primary Leukorrhea, not specified as infective Pelvic pain in female Unspecified symptom associated with female genital organs Family history of ovarian cancer Family history of malignant neoplasm of ovary Screen for STD (sexually transmitted disease) Screening examination for venereal disease [facility] Diagnosis Pelvic pain in female- Primary Unspecified symptom associated with female genital organs Intramural uterine fibroid Adenomyosis of the uterus [facility] Diagnosis Adenomyosis of the uterus- Primary Dyspareunia, female Dyspareunia documented in this encounter [facility] note* Diagnosis Adenomyosis of the uterus- [...] BIOPSY SURGICAL PATHOLOGY documented in this encounter [facility] note* Diagnosis Adenomyosis of the uterus- Primary Deep dyspareunia Intramural uterine fibroid Menorrhagia with regular cycle Excessive or frequent menstruation Menorrhagia with regular cycle- Primary Excessive or frequent menstruation Intramural uterine fibroid Adenomyosis of the uterus Vaginal discharge Leukorrhea, not specified as infective Postoperative pain Other acute postoperative pain Intramural uterine fibroid- Primary Menorrhagia with regular cycle Excessive or frequent menstruation Adenomyosis of the uterus Deep dyspareunia documented in this encounter [facility] note* Diagnosis Adenomyosis of the uterus- Primary Deep dyspareunia Intramural uterine fibroid Menorrhagia with regular cycle Excessive or frequent menstruation Menorrhagia with regular cycle- Primary Excessive or frequent menstruation Intramural uterine fibroid Adenomyosis of the uterus Vaginal discharge Leukorrhea, not specified as infective Postoperative pain Other acute postoperative pain Post-operative state- Primary Other postprocedural status [facility] Diagnosis Adenomyosis of the uterus- Primary Deep dyspareunia Intramural uterine fibroid Menorrhagia with regular cycle Excessive or frequent menstruation Menorrhagia with regular cycle- Primary Excessive or frequent menstruation Intramural uterine fibroid Adenomyosis of the uterus Vaginal discharge Leukorrhea, not specified as infective Postoperative pain Other acute postoperative pain Cellulitis of skin- Primary Cellulitis and abscess of unspecified site [facility]* Diagnosis Post-operative state- Primary Other postprocedural status documented in this encounter [facility] HospitalReason for referral (narrative)No reason for referral information availableWSelect Medical [facility] Work Phone: Reason for visit Narrative* Diagnostic Procedure Only (Routine) - Closed Specialty Diagnoses / Procedures Referred By Contac t Referred To Contact [facility] Diagnoses Pelvic pain in female Procedures PELVIC US WHI US PELVIC NONOBSTETRIC REAL-TIME IMAGE COMPLETE Willie Guevara MD [address] [place] [address] Phone: tel: fax: [facility] [address] [place] [address] Referral ID Status Reason Start Date Expiration Date V isits Requested Visits Authorized [id number] Closed Auto-Generate d Referral 06/14/2024 06/14/2025 1 1 [facility] Summary Purpose Family History No Family History Records Found Relationship Condition Age at Onset Recorded Date/T wai father Diabetes mellitus Unknown Cerebrovascular accident (CVA) Unknown mother Complication of anesthesia Unknown Asthma Unknown Malignant neoplasm of cervix Unknown Anxiety Unknown Chiari malformation Unknown sister Attempted suicide Unknown brother Attempted suicide Unknown son Asthma Unknown grandfather Asthma Unknown grandfather Diabetes mellitus Unknown Advance Directives No Advanced Directives Records FoundDocuments on File Type Date Recorded Patient Mail Examiner Expl anation Advance Directive(s) 01/12/2018 8:39 AM Advance Directive(s) 01/10/2018 7:43 PM Advance Directive(s) 01/05/2018 6:50 AM Documents on File Type Date Recorded Patient Mail Examiner Expl anation Advance Directive(s) 01/12/2018 8:39 AM Documents on File Type Date Recorded Patient Mail Examiner Expl anation Advance Directive(s) 01/12/2018 8:39 AM Advance Directive Response Recorded Date/ Time Do you have a Healthcare Power of Commercial Real Estate Agent? No September 05, 2024 11:01am Procedure Findings Note HNO ID: [id number]: Sa raymundo Tristanice: NeurosurgeryAuthor Type: PhysicianType: Brief Op NoteFiled: 01/05/2018 6:16 PMNote Text:BRIEF OPERATIVE / PROCEDURE NOTELOG ID: [id number]/PROCEDURE DATE: 01/05/2018INCISION/PROCEDURE START TIME: 4:16 PMINCISION CLOSE/PROCEDURE END TIME: 6:15 PMSURGEON(S)/PROCEDURALIST(S) AND STEAM BOX HAND(S):Surgeon(s) and Role: * Leena Brown Yarn Mercerizer Operator: Pasha DickersonURGERY/PROCEDURE(S): Posterior fossa craniectomy for Chiari anomaly, [id number], Duraplasty with Durepair graft, Intradural arachnoiddissection and tonsillar cautery with microscopeANESTHESIA: GeneralFINDINGS: Severe arachnoid scarring, 4th ventricular outflow obstructionwith membraneESTIMATED BLOOD LOSS: 20 mlsSPECIMENS: NoneCOMPLICATIONS: NonePRE-OP/PRE-PROCEDURE DIAGNOSIS: Chiari malformation type I (HCC) [G93.5]/ SyrinxPOST-OP/POST-PROCEDURE DIAGNOSIS: Chiari malformation type I (HCC) [G93.5]/ SyrinxSIGNATURE: Leena Zhao MD PATIENT (more content not included)... Note HNO ID: [id number]: Sa raymundo Tristanice: NeurosurgeryAuthor Type: PhysicianType: Brief Op NoteFiled: 01/12/2018 2:18 PMNote Text:BRIEF OPERATIVE / PROCEDURE NOTELOG ID: [id number]/PROCEDURE DATE: 01/12/2018INCISION/PROCEDURE START TIME: 1:38 PMINCISION CLOSE/PROCEDURE END TIME: 2:18 PMSURGEON(S)/PROCEDURALIST(S) AND STEAM BOX HAND(S):Surgeon(s) and Role: * Leena Brown Yarn Mercerizer Operator: Pasha Bassett) TuanURGERY/PROCEDURE(S): Drainage and repair of occipital pseudomeningoceleANESTHESIA: GeneralFINDINGS: CSF leaking at suture line of graftESTIMATED BLOOD LOSS: 10 mlsSPECIMENS: NoneCOMPLICATIONS: NonePRE-OP/PRE-PROCEDURE DIAGNOSIS: Occipital pseudomeningocelePOST-OP/POST-PROCEDURE DIAGNOSIS: Occipital pseudomeningoceleSIGNATURE: Leena Zhao MD PATIENT NAME: Nicol WatsonuberDATE: January 12, 2018 : 2:16 PM PAGER/CONTACT #: [id number] Chief Complaint and Reason for Visit Chief Complaint Admit Date Hysterectomy,LAVH, bilateral salpingecto my, possib September 20, 2024 6:39am Reason for Visit Admit Date Adenomyosis September 20, 2024 6:39 am Deep dyspareunia September 20, 2024 6:39 am Intramural uterine fibroid September 20 6:39am Menorrhagia with regular cycle August 6:39am Chief Complaint Admit Date Hysterectomy,LAVH, bilateral salpingecto my, possib September 20, 2024 6:39am SCIENTIFIC SOFTWARE ENGINEER EST CARE-PPW SENT October 03, 2024 1:0 5pm Reason for Visit Admit Date Adenomyosis September 20, 2024 6:39 am Deep dyspareunia September 20, 2024 6:39 am Intramural uterine fibroid September 20 6:39am Menorrhagia with regular cycle August 6:39am Encounter to establish care October 03 1:05pm Morbid obesity October 03, 2024 1:05 pm Preventative health care October 03, 2024 1:05pm Additional Source Comments INFORMATION SOURCE (unrecogn ized section and content) DATE CREATED AUTHOR 11/24/2017 [facility] DATE CREATED AUTHOR AUTHOR'S ORGANIZ ATION 11/30/2017 [facility] DATE CREATED AUTHOR AUTHOR'S ORGANIZ ATION 01/25/2018 [facility] DATE CREATED AUTHOR AUTHOR'S ORGANIZ ATION 02/16/2018 [facility] DATE CREATED AUTHOR AUTHOR'S ORGANIZ ATION 03/05/2018 [facility] DATE CREATED AUTHOR AUTHOR'S ORGANIZ ATION 03/05/2018 [facility] DATE CREATED AUTHOR AUTHOR'S ORGANIZ ATION 11/17/2023 [facility] DATE CREATED AUTHOR AUTHOR'S ORGANIZ ATION 10/20/2024 [facility] DATE CREATED AUTHOR AUTHOR'S ORGANIZ ATION 11/06/2024 [facility] Source Comments (unrecognize d section and content) In the event this informatio n is protected by the Federal Confidentiality of Alcohol and Drug Abuse Patient Records regulations: The Federal rules restrict any use of the information to criminally investigate or prosecute any alcohol or drug abuse patient.[facility] HospitalIn the event this information is protected by the Federal Confidentiality of Alcohol and Drug Abuse Patient Records regulations: The Federal rules restrict any use of the information to criminally investigate or prosecute any alcohol or drug abuse patient.[facility] HospitalIn the event this information is protected by the Federal Confidentiality of Alcohol and Drug Abuse Patient Records regulations: The Federal rules restrict any use of the information to criminally investigate or prosecute any alcohol or drug abuse patient.[facility] HospitalIn the event this information is protected by the Federal Confidentiality of Alcohol and Drug Abuse Patient Records regulations: The Federal rules restrict any use of the information to criminally investigate or prosecute any alcohol or drug abuse patient.[facility] HospitalIn the event this information is protected by the Federal Confidentiality of Alcohol and Drug Abuse Patient Records regulations: The Federal rules restrict any use of the information to criminally investigate or prosecute any alcohol or drug abuse patient.[facility] HospitalIn the event this information is protected by the Federal Confidentiality of Alcohol and Drug Abuse Patient Records regulations: The Federal rules restrict any use of the information to criminally investigate or prosecute any alcohol or drug abuse patient.[facility] HospitalIn the event this information is protected by the Federal Confidentiality of Alcohol and Drug Abuse Patient Records regulations: The Federal rules restrict any use of the information to criminally investigate or prosecute any alcohol or drug abuse patient.[facility] HospitalIn the event this information is protected by the Federal Confidentiality of Alcohol and Drug Abuse Patient Records regulations: The Federal rules restrict any use of the information to criminally investigate or prosecute any alcohol or drug abuse patient.[facility] HospitalIn the event this information is protected by the Federal Confidentiality of Alcohol and Drug Abuse Patient Records regulations: The Federal rules restrict any use of the information to criminally investigate or prosecute any alcohol or drug abuse patient.[facility] HospitalIn the event this information is protected by the Federal Confidentiality of Alcohol and Drug Abuse Patient Records regulations: The Federal rules restrict any use of the information to criminally investigate or prosecute any alcohol or drug abuse patient.[facility] HospitalIn the event this information is protected by the Federal Confidentiality of Alcohol and Drug Abuse Patient Records regulations: The Federal rules restrict any use of the information to criminally investigate or prosecute any alcohol or drug abuse patient.[facility] HospitalIn the event this information is protected by the Federal Confidentiality of Alcohol and Drug Abuse Patient Records regulations: The Federal rules restrict any use of the information to criminally investigate or prosecute any alcohol or drug abuse patient.[facility] HospitalIn the event this information is protected by the Federal Confidentiality of Alcohol and Drug Abuse Patient Records regulations: The Federal rules restrict any use of the information to criminally investigate or prosecute any alcohol or drug abuse patient.[facility] HospitalIn the event this information is protected by the Federal Confidentiality of Alcohol and Drug Abuse Patient Records regulations: The Federal rules restrict any use of the information to criminally investigate or prosecute any alcohol or drug abuse patient.[facility] HospitalIn the event this information is protected by the Federal Confidentiality of Alcohol and Drug Abuse Patient Records regulations: The Federal rules restrict any use of the information to criminally investigate or prosecute any alcohol or drug abuse patient.[facility] Reason for Visit (unrecogniz ed section and content) Reason Comments Ear Pain (RT) ear pain, x1.5 wks pain rated 6 Reason Onset Date Comments Yearly Exam 12/16/2022 Reason Onset Date Comments Yearly Exam Gardasil Injection 11/10/2023 Reason Comments HPV vaccine Reason Onset Date Comments Gardasil Injection 05/17/2024 Reason Comments Vaginal Problem Reason Comments Follow Up From ultrasound Reason Comments Endometrial Biopsy Reason Comments Post-Op Visit Reason Comments Derm Problem ? bite on buttock x last night Care Teams (unrecognized sec tion and content) Screen Printing Stencil Preparer Relationship Specialty Start Date End Date Jaylon Boyd PCP - General Family Practice 05/16/17 Sandy Pedro [address] [place] [address] 10/17/16 Screen Printing Stencil Preparer Relationship Specialty Start Date End Date Jaylon Boyd DO PCP - General Family Medicine 05/16/17 Sandy Pedro [address] [place] [address] 10/17/16 Screen Printing Stencil Preparer Relationship Specialty Start Date End Date Jaylon Boyd DO PCP - General Family Medicine 05/16/17 Sandy Pedro [address] [place] [address] 10/17/16 Screen Printing Stencil Preparer Relationship Specialty Start Date End Date Jaylon Boyd DO PCP - General Family Medicine 05/16/17 Sandy Pedro [address] [place] [address] 10/17/16 Screen Printing Stencil Preparer Relationship Specialty Start Date End Date Jaylon Boyd DO PCP - General Family Medicine 05/16/17 Sandy Pedro [address] [place] [address] 10/17/16 Screen Printing Stencil Preparer Relationship Specialty Start Date End Date Jaylon Boyd DO PCP - General Family Medicine 05/16/17 Sandy Pedro [address] [place] [address] 10/17/16 Screen Printing Stencil Preparer Relationship Specialty Start Date End Date Jaylon Boyd DO PCP - General Family Medicine 05/16/17 Sandy Pedro [address] [place] [address] 10/17/16 Screen Printing Stencil Preparer Relationship Specialty Start Date End Date Jaylon Boyd DO PCP - General Family Medicine 05/16/17 Sandy Pedro [address] [place] [address] 10/17/16 Screen Printing Stencil Preparer Relationship Specialty Start Date End Date Jaylon Boyd DO PCP - General Family Medicine 05/16/17 Sandy Pedro [address] [facility] [address] [place], [place] [id number] 10/17/16 Team Status: Active Member Role/Relationship Status Dates No Primary Care Physician Primary Care Provider Active Team Status: Inactive Member Role/Relationship Status Dates Dr. Jeannette Quarles MD Attending Provider Active Start: September 20, 2024 End: September 20, 2024 Dr. Jeannette Quarles MD Referring Provider Active Start: September 20, 2024 End: September 20, 2024 No Primary Care Physician Primary Care Provider Active Start: September 20, 2024 End: September 20, 2024 Screen Printing Stencil Preparer Relationship Specialty Start Date End Date Jaylon Boyd DO PCP - General Family Medicine 05/16/17 Sandy Pedro [address] [facility] [address] [place], [place] [id number] 10/17/16 Team Status: Inactive Member Role/Relationship Status Dates Dr. Abad Parrish MD Attending Provider Active Start: October 03, 2024 End: October 03, 2024 No Primary Care Physician Primary Care Provider Active Start: October 03, 2024 End: October 03, 2024 No Primary Care Physician Referring Provider Active Start: October 03, 2024 End: October 03, 2024 Team Status: Active Member Role/Relationship Status Dates No Primary Care Physician Primary Care Provider Active Start: October 03, 2024 Dr. Abad Parrish MD Attending Provider Active Start: October 03, 2024 Team Status: Active Member Role/Relationship Status Dates Dr. Abad Parrish MD Primary Care Provider Active Team Status: Inactive Member Role/Relationship Status Dates No Primary Care Physician Primary Care Provider Active Start: October 03, 2024 End: October 03, 2024 Dr. Abad Parrish MD Attending Provider Active Start: October 03, 2024 End: October 03, 2024 Screen Printing Stencil Preparer Relationship Specialty Start Date End Date Jaylon Boyd PCP - General Family Medicine 05/16/17 Sandy Pedro [address] [place], [place] [id number] 10/17/16 Screen Printing Stencil Preparer Relationship Specialty Start Date End Date Jaylon Boyd PCP - General Family Medicine 05/16/17 Sandy Pedro [address] [place], [place] [address] 10/17/16 Screen Printing Stencil Preparer Relationship Specialty Start Date End Date Jaylon BoydDO PCP - General Family Medicine 05/16/17 Sandy Pedro [address] [place] [address] 10/17/16 FOR RECORDS PERTAINING TO PATIENTS WHO [...] BE BASED ON THE PRIMARY CLINICAL RECORDS. [employer] [facility]. provides no warranty or guarantee of the accuracy or completeness of information in this document.
== END 2025-01-10 23:46 | disposition home or self-care (01) ==
LOC: ED 23:42
PROVIDERS: Emergency Provider Emergency Medicine; PCP Internal Medicine; Visit Provider Emergency Medicine
DX: M79.674 Pain in right toe(s) (principal); X58.XXXA Exposure to other specified factors, initial encounter; Y93.01 Activity, walking, marching and hiking; Y92.34 Swimming pool (public) as the place of occurrence of the external cause; Z90.49 Acquired absence of other specified parts of digestive tract
CPT/HCPCS: 73660; 99282